=== PATIENT | male | born 1945 | race Caucasian/White ===

== ENCOUNTER 2016-07-15 09:57 | Emergency (ER) | payer BC, MEDICARE, OTHER ==
[~2016-07-15 09:57] MED LIST: AMLO5TAB2 PO; ASPI1TAB PO; ATEN100T PO; CRES20TA PO; FURO40TA2 PO; GLYB5TA PO; HYDR-4266 PO; LEXA1TAB2 PO; MIRT15TA3 PO; NOVO70IN SC; PLAV75TA38 PO; TENO1TAB4 PO; TRIC1TAB PO; ZETI10TA2 PO
--- NOTE | 2016-07-15 10:39 | REP ---
Clinical: Abdominal pain and constipation. Technique: Single supine view of the abdomen and pelvis. Findings: Bowel gas pattern is nonspecific. No abnormal calcifications. Skeletal structures demonstrate age-related degenerative changes to the lumbosacral spine and bilateral hips/pelvis. Impression: Nonspecific bowel gas pattern. Signed by Donald Randhawa MD 07/15/2016 10:31 A
--- NOTE | 2016-07-15 10:50 | EDDOCDS ---
Nurse's Notes [facility] Name: Tello Harry Age: 70 yrs Sex: Male : 1945 Arrival Date: 07/15/2016 Time: 09:57 Bed PR Private MD: Nicholas Garay P. Diagnosis: Anxiety disorder, unspecified Presentation: 07/15 10:01 Presenting complaint: Patient states: chronic constipation -- was seen at PCP office ttb yesterday and instructed to use Miralax -- no relief after 2 doses. States last BM was last night (diarrhea).... Adult Sepsis Screening: The patient does not have new or worsening altered mentation. Patient's respiratory rate is less than 22. Systolic blood pressure is greater than 100. Patient has a qSOFA score of 0- Negative Sepsis Screen. Suicide/Homicide risk assessment- the patient denies having any suicidal and/or homicidal ideations and does not present with any other emotional, behavioral or mental health complaints. Status: Patient is not a room service associate or dependent. Transition of care: patient was not received from another setting of care. 10:01 Acuity: DIEGO Level 4 ttb 10:01 Method Of Arrival: Walkin/Carried/Asstd ttb Triage Assessment: 10:06 General: Appears in no apparent distress, well nourished, well groomed, Behavior is ttb appropriate for age, cooperative, pleasant. Pain: Denies pain. Neurological: Level of Consciousness is awake, alert. Cardiovascular: Chest pain is denied. Respiratory: No deficits noted. GI: Abdomen is obese, Reports constipation. Derm: Skin is normal. Injury Description: No known injury. Historical: - Allergies: no known allergies; - Home Meds: 1. magnesium citrate oral soln as needed (Last dose: 07/13/2016) 2. Novolog Mix 70-30 100 unit/mL (70-30) subcutaneous soln 25 unit twice a day (Last dose: 07/15/2016 07:30) 3. omeprazole 40 mg Oral cpDR 1 cap once daily (Last dose: 07/15/2016 07:30) 4. atorvastatin 40 mg oral tab (Last dose: 07/14/2016) 5. alprazolam 0.5 mg Oral tab 3 times per day as needed (Last dose: 07/15/2016 08:00) 6. amlodipine 5 mg Oral tab 1 tab once daily (Last dose: 07/15/2016 07:30) 7. aspirin 81 mg Oral TbEC 1 tab once daily (Last dose: 07/15/2016 07:30) 8. carvedilol 12.5 mg oral tab 1 tab 2 times per day (Last dose: 07/15/2016 07:30) 9. clopidogrel 75 mg oral tab 1 tab once daily (Last dose: 07/15/2016 07:30) 10. folic acid 400 mcg Oral tab 1 tab once daily 11. Lexapro 10 mg Oral tab 0.5 tab once daily (Last dose: 07/15/2016 07:30) 12. fenofibrate 48 mg oral once daily (Last dose: 07/15/2016 07:30) 13. furosemide 40 mg Oral tab 1 tab once daily (Last dose: 07/15/2016 07:30) 14. hydralazine 25 mg Oral tab 1 tab 2 times per day (Last dose: 07/15/2016 07:30) 15. Iron CR 55mg Oral Unknown daily 16. mirtazapine 15 mg Oral TbDL 1 tab as needed (Last dose: Unknown) 17. polyethylene glycol 3350 oral once daily (Last dose: 07/15/2016 07:30) - PMHx: Anxiety; Constipation, Chronic; Diabetes - IDDM: controlled; High Cholesterol; Myocardial infarction; - PSHx: CABG; - Social history: Smoking status: Patient states was never smoker of tobacco. No barriers to communication noted, The patient speaks fluent Cymro, Speaks appropriately for age. - Family history: Not pertinent. - : The pt / caregiver states he / she is not on anticoagulants. Home medication list is obtained from the patient, a discharge med list. - Exposure Risk Screening:: None identified. Screenin:48 Screening information is obtained from the patient. Fall risk: No risks identified. mlb1 Assistance ADL's: requires no assistance with activities of daily living. Abuse/DV Screen: The patient / caregiver reports he/she is: not in a situation that causes fear, pain or injury. Nutritional screening: No deficits noted. Advance Directives: Currently, there is no health care proxy. home support is adequate. Assessment: 10:47 General: Appears in no apparent distress, Behavior is appropriate for age, cooperative. mlb1 Pain: Denies pain. GI: Abdomen is non- distended Bowel sounds present X 4 quads. Abd is soft and non tender X 4 quads. Vital Signs: 09:59 BP 155 / 88 RA Sitting (auto/lg); Pulse 59; Resp 18; Temp 96.5(O); Pulse Ox 99% on R/A; jrd Weight 83.91 kg (R); Height 5 ft. 5 in. (165.10 cm) (R); Pain 0/10; 09:59 Body Mass Index 30.79 (83.91 kg, 165.10 cm) [facility] Vitals: 09:59 Log In Time: July 15, 2016 at 09:55. d ED Course: 09:58 Patient visited by Apollo Jung PCA. jrd 09:58 Patient moved to Waiting jrd 09:59 Nicholas Garay is Private Physician. jrd 10:00 Patient visited by Apollo Jung PCA. jrd 10:00 Patient moved to Pre RCE jrd 10:02 Triage Initiated ttb 10:03 Rohith Pabon PA-C is PHCP. cc10 10:03 Ranjith Reynoso MD is Attending Physician. cc10 10:08 Patient moved to Triage 3 ttb 10:09 Patient visited by Rohith Pabon PA-C. cc10 10:09 Patient visited by Rohith Pabon PA-C. cc10 10:15 Patient moved to TR1 mlb1 10:33 Nicholas Garay is Referral Physician. cc10 10:37 Patient moved to PR2 / 26 mlb1 10:40 [facility] Payment Agreement was scanned into [employer] and attached to record. lg 10:48 No IV's were initiated during this patient's visit. No procedures done that require mlb1 assistance. 10:49 Patient visited by Sigifredo Mendez RN. mlb1 10:49 The patient / caregiver is instructed regarding the plan of care and ED course. mlb1 Order Results: There are currently no results for this order. Outcome: 10:33 Discharge ordered by Provider. cc10 10:48 Discharge Assessment: Patient awake, alert and oriented x 3. No cognitive and/or mlb1 functional deficits noted. Patient verbalized understanding of disposition instructions. patient administered narcotics - no. The following High Risk Discharge criteria are identified: None. Discharged to home ambulatory. Condition: good. Discharge instructions given to patient, Instructed on discharge instructions, follow up and referral plans. Demonstrated understanding of instructions, Pt was receptive of discharge instructions/ teaching. No special radiology studies were completed. Property removed. 10:49 Patient left the ED. mlb1 Signatures: Herman Schrader, Jason Reg lg Sigifredo Mendez RN RN mlb1 Carly Morales RN RN ttb Rohith Pabon, PAMarsC PA-C cc10 Apollo Jung PCA WATER SYSTEMS DESIGNER jrd Corrections: (The following items were deleted from the chart) 10:08 10:01 Presenting complaint: Patient states: chronic constipation -- was seen at PCP ttb office yesterday and instructed to use Miralax -- no relief after 2 doses. ttb MTDD
--- NOTE | 2016-07-15 10:50 | EDDOCDS ---
Physician Documentation [facility] Name: Tello Harry Age: 70 yrs Sex: Male : 1945 Arrival Date: 07/15/2016 Time: 09:57 Bed PR Private MD: Nicholas Garay P. Disposition: 07/15/16 10:33 Discharged to Home/Self Care. Impression: Anxiety disorder, unspecified. - Condition is Stable. - Discharge Instructions: Constipation, Adult. - Medication Reconciliation form. - Follow up: Nicholas Garay; When: Call to arrange an appointment; Reason: Wound/Symptom Recheck, Recheck today's complaints, Continuance of care. - Problem is chronic. - Symptoms are unchanged. Historical: - Allergies: no known allergies; - Home Meds: 1. magnesium citrate oral soln as needed (Last dose: 07/13/2016) 2. Novolog Mix 70-30 100 unit/mL (70-30) subcutaneous soln 25 unit twice a day (Last dose: 07/15/2016 07:30) 3. omeprazole 40 mg Oral cpDR 1 cap once daily (Last dose: 07/15/2016 07:30) 4. atorvastatin 40 mg oral tab (Last dose: 07/14/2016) 5. alprazolam 0.5 mg Oral tab 3 times per day as needed (Last dose: 07/15/2016 08:00) 6. amlodipine 5 mg Oral tab 1 tab once daily (Last dose: 07/15/2016 07:30) 7. aspirin 81 mg Oral TbEC 1 tab once daily (Last dose: 07/15/2016 07:30) 8. carvedilol 12.5 mg oral tab 1 tab 2 times per day (Last dose: 07/15/2016 07:30) 9. clopidogrel 75 mg oral tab 1 tab once daily (Last dose: 07/15/2016 07:30) 10. folic acid 400 mcg Oral tab 1 tab once daily 11. Lexapro 10 mg Oral tab 0.5 tab once daily (Last dose: 07/15/2016 07:30) 12. fenofibrate 48 mg oral once daily (Last dose: 07/15/2016 07:30) 13. furosemide 40 mg Oral tab 1 tab once daily (Last dose: 07/15/2016 07:30) 14. hydralazine 25 mg Oral tab 1 tab 2 times per day (Last dose: 07/15/2016 07:30) 15. Iron CR 55mg Oral Unknown daily 16. mirtazapine 15 mg Oral TbDL 1 tab as needed (Last dose: Unknown) 17. polyethylene glycol 3350 oral once daily (Last dose: 07/15/2016 07:30) - PMHx: Anxiety; Constipation, Chronic; Diabetes - IDDM: controlled; High Cholesterol; Myocardial infarction; - PSHx: CABG; - Social history: Smoking status: Patient states was never smoker of tobacco. No barriers to communication noted, The patient speaks fluent Lao, Speaks appropriately for age. - Family history: Not pertinent. - : The pt / caregiver states he / she is not on anticoagulants. Home medication list is obtained from the patient, a discharge med list. - Exposure Risk Screening:: None identified. Vital Signs: 07/15 09:59 BP 155 / 88 RA Sitting (auto/lg); Pulse 59; Resp 18; Temp 96.5(O); Pulse Ox 99% on R/A; jrd Weight 83.91 kg / 184.99 lbs (R); Height 5 ft. 5 in. (165.10 cm) (R); Pain 0/10; 09:59 Body Mass Index 30.79 (83.91 kg, 165.10 cm) jrd MDM: 10:14 KUB Ordered. EDMS 10:21 Financial registration complete. lg 10:40 [facility] Payment Agreement was scanned into [employer] and attached to record. lg Signatures: Dispatcher [employer] EDFL Herman Schrader, Jason Reg lg Sigifredo Mendez RN RN mlb1 Carly Morales RN RN ttb Rohith Pabon, TANNAC PA-C cc10 The chart was reviewed and I authenticate all verbal orders and agree with the evaluation and treatment provided.Attachments: 10:40 [facility] Payment Agreement lg MTDD
--- NOTE | 2016-07-17 11:50 | EDDOCDS ---
Physician Documentation [facility] Name: Tello Harry Age: 70 yrs Sex: Male : 1945 Arrival Date: 07/15/2016 Time: 09:57 Bed PR Private MD: Nicholas Garay P. Disposition: 07/15/16 10:33 Discharged to Home/Self Care. Impression: Anxiety disorder, unspecified. - Condition is Stable. - Discharge Instructions: Constipation, Adult. - Medication Reconciliation form. - Follow up: Nicholas Garay; When: Call to arrange an appointment; Reason: Wound/Symptom Recheck, Recheck today's complaints, Continuance of care. - Problem is chronic. - Symptoms are unchanged. Historical: - Allergies: no known allergies; - Home Meds: 1. magnesium citrate oral soln as needed (Last dose: 07/13/2016) 2. Novolog Mix 70-30 100 unit/mL (70-30) subcutaneous soln 25 unit twice a day (Last dose: 07/15/2016 07:30) 3. omeprazole 40 mg Oral cpDR 1 cap once daily (Last dose: 07/15/2016 07:30) 4. atorvastatin 40 mg oral tab (Last dose: 07/14/2016) 5. alprazolam 0.5 mg Oral tab 3 times per day as needed (Last dose: 07/15/2016 08:00) 6. amlodipine 5 mg Oral tab 1 tab once daily (Last dose: 07/15/2016 07:30) 7. aspirin 81 mg Oral TbEC 1 tab once daily (Last dose: 07/15/2016 07:30) 8. carvedilol 12.5 mg oral tab 1 tab 2 times per day (Last dose: 07/15/2016 07:30) 9. clopidogrel 75 mg oral tab 1 tab once daily (Last dose: 07/15/2016 07:30) 10. folic acid 400 mcg Oral tab 1 tab once daily 11. Lexapro 10 mg Oral tab 0.5 tab once daily (Last dose: 07/15/2016 07:30) 12. fenofibrate 48 mg oral once daily (Last dose: 07/15/2016 07:30) 13. furosemide 40 mg Oral tab 1 tab once daily (Last dose: 07/15/2016 07:30) 14. hydralazine 25 mg Oral tab 1 tab 2 times per day (Last dose: 07/15/2016 07:30) 15. Iron CR 55mg Oral Unknown daily 16. mirtazapine 15 mg Oral TbDL 1 tab as needed (Last dose: Unknown) 17. polyethylene glycol 3350 oral once daily (Last dose: 07/15/2016 07:30) - PMHx: Anxiety; Constipation, Chronic; Diabetes - IDDM: controlled; High Cholesterol; Myocardial infarction; - PSHx: CABG; - Social history: Smoking status: Patient states was never smoker of tobacco. No barriers to communication noted, The patient speaks fluent Upper Sorbian, Speaks appropriately for age. - Family history: Not pertinent. - : The pt / caregiver states he / she is not on anticoagulants. Home medication list is obtained from the patient, a discharge med list. - Exposure Risk Screening:: None identified. Vital Signs: 07/15 09:59 BP 155 / 88 RA Sitting (auto/lg); Pulse 59; Resp 18; Temp 96.5(O); Pulse Ox 99% on R/A; jrd Weight 83.91 kg / 184.99 lbs (R); Height 5 ft. 5 in. (165.10 cm) (R); Pain 0/10; 09:59 Body Mass Index 30.79 (83.91 kg, 165.10 cm) jrd MDM: 10:14 KUB Ordered. EDMS 10:21 Financial registration complete. lg 10:40 [facility] Payment Agreement was scanned into [employer] and attached to record. lg 12:54 T-Sheet-- Draft Copy was scanned into [employer] and attached to record. klr Signatures: Dispatcher [employer] EDMO Herman Schrader, Reg Reg lg Sigifredo Mendez RN RN mlb1 Carly Morales RN RN ttb Rohith Pabon PA-C PAOliverio cc10 Ada Cassidy The chart was reviewed and I authenticate all verbal orders and agree with the evaluation and treatment provided.Attachments: 10:40 [facility] Payment Agreement lg 12:54 T-Sheet-- Draft Copy klr Chart Complete MTDD
--- NOTE | 2016-07-17 11:50 | EDDOCDS ---
Nurse's Notes [facility] Name: Tello Harry Age: 70 yrs Sex: Male : 1945 Arrival Date: 07/15/2016 Time: 09:57 Bed PR Private MD: Nicholas Garay P. Diagnosis: Anxiety disorder, unspecified Presentation: 07/15 10:01 Presenting complaint: Patient states: chronic constipation -- was seen at PCP office ttb yesterday and instructed to use Miralax -- no relief after 2 doses. States last BM was last night (diarrhea).... Adult Sepsis Screening: The patient does not have new or worsening altered mentation. Patient's respiratory rate is less than 22. Systolic blood pressure is greater than 100. Patient has a qSOFA score of 0- Negative Sepsis Screen. Suicide/Homicide risk assessment- the patient denies having any suicidal and/or homicidal ideations and does not present with any other emotional, behavioral or mental health complaints. Status: Patient is not a it service continuity supervisor or dependent. Transition of care: patient was not received from another setting of care. 10:01 Acuity: DIEGO Level 4 ttb 10:01 Method Of Arrival: Walkin/Carried/Asstd ttb Triage Assessment: 10:06 General: Appears in no apparent distress, well nourished, well groomed, Behavior is ttb appropriate for age, cooperative, pleasant. Pain: Denies pain. Neurological: Level of Consciousness is awake, alert. Cardiovascular: Chest pain is denied. Respiratory: No deficits noted. GI: Abdomen is obese, Reports constipation. Derm: Skin is normal. Injury Description: No known injury. Historical: - Allergies: no known allergies; - Home Meds: 1. magnesium citrate oral soln as needed (Last dose: 07/13/2016) 2. Novolog Mix 70-30 100 unit/mL (70-30) subcutaneous soln 25 unit twice a day (Last dose: 07/15/2016 07:30) 3. omeprazole 40 mg Oral cpDR 1 cap once daily (Last dose: 07/15/2016 07:30) 4. atorvastatin 40 mg oral tab (Last dose: 07/14/2016) 5. alprazolam 0.5 mg Oral tab 3 times per day as needed (Last dose: 07/15/2016 08:00) 6. amlodipine 5 mg Oral tab 1 tab once daily (Last dose: 07/15/2016 07:30) 7. aspirin 81 mg Oral TbEC 1 tab once daily (Last dose: 07/15/2016 07:30) 8. carvedilol 12.5 mg oral tab 1 tab 2 times per day (Last dose: 07/15/2016 07:30) 9. clopidogrel 75 mg oral tab 1 tab once daily (Last dose: 07/15/2016 07:30) 10. folic acid 400 mcg Oral tab 1 tab once daily 11. Lexapro 10 mg Oral tab 0.5 tab once daily (Last dose: 07/15/2016 07:30) 12. fenofibrate 48 mg oral once daily (Last dose: 07/15/2016 07:30) 13. furosemide 40 mg Oral tab 1 tab once daily (Last dose: 07/15/2016 07:30) 14. hydralazine 25 mg Oral tab 1 tab 2 times per day (Last dose: 07/15/2016 07:30) 15. Iron CR 55mg Oral Unknown daily 16. mirtazapine 15 mg Oral TbDL 1 tab as needed (Last dose: Unknown) 17. polyethylene glycol 3350 oral once daily (Last dose: 07/15/2016 07:30) - PMHx: Anxiety; Constipation, Chronic; Diabetes - IDDM: controlled; High Cholesterol; Myocardial infarction; - PSHx: CABG; - Social history: Smoking status: Patient states was never smoker of tobacco. No barriers to communication noted, The patient speaks fluent Mosotho, Speaks appropriately for age. - Family history: Not pertinent. - : The pt / caregiver states he / she is not on anticoagulants. Home medication list is obtained from the patient, a discharge med list. - Exposure Risk Screening:: None identified. Screenin:48 Screening information is obtained from the patient. Fall risk: No risks identified. mlb1 Assistance ADL's: requires no assistance with activities of daily living. Abuse/DV Screen: The patient / caregiver reports he/she is: not in a situation that causes fear, pain or injury. Nutritional screening: No deficits noted. Advance Directives: Currently, there is no health care proxy. home support is adequate. Assessment: 10:47 General: Appears in no apparent distress, Behavior is appropriate for age, cooperative. mlb1 Pain: Denies pain. GI: Abdomen is non- distended Bowel sounds present X 4 quads. Abd is soft and non tender X 4 quads. Vital Signs: 09:59 BP 155 / 88 RA Sitting (auto/lg); Pulse 59; Resp 18; Temp 96.5(O); Pulse Ox 99% on R/A; jrd Weight 83.91 kg (R); Height 5 ft. 5 in. (165.10 cm) (R); Pain 0/10; 09:59 Body Mass Index 30.79 (83.91 kg, 165.10 cm) [facility] Vitals: 09:59 Log In Time: July 15, 2016 at 09:55. d ED Course: 09:58 Patient visited by Apollo Jung PCA. jrd 09:58 Patient moved to Waiting jrd 09:59 Nicholas Garay is Private Physician. jrd 10:00 Patient visited by Apollo Jung PCA. jrd 10:00 Patient moved to Pre RCE jrd 10:02 Triage Initiated ttb 10:03 Rohith Pabon PA-C is PHCP. cc10 10:03 Ranjith Reynoso MD is Attending Physician. cc10 10:08 Patient moved to Triage 3 ttb 10:09 Patient visited by Rohith Pabon PA-C. cc10 10:09 Patient visited by Rohith Pabon PA-C. cc10 10:15 Patient moved to TR1 mlb1 10:33 Nicholas Garay is Referral Physician. cc10 10:37 Patient moved to PR2 / 26 mlb1 10:40 [facility] Payment Agreement was scanned into [employer] and attached to record. lg 10:48 No IV's were initiated during this patient's visit. No procedures done that require mlb1 assistance. 10:49 Patient visited by Sigifredo Mendez RN. mlb1 10:49 The patient / caregiver is instructed regarding the plan of care and ED course. mlb1 10:50 KUB Returned. EDMS 12:54 T-Sheet-- Draft Copy was scanned into [employer] and attached to record. klr Order Results: Radiology Order: KUB Test: KUB REASON FOR EXAMINATION: constipation; Clinical: Abdominal pain and constipation.; ; Technique: Single supine view of the abdomen and pelvis.; ; Findings:; Bowel gas pattern is nonspecific. No abnormal calcifications. Skeletal; structures demonstrate age-related degenerative changes to the lumbosacral spine; and bilateral hips/pelvis.; ; Impression:; Nonspecific bowel gas pattern.; ; ; Signed by; Donald Randhawa MD 07/15/2016 10:31 A; Outcome: 10:33 Discharge ordered by Provider. cc10 10:48 Discharge Assessment: Patient awake, alert and oriented x 3. No cognitive and/or mlb1 functional deficits noted. Patient verbalized understanding of disposition instructions. patient administered narcotics - no. The following High Risk Discharge criteria are identified: None. Discharged to home ambulatory. Condition: good. Discharge instructions given to patient, Instructed on discharge instructions, follow up and referral plans. Demonstrated understanding of instructions, Pt was receptive of discharge instructions/ teaching. No special radiology studies were completed. Property removed. 10:49 Patient left the ED. mlb1 Signatures: Dispatcher [employer] EDMS Herman Schrader, Jason Reg Sigifredo Mendez RN RN mlb1 Carly Morales RN RN ttb Rohith Pabon, PA-C PA-C cc10 Apollo Jung, VJ CORE LOADER Ada Meyer Corrections: (The following items were deleted from the chart) 10:08 10:01 Presenting complaint: Patient states: chronic constipation -- was seen at PCP ttb office yesterday and instructed to use Miralax -- no relief after 2 doses. ttb Chart Complete MTDD
--- NOTE | 2016-07-17 11:50 | EDDOCDS ---
Physician Documentation [facility] Name: Tello Harry Age: 70 yrs Sex: Male : 1945 Arrival Date: 07/15/2016 Time: 09:57 Bed PR Private MD: Nicholas Garay P. Disposition: 07/15/16 10:33 Discharged to Home/Self Care. Impression: Anxiety disorder, unspecified. - Condition is Stable. - Discharge Instructions: Constipation, Adult. - Medication Reconciliation form. - Follow up: Nicholas Garay; When: Call to arrange an appointment; Reason: Wound/Symptom Recheck, Recheck today's complaints, Continuance of care. - Problem is chronic. - Symptoms are unchanged. Historical: - Allergies: no known allergies; - Home Meds: 1. magnesium citrate oral soln as needed (Last dose: 07/13/2016) 2. Novolog Mix 70-30 100 unit/mL (70-30) subcutaneous soln 25 unit twice a day (Last dose: 07/15/2016 07:30) 3. omeprazole 40 mg Oral cpDR 1 cap once daily (Last dose: 07/15/2016 07:30) 4. atorvastatin 40 mg oral tab (Last dose: 07/14/2016) 5. alprazolam 0.5 mg Oral tab 3 times per day as needed (Last dose: 07/15/2016 08:00) 6. amlodipine 5 mg Oral tab 1 tab once daily (Last dose: 07/15/2016 07:30) 7. aspirin 81 mg Oral TbEC 1 tab once daily (Last dose: 07/15/2016 07:30) 8. carvedilol 12.5 mg oral tab 1 tab 2 times per day (Last dose: 07/15/2016 07:30) 9. clopidogrel 75 mg oral tab 1 tab once daily (Last dose: 07/15/2016 07:30) 10. folic acid 400 mcg Oral tab 1 tab once daily 11. Lexapro 10 mg Oral tab 0.5 tab once daily (Last dose: 07/15/2016 07:30) 12. fenofibrate 48 mg oral once daily (Last dose: 07/15/2016 07:30) 13. furosemide 40 mg Oral tab 1 tab once daily (Last dose: 07/15/2016 07:30) 14. hydralazine 25 mg Oral tab 1 tab 2 times per day (Last dose: 07/15/2016 07:30) 15. Iron CR 55mg Oral Unknown daily 16. mirtazapine 15 mg Oral TbDL 1 tab as needed (Last dose: Unknown) 17. polyethylene glycol 3350 oral once daily (Last dose: 07/15/2016 07:30) - PMHx: Anxiety; Constipation, Chronic; Diabetes - IDDM: controlled; High Cholesterol; Myocardial infarction; - PSHx: CABG; - Social history: Smoking status: Patient states was never smoker of tobacco. No barriers to communication noted, The patient speaks fluent Spanish, Speaks appropriately for age. - Family history: Not pertinent. - : The pt / caregiver states he / she is not on anticoagulants. Home medication list is obtained from the patient, a discharge med list. - Exposure Risk Screening:: None identified. Vital Signs: 07/15 09:59 BP 155 / 88 RA Sitting (auto/lg); Pulse 59; Resp 18; Temp 96.5(O); Pulse Ox 99% on R/A; jrd Weight 83.91 kg / 184.99 lbs (R); Height 5 ft. 5 in. (165.10 cm) (R); Pain 0/10; 09:59 Body Mass Index 30.79 (83.91 kg, 165.10 cm) jrd MDM: 10:14 KUB Ordered. EDMS 10:21 Financial registration complete. lg 10:40 [facility] Payment Agreement was scanned into [employer] and attached to record. lg 12:54 T-Sheet-- Draft Copy was scanned into [employer] and attached to record. klr Signatures: Dispatcher [employer] EDKY Herman Schrader, Reg Reg lg Sigifredo Mendez RN RN mlb1 Carly Morales RN RN ttb Rohith Pabon PA-C PAOliverio cc10 Ada Cassidy The chart was reviewed and I authenticate all verbal orders and agree with the evaluation and treatment provided.Attachments: 10:40 [facility] Payment Agreement lg 12:54 T-Sheet-- Draft Copy klr Chart Complete MTDD
== END 2016-07-15 10:49 | disposition home or self-care (01) ==
LOC: M ED 09:57
DX: F41.9 Anxiety disorder, unspecified (principal); K59.09 Other constipation; E11.9 Type 2 diabetes mellitus without complications; E78.00 Pure hypercholesterolemia, unspecified; I25.2 Old myocardial infarction; Z95.1 Presence of aortocoronary bypass graft; Z79.4 Long term (current) use of insulin; Z79.82 Long term (current) use of aspirin; Z79.899 Other long term (current) drug therapy; Z79.02 Long term (current) use of antithrombotics/antiplatelets

== ENCOUNTER 2016-07-18 11:23 | Emergency (ER) | payer OTHER ==
[2016-07-18 14:37] LABS: CALCIUM LEVEL 8.6 MG/DL (8.8-10.2); CREATININE FOR GFR 2.55 MG/DL (0.70-1.30); GLOMERULAR FILTRATION RATE 26.5 (>42); POTASSIUM SERUM 3.5 MEQ/L (3.5-5.1)
--- NOTE | 2016-07-18 16:05 | EDDOCDS ---
Nurse's Notes [facility] Name: Tello Harry Age: 70 yrs Sex: Male : 1945 Arrival Date: 07/18/2016 Time: 11:[address] MD: Nicholas Garay P. Diagnosis: Major depressive disorder, recurrent, mild;Chronic kidney disease (CKD) Presentation: 07/18 11:30 Red Flag criteria, patient assessed and taken directly to a bed. [facility] 11:49 Presenting complaint: Patient states: Sister in September of last year and best jo3 friend of 30 years committed suicide 05/30/16. 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 Also reports experiencing fear that he will when he goes to sleep at night. KSY Gillespie states that this is an ongoing complaint for pt. Mental Health Triage Level: Level 1- Pt displays no suicidal or homicidal ideations and does not appear to be a danger to self or others. Adult Sepsis Screening: The patient does not have new or worsening altered mentation. Patient's respiratory rate is less than 22. Systolic blood pressure is greater than 100. Patient has a qSOFA score of 0- Negative Sepsis Screen. Suicide/Homicide risk assessment- the patient denies having any suicidal and/or homicidal ideations and does not present with any other emotional, behavioral or mental health complaints. Status: Patient is not a financial services counselor or dependent. Transition of care: patient was not received from another setting of care. 11:49 Acuity: DIEGO Level 4 jo3 11:49 Method Of Arrival: Walkin/Carried/Asstd jo3 Triage Assessment: 11:54 General: Appears in no apparent distress, comfortable, Behavior is appropriate for age, jo3 cooperative, pleasant. Pain: Denies pain. Neurological: No deficits noted. Level of Consciousness is awake, alert, Oriented to person, place, time. Respiratory: No deficits noted. Airway is patent Respiratory effort is even, unlabored. Derm: Skin is pink, warm & dry. normal. Historical: - Allergies: No known drug Allergies; - Home Meds: 1. alprazolam 0.5 mg Oral tab 3 times per day as needed 2. amlodipine 5 mg Oral tab 1 tab once daily 3. aspirin 81 mg Oral TbEC 1 tab once daily 4. atorvastatin 40 mg oral tab 5. carvedilol 12.5 mg oral tab 1 tab 2 times per day 6. clopidogrel 75 mg oral tab 1 tab once daily 7. furosemide 40 mg Oral tab 1 tab once daily 8. Lexapro 10 mg Oral tab 0.5 tab once daily 9. magnesium citrate oral soln as needed 10. hydralazine 25 mg Oral tab 1 tab 2 times per day 11. Novolog Mix 70-30 100 unit/mL (70-30) subcutaneous soln 25 unit twice a day 12. fenofibrate 48 mg oral once daily 13. folic acid 400 mcg Oral tab 1 tab once daily 14. Iron CR 55mg Oral Unknown daily 15. mirtazapine 15 mg Oral TbDL 1 tab as needed 16. polyethylene glycol 3350 oral once daily 17. omeprazole 40 mg Oral cpDR 1 cap once daily - PMHx: Anxiety; Constipation, Chronic; Diabetes - IDDM: controlled; High Cholesterol; Myocardial infarction; - PSHx: CABG; - Social history: No barriers to communication noted, The patient speaks fluent Guyanese, Speaks appropriately for age. - Family history: Not pertinent. - : The pt / caregiver states he / she is not on anticoagulants. Home medication list is obtained from the patient. - Exposure Risk Screening:: None identified. Screenin:35 Screening information is obtained from the patient. Fall risk: No risks identified. jo3 Assistance ADL's: requires no assistance with activities of daily living. Abuse/DV Screen: The patient / caregiver reports he/she is: not in a situation that causes fear, pain or injury. Nutritional screening: No deficits noted. Advance Directives: There is no active DNR order. home support is adequate. Assessment: 12:34 General: Appears in no apparent distress, comfortable, Behavior is anxious, jo3 cooperative, pleasant. General: Appears Behavior is appropriate for age. General: Resting in room following conversation with Dr Walton. Awaiting disposition at this time. Aware of plan of care . Pain: Denies pain. Neurological: No deficits noted. Level of Consciousness is awake, alert, Oriented to person, place, time. EENT: No deficits noted. Cardiovascular: No deficits noted. Respiratory: No deficits noted. Airway is patent Respiratory effort is even, unlabored. Derm: Skin is pink, warm & dry. 13:30 Reassessment: Patient appears in no apparent distress at this time. Patient denies pain jo3 at this time. Family at bedside. Awaiting disposition at this time. Aware of plan of care . 14:31 Reassessment: Patient appears in no apparent distress at this time. Patient denies pain jo3 at this time. Respirations unlabored, deep and regular. Family remains at bedside. Awaiting lab results. Aware of plan of care. Security observing . 16:01 General: Appears in no apparent distress, comfortable, Behavior is appropriate for age, jo3 cooperative, pleasant. Neurological: No deficits noted. Level of Consciousness is awake, alert, Oriented to person, place, time. Cardiovascular: No deficits noted. Respiratory: Airway is patent Respiratory effort is even, unlabored. Derm: Skin is pink, warm & dry. Social Work Consult: 14:27 Social Work Note: Pt is 70 yowm who presented with reporting he is very anxious, ac sleeping in the daytime and staying up at night because he is afraid he will . Pt also has other somatic complaints mainly focusing on his kidneys and poor renal function. Pt denies SI/HI, no AH/VH. Pt is able to CFS at this time. Pt has appointment with Kianna Cohen at [facility] on [id number]. No further intervention required at this time. Vital Signs: 11:25 BP 159 / 74; Pulse 57; Resp 18; Temp 97.3(O); Pulse Ox 97% on R/A; Weight 83.01 kg (R); ct3 Height 5 ft. 5 in. (165.10 cm) (R); Pain 0/10; 16:01 BP 144 / 70; Pulse 58; Resp 18; Temp 97.8(O); Pulse Ox 96% on R/A; Pain 0/10; jo3 11:25 Body Mass Index 30.45 (83.01 kg, 165.10 cm) ct3 Vitals: 11:25 Log In Time: July 18, 2016 at 11:23. RN notified that patient meets Red Flag ct3 criteria. ED Course: 11:24 Patient visited by Leda Castillo PCA. ct3 11:24 Patient moved to [facility] ct3 11:25 Nicholas Garay is Private Physician. ct3 11:27 Patient moved to [facility] ct3 11:31 Patient visited by Mau Carter. dpm 11:35 Apple Walton MD is Attending Physician. fg 11:40 Patient visited by Apple Walton MD. fg 11:51 Triage Initiated jo3 11:52 Patient visited by Mau Carter. dpm 11:54 Patient visited by Mary Koenig,JOSEE. jo3 12:03 [facility] Payment Agreement was scanned into [employer] and attached to record. [email or web address] 12:10 Patient visited by Mau Carter. dpm 12:25 Patient visited by Mau Carter. dpm 12:35 The patient / caregiver is instructed regarding the plan of care and ED course. jo3 12:35 No IV's were initiated during this patient's visit. No procedures done that require jo3 assistance. 12:36 Patient visited by Mary Koenig RN. jo3 12:41 Patient visited by Mau Carter. dpm 13:01 Patient visited by Mau Carter. dpm 13:16 Patient visited by Mau Carter. dpm 13:34 Patient visited by Mau Carter. dpm 13:51 Patient visited by Mau Carter. dpm 14:08 Patient visited by Mau Carter. dpm 14:12 Basic Metabolic Profile Sent. dpm 14:23 Patient visited by Mau Carter. dpm 14:32 Patient visited by Mray Koenig,JOSEE. jo3 14:38 Patient visited by Mau Carter. dpm 14:57 Patient visited by Mau Carter. dpm 15:13 Patient visited by Mau Carter. dpm 15:30 Nicholas Garay is Referral Physician. fg Order Results: Lab Order: Basic Metabolic Profile; SPEC'M 07/18/16 14:11 Test: GLUCOSE, FASTING; Value: 327; Range: 83-110; Abnormal: Above high normal; Units: MG/DL; Status: F Test: BLOOD UREA NITROGEN; Value: 30; Range: 7-18; Abnormal: Above high normal; Units: MG/DL; Status: F Test: CREATININE FOR GFR; Value: 2.55; Range: 0.70-1.30; Abnormal: Above high normal; Units: MG/DL; Status: F Test: GLOMERULAR FILTRATION RATE; Value: 26.5; Range: >42; Abnormal: Below low normal; Status: F Test: SODIUM LEVEL; Value: 141; Range: 136-145; Units: MEQ/L; Status: F Test: POTASSIUM SERUM; Value: 3.5; Range: 3.5-5.1; Units: MEQ/L; Status: F Test: CHLORIDE LEVEL; Value: 100; Range: 98-107; Units: MEQ/L; Status: F Test: CARBON DIOXIDE LEVEL; Value: 30; Range: 21-32; Units: MEQ/L; Status: F Test: ANION GAP; Value: 11; Range: 8-16; Units: MEQ/L; Status: F Test: CALCIUM LEVEL; Value: 8.6; Range: 8.8-10.2; Abnormal: Below low normal; Units: MG/DL; Status: F Test Note: ; Units are mL/min/1.73 m2 Chronic Kidney Disease Staging per NKF: Stage I & II GFR >=60 Normal to Mildly Decreased Stage III GFR 30-59 Moderately Decreased Stage IV GFR 15-29 Severely Decreased Stage V GFR <15 Very Little GFR Left ESRD GFR <15 on AUTO COLLISION REPAIR INSTRUCTOR Outcome: 15:30 Discharge ordered by Provider. fg 16:03 Discharge Assessment: Patient awake, alert and oriented x 3. No cognitive and/or jo3 functional deficits noted. Patient verbalized understanding of disposition instructions. patient administered narcotics - no. The following High Risk Discharge criteria are identified: None. Discharged to home ambulatory, with family. Condition: stable Condition: improved. Discharge instructions given to patient, Instructed on discharge instructions, follow up and referral plans. No special radiology studies were completed. Property sent home with patient. 16:04 Patient left the ED. jo3 Signatures: Heather Schneider, RN RN srm Garry, Braden, PSA PSA ac Mary Koenig RN RN jo3 Leda Castillo, VJ CABIN CLEANING SUPERVISOR ct3 Mau Carter dpApple Savage MD MD fg Sorenson, Kimberly, Reg Reg [email or web address] Corrections: (The following items were deleted from the chart) 12:36 12:33 THYROID STIMULATING HORMONE+LAB sent. EDMS MTDD
--- NOTE | 2016-07-18 16:05 | EDDOCDS ---
Physician Documentation [facility] Name: Tello Harry Age: 70 yrs Sex: Male : 1945 Arrival Date: 07/18/2016 Time: 11:[address] MD: Nicholas Garay P. Disposition: 07/18/16 15:30 Discharged to Home/Self Care. Impression: Major depressive disorder, recurrent, mild, Chronic kidney disease (CKD). - Condition is Stable. - Discharge Instructions: Depression, Adult, [id number], Chronic Kidney Disease. - Medication Reconciliation, Local Pharmacy Hours form. - Follow up: Nicholas Garay; When: Call to arrange an appointment; Reason: Continuance of care. - Problem is chronic. - Symptoms are unchanged. - Notes: You have been evaluated for your depression and your chronic kidney disease. Your blood work showed no change in your kidney lab work. Please follow up with your rn case manager and your primary care provider. Please call the outpatient services that the social sciences instructor provided you. Historical: - Allergies: No known drug Allergies; - Home Meds: 1. alprazolam 0.5 mg Oral tab 3 times per day as needed 2. amlodipine 5 mg Oral tab 1 tab once daily 3. aspirin 81 mg Oral TbEC 1 tab once daily 4. atorvastatin 40 mg oral tab 5. carvedilol 12.5 mg oral tab 1 tab 2 times per day 6. clopidogrel 75 mg oral tab 1 tab once daily 7. furosemide 40 mg Oral tab 1 tab once daily 8. Lexapro 10 mg Oral tab 0.5 tab once daily 9. magnesium citrate oral soln as needed 10. hydralazine 25 mg Oral tab 1 tab 2 times per day 11. Novolog Mix 70-30 100 unit/mL (70-30) subcutaneous soln 25 unit twice a day 12. fenofibrate 48 mg oral once daily 13. folic acid 400 mcg Oral tab 1 tab once daily 14. Iron CR 55mg Oral Unknown daily 15. mirtazapine 15 mg Oral TbDL 1 tab as needed 16. polyethylene glycol 3350 oral once daily 17. omeprazole 40 mg Oral cpDR 1 cap once daily - PMHx: Anxiety; Constipation, Chronic; Diabetes - IDDM: controlled; High Cholesterol; Myocardial infarction; - PSHx: CABG; - Social history: No barriers to communication noted, The patient speaks fluent Ghanaian, Speaks appropriately for age. - Family history: Not pertinent. - : The pt / caregiver states he / she is not on anticoagulants. Home medication list is obtained from the patient. - Exposure Risk Screening:: None identified. Vital Signs: 07/18 11:25 BP 159 / 74; Pulse 57; Resp 18; Temp 97.3(O); Pulse Ox 97% on R/A; Weight 83.01 kg / ct3 183.01 lbs (R); Height 5 ft. 5 in. (165.10 cm) (R); Pain 0/10; 16:01 BP 144 / 70; Pulse 58; Resp 18; Temp 97.8(O); Pulse Ox 96% on R/A; Pain 0/10; jo3 11:25 Body Mass Index 30.45 (83.01 kg, 165.10 cm) ct3 MDM: 11:36 Consult PFS/PSA/Yarn Twister ordered. fg 11:36 Consult PFS/PSA/Yarn Twister: Patient's case requires discussion with on-call Psychiatrist ordered. 12:03 Financial registration complete. [email or web address] 12:03 [facility] Payment Agreement was scanned into [employer] and attached to record. [email or web address] 12:32 REGULAR DIET PLASTIC ANTOINE+DIET ordered. EDMS 13:56 Basic Metabolic Profile Ordered. EDMS Signatures: Dispatcher [employer] Mary Boyce,RN RN jo3 Apple Walton MD MD Aminata Underwood, Reg Reg [email or web address] The chart was reviewed and I authenticate all verbal orders and agree with the evaluation and treatment provided.Corrections: (The following items were deleted from the chart) 12:33 11:36 PSA/PFS to call Nursing Five Roll Refiner Batch Mixer, to enter patient data on [place] Safe [place] if fg patient involuntarily admitted or transferred for SI or HI ordered. fg 12:33 11:36 Confirm accurate psychiatric medication list and times of last dosage ordered. fg fg 12:33 11:36 Detain Pt Until Medically/PFS Cleared ordered. fg fg 12:35 11:36 ACETAMINOPHEN LEVEL+LAB ordered. EDMS EDMS 12:35 11:36 BASIC METABOLIC PROFILE+LAB ordered. EDMS EDMS 12:35 11:36 COMPLETE BLOOD COUNT+LAB ordered. EDMS EDMS 12:35 11:37 URINALYSIS+LAB ordered. EDMS EDMS 12:35 11:37 URINE CULTURE+YVROSE ordered. EDMS EDMS 12:36 11:36 DRUG EVAL TOXICOLOGY ED ONLY+LAB ordered. EDMS EDMS 12:36 11:36 ETHYL ALCOHOL (ETHANOL)+LAB ordered. EDMS EDMS 12:36 11:36 LIVER PROFILE+LAB ordered. EDMS EDMS 12:36 11:36 SALICYLATE LEVEL+LAB ordered. EDMS EDMS 12:36 11:37 THYROID STIMULATING HORMONE+LAB ordered. EDMS EDMS Attachments: 12:03 [facility] Payment Agreement [email or web address] MTDD
--- NOTE | 2016-07-20 17:05 | EDDOCDS ---
Physician Documentation [facility] Name: Tello Harry Age: 70 yrs Sex: Male : 1945 Arrival Date: 07/18/2016 Time: 11:[address] MD: Nicholas Garay P. Disposition: 07/18/16 15:30 Discharged to Home/Self Care. Impression: Major depressive disorder, recurrent, mild, Chronic kidney disease (CKD). - Condition is Stable. - Discharge Instructions: Depression, Adult, [id number], Chronic Kidney Disease. - Medication Reconciliation, Local Pharmacy Hours form. - Follow up: Nicholas Garay; When: Call to arrange an appointment; Reason: Continuance of care. - Problem is chronic. - Symptoms are unchanged. - Notes: You have been evaluated for your depression and your chronic kidney disease. Your blood work showed no change in your kidney lab work. Please follow up with your life sciences instructor and your primary care provider. Please call the outpatient services that the director of social work provided you. Historical: - Allergies: No known drug Allergies; - Home Meds: 1. alprazolam 0.5 mg Oral tab 3 times per day as needed 2. amlodipine 5 mg Oral tab 1 tab once daily 3. aspirin 81 mg Oral TbEC 1 tab once daily 4. atorvastatin 40 mg oral tab 5. carvedilol 12.5 mg oral tab 1 tab 2 times per day 6. clopidogrel 75 mg oral tab 1 tab once daily 7. furosemide 40 mg Oral tab 1 tab once daily 8. Lexapro 10 mg Oral tab 0.5 tab once daily 9. magnesium citrate oral soln as needed 10. hydralazine 25 mg Oral tab 1 tab 2 times per day 11. Novolog Mix 70-30 100 unit/mL (70-30) subcutaneous soln 25 unit twice a day 12. fenofibrate 48 mg oral once daily 13. folic acid 400 mcg Oral tab 1 tab once daily 14. Iron CR 55mg Oral Unknown daily 15. mirtazapine 15 mg Oral TbDL 1 tab as needed 16. polyethylene glycol 3350 oral once daily 17. omeprazole 40 mg Oral cpDR 1 cap once daily - PMHx: Anxiety; Constipation, Chronic; Diabetes - IDDM: controlled; High Cholesterol; Myocardial infarction; - PSHx: CABG; - Social history: No barriers to communication noted, The patient speaks fluent [place] Citizen, Speaks appropriately for age. - Family history: Not pertinent. - : The pt / caregiver states he / she is not on anticoagulants. Home medication list is obtained from the patient. - Exposure Risk Screening:: None identified. Vital Signs: 07/18 11:25 BP 159 / 74; Pulse 57; Resp 18; Temp 97.3(O); Pulse Ox 97% on R/A; Weight 83.01 kg / ct3 183.01 lbs (R); Height 5 ft. 5 in. (165.10 cm) (R); Pain 0/10; 16:01 BP 144 / 70; Pulse 58; Resp 18; Temp 97.8(O); Pulse Ox 96% on R/A; Pain 0/10; jo3 11:25 Body Mass Index 30.45 (83.01 kg, 165.10 cm) ct3 MDM: 11:36 Consult PFS/PSA/Packaging Sales Representative ordered. fg 11:36 Consult PFS/PSA/Packaging Sales Representative: Patient's case requires discussion with on-call Psychiatrist ordered. 12:03 Financial registration complete. [email or web address] 12:03 [facility] Payment Agreement was scanned into [employer] and attached to record. [email or web address] 12:32 REGULAR DIET PLASTIC ANTOINE+DIET ordered. EDMS 13:56 Basic Metabolic Profile Ordered. EDMS 18:05 T-Sheet-- Draft Copy was scanned into [employer] and attached to record. klr Signatures: Dispatcher [employer] EDIN Mary Koenig RN RN jo3 Apple Walton MD MD fg Sorenson, Kimberly, Reg Reg [email or web address] Ada Cassidy klkathryn The chart was reviewed and I authenticate all verbal orders and agree with the evaluation and treatment provided.Corrections: (The following items were deleted from the chart) 12:33 11:36 PSA/PFS to call Nursing Table Assembler Metal, to enter [place] data [place] Safe [place] if fg patient involuntarily admitted or transferred for SI or HI ordered. fg 12:33 11:36 Confirm accurate psychiatric medication list and times of last dosage ordered. fg fg 12:33 11:36 Detain Pt Until Medically/PFS Cleared ordered. fg fg 12:35 11:36 ACETAMINOPHEN LEVEL+LAB ordered. EDMS EDMS 12:35 11:36 BASIC METABOLIC PROFILE+LAB ordered. EDMS EDMS 12:35 11:36 COMPLETE BLOOD COUNT+LAB ordered. EDMS EDMS 12:35 11:37 URINALYSIS+LAB ordered. EDMS EDMS 12:35 11:37 URINE CULTURE+YVROSE ordered. EDMS EDMS 12:36 11:36 DRUG EVAL TOXICOLOGY ED ONLY+LAB ordered. EDMS EDMS 12:36 11:36 ETHYL ALCOHOL (ETHANOL)+LAB ordered. EDMS EDMS 12:36 11:36 LIVER PROFILE+LAB ordered. EDMS EDMS 12:36 11:36 SALICYLATE LEVEL+LAB ordered. EDMS EDMS 12:36 11:37 THYROID STIMULATING HORMONE+LAB ordered. EDMS EDMS Attachments: 12:03 [facility] Payment Agreement [email or web address] 18:05 T-Sheet-- Draft Copy klr Chart Complete MTDD
--- NOTE | 2016-07-20 17:05 | EDDOCDS ---
Physician Documentation [facility] Name: Tello Harry Age: 70 yrs Sex: Male : 1945 Arrival Date: 07/18/2016 Time: 11:[address] MD: Nicholas Garay P. Disposition: 07/18/16 15:30 Discharged to Home/Self Care. Impression: Major depressive disorder, recurrent, mild, Chronic kidney disease (CKD). - Condition is Stable. - Discharge Instructions: Depression, Adult, [id number], Chronic Kidney Disease. - Medication Reconciliation, Local Pharmacy Hours form. - Follow up: Nicholas Garay; When: Call to arrange an appointment; Reason: Continuance of care. - Problem is chronic. - Symptoms are unchanged. - Notes: You have been evaluated for your depression and your chronic kidney disease. Your blood work showed no change in your kidney lab work. Please follow up with your supervisor line department and your primary care provider. Please call the outpatient services that the social services analyst provided you. Historical: - Allergies: No known drug Allergies; - Home Meds: 1. alprazolam 0.5 mg Oral tab 3 times per day as needed 2. amlodipine 5 mg Oral tab 1 tab once daily 3. aspirin 81 mg Oral TbEC 1 tab once daily 4. atorvastatin 40 mg oral tab 5. carvedilol 12.5 mg oral tab 1 tab 2 times per day 6. clopidogrel 75 mg oral tab 1 tab once daily 7. furosemide 40 mg Oral tab 1 tab once daily 8. Lexapro 10 mg Oral tab 0.5 tab once daily 9. magnesium citrate oral soln as needed 10. hydralazine 25 mg Oral tab 1 tab 2 times per day 11. Novolog Mix 70-30 100 unit/mL (70-30) subcutaneous soln 25 unit twice a day 12. fenofibrate 48 mg oral once daily 13. folic acid 400 mcg Oral tab 1 tab once daily 14. Iron CR 55mg Oral Unknown daily 15. mirtazapine 15 mg Oral TbDL 1 tab as needed 16. polyethylene glycol 3350 oral once daily 17. omeprazole 40 mg Oral cpDR 1 cap once daily - PMHx: Anxiety; Constipation, Chronic; Diabetes - IDDM: controlled; High Cholesterol; Myocardial infarction; - PSHx: CABG; - Social history: No barriers to communication noted, The patient speaks fluent Argentine, Speaks appropriately for age. - Family history: Not pertinent. - : The pt / caregiver states he / she is not on anticoagulants. Home medication list is obtained from the patient. - Exposure Risk Screening:: None identified. Vital Signs: 07/18 11:25 BP 159 / 74; Pulse 57; Resp 18; Temp 97.3(O); Pulse Ox 97% on R/A; Weight 83.01 kg / ct3 183.01 lbs (R); Height 5 ft. 5 in. (165.10 cm) (R); Pain 0/10; 16:01 BP 144 / 70; Pulse 58; Resp 18; Temp 97.8(O); Pulse Ox 96% on R/A; Pain 0/10; jo3 11:25 Body Mass Index 30.45 (83.01 kg, 165.10 cm) ct3 MDM: 11:36 Consult PFS/PSA/Manager Behavioral ordered. fg 11:36 Consult PFS/PSA/Manager Behavioral: Patient's case requires discussion with on-call Psychiatrist ordered. 12:03 Financial registration complete. [email or web address] 12:03 [facility] Payment Agreement was scanned into [employer] and attached to record. [email or web address] 12:32 REGULAR DIET PLASTIC ANTOINE+DIET ordered. EDMS 13:56 Basic Metabolic Profile Ordered. EDMS 18:05 T-Sheet-- Draft Copy was scanned into [employer] and attached to record. klr Signatures: Dispatcher [employer] EDWY Mary Koenig RN RN jo3 Apple Walton MD MD fg Sorenson, Kimberly, Reg Reg [email or web address] Ada Cassidy klkathryn The chart was reviewed and I authenticate all verbal orders and agree with the evaluation and treatment provided.Corrections: (The following items were deleted from the chart) 12:33 11:36 PSA/PFS to call Nursing Rubber Printing Machine Operator, to enter [place] data [place] if fg patient involuntarily admitted or transferred for SI or HI ordered. fg 12:33 11:36 Confirm accurate psychiatric medication list and times of last dosage ordered. fg fg 12:33 11:36 Detain Pt Until Medically/PFS Cleared ordered. fg fg 12:35 11:36 ACETAMINOPHEN LEVEL+LAB ordered. EDMS EDMS 12:35 11:36 BASIC METABOLIC PROFILE+LAB ordered. EDMS EDMS 12:35 11:36 COMPLETE BLOOD COUNT+LAB ordered. EDMS EDMS 12:35 11:37 URINALYSIS+LAB ordered. EDMS EDMS 12:35 11:37 URINE CULTURE+YVROSE ordered. EDMS EDMS 12:36 11:36 DRUG EVAL TOXICOLOGY ED ONLY+LAB ordered. EDMS EDMS 12:36 11:36 ETHYL ALCOHOL (ETHANOL)+LAB ordered. EDMS EDMS 12:36 11:36 LIVER PROFILE+LAB ordered. EDMS EDMS 12:36 11:36 SALICYLATE LEVEL+LAB ordered. EDMS EDMS 12:36 11:37 THYROID STIMULATING HORMONE+LAB ordered. EDMS EDMS Attachments: 12:03 [facility] Payment Agreement [email or web address] 18:05 T-Sheet-- Draft Copy klr Chart Complete MTDD
--- NOTE | 2016-07-20 17:05 | EDDOCDS ---
Nurse's Notes [facility] Name: Tello Harry Age: 70 yrs Sex: Male : 1945 Arrival Date: 07/18/2016 Time: 11:[address] MD: Nicholas Garay P. Diagnosis: Major depressive disorder, recurrent, mild;Chronic kidney disease (CKD) Presentation: 07/18 11:30 Red Flag criteria, patient assessed and taken directly to a bed. [facility] 11:49 Presenting complaint: Patient states: Sister in September of last year and best jo3 friend of 30 years committed suicide 05/30/16. 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 Also reports experiencing fear that he will when he goes to sleep at night. SKY Gillespie states that this is an ongoing complaint for pt. Mental Health Triage Level: Level 1- Pt displays no suicidal or homicidal ideations and does not appear to be a danger to self or others. Adult Sepsis Screening: The patient does not have new or worsening altered mentation. Patient's respiratory rate is less than 22. Systolic blood pressure is greater than 100. Patient has a qSOFA score of 0- Negative Sepsis Screen. Suicide/Homicide risk assessment- the patient denies having any suicidal and/or homicidal ideations and does not present with any other emotional, behavioral or mental health complaints. Status: Patient is not a health equipment servicer or dependent. Transition of care: patient was not received from another setting of care. 11:49 Acuity: DIEGO Level 4 jo3 11:49 Method Of Arrival: Walkin/Carried/Asstd jo3 Triage Assessment: 11:54 General: Appears in no apparent distress, comfortable, Behavior is appropriate for age, jo3 cooperative, pleasant. Pain: Denies pain. Neurological: No deficits noted. Level of Consciousness is awake, alert, Oriented to person, place, time. Respiratory: No deficits noted. Airway is patent Respiratory effort is even, unlabored. Derm: Skin is pink, warm & dry. normal. Historical: - Allergies: No known drug Allergies; - Home Meds: 1. alprazolam 0.5 mg Oral tab 3 times per day as needed 2. amlodipine 5 mg Oral tab 1 tab once daily 3. aspirin 81 mg Oral TbEC 1 tab once daily 4. atorvastatin 40 mg oral tab 5. carvedilol 12.5 mg oral tab 1 tab 2 times per day 6. clopidogrel 75 mg oral tab 1 tab once daily 7. furosemide 40 mg Oral tab 1 tab once daily 8. Lexapro 10 mg Oral tab 0.5 tab once daily 9. magnesium citrate oral soln as needed 10. hydralazine 25 mg Oral tab 1 tab 2 times per day 11. Novolog Mix 70-30 100 unit/mL (70-30) subcutaneous soln 25 unit twice a day 12. fenofibrate 48 mg oral once daily 13. folic acid 400 mcg Oral tab 1 tab once daily 14. Iron CR 55mg Oral Unknown daily 15. mirtazapine 15 mg Oral TbDL 1 tab as needed 16. polyethylene glycol 3350 oral once daily 17. omeprazole 40 mg Oral cpDR 1 cap once daily - PMHx: Anxiety; Constipation, Chronic; Diabetes - IDDM: controlled; High Cholesterol; Myocardial infarction; - PSHx: CABG; - Social history: No barriers to communication noted, The patient speaks fluent Spanish, Speaks appropriately for age. - Family history: Not pertinent. - : The pt / caregiver states he / she is not on anticoagulants. Home medication list is obtained from the patient. - Exposure Risk Screening:: None identified. Screenin:35 Screening information is obtained from the patient. Fall risk: No risks identified. jo3 Assistance ADL's: requires no assistance with activities of daily living. Abuse/DV Screen: The patient / caregiver reports he/she is: not in a situation that causes fear, pain or injury. Nutritional screening: No deficits noted. Advance Directives: There is no active DNR order. home support is adequate. Assessment: 12:34 General: Appears in no apparent distress, comfortable, Behavior is anxious, jo3 cooperative, pleasant. General: Appears Behavior is appropriate for age. General: Resting in room following conversation with Dr Walton. Awaiting disposition at this time. Aware of plan of care . Pain: Denies pain. Neurological: No deficits noted. Level of Consciousness is awake, alert, Oriented to person, place, time. EENT: No deficits noted. Cardiovascular: No deficits noted. Respiratory: No deficits noted. Airway is patent Respiratory effort is even, unlabored. Derm: Skin is pink, warm & dry. 13:30 Reassessment: Patient appears in no apparent distress at this time. Patient denies pain jo3 at this time. Family at bedside. Awaiting disposition at this time. Aware of plan of care . 14:31 Reassessment: Patient appears in no apparent distress at this time. Patient denies pain jo3 at this time. Respirations unlabored, deep and regular. Family remains at bedside. Awaiting lab results. Aware of plan of care. Security observing . 16:01 General: Appears in no apparent distress, comfortable, Behavior is appropriate for age, jo3 cooperative, pleasant. Neurological: No deficits noted. Level of Consciousness is awake, alert, Oriented to person, place, time. Cardiovascular: No deficits noted. Respiratory: Airway is patent Respiratory effort is even, unlabored. Derm: Skin is pink, warm & dry. Social Work Consult: 14:27 Social Work Note: Pt is 70 yowm who presented with reporting he is very anxious, ac sleeping in the daytime and staying up at night because he is afraid he will . Pt also has other somatic complaints mainly focusing on his kidneys and poor renal function. Pt denies SI/HI, no AH/VH. Pt is able to CFS at this time. Pt has appointment with Kianna Cohen at [facility] on [id number]. No further intervention required at this time. Vital Signs: 11:25 BP 159 / 74; Pulse 57; Resp 18; Temp 97.3(O); Pulse Ox 97% on R/A; Weight 83.01 kg (R); ct3 Height 5 ft. 5 in. (165.10 cm) (R); Pain 0/10; 16:01 BP 144 / 70; Pulse 58; Resp 18; Temp 97.8(O); Pulse Ox 96% on R/A; Pain 0/10; jo3 11:25 Body Mass Index 30.45 (83.01 kg, 165.10 cm) ct3 Vitals: 11:25 Log In Time: July 18, 2016 at 11:23. RN notified that patient meets Red Flag ct3 criteria. ED Course: 11:24 Patient visited by Leda Castillo PCA. ct3 11:24 Patient moved to [facility] ct3 11:25 Nicholas Garay is Private Physician. ct3 11:27 Patient moved to [facility] ct3 11:31 Patient visited by Mau Carter. dpm 11:35 Apple Walton MD is Attending Physician. fg 11:40 Patient visited by Apple Walton MD. fg 11:51 Triage Initiated jo3 11:52 Patient visited by Mau Carter. dpm 11:54 Patient visited by Mary Koenig,JOSEE. jo3 12:03 [facility] Payment Agreement was scanned into [employer] and attached to record. [email or web address] 12:10 Patient visited by Mau Carter. dpm 12:25 Patient visited by Mau Carter. dpm 12:35 The patient / caregiver is instructed regarding the plan of care and ED course. jo3 12:35 No IV's were initiated during this patient's visit. No procedures done that require jo3 assistance. 12:36 Patient visited by Mary Koenig RN. jo3 12:41 Patient visited by Mau Carter. dpm 13:01 Patient visited by Mau Carter. dpm 13:16 Patient visited by Mau Carter. dpm 13:34 Patient visited by Mau Crater. dpm 13:51 Patient visited by Mau Carter. dpm 14:08 Patient visited by Mau Carter. dpm 14:12 Basic Metabolic Profile Sent. dpm 14:23 Patient visited by Mau Carter. dpm 14:32 Patient visited by Mary Koenig,JOSEE. jo3 14:38 Patient visited by Mau Carter. dpm 14:57 Patient visited by Mau Carter. dpm 15:13 Patient visited by Mau Carter. dpm 15:30 Nicholas Garay is Referral Physician. fg 18:05 T-Sheet-- Draft Copy was scanned into [employer] and attached to record. klr Order Results: Lab Order: Basic Metabolic Profile; SPEC'M 07/18/16 14:11 Test: GLUCOSE, FASTING; Value: 327; Range: 83-110; Abnormal: Above high normal; Units: MG/DL; Status: F Test: BLOOD UREA NITROGEN; Value: 30; Range: 7-18; Abnormal: Above high normal; Units: MG/DL; Status: F Test: CREATININE FOR GFR; Value: 2.55; Range: 0.70-1.30; Abnormal: Above high normal; Units: MG/DL; Status: F Test: GLOMERULAR FILTRATION RATE; Value: 26.5; Range: >42; Abnormal: Below low normal; Status: F Test: SODIUM LEVEL; Value: 141; Range: 136-145; Units: MEQ/L; Status: F Test: POTASSIUM SERUM; Value: 3.5; Range: 3.5-5.1; Units: MEQ/L; Status: F Test: CHLORIDE LEVEL; Value: 100; Range: 98-107; Units: MEQ/L; Status: F Test: CARBON DIOXIDE LEVEL; Value: 30; Range: 21-32; Units: MEQ/L; Status: F Test: ANION GAP; Value: 11; Range: 8-16; Units: MEQ/L; Status: F Test: CALCIUM LEVEL; Value: 8.6; Range: 8.8-10.2; Abnormal: Below low normal; Units: MG/DL; Status: F Test Note: ; Units are mL/min/1.73 m2 Chronic Kidney Disease Staging per NKF: Stage I & II GFR >=60 Normal to Mildly Decreased Stage III GFR 30-59 Moderately Decreased Stage IV GFR 15-29 Severely Decreased Stage V GFR <15 Very Little GFR Left ESRD GFR <15 on [employer]ORTH[employer] Outcome: 15:30 Discharge ordered by Provider. fg 16:03 Discharge Assessment: Patient awake, alert and oriented x 3. No cognitive and/or jo3 functional deficits noted. Patient verbalized understanding of disposition instructions. patient administered narcotics - no. The following High Risk Discharge criteria are identified: None. Discharged to home ambulatory, with family. Condition: stable Condition: improved. Discharge instructions given to patient, Instructed on discharge instructions, follow up and referral plans. No special radiology studies were completed. Property sent home with patient. 16:04 Patient left the ED. jo3 Signatures: Heather Schneider, RN RN srm Garry, Braden, PSA PSA ac Mary Koenig RN RN jo3 Leda Castillo, LEASE ATTENDANT LEASE ATTENDANT ct3 Mau Carter dpm, Frances, MD MD Aminata Underwood, Reg Reg [email or web address] Ada Cassidy Corrections: (The following items were deleted from the chart) 12:36 12:33 THYROID STIMULATING HORMONE+LAB sent. fg EDMS Chart Complete MTDD
== END 2016-07-18 16:04 | disposition home or self-care (01) ==
LOC: M ED 11:23
DX: F32.9 Major depressive disorder, single episode, unspecified (principal); N18.9 Chronic kidney disease, unspecified; E11.22 Type 2 diabetes mellitus with diabetic chronic kidney disease; F41.9 Anxiety disorder, unspecified; K59.09 Other constipation; E78.00 Pure hypercholesterolemia, unspecified; I25.2 Old myocardial infarction; Z95.1 Presence of aortocoronary bypass graft; Z79.899 Other long term (current) drug therapy; Z79.82 Long term (current) use of aspirin; Z79.4 Long term (current) use of insulin

== ENCOUNTER 2016-07-20 17:21 | Emergency (ER) | payer OTHER ==
[~2016-07-20] VITALS: Ht 165.1 cm; Wt 83.0 kg
[2016-07-20 19:57] LABS: BASO % 0.3 % (0.0-1.0); EOS # 0.1 K/mm3 (0.0-0.50); EOS % 0.9 % (0.0-3.0); LARGE UNSTAINED CELL # 0.1 K/mm3 (0.0-0.4); LARGE UNSTAINED CELL % 0.6 % (0.0-4.0); LYMPH # 0.6 K/mm3 (1.5-4.5); MEAN CORPUSCULAR HEMOGLOBIN 31.2 pg (27.0-33.0); MEAN CORPUSCULAR VOLUME 89.2 fl (80.0-96.0); NEUTROPHILS # 11.9 K/mm3 (1.8-7.7); NEUTROPHILS % 87.3 % (36.0-66.0); PLATELET COUNT, AUTOMATED 236 k/mm3 (150-450); RED CELL DISTRIBUTION WIDTH 13.5 % (11.5-14.5); WHITE BLOOD COUNT 13.6 K/mm3 (4.0-10.0)
--- NOTE | 2016-07-20 20:05 | REP ---
Clinical: Acute abdominal pain. Comparison: 03/19/2015. Findings: Lung bases demonstrate calcified granuloma in the left lower lobe. Liver and spleen demonstrate small parenchymal calcifications consistent with prior granulomas disease. Pancreas, gallbladder, bilateral adrenal glands are normal. The kidneys demonstrate chronic symmetric perinephric stranding without hydroureteronephrosis or nephrolithiasis. The enteric system is without obstruction or acute inflammatory process and a normal terminal ileum and appendix are identified in the right lower quadrant. Pelvis demonstrates normal bladder and mildly prominent prostate gland measuring 4.5 cm transverse diameter. Small fat containing left inguinal hernia noted. No ascites. No adenopathy. No free air. Atherosclerotic changes of the aorta and branch vessels noted without aneurysm. Surrounding musculoskeletal structures demonstrate degenerative changes Impression: No acute intra-abdominal or pelvic pathology appreciated. Evidence of prior granulomas disease. Chronic symmetric perinephric stranding. Atherosclerotic changes of the aorta and vasculature. Degenerative changes of the musculoskeletal structures. Signed by Donald Randhawa MD 07/20/2016 07:56 P
[2016-07-20 20:14] LABS: ALBUMIN/GLOBULIN RATIO 1.43 (1.00-1.93); BILIRUBIN,DIRECT 0.2 MG/DL (0.0-0.2); BILIRUBIN,TOTAL 0.5 MG/DL (0.2-1.0); CALCIUM LEVEL 9.1 MG/DL (8.8-10.2); CREATININE FOR GFR 2.37 MG/DL (0.70-1.30); GLOMERULAR FILTRATION RATE 28.9 (>42); POTASSIUM SERUM 3.8 MEQ/L (3.5-5.1); TOTAL PROTEIN 6.8 GM/DL (6.4-8.2)
[2016-07-20] MEDS ORDERED: SIMETHICONE 80 MG CHEW TAB PO ONE (21:45)
--- NOTE | 2016-07-20 22:01 | EDDOCDS ---
Nurse's Notes [facility] Name: Tello Harry Age: 70 yrs Sex: Male : 1945 Arrival Date: 07/20/2016 Time: 17:21 Bed I4 / M4 Private MD: Nicholas Garay P. Diagnosis: Anxiety disorder, unspecified;Hemorrhoids and perianal venous thrombosis;Generalized abdominal pain Presentation: 07/20 17:28 Presenting complaint: Patient states: Patient reports being constipated. Patient gives jmb self suppository but feels like it is hanging there with inability to go to bathroom. Patient reports went all night and this morning but now having difficulty, feels like he has to go "badly but can't". Patient reports taking laxative and stool softener earlier today. Adult Sepsis Screening: The patient does not have new or worsening altered mentation. Patient's respiratory rate is less than 22. Systolic blood pressure is greater than 100. Patient has a qSOFA score of 0- Negative Sepsis Screen. Suicide/Homicide risk assessment- the patient denies having any suicidal and/or homicidal ideations and does not present with any other emotional, behavioral or mental health complaints. Status: Patient is not a customer service associate or dependent. Transition of care: patient was not received from another setting of care. 17:28 Acuity: DIEGO Level 4 [facility] 17:28 Method Of Arrival: Walkin/Carried/Asstd [facility] Triage Assessment: 17:31 General: Appears in no apparent distress, Behavior is appropriate for age. Pain: Denies [facility] pain. Neurological: Level of Consciousness is awake, alert, obeys commands, Oriented to person, place, time, Speech is normal, Facial symmetry appears normal, Facial symmetry: tongue is midline. Respiratory: Airway is patent Respiratory effort is even, unlabored, Respiratory pattern is regular, symmetrical. GI: Abdomen is obese. Derm: Skin is pink, warm & dry. Musculoskeletal: Range of motion intact in all extremities. Historical: - Allergies: No known drug Allergies; - Home Meds: 1. alprazolam 0.5 mg Oral tab 3 times per day as needed 2. amlodipine 5 mg Oral tab 1 tab once daily 3. aspirin 81 mg Oral TbEC 1 tab once daily 4. atorvastatin 40 mg oral tab 5. carvedilol 12.5 mg oral tab 1 tab 2 times per day 6. clopidogrel 75 mg oral tab 1 tab once daily 7. fenofibrate 48 mg oral once daily 8. folic acid 400 mcg Oral tab 1 tab once daily 9. furosemide 40 mg Oral tab 1 tab once daily 10. hydralazine 25 mg Oral tab 1 tab 2 times per day 11. Iron CR 55mg Oral Unknown daily 12. Lexapro 10 mg Oral tab 0.5 tab once daily 13. magnesium citrate oral soln as needed 14. mirtazapine 15 mg Oral TbDL 1 tab as needed 15. Novolog Mix 70-30 100 unit/mL (70-30) subcutaneous soln 25 unit twice a day 16. omeprazole 40 mg Oral cpDR 1 cap once daily 17. polyethylene glycol 3350 oral once daily - PMHx: Anxiety; Constipation, Chronic; Diabetes - IDDM: controlled; High Cholesterol; Myocardial infarction; - PSHx: CABG; - Social history: Smoking status: Patient states was never smoker of tobacco. No barriers to communication noted, The patient speaks fluent Montenegrin, Speaks appropriately for age. - Family history: Not pertinent. - : The pt / caregiver states he / she is not on anticoagulants. Home medication list is obtained from the patient. - Exposure Risk Screening:: None identified. Screenin:46 Screening information is obtained from the patient. Fall risk: No risks identified. lf1 Assistance ADL's: requires no assistance with activities of daily living. Abuse/DV Screen: The patient / caregiver reports he/she is: not in a situation that causes fear, pain or injury. Nutritional screening: No deficits noted. Advance Directives: Currently, there is no health care proxy. home support is adequate. Assessment: 19:46 Adult Sepsis Screening: The patient does not have new or worsening altered mentation. lf1 Patient's respiratory rate is less than 22. Systolic blood pressure is greater than 100. Patient has a qSOFA score of 0- Negative Sepsis Screen. General: Appears in no apparent distress, obese, Behavior is anxious, restless. General: Pt reports that he has been increasingly anxious lately and fearful that he is "going to " states he has been seen multiple times because he felt there was something wrong with his kidneys and now he thinks something is wrong with his bowels because he has diarrhea and is constipated.. Pain: Denies pain. Neurological: Level of Consciousness is awake, alert, obeys commands, Oriented to person, place, time. EENT: No deficits noted. Cardiovascular: Chest pain is denied. Respiratory: Respiratory effort is even, unlabored. GI: Abdomen is non- distended obese, Bowel sounds present X 4 quads. Abd is soft and non tender X 4 quads. Reports constipation, diarrhea. Derm: Skin is normal. Injury Description: No known injury. 20:12 General: Appears Pt first reported to this nurse that he felt like his blood sugar was lf1 high and he needed insulin, when I asked when he last ate he told me early this morning. I told pt. the labs we had drawn would give us his blood glucose and would be back any moment. Pt. then reported that he felt his blood sugar was too low and he needed to eat. I checked his blood sugar and he was 249. Provider was notified. No new orders given. Pain: Denies pain. Respiratory: Respiratory effort is even, unlabored. GI: Denies nausea, vomiting. Social Work Consult: 21:18 Social Work Note: Met pt at bedside regarding numerous ED visits, last being 2 days ml4 ago, along with symptoms of depression. Pt reports presenting to ED due to feeling constipated and feels so anxious he is going to "because maybe I have a bowel obstruction." He feels his anxiety stems from numerous family/friends that have recently, including his best friend who committed suicide Apr, 2016. He admits caring for his friend who suffered from COPD. Pt states, "he took of his oxygen mask and turned of his concentrator and ." Admits struggling with best friend's which exacerbates his anxiety level. PA requested social work to speak to pt and GF separately due to both crying when PA walked into pt's room, along with just being seen 2 days ago with similar complaints. Girlfriend reports both crying due pt thinking he was going to tonight. She states pt's anxiety has been overwhelming after his friend killed himself, but feels he would never kill himself. Pt is currently in tx with Kianna Cohen \\Justo\\ SHAINA and Psychiatrist is scheduled with Dr. Morrison 09/12/16. Pt adamantly denies SI and HI, able to CFS. GF does not have any safety concerns. Referrals for outpt services was given at bedside if pt feels he needs a new therapist. No concerns noted, however PSA will remain available if needed. Vital Signs: 17:23 BP 194 / 97 RA Sitting (auto/reg); Pulse 88; Resp 18; Temp 96.7(T); Pulse Ox 100% on jrd R/A; Weight 83.01 kg; Height 5 ft. 5 in. (165.10 cm) (R); Pain 0/10; 17:23 BP 167 / 89 RA Sitting (man/reg); jrd 21:58 BP 147 / 71; Pulse 70; Resp 16; Pain 0/10; mf4 17:23 Body Mass Index 30.45 (83.01 kg, 165.10 cm) [facility] Vitals: 17:23 Log In Time: July 20, 2016 at 17:21. [facility] ED Course: 17:22 Patient visited by Apollo Jung PCA. jrd 17:22 Patient moved to Waiting jrd 17:23 Nicholas Garay is Private Physician. jrd 17:27 Patient visited by Apollo Jung PCA. jrd 17:27 Patient moved to Pre RCE jrd 17:30 Triage Initiated jmb 18:29 Patient moved to Triage 3 ml6 18:31 Patient visited by Jorje Light RN. ml6 18:56 Rohith Pabon PA-C is PHCP. cc10 18:56 Kavita Guerrero MD is Attending Physician. cc10 18:56 Patient visited by Rohith Pabon PA-C. cc10 18:56 Patient visited by Rohith Pabon PA-C. cc10 19:01 Patient moved to I4 / js13 19:46 Inserted saline lock: 20 gauge in left forearm and blood collected. Labs drawn. (by ED lf1 staff). Sent per order to lab. 19:50 Urinalysis Sent. lf1 19:51 Patient visited by Alivia Simon RN. lf1 19:51 Urine Culture Sent. lf1 19:55 Patient visited by Suzette Harvey PCA. ar3 19:55 EKG done. (by ED staff). Reviewed by Rohith Pabon PA-C. ar3 20:15 Patient visited by Alivia Simon RN. lf1 20:18 CT ABD & PELVIS: No Contrast Returned. EDMS 21:08 Patient visited by [place] PSA. ml4 21:20 Nicholas Garay is Referral Physician. cc10 21:24 [facility] Payment Agreement was scanned into [employer] and attached to record. gjb 21:42 PSA Outpatient Referrals was scanned into [employer] and attached to record. ml4 21:58 The patient / caregiver is instructed regarding the plan of care and ED course. mf4 21:58 No procedures done that require assistance. mf4 21:58 Discontinued IV lock. mf4 Administered Medications: 20:00 Drug: NS 0.9% 1000 ml [sodium chloride 0.9 % intravenous solution] Route: IV; Rate: 250 lf1 mL/hr; Site: left forearm; 21:58 Drug: Simethicone 80 mg Route: PO; mf4 Point of Care Testing: Blood Glucose: 20:12 Blood Glucose: 249 mg/dL; lf1 Ranges: Order Results: Lab Order: Basic Metabolic Profile; [facility]' 07/20/16 19:39 Test: GLUCOSE, FASTING; Value: 271; Range: 83-110; Abnormal: Above high normal; Units: MG/DL; Status: F Test: BLOOD UREA NITROGEN; Value: 25; Range: 7-18; Abnormal: Above high normal; Units: MG/DL; Status: F Test: CREATININE FOR GFR; Value: 2.37; Range: 0.70-1.30; Abnormal: Above high normal; Units: MG/DL; Status: F Test: GLOMERULAR FILTRATION RATE; Value: 28.9; Range: >42; Abnormal: Below low normal; Status: F Test: SODIUM LEVEL; Value: 141; Range: 136-145; Units: MEQ/L; Status: F Test: POTASSIUM SERUM; Value: 3.8; Range: 3.5-5.1; Units: MEQ/L; Status: F Test: CHLORIDE LEVEL; Value: 103; Range: 98-107; Units: MEQ/L; Status: F Test: CARBON DIOXIDE LEVEL; Value: 29; Range: 21-32; Units: MEQ/L; Status: F Test: ANION GAP; Value: 9; Range: 8-16; Units: MEQ/L; Status: F Test: CALCIUM LEVEL; Value: 9.1; Range: 8.8-10.2; Units: MG/DL; Status: F Test Note: ; Units are mL/min/1.73 m2 Chronic Kidney Disease Staging per NKF: Stage I & II GFR >=60 Normal to Mildly Decreased Stage III GFR 30-59 Moderately Decreased Stage IV GFR 15-29 Severely Decreased Stage V GFR <15 Very Little GFR Left ESRD GFR <15 on STRING WINDING MACHINE OPERATOR Lab Order: CBC with Diff; SPEC'M 07/20/16 19:39 Test: WHITE BLOOD COUNT; Value: 13.6; Range: 4.0-10.0; Abnormal: Above high normal; Units: K/mm3; Status: F Test: RED BLOOD COUNT; Value: 4.73; Range: 4.30-6.10; Units: M/mm3; Status: F Test: HEMOGLOBIN; Value: 14.8; Range: 14.0-18.0; Units: g/dl; Status: F Test: HEMATOCRIT; Value: 42.2; Range: 42.0-52.0; Units: %; Status: F Test: MEAN CORPUSCULAR VOLUME; Value: 89.2; Range: 80.0-96.0; Units: fl; Status: F Test: MEAN CORPUSCULAR HEMOGLOBIN; Value: 31.2; Range: 27.0-33.0; Units: pg; Status: F Test: MEAN CORPUSCULAR HGB CONC; Value: 35.0; Range: 32.0-36.5; Units: g/dl; Status: F Test: RED CELL DISTRIBUTION WIDTH; Value: 13.5; Range: 11.5-14.5; Units: %; Status: F Test: PLATELET COUNT, AUTOMATED; Value: 236; Range: 150-450; Units: k/mm3; Status: F Test: NEUTROPHILS %; Value: 87.3; Range: 36.0-66.0; Abnormal: Above high normal; Units: %; Status: F Test: LYMPH %; Value: 4.0; Range: 24.0-44.0; Abnormal: Below low normal; Units: %; Status: F Test: MONO %; Value: 7.0; Range: 0.0-5.0; Abnormal: Above high normal; Units: %; Status: F Test: EOS %; Value: 0.9; Range: 0.0-3.0; Units: %; Status: F Test: BASO %; Value: 0.3; Range: 0.0-1.0; Units: %; Status: F Test: LARGE UNSTAINED CELL %; Value: 0.6; Range: 0.0-4.0; Units: %; Status: F Test: NEUTROPHILS #; Value: 11.9; Range: 1.8-7.7; Abnormal: Above high normal; Units: K/mm3; Status: F Test: LYMPH #; Value: 0.6; Range: 1.5-4.5; Abnormal: Below low normal; Units: K/mm3; Status: F Test: MONO #; Value: 1.0; Range: 0.0-0.8; Abnormal: Above high normal; Units: K/mm3; Status: F Test: EOS #; Value: 0.1; Range: 0.0-0.50; Units: K/mm3; Status: F Test: BASO #; Value: 0.0; Range: 0.0-0.2; Units: K/mm3; Status: F Test: LARGE UNSTAINED CELL #; Value: 0.1; Range: 0.0-0.4; Units: K/mm3; Status: F Lab Order: Lipase; SPEC' 07/20/16 19:39 Test: LIPASE; Value: 153; Range: 73-393; Units: U/L; Status: F Lab Order: Liver Profile; [facility]' 07/20/16 19:39 Test: AST/SGOT; Value: 22; Range: 15-37; Units: U/L; Status: F Test: ALT/SGPT; Value: 15; Range: 12-78; Units: U/L; Status: F Test: ALKALINE PHOSPHATASE; Value: 98; Range: 45-117; Units: U/L; Status: F Test: BILIRUBIN,TOTAL; Value: 0.5; Range: 0.2-1.0; Units: MG/DL; Status: F Test: BILIRUBIN,DIRECT; Value: 0.2; Range: 0.0-0.2; Units: MG/DL; Status: F Test: TOTAL PROTEIN; Value: 6.8; Range: 6.4-8.2; Units: GM/DL; Status: F Test: ALBUMIN; Value: 4.0; Range: 3.2-5.2; Units: GM/DL; Status: F Test: ALBUMIN/GLOBULIN RATIO; Value: 1.43; Range: 1.00-1.93; Status: F Lab Order: Urinalysis; SPEC'M 07/20/16 19:39 Test: APPEARANCE, URINE; Value: CLEAR; Range: CLEAR; Status: F Test: COLOR, URINE; Value: STRAW; Range: YELLOW; Status: F Test: PH,URINE; Value: 8.0; Range: 5.0-9.0; Units: UNITS; Status: F Test: SPECIFIC GRAVITY URINE AUTO; Value: 1.006; Range: 1.002-1.035; Status: F Test: PROTEIN, URINE AUTO; Value: NEGATIVE; Range: NEGATIVE; Units: mg/dL; Status: F Test: GLUCOSE, URINE (UA) AUTO; Value: 3+; Range: NEGATIVE; Abnormal: Above high normal; Units: mg/dL; Status: F Test: KETONE, URINE AUTO; Value: NEGATIVE; Range: NEGATIVE; Units: mg/dL; Status: F Test: UROBILINOGEN, URINE AUTO; Value: 0.2; Range: 0.0-2.0; Units: mg/dL; Status: F Test: BILIRUBIN, URINE AUTO; Value: NEGATIVE; Range: NEGATIVE; Status: F Test: NITRITE, URINE AUTO; Value: NEGATIVE; Range: NEGATIVE; Status: F Test: LEUKOCYTE ESTERASE, URINE AUTO; Value: NEGATIVE; Range: NEGATIVE; Status: F Test: BLOOD, URINE BLOOD; Value: NEGATIVE; Range: NEGATIVE; Status: F Test: WBC, URINE AUTO; Value: 0; Range: 0-3; Units: /HPF; Status: F Test: RBC, URINE AUTO; Value: 5; Range: 0-3; Abnormal: Above high normal; Units: /HPF; Status: F Test: BACTERIA, URINE AUTO; Value: NEGATIVE; Range: NEGATIVE; Status: F Test: SQUAMOUS EPITHELIAL CELL UR AU; Value: 0; Range: 0-6; Units: /HPF; Status: F Test: HYALINE CAST, URINE AUTO; Value: 0; Range: 0-1; Units: /LPF; Status: F Lab Order: BNP; SPEC'M 07/20/16 19:39 Test: BRAIN NATRIURETIC PEPTIDE; Value: 201; Range: <100; Abnormal: Above high normal; Units: PG/ML; Status: F Lab Order: Fingerstick Blood Sugar; VIKY 07/20/16 20:10 Test: BEDSIDE GLUCOSE; Value: 249; Range: 83-110; Abnormal: Above high normal; Units: MG/DL; Status: F Radiology Order: CT ABD & PELVIS: No Contrast Test: CT ABD & PELVIS: No Contrast REASON FOR EXAMINATION: Abdomen Pain; Clinical: Acute abdominal pain.; ; Comparison: 03/19/2015.; ; Findings:; Lung bases demonstrate calcified granuloma in the left lower lobe.; ; Liver and spleen demonstrate small parenchymal calcifications consistent with; prior granulomas disease. Pancreas, gallbladder, bilateral adrenal glands are; normal. The kidneys demonstrate chronic symmetric perinephric stranding without; hydroureteronephrosis or nephrolithiasis. The enteric system is without; obstruction or acute inflammatory process and a normal terminal ileum and; appendix are identified in the right lower quadrant. Pelvis demonstrates normal; bladder and mildly prominent prostate gland measuring 4.5 cm transverse diameter.; Small fat containing left inguinal hernia noted. No ascites. No adenopathy. No; free air. Atherosclerotic changes of the aorta and branch vessels noted without; aneurysm. Surrounding musculoskeletal structures demonstrate degenerative; changes; ; Impression:; No acute intra-abdominal or pelvic pathology appreciated.; Evidence of prior granulomas disease.; Chronic symmetric perinephric stranding.; Atherosclerotic changes of the aorta and vasculature.; Degenerative changes of the musculoskeletal structures.; ; ; Signed by; Donald Randhawa MD 07/20/2016 07:56 P; Outcome: 21:21 Discharge ordered by Provider. [facility] 21:58 Discharge Assessment: Patient awake, alert and oriented x 3. No cognitive and/or mf4 functional deficits noted. Patient verbalized understanding of disposition instructions. patient administered narcotics - no. The following High Risk Discharge criteria are identified: None. Discharged to home ambulatory, with significant other. Condition: good Condition: stable Condition: improved. Discharge instructions given to patient, significant other, Instructed on discharge instructions, follow up and referral plans. medication usage, Demonstrated understanding of instructions, medications, Prescriptions given X escript sent. No special radiology studies were completed CT Study completed. Property sent home with patient. 22:00 Patient left the ED. mf4 Signatures: Dispatcher [facility] [place], PSA PSA ml4 Simon,Alivia,RN RN lf1 Nadege, Jorje, RN RN ml6 Candice, Suzette, NURSING ATTENDANT NURSING ATTENDANT ar3 Cam Hinds,BIOFUELS PRODUCTION ASSOCIATE BIOFUELS PRODUCTION ASSOCIATE mf4 Mary Dueñas,RN RN js13 Jacquelin,Asif,RN RN jmb Cm, Rohith, PA-C PA-C cc10 Apollo Jung, NURSING ATTENDANT NURSING ATTENDANT jrd Fina Aleman MTDD
--- NOTE | 2016-07-20 22:01 | EDDOCDS ---
Physician Documentation [facility] Name: Tello Harry Age: 70 yrs Sex: Male : 1945 Arrival Date: 07/20/2016 Time: 17:21 Bed I4 / M4 Private MD: Nicholas Garay P. Disposition: 07/20/16 21:21 Discharged to Home/Self Care. Impression: Anxiety disorder, unspecified, Hemorrhoids and perianal venous thrombosis, Generalized abdominal pain. - Condition is Stable. - Discharge Instructions: Abdominal Pain, Adult, Hemorrhoids. - Prescriptions for Simethicone 80 mg - chew 1 tablet by ORAL route after meals and before bedtime chewable tablet; 30 tablet. Hydrocortisone 2.5 % Rectal Cream - apply 1 application by TOPICAL route 4 times per day; 30 gram. - Medication Reconciliation form. - Follow up: Nicholas Garay; When: Tomorrow; Reason: Wound/Symptom Recheck, Recheck today's complaints, Worsening of conditions, Continuance of care. - Problem is chronic. - Symptoms have improved. Historical: - Allergies: No known drug Allergies; - Home Meds: 1. alprazolam 0.5 mg Oral tab 3 times per day as needed 2. amlodipine 5 mg Oral tab 1 tab once daily 3. aspirin 81 mg Oral TbEC 1 tab once daily 4. atorvastatin 40 mg oral tab 5. carvedilol 12.5 mg oral tab 1 tab 2 times per day 6. clopidogrel 75 mg oral tab 1 tab once daily 7. fenofibrate 48 mg oral once daily 8. folic acid 400 mcg Oral tab 1 tab once daily 9. furosemide 40 mg Oral tab 1 tab once daily 10. hydralazine 25 mg Oral tab 1 tab 2 times per day 11. Iron CR 55mg Oral Unknown daily 12. Lexapro 10 mg Oral tab 0.5 tab once daily 13. magnesium citrate oral soln as needed 14. mirtazapine 15 mg Oral TbDL 1 tab as needed 15. Novolog Mix 70-30 100 unit/mL (70-30) subcutaneous soln 25 unit twice a day 16. omeprazole 40 mg Oral cpDR 1 cap once daily 17. polyethylene glycol 3350 oral once daily - PMHx: Anxiety; Constipation, Chronic; Diabetes - IDDM: controlled; High Cholesterol; Myocardial infarction; - PSHx: CABG; - Social history: Smoking status: Patient states was never smoker of tobacco. No barriers to communication noted, The patient speaks fluent Amharic, Speaks appropriately for age. - Family history: Not pertinent. - : The pt / caregiver states he / she is not on anticoagulants. Home medication list is obtained from the patient. - Exposure Risk Screening:: None identified. Vital Signs: 07/20 17:23 BP 194 / 97 RA Sitting (auto/reg); Pulse 88; Resp 18; Temp 96.7(T); Pulse Ox 100% on jrd R/A; Weight 83.01 kg / 183.01 lbs; Height 5 ft. 5 in. (165.10 cm) (R); Pain 0/10; 17:23 BP 167 / 89 RA Sitting (man/reg); jrd 21:58 BP 147 / 71; Pulse 70; Resp 16; Pain 0/10; mf4 17:23 Body Mass Index 30.45 (83.01 kg, 165.10 cm) jrd MDM: 19:02 NS 0.9% 1000 ml IV at 250 mL/hr continuous ordered. cc10 19:02 IV Saline Lock ordered. cc10 19:02 Undress patient appropriately for examination ordered. cc10 19:03 Basic Metabolic Profile Ordered. EDMS 19:03 CBC with Diff Ordered. EDMS 19:03 Lipase Ordered. EDMS 19:03 Liver Profile Ordered. EDMS 19:03 Urinalysis Ordered. EDMS 19:03 Urine Culture Ordered. EDMS 19:03 CT ABD & PELVIS: No Contrast Ordered. EDMS 19:03 NOTHING BY MOUTH+DIET ordered. EDMS 19:03 ECG WITH READING ER PHYS+CARDIAG ordered. EDMS 19:04 BNP Ordered. EDMS 20:12 CBC with Diff Reviewed. cc10 20:43 Basic Metabolic Profile Reviewed. cc10 20:43 Urinalysis Reviewed. cc10 20:43 BNP Reviewed. cc10 20:43 Fingerstick Blood Sugar Reviewed. cc10 20:43 Lipase Reviewed. cc10 20:43 Liver Profile Reviewed. cc10 20:43 CT ABD & PELVIS: No Contrast Reviewed. cc10 20:44 Consult: Child Psychologist ordered. cc10 20:58 Consult: Child Psychologist complete. cl 21:09 Financial registration complete. gjb 21:22 Simethicone 80 mg PO once ordered. cc10 21:24 [facility] Payment Agreement was scanned into [employer] and attached to record. yaquelin 21:42 PSA Outpatient Referrals was scanned into [employer] and attached to record. ml4 Point of Care Testing: Blood Glucose: 20:12 Blood Glucose: 249 mg/dL; lf1 Ranges: Administered Medications: 20:00 Drug: NS 0.9% 1000 ml [sodium chloride 0.9 % intravenous solution] Route: IV; Rate: 250 lf1 mL/hr; Site: left forearm; 21:58 Drug: Simethicone 80 mg Route: PO; mf4 Signatures: Dispatcher [employer] EDMS Ralph, Haile, PSA PSA cl [place], PSA PSA ml4 Cam Hinds,INVESTMENT PROFESSIONAL INVESTMENT PROFESSIONAL mf4 Asif Roper,RN RN Rohith Kessler, MEHRDAD PAOliverio cc10 Fina Alemanb Alivia Simon RN lf1 The chart was reviewed and I authenticate all verbal orders and agree with the evaluation and treatment provided.Attachments: 21:24 [facility] Payment Agreement yaquelin GLORIA
--- NOTE | 2016-07-22 08:18 | ECGEPIP ---
Stationary ECG Study [facility] - ED Test Date: 2016-07-20 Pat Name: CHELSY MYERS Department: Room: - Gender: M Underwriter Solicitation Director: tab : 1945 Requested By: Rohith Pabon PA-C Order Number: [id number] Reading MD: Kavita Guerrero Measurements Intervals [place] Rate: 72 P: 50 RI: 191 QRS: -37 QRSD: 108 T: 65 QT: 429 QTc: 471 Interpretive Statements SINUS RHYTHM MARKED LEFT AXIS DEVIATION MINIMAL ST DEPRESSION LAE ?PRIOR INFERIOR INFARCT INCREASED RATE 03/29/16 Electronically Signed On 07-22-2016 8:18:45 EST by Kavita Guerrero
--- NOTE | 2016-07-22 23:01 | EDDOCDS ---
Physician Documentation [facility] Name: Tello Harry Age: 70 yrs Sex: Male : 1945 Arrival Date: 07/20/2016 Time: 17:21 Bed I4 / M4 Private MD: Nicholas Garay P. Disposition: 07/20/16 21:21 Discharged to Home/Self Care. Impression: Anxiety disorder, unspecified, Hemorrhoids and perianal venous thrombosis, Generalized abdominal pain. - Condition is Stable. - Discharge Instructions: Abdominal Pain, Adult, Hemorrhoids. - Prescriptions for Simethicone 80 mg - chew 1 tablet by ORAL route after meals and before bedtime chewable tablet; 30 tablet. Hydrocortisone 2.5 % Rectal Cream - apply 1 application by TOPICAL route 4 times per day; 30 gram. - Medication Reconciliation form. - Follow up: Nicholas Garay; When: Tomorrow; Reason: Wound/Symptom Recheck, Recheck today's complaints, Worsening of conditions, Continuance of care. - Problem is chronic. - Symptoms have improved. Historical: - Allergies: No known drug Allergies; - Home Meds: 1. alprazolam 0.5 mg Oral tab 3 times per day as needed 2. amlodipine 5 mg Oral tab 1 tab once daily 3. aspirin 81 mg Oral TbEC 1 tab once daily 4. atorvastatin 40 mg oral tab 5. carvedilol 12.5 mg oral tab 1 tab 2 times per day 6. clopidogrel 75 mg oral tab 1 tab once daily 7. fenofibrate 48 mg oral once daily 8. folic acid 400 mcg Oral tab 1 tab once daily 9. furosemide 40 mg Oral tab 1 tab once daily 10. hydralazine 25 mg Oral tab 1 tab 2 times per day 11. Iron CR 55mg Oral Unknown daily 12. Lexapro 10 mg Oral tab 0.5 tab once daily 13. magnesium citrate oral soln as needed 14. mirtazapine 15 mg Oral TbDL 1 tab as needed 15. Novolog Mix 70-30 100 unit/mL (70-30) subcutaneous soln 25 unit twice a day 16. omeprazole 40 mg Oral cpDR 1 cap once daily 17. polyethylene glycol 3350 oral once daily - PMHx: Anxiety; Constipation, Chronic; Diabetes - IDDM: controlled; High Cholesterol; Myocardial infarction; - PSHx: CABG; - Social history: Smoking status: Patient states was never smoker of tobacco. No barriers to communication noted, The patient speaks fluent Uzbek, Speaks appropriately for age. - Family history: Not pertinent. - : The pt / caregiver states he / she is not on anticoagulants. Home medication list is obtained from the patient. - Exposure Risk Screening:: None identified. Vital Signs: 07/20 17:23 BP 194 / 97 RA Sitting (auto/reg); Pulse 88; Resp 18; Temp 96.7(T); Pulse Ox 100% on jrd R/A; Weight 83.01 kg / 183.01 lbs; Height 5 ft. 5 in. (165.10 cm) (R); Pain 0/10; 17:23 BP 167 / 89 RA Sitting (man/reg); jrd 21:58 BP 147 / 71; Pulse 70; Resp 16; Pain 0/10; mf4 17:23 Body Mass Index 30.45 (83.01 kg, 165.10 cm) jrd MDM: 19:02 NS 0.9% 1000 ml IV at 250 mL/hr continuous ordered. cc10 19:02 IV Saline Lock ordered. cc10 19:02 Undress patient appropriately for examination ordered. cc10 19:03 Basic Metabolic Profile Ordered. EDMS 19:03 CBC with Diff Ordered. EDMS 19:03 Lipase Ordered. EDMS 19:03 Liver Profile Ordered. EDMS 19:03 Urinalysis Ordered. EDMS 19:03 Urine Culture Ordered. EDMS 19:03 CT ABD & PELVIS: No Contrast Ordered. EDMS 19:03 NOTHING BY MOUTH+DIET ordered. EDMS 19:03 ECG WITH READING ER PHYS+CARDIAG ordered. EDMS 19:04 BNP Ordered. EDMS 20:12 CBC with Diff Reviewed. cc10 20:43 Basic Metabolic Profile Reviewed. cc10 20:43 Urinalysis Reviewed. cc10 20:43 BNP Reviewed. cc10 20:43 Fingerstick Blood Sugar Reviewed. cc10 20:43 Lipase Reviewed. cc10 20:43 Liver Profile Reviewed. cc10 20:43 CT ABD & PELVIS: No Contrast Reviewed. cc10 20:44 Consult: Community Services Coordinator ordered. cc10 20:58 Consult: Community Services Coordinator complete. cl 21:09 Financial registration complete. gjb 21:22 Simethicone 80 mg PO once ordered. cc10 21:24 [facility] [place] Payment Agreement was scanned into [employer] and attached to record. gjb 21:42 PSA Outpatient Referrals was scanned into [employer] and attached to record. ml4 07/21 10:43 T-Sheet-- Draft Copy was scanned into [employer] and attached to record. gb 10:43 ECG/EKG was scanned into [employer] and attached to record. gb Point of Care Testing: Blood Glucose: 07/20 20:12 Blood Glucose: 249 mg/dL; lf1 Ranges: Administered Medications: 20:00 Drug: NS 0.9% 1000 ml [sodium chloride 0.9 % intravenous solution] Route: IV; Rate: 250 lf1 mL/hr; Site: left forearm; 21:58 Drug: Simethicone 80 mg Route: PO; mf4 Signatures: Dispatcher [employer] EDMS Haile Rosas, PSA PSA cl Shirley, Victorina, Reg Reg gb [place], PSA PSA ml4 Cam Hinds,ICE CREAM TRUCK DRIVER ICE CREAM TRUCK DRIVER mf4 Asif Roper, RN RN Rohith Kessler, PA-C PA-C cc10 Fina Aleman gjAlivia Narvaez RN lf1 The chart was reviewed and I authenticate all verbal orders and agree with the evaluation and treatment provided.Attachments: 21:24 [facility] [place] Payment Agreement b 07/21 10:43 T-Sheet-- Draft Copy gb 10:43 ECG/EKG gb Chart Complete MTDD
--- NOTE | 2016-07-22 23:01 | EDDOCDS ---
Physician Documentation [facility] Name: Tello Harry Age: 70 yrs Sex: Male : 1945 Arrival Date: 07/20/2016 Time: 17:21 Bed I4 / M4 Private MD: Nicholas Garay P. Disposition: 07/20/16 21:21 Discharged to Home/Self Care. Impression: Anxiety disorder, unspecified, Hemorrhoids and perianal venous thrombosis, Generalized abdominal pain. - Condition is Stable. - Discharge Instructions: Abdominal Pain, Adult, Hemorrhoids. - Prescriptions for Simethicone 80 mg - chew 1 tablet by ORAL route after meals and before bedtime chewable tablet; 30 tablet. Hydrocortisone 2.5 % Rectal Cream - apply 1 application by TOPICAL route 4 times per day; 30 gram. - Medication Reconciliation form. - Follow up: Nicholas Garay; When: Tomorrow; Reason: Wound/Symptom Recheck, Recheck today's complaints, Worsening of conditions, Continuance of care. - Problem is chronic. - Symptoms have improved. Historical: - Allergies: No known drug Allergies; - Home Meds: 1. alprazolam 0.5 mg Oral tab 3 times per day as needed 2. amlodipine 5 mg Oral tab 1 tab once daily 3. aspirin 81 mg Oral TbEC 1 tab once daily 4. atorvastatin 40 mg oral tab 5. carvedilol 12.5 mg oral tab 1 tab 2 times per day 6. clopidogrel 75 mg oral tab 1 tab once daily 7. fenofibrate 48 mg oral once daily 8. folic acid 400 mcg Oral tab 1 tab once daily 9. furosemide 40 mg Oral tab 1 tab once daily 10. hydralazine 25 mg Oral tab 1 tab 2 times per day 11. Iron CR 55mg Oral Unknown daily 12. Lexapro 10 mg Oral tab 0.5 tab once daily 13. magnesium citrate oral soln as needed 14. mirtazapine 15 mg Oral TbDL 1 tab as needed 15. Novolog Mix 70-30 100 unit/mL (70-30) subcutaneous soln 25 unit twice a day 16. omeprazole 40 mg Oral cpDR 1 cap once daily 17. polyethylene glycol 3350 oral once daily - PMHx: Anxiety; Constipation, Chronic; Diabetes - IDDM: controlled; High Cholesterol; Myocardial infarction; - PSHx: CABG; - Social history: Smoking status: Patient states was never smoker of tobacco. No barriers to communication noted, The patient speaks fluent Arabic, Speaks appropriately for age. - Family history: Not pertinent. - : The pt / caregiver states he / she is not on anticoagulants. Home medication list is obtained from the patient. - Exposure Risk Screening:: None identified. Vital Signs: 07/20 17:23 BP 194 / 97 RA Sitting (auto/reg); Pulse 88; Resp 18; Temp 96.7(T); Pulse Ox 100% on jrd R/A; Weight 83.01 kg / 183.01 lbs; Height 5 ft. 5 in. (165.10 cm) (R); Pain 0/10; 17:23 BP 167 / 89 RA Sitting (man/reg); jrd 21:58 BP 147 / 71; Pulse 70; Resp 16; Pain 0/10; mf4 17:23 Body Mass Index 30.45 (83.01 kg, 165.10 cm) jrd MDM: 19:02 NS 0.9% 1000 ml IV at 250 mL/hr continuous ordered. cc10 19:02 IV Saline Lock ordered. cc10 19:02 Undress patient appropriately for examination ordered. cc10 19:03 Basic Metabolic Profile Ordered. EDMS 19:03 CBC with Diff Ordered. EDMS 19:03 Lipase Ordered. EDMS 19:03 Liver Profile Ordered. EDMS 19:03 Urinalysis Ordered. EDMS 19:03 Urine Culture Ordered. EDMS 19:03 CT ABD & PELVIS: No Contrast Ordered. EDMS 19:03 NOTHING BY MOUTH+DIET ordered. EDMS 19:03 ECG WITH READING ER PHYS+CARDIAG ordered. EDMS 19:04 BNP Ordered. EDMS 20:12 CBC with Diff Reviewed. cc10 20:43 Basic Metabolic Profile Reviewed. cc10 20:43 Urinalysis Reviewed. cc10 20:43 BNP Reviewed. cc10 20:43 Fingerstick Blood Sugar Reviewed. cc10 20:43 Lipase Reviewed. cc10 20:43 Liver Profile Reviewed. cc10 20:43 CT ABD & PELVIS: No Contrast Reviewed. cc10 20:44 Consult: Profiler ordered. cc10 20:58 Consult: Profiler complete. cl 21:09 Financial registration complete. gjb 21:22 Simethicone 80 mg PO once ordered. cc10 21:24 [place] [place] was scanned into [employer] and attached to record. gjb 21:42 PSA Outpatient Referrals was scanned into [employer] and attached to record. ml4 07/21 10:43 T-Sheet-- Draft Copy was scanned into [employer] and attached to record. gb 10:43 ECG/EKG was scanned into [employer] and attached to record. gb Point of Care Testing: Blood Glucose: 07/20 20:12 Blood Glucose: 249 mg/dL; lf1 Ranges: Administered Medications: 20:00 Drug: NS 0.9% 1000 ml [sodium chloride 0.9 % intravenous solution] Route: IV; Rate: 250 lf1 mL/hr; Site: left forearm; 21:58 Drug: Simethicone 80 mg Route: PO; mf4 Signatures: Dispatcher [employer] EDMS Haile Rosas, PSA PSA cl Shirley, Victorina, Reg Reg gb [place], PSA PSA ml4 Cam Hinds,SODA COLUMN OPERATOR SODA COLUMN OPERATOR mf4 Asif Roper, RN RN Rohith Kessler, PA-C PA-C cc10 Fina Aleman gjAlivia Narvaez RN lf1 The chart was reviewed and I authenticate all verbal orders and agree with the evaluation and treatment provided.Attachments: 21:24 [facility] [facility] [place] Agreement b 07/21 10:43 T-Sheet-- Draft Copy gb 10:43 ECG/EKG gb Chart Complete MTDD
--- NOTE | 2016-07-22 23:01 | EDDOCDS ---
Nurse's Notes [facility] Name: Chelsy Harry Age: 70 yrs Sex: Male : 1945 Arrival Date: 07/20/2016 Time: 17:21 Bed I4 / M4 Private MD: Nicholas Garay P. Diagnosis: Anxiety disorder, unspecified;Hemorrhoids and perianal venous thrombosis;Generalized abdominal pain Presentation: 07/20 17:28 Presenting complaint: Patient states: Patient reports being constipated. Patient gives jmb self suppository but feels like it is hanging there with inability to go to bathroom. Patient reports went all night and this morning but now having difficulty, feels like he has to go "badly but can't". Patient reports taking laxative and stool softener earlier today. Adult Sepsis Screening: The patient does not have new or worsening altered mentation. Patient's respiratory rate is less than 22. Systolic blood pressure is greater than 100. Patient has a qSOFA score of 0- Negative Sepsis Screen. Suicide/Homicide risk assessment- the patient denies having any suicidal and/or homicidal ideations and does not present with any other emotional, behavioral or mental health complaints. Status: Patient is not a service car driver or dependent. Transition of care: patient was not received from another setting of care. 17:28 Acuity: DIEGO Level 4 [facility] 17:28 Method Of Arrival: Walkin/Carried/Asstd [facility] Triage Assessment: 17:31 General: Appears in no apparent distress, Behavior is appropriate for age. Pain: Denies [facility] pain. Neurological: Level of Consciousness is awake, alert, obeys commands, Oriented to person, place, time, Speech is normal, Facial symmetry appears normal, Facial symmetry: tongue is midline. Respiratory: Airway is patent Respiratory effort is even, unlabored, Respiratory pattern is regular, symmetrical. GI: Abdomen is obese. Derm: Skin is pink, warm & dry. Musculoskeletal: Range of motion intact in all extremities. Historical: - Allergies: No known drug Allergies; - Home Meds: 1. alprazolam 0.5 mg Oral tab 3 times per day as needed 2. amlodipine 5 mg Oral tab 1 tab once daily 3. aspirin 81 mg Oral TbEC 1 tab once daily 4. atorvastatin 40 mg oral tab 5. carvedilol 12.5 mg oral tab 1 tab 2 times per day 6. clopidogrel 75 mg oral tab 1 tab once daily 7. fenofibrate 48 mg oral once daily 8. folic acid 400 mcg Oral tab 1 tab once daily 9. furosemide 40 mg Oral tab 1 tab once daily 10. hydralazine 25 mg Oral tab 1 tab 2 times per day 11. Iron CR 55mg Oral Unknown daily 12. Lexapro 10 mg Oral tab 0.5 tab once daily 13. magnesium citrate oral soln as needed 14. mirtazapine 15 mg Oral TbDL 1 tab as needed 15. Novolog Mix 70-30 100 unit/mL (70-30) subcutaneous soln 25 unit twice a day 16. omeprazole 40 mg Oral cpDR 1 cap once daily 17. polyethylene glycol 3350 oral once daily - PMHx: Anxiety; Constipation, Chronic; Diabetes - IDDM: controlled; High Cholesterol; Myocardial infarction; - PSHx: CABG; - Social history: Smoking status: Patient states was never smoker of tobacco. No barriers to communication noted, The patient speaks fluent [place]agu[place], Speaks appropriately for age. - Family history: Not pertinent. - : The pt / caregiver states he / she is not on anticoagulants. Home medication list is obtained from the patient. - Exposure Risk Screening:: None identified. Screenin:46 Screening information is obtained from the patient. Fall risk: No risks identified. lf1 Assistance ADL's: requires no assistance with activities of daily living. Abuse/DV Screen: The patient / caregiver reports he/she is: not in a situation that causes fear, pain or injury. Nutritional screening: No deficits noted. Advance Directives: Currently, there is no health care proxy. home support is adequate. Assessment: 19:46 Adult Sepsis Screening: The patient does not have new or worsening altered mentation. lf1 Patient's respiratory rate is less than 22. Systolic blood pressure is greater than 100. Patient has a qSOFA score of 0- Negative Sepsis Screen. General: Appears in no apparent distress, obese, Behavior is anxious, restless. General: Pt reports that he has been increasingly anxious lately and fearful that he is "going to " states he has been seen multiple times because he felt there was something wrong with his kidneys and now he thinks something is wrong with his bowels because he has diarrhea and is constipated.. Pain: Denies pain. Neurological: Level of Consciousness is awake, alert, obeys commands, Oriented to person, place, time. EENT: No deficits noted. Cardiovascular: Chest pain is denied. Respiratory: Respiratory effort is even, unlabored. GI: Abdomen is non- distended obese, Bowel sounds present X 4 quads. Abd is soft and non tender X 4 quads. Reports constipation, diarrhea. Derm: Skin is normal. Injury Description: No known injury. 20:12 General: Appears Pt first reported to this nurse that he felt like his blood sugar was lf1 high and he needed insulin, when I asked when he last ate he told me early this morning. I told pt. the labs we had drawn would give us his blood glucose and would be back any moment. Pt. then reported that he felt his blood sugar was too low and he needed to eat. I checked his blood sugar and he was 249. Provider was notified. No new orders given. Pain: Denies pain. Respiratory: Respiratory effort is even, unlabored. GI: Denies nausea, vomiting. Social Work Consult: 21:18 Social Work Note: Met pt at bedside regarding numerous ED visits, last being 2 days ml4 ago, along with symptoms of depression. Pt reports presenting to ED due to feeling constipated and feels so anxious he is going to "because maybe I have a bowel obstruction." He feels his anxiety stems from numerous family/friends that have recently, including his best friend who committed suicide Apr, 2016. He admits caring for his friend who suffered from COPD. Pt states, "he took of his oxygen mask and turned of his concentrator and ." Admits struggling with best friend's which exacerbates his anxiety level. PA requested social work to speak to pt and GF separately due to both crying when PA walked into pt's room, along with just being seen 2 days ago with similar complaints. Girlfriend reports both crying due pt thinking he was going to tonight. She states pt's anxiety has been overwhelming after his friend killed himself, but feels he would never kill himself. Pt is currently in tx with Kianna Cohen \\Justo\\ SHAINA and Psychiatrist is scheduled with Dr. Morrison 09/12/16. Pt adamantly denies SI and HI, able to CFS. GF does not have any safety concerns. Referrals for outpt services was given at bedside if pt feels he needs a new therapist. No concerns noted, however PSA will remain available if needed. Vital Signs: 17:23 BP 194 / 97 RA Sitting (auto/reg); Pulse 88; Resp 18; Temp 96.7(T); Pulse Ox 100% on jrd R/A; Weight 83.01 kg; Height 5 ft. 5 in. (165.10 cm) (R); Pain 0/10; 17:23 BP 167 / 89 RA Sitting (man/reg); jrd 21:58 BP 147 / 71; Pulse 70; Resp 16; Pain 0/10; mf4 17:23 Body Mass Index 30.45 (83.01 kg, 165.10 cm) [facility] Vitals: 17:23 Log In Time: July 20, 2016 at 17:21. [facility] ED Course: 17:22 Patient visited by Apollo Jung PCA. jrd 17:22 Patient moved to Waiting jrd 17:23 Nicholas Garay is Private Physician. jrd 17:27 Patient visited by Apollo Jung PCA. jrd 17:27 Patient moved to Pre RCE jrd 17:30 Triage Initiated jmb 18:29 Patient moved to Triage 3 ml6 18:31 Patient visited by Jorje Light RN. ml6 18:56 Rohith Pabon PA-C is PHCP. cc10 18:56 Kavita Guerrero MD is Attending Physician. cc10 18:56 Patient visited by Rohith Pabon PA-C. cc10 18:56 Patient visited by Rohith Pabon PA-C. cc10 19:01 Patient moved to I4 / js13 19:46 Inserted saline lock: 20 gauge in left forearm and blood collected. Labs drawn. (by ED lf1 staff). Sent per order to lab. 19:50 Urinalysis Sent. lf1 19:51 Patient visited by Alivia Simon RN. lf1 19:51 Urine Culture Sent. lf1 19:55 Patient visited by Suzette Harvey PCA. ar3 19:55 EKG done. (by ED staff). Reviewed by Rohith Pabon PA-C. ar3 20:15 Patient visited by Simon,Alivia,RN. lf1 20:18 CT ABD & PELVIS: No Contrast Returned. EDMS 21:08 Patient visited by [place] PSA. ml4 21:20 Nicholas Garay is Referral Physician. cc10 21:24 [facility] Payment Agreement was scanned into [employer] and attached to record. gjb 21:42 PSA Outpatient Referrals was scanned into [employer] and attached to record. ml4 21:58 The patient / caregiver is instructed regarding the plan of care and ED course. mf4 21:58 No procedures done that require assistance. mf4 21:58 Discontinued IV lock. mf4 07/21 10:43 T-Sheet-- Draft Copy was scanned into [employer] and attached to record. gb 10:43 ECG/EKG was scanned into [employer] and attached to record. gb 07/22 08:41 EKG-ADULT Returned. EDMS Administered Medications: 07/20 20:00 Drug: NS 0.9% 1000 ml [sodium chloride 0.9 % intravenous solution] Route: IV; Rate: 250 lf1 mL/hr; Site: left forearm; 21:58 Drug: Simethicone 80 mg Route: PO; mf4 Point of Care Testing: Blood Glucose: 20:12 Blood Glucose: 249 mg/dL; lf1 Ranges: Order Results: Lab Order: Basic Metabolic Profile; [facility]' 07/20/16 19:39 Test: GLUCOSE, FASTING; Value: 271; Range: 83-110; Abnormal: Above high normal; Units: MG/DL; Status: F Test: BLOOD UREA NITROGEN; Value: 25; Range: 7-18; Abnormal: Above high normal; Units: MG/DL; Status: F Test: CREATININE FOR GFR; Value: 2.37; Range: 0.70-1.30; Abnormal: Above high normal; Units: MG/DL; Status: F Test: GLOMERULAR FILTRATION RATE; Value: 28.9; Range: >42; Abnormal: Below low normal; Status: F Test: SODIUM LEVEL; Value: 141; Range: 136-145; Units: MEQ/L; Status: F Test: POTASSIUM SERUM; Value: 3.8; Range: 3.5-5.1; Units: MEQ/L; Status: F Test: CHLORIDE LEVEL; Value: 103; Range: 98-107; Units: MEQ/L; Status: F Test: CARBON DIOXIDE LEVEL; Value: 29; Range: 21-32; Units: MEQ/L; Status: F Test: ANION GAP; Value: 9; Range: 8-16; Units: MEQ/L; Status: F Test: CALCIUM LEVEL; Value: 9.1; Range: 8.8-10.2; Units: MG/DL; Status: F Test Note: ; Units are mL/min/1.73 m2 Chronic Kidney Disease Staging per NKF: Stage I & II GFR >=60 Normal to Mildly Decreased Stage III GFR 30-59 Moderately Decreased Stage IV GFR 15-29 Severely Decreased Stage V GFR <15 Very Little GFR Left ESRD GFR <15 on [facility] Lab Order: CBC with Diff; SPEC'M 07/20/16 19:39 Test: WHITE BLOOD COUNT; Value: 13.6; Range: 4.0-10.0; Abnormal: Above high normal; Units: K/mm3; Status: F Test: RED BLOOD COUNT; Value: 4.73; Range: 4.30-6.10; Units: M/mm3; Status: F Test: HEMOGLOBIN; Value: 14.8; Range: 14.0-18.0; Units: g/dl; Status: F Test: HEMATOCRIT; Value: 42.2; Range: 42.0-52.0; Units: %; Status: F Test: MEAN CORPUSCULAR VOLUME; Value: 89.2; Range: 80.0-96.0; Units: fl; Status: F Test: MEAN CORPUSCULAR HEMOGLOBIN; Value: 31.2; Range: 27.0-33.0; Units: pg; Status: F Test: MEAN CORPUSCULAR HGB CONC; Value: 35.0; Range: 32.0-36.5; Units: g/dl; Status: F Test: RED CELL DISTRIBUTION WIDTH; Value: 13.5; Range: 11.5-14.5; Units: %; Status: F Test: PLATELET COUNT, AUTOMATED; Value: 236; Range: 150-450; Units: k/mm3; Status: F Test: NEUTROPHILS %; Value: 87.3; Range: 36.0-66.0; Abnormal: Above high normal; Units: %; Status: F Test: LYMPH %; Value: 4.0; Range: 24.0-44.0; Abnormal: Below low normal; Units: %; Status: F Test: MONO %; Value: 7.0; Range: 0.0-5.0; Abnormal: Above high normal; Units: %; Status: F Test: EOS %; Value: 0.9; Range: 0.0-3.0; Units: %; Status: F Test: BASO %; Value: 0.3; Range: 0.0-1.0; Units: %; Status: F Test: LARGE UNSTAINED CELL %; Value: 0.6; Range: 0.0-4.0; Units: %; Status: F Test: NEUTROPHILS #; Value: 11.9; Range: 1.8-7.7; Abnormal: Above high normal; Units: K/mm3; Status: F Test: LYMPH #; Value: 0.6; Range: 1.5-4.5; Abnormal: Below low normal; Units: K/mm3; Status: F Test: MONO #; Value: 1.0; Range: 0.0-0.8; Abnormal: Above high normal; Units: K/mm3; Status: F Test: EOS #; Value: 0.1; Range: 0.0-0.50; Units: K/mm3; Status: F Test: BASO #; Value: 0.0; Range: 0.0-0.2; Units: K/mm3; Status: F Test: LARGE UNSTAINED CELL #; Value: 0.1; Range: 0.0-0.4; Units: K/mm3; Status: F Lab Order: Lipase; SPEC' 07/20/16 19:39 Test: LIPASE; Value: 153; Range: 73-393; Units: U/L; Status: F Lab Order: Liver Profile; SPEC'M 07/20/16 19:39 Test: AST/SGOT; Value: 22; Range: 15-37; Units: U/L; Status: F Test: ALT/SGPT; Value: 15; Range: 12-78; Units: U/L; Status: F Test: ALKALINE PHOSPHATASE; Value: 98; Range: 45-117; Units: U/L; Status: F Test: BILIRUBIN,TOTAL; Value: 0.5; Range: 0.2-1.0; Units: MG/DL; Status: F Test: BILIRUBIN,DIRECT; Value: 0.2; Range: 0.0-0.2; Units: MG/DL; Status: F Test: TOTAL PROTEIN; Value: 6.8; Range: 6.4-8.2; Units: GM/DL; Status: F Test: ALBUMIN; Value: 4.0; Range: 3.2-5.2; Units: GM/DL; Status: F Test: ALBUMIN/GLOBULIN RATIO; Value: 1.43; Range: 1.00-1.93; Status: F Lab Order: Urinalysis; SPEC'M 07/20/16 19:39 Test: APPEARANCE, URINE; Value: CLEAR; Range: CLEAR; Status: F Test: COLOR, URINE; Value: STRAW; Range: YELLOW; Status: F Test: PH,URINE; Value: 8.0; Range: 5.0-9.0; Units: UNITS; Status: F Test: SPECIFIC GRAVITY URINE AUTO; Value: 1.006; Range: 1.002-1.035; Status: F Test: PROTEIN, URINE AUTO; Value: NEGATIVE; Range: NEGATIVE; Units: mg/dL; Status: F Test: GLUCOSE, URINE (UA) AUTO; Value: 3+; Range: NEGATIVE; Abnormal: Above high normal; Units: mg/dL; Status: F Test: KETONE, URINE AUTO; Value: NEGATIVE; Range: NEGATIVE; Units: mg/dL; Status: F Test: UROBILINOGEN, URINE AUTO; Value: 0.2; Range: 0.0-2.0; Units: mg/dL; Status: F Test: BILIRUBIN, URINE AUTO; Value: NEGATIVE; Range: NEGATIVE; Status: F Test: NITRITE, URINE AUTO; Value: NEGATIVE; Range: NEGATIVE; Status: F Test: LEUKOCYTE ESTERASE, URINE AUTO; Value: NEGATIVE; Range: NEGATIVE; Status: F Test: BLOOD, URINE BLOOD; Value: NEGATIVE; Range: NEGATIVE; Status: F Test: WBC, URINE AUTO; Value: 0; Range: 0-3; Units: /HPF; Status: F Test: RBC, URINE AUTO; Value: 5; Range: 0-3; Abnormal: Above high normal; Units: /HPF; Status: F Test: BACTERIA, URINE AUTO; Value: NEGATIVE; Range: NEGATIVE; Status: F Test: SQUAMOUS EPITHELIAL CELL UR AU; Value: 0; Range: 0-6; Units: /HPF; Status: F Test: HYALINE CAST, URINE AUTO; Value: 0; Range: 0-1; Units: /LPF; Status: F Lab Order: Urine Culture; SPEC'M 07/20/16 19:39 Test: URINE CULTURE; Value: <EXTERNAL COMMENT eCWMed> FULL REPORT IN LAB NOTES (eCW and Medent).; Status: F Test: URINE CULTURE; Value: URINE CULTURE RESULT NO GROWTH; Status: F Lab Order: BNP; SPEC'M 07/20/16 19:39 Test: BRAIN NATRIURETIC PEPTIDE; Value: 201; Range: <100; Abnormal: Above high normal; Units: PG/ML; Status: F Lab Order: Fingerstick Blood Sugar; SPEC'M 07/20/16 20:10 Test: BEDSIDE GLUCOSE; Value: 249; Range: 83-110; Abnormal: Above high normal; Units: MG/DL; Status: F Radiology Order: CT ABD & PELVIS: No Contrast Test: CT ABD & PELVIS: No Contrast REASON FOR EXAMINATION: Abdomen Pain; Clinical: Acute abdominal pain.; ; Comparison: 03/19/2015.; ; Findings:; Lung bases demonstrate calcified granuloma in the left lower lobe.; ; Liver and spleen demonstrate small parenchymal calcifications consistent with; prior granulomas disease. Pancreas, gallbladder, bilateral adrenal glands are; normal. The kidneys demonstrate chronic symmetric perinephric stranding without; hydroureteronephrosis or nephrolithiasis. The enteric system is without; obstruction or acute inflammatory process and a normal terminal ileum and; appendix are identified in the right lower quadrant. Pelvis demonstrates normal; bladder and mildly prominent prostate gland measuring 4.5 cm transverse diameter.; Small fat containing left inguinal hernia noted. No ascites. No adenopathy. No; free air. Atherosclerotic changes of the aorta and branch vessels noted without; aneurysm. Surrounding musculoskeletal structures demonstrate degenerative; changes; ; Impression:; No acute intra-abdominal or pelvic pathology appreciated.; Evidence of prior granulomas disease.; Chronic symmetric perinephric stranding.; Atherosclerotic changes of the aorta and vasculature.; Degenerative changes of the musculoskeletal structures.; ; ; Signed by; Donald Randhawa MD 07/20/2016 07:56 P; Radiology Order: EKG-ADULT Test: EKG-ADULT REASON FOR EXAMINATION: Abdomen Pain; Stationary ECG Study; [facility] - ED; ; Test Date: 2016-07-20; Pat Name: CHELSY HARRY Department:; Room: -; 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 cc10 21:58 Discharge Assessment: Patient awake, alert and oriented x 3. No cognitive and/or mf4 functional deficits noted. Patient verbalized understanding of disposition instructions. patient administered narcotics - no. The following High Risk Discharge criteria are identified: None. Discharged to home ambulatory, with significant other. Condition: good Condition: stable Condition: improved. Discharge instructions given to patient, significant other, Instructed on discharge instructions, follow up and referral plans. medication usage, Demonstrated understanding of instructions, medications, Prescriptions given X escript sent. No special radiology studies were completed CT Study completed. Property sent home with patient. 22:00 Patient left the ED. mf4 Signatures: Dispatcher [employer] EDMS Victorina Watson, Reg Reg gb [place], PSA PSA ml4 Alivia Simon,RN RN lf1 Jorje Light, RN RN ml6 Suzette Harvey, HEALTH INFORMATION MANAGER HEALTH INFORMATION MANAGER ar3 Cam Hinds,FLORIST SUPPLIES SALESPERSON FLORIST SUPPLIES SALESPERSON mf4 Mary Dueñas,RN Asif Lanier, RN Rohith Irvin PA-C PA-C cc10 Apollo Jung, HEALTH INFORMATION MANAGER HEALTH INFORMATION MANAGER d Fina Aleman Chart Complete MTDD
== END 2016-07-20 22:00 | disposition home or self-care (01) ==
LOC: M ED 17:21
DX: K64.9 Unspecified hemorrhoids (principal); F41.9 Anxiety disorder, unspecified; K59.00 Constipation, unspecified; E11.9 Type 2 diabetes mellitus without complications; E78.00 Pure hypercholesterolemia, unspecified; I25.2 Old myocardial infarction; Z95.1 Presence of aortocoronary bypass graft; Z79.82 Long term (current) use of aspirin; Z79.4 Long term (current) use of insulin; Z79.899 Other long term (current) drug therapy

== ENCOUNTER 2016-09-11 00:24 | Emergency (ER) | payer BC, MEDICARE, OTHER ==
[~2016-09-11] VITALS: Ht 152.4 cm; Wt 74.8 kg
[2016-09-11] MEDS ORDERED: OMEP40CA2 PO (00:40)
[2016-09-11] MEDS ORDERED: PROM50TA2 PO (00:40)
[2016-09-11] MEDS ORDERED: FLUO10CA8 PO (00:40)
[2016-09-11] MEDS ORDERED: CARV12.5 PO (00:40)
[2016-09-11] MEDS ORDERED: ALPR2TAB3 PO (00:40)
[2016-09-11] MEDS ORDERED: LEXA1TAB2 PO (00:40)
[2016-09-11] MEDS ORDERED: ATOR40TA PO (00:40)
[2016-09-11] MEDS ORDERED: PROZ10CA7 PO (00:40)
[2016-09-11] MEDS ORDERED: NOVO70VL SC (00:41)
[2016-09-11] MEDS ORDERED: SUDA1TAB3 PO ×2 (04:20→04:21)
[2016-09-11 04:43] VITALS: BP 143/79
== END 2016-09-11 04:44 | disposition home or self-care (01) ==
LOC: M ED 01:36
DX: H69.92 Unspecified Eustachian tube disorder, left ear (principal); I10 Essential (primary) hypertension; E11.9 Type 2 diabetes mellitus without complications; I25.10 Atherosclerotic heart disease of native coronary artery without angina pectoris; Z79.899 Other long term (current) drug therapy; Z79.4 Long term (current) use of insulin; Z79.82 Long term (current) use of aspirin

== ENCOUNTER → 2016-10-09 | Outpatient (REF) | payer OTHER ==
[~2016-10-09] MED LIST changes: +ALPR2TAB3 PO; +ATOR40TA PO; +CARV12.5 PO; +FLUO10CA8 PO; +NOVO70VL SC; +OMEP40CA2 PO; +PROM50TA2 PO; +PROZ10CA7 PO; +SUDA1TAB3 PO
[2016-10-09 13:17] LABS: ALBUMIN 3.4 GM/DL (3.2-5.2); ALBUMIN/GLOBULIN RATIO 1.36 (1.00-1.93); BILIRUBIN,TOTAL 0.3 MG/DL (0.2-1.0); CALCIUM LEVEL 8.3 MG/DL (8.8-10.2); CREATININE FOR GFR 2.18 MG/DL (0.70-1.30); GLOMERULAR FILTRATION RATE 31.7 (>42); POTASSIUM SERUM 4.2 MEQ/L (3.5-5.1); TOTAL PROTEIN 5.9 GM/DL (6.4-8.2)
== END ==
LOC: M LABDRAW1 12:33
PROVIDERS: ATTEND Emergency Medicine
DX: E11.40 Type 2 diabetes mellitus with diabetic neuropathy, unspecified (principal); E78.2 Mixed hyperlipidemia; I10 Essential (primary) hypertension

== ENCOUNTER 2016-11-10 16:55 | Emergency (ER) | payer OTHER ==
[~2016-11-10] VITALS: Ht 165.1 cm; Wt 88.2 kg
[2016-11-10] MEDS ORDERED: FENO48TA2 PO (17:24)
[2016-11-10 17:37] VITALS: BP 180/70
[2016-11-26] MEDS ORDERED: HYDR-4267 (18:33)
== END 2016-11-10 18:02 | disposition home or self-care (01) ==
LOC: M ED 17:55
DX: E11.649 Type 2 diabetes mellitus with hypoglycemia without coma (principal); F41.9 Anxiety disorder, unspecified; I10 Essential (primary) hypertension; Z79.02 Long term (current) use of antithrombotics/antiplatelets; Z79.82 Long term (current) use of aspirin; Z79.899 Other long term (current) drug therapy

== ENCOUNTER 2016-11-19 11:10 | Emergency (ER) | payer OTHER ==
[~2016-11-19] VITALS: Ht 165.1 cm; Wt 84.1 kg
[~2016-11-19 11:10] MED LIST changes: -ATOR40TA PO; +ATOR40TA75 PO; +FENO48TA2 PO; +HYDR-3910 PO; -HYDR-4266 PO; +NOVO1INJ4 SC; -NOVO70IN SC; +PLAV1TAB2 PO; -PLAV75TA38 PO; -PROM50TA2 PO; +PROM50TA4 PO; -ZETI10TA2 PO; +ZETI10TA30 PO
[2016-11-19 11:11] VITALS: BP 155/75
== END 2016-11-19 12:11 | disposition home or self-care (01) ==
LOC: M ED 12:04
DX: F41.9 Anxiety disorder, unspecified (principal); F32.9 Major depressive disorder, single episode, unspecified; I10 Essential (primary) hypertension; E78.00 Pure hypercholesterolemia, unspecified; E10.9 Type 1 diabetes mellitus without complications; Z79.82 Long term (current) use of aspirin; Z79.4 Long term (current) use of insulin; Z79.899 Other long term (current) drug therapy; Z95.1 Presence of aortocoronary bypass graft

== ENCOUNTER 2016-11-25 20:39 | Emergency (ER) | payer OTHER ==
[~2016-11-25] VITALS: Ht 165.1 cm; Wt 84.4 kg
[2016-11-25 20:39] VITALS: BP 162/83
[2016-11-26] MEDS ORDERED: PROM25TA (18:33)
[2016-11-26] MEDS ORDERED: HYDR-3911 (18:33)
== END 2016-11-25 21:40 | disposition home or self-care (01) ==
LOC: M ED 20:39
DX: F41.9 Anxiety disorder, unspecified (principal); E11.9 Type 2 diabetes mellitus without complications; I10 Essential (primary) hypertension; I25.9 Chronic ischemic heart disease, unspecified; K21.9 Gastro-esophageal reflux disease without esophagitis; F33.9 Major depressive disorder, recurrent, unspecified; Z95.1 Presence of aortocoronary bypass graft; Z79.899 Other long term (current) drug therapy; Z79.82 Long term (current) use of aspirin; Z79.02 Long term (current) use of antithrombotics/antiplatelets

== ENCOUNTER 2016-11-26 18:20 | Emergency (ER) | payer OTHER ==
[~2016-11-26] VITALS: Ht 165.1 cm; Wt 84.3 kg
[2016-11-26] MEDS ORDERED: HYDR-3911 (18:33)
[2016-11-26] MEDS ORDERED: PROM25TA (18:33)
[2016-11-26 20:08] VITALS: BP 167/80
[2016-11-27] MEDS ORDERED: INSUH10VL SC (13:33)
[2016-11-27] MEDS ORDERED: BENT20TA PO (16:02)
== END 2016-11-26 20:18 | disposition home or self-care (01) ==
LOC: M ED 18:20
DX: F41.9 Anxiety disorder, unspecified (principal); E10.9 Type 1 diabetes mellitus without complications; I25.10 Atherosclerotic heart disease of native coronary artery without angina pectoris; I10 Essential (primary) hypertension

== ENCOUNTER 2016-11-27 12:50 | Emergency (ER) | payer OTHER ==
[~2016-11-27] VITALS: Ht 165.1 cm; Wt 85.4 kg
[~2016-11-27 12:50] MED LIST changes: +HYDR-3911; +PROM25TA
[2016-11-27] MEDS ORDERED: INSUH10VL SC (13:33)
[2016-11-27] MEDS ORDERED: ONDANSETRON 4MG/2ML VIAL (J2405) IV ONE (14:30)
[2016-11-27] MEDS: ALPRAZolam 0.25 MG TAB PO ONE (14:30)
--- NOTE | 2016-11-27 15:00 | REP ---
Acute abdominal series three views including PA chest and supine upright abdomen: Comparison is 03/18/2015. PA chest: There are sternotomy wires and cardiomegaly, unchanged. There are no infiltrates or effusions. No free subdiaphragmatic air. The haydee, mediastinum, and bony thorax are unremarkable. Impression: Chronic cardiomegaly, otherwise negative PA chest. Abdomen, supine and upright views: The bowel gas pattern is normal. There are two ovoid densities in the abdomen on the right two ovoid densities in the abdomen on the left, likely ingested a small capsules. There are degenerative changes in the lumbar spine. The skeletal soft tissue structures otherwise are unremarkable. Impression: Normal bowel gas pattern. Signed by Antelmo Watkins MD 11/27/2016 02:51 P
[2016-11-27 15:16] LABS: BASO % 0.5 % (0.0-1.0); EOS # 0.1 K/mm3 (0.0-0.50); EOS % 1.7 % (0.0-3.0); LARGE UNSTAINED CELL # 0.1 K/mm3 (0.0-0.4); LYMPH # 0.8 K/mm3 (1.5-4.5); LYMPH % 10.5 % (24.0-44.0); MEAN CORPUSCULAR HEMOGLOBIN 30.3 pg (27.0-33.0); MEAN CORPUSCULAR HGB CONC 33.8 g/dl (32.0-36.5); MEAN CORPUSCULAR VOLUME 89.6 fl (80.0-96.0); MONO # 0.4 K/mm3 (0.0-0.8); MONO % 5.4 % (0.0-5.0); NEUTROPHILS # 5.4 K/mm3 (1.8-7.7); NEUTROPHILS % 80.9 % (36.0-66.0); PLATELET COUNT, AUTOMATED 221 k/mm3 (150-450); RED CELL DISTRIBUTION WIDTH 13.7 % (11.5-14.5); WHITE BLOOD COUNT 6.7 K/mm3 (4.0-10.0)
[2016-11-27 15:31] LABS: INR 0.98
[2016-11-27 15:46] LABS: ALBUMIN 3.6 GM/DL (3.2-5.2); ALBUMIN/GLOBULIN RATIO 1.24 (1.00-1.93); ALKALINE PHOSPHATASE 72 U/L (45-117); ALT/SGPT 17 U/L (12-78); AMYLASE 31 U/L (25-115); ANION GAP 6 MEQ/L (8-16); AST/SGOT 11 U/L (15-37); BILIRUBIN,DIRECT 0.2 MG/DL (0.0-0.2); BILIRUBIN,TOTAL 0.6 MG/DL (0.2-1.0); BLOOD UREA NITROGEN 32 MG/DL (7-18); CALCIUM LEVEL 8.6 MG/DL (8.8-10.2); CARBON DIOXIDE LEVEL 27 MEQ/L (21-32); CHLORIDE LEVEL 105 MEQ/L (98-107); GLOMERULAR FILTRATION RATE 29.8 (>42); GLUCOSE, FASTING 251 MG/DL (83-110); POTASSIUM SERUM 4.4 MEQ/L (3.5-5.1); SODIUM LEVEL 138 MEQ/L (136-145); TOTAL PROTEIN 6.5 GM/DL (6.4-8.2)
[2016-11-27] MEDS ORDERED: BENT20TA PO (16:02)
[2016-11-27 16:39] VITALS: BP 134/74
--- NOTE | 2016-11-28 07:22 | ECGEPIP ---
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
== END 2016-11-27 17:34 | disposition home or self-care (01) ==
LOC: M ED 12:50
DX: F43.9 Reaction to severe stress, unspecified (principal)
CPT/HCPCS: 74022; 80048; 80076; 81001; 82150; 82550; 82553; 83690; 84484; 85025; 85610; 85730; 93005; 96374; 99283; J2405

== ENCOUNTER 2016-12-04 13:54 | Emergency (ER) | payer OTHER ==
[~2016-12-04] VITALS: Ht 165.1 cm; Wt 83.9 kg
[~2016-12-04 13:54] MED LIST changes: +BENT20TA PO; +INSUH10VL SC
[2016-12-04 15:46] LABS: BASO % 0.6 % (0.0-1.0); EOS # 0.1 K/mm3 (0.0-0.50); EOS % 2.4 % (0.0-3.0); LARGE UNSTAINED CELL # 0.1 K/mm3 (0.0-0.4); LARGE UNSTAINED CELL % 1.1 % (0.0-4.0); LYMPH # 0.7 K/mm3 (1.5-4.5); LYMPH % 11.1 % (24.0-44.0); MEAN CORPUSCULAR HEMOGLOBIN 30.2 pg (27.0-33.0); MEAN CORPUSCULAR HGB CONC 34.2 g/dl (32.0-36.5); MEAN CORPUSCULAR VOLUME 88.3 fl (80.0-96.0); MONO # 0.3 K/mm3 (0.0-0.8); MONO % 5.3 % (0.0-5.0); NEUTROPHILS # 4.3 K/mm3 (1.8-7.7); NEUTROPHILS % 79.4 % (36.0-66.0); PLATELET COUNT, AUTOMATED 234 k/mm3 (150-450); RED CELL DISTRIBUTION WIDTH 13.5 % (11.5-14.5); WHITE BLOOD COUNT 5.5 K/mm3 (4.0-10.0)
[2016-12-04 15:53] LABS: ALBUMIN 3.3 GM/DL (3.2-5.2); ALBUMIN/GLOBULIN RATIO 1.22 (1.00-1.93); BILIRUBIN,DIRECT 0.1 MG/DL (0.0-0.2); BILIRUBIN,TOTAL 0.4 MG/DL (0.2-1.0); CALCIUM LEVEL 8.9 MG/DL (8.8-10.2); CREATININE FOR GFR 2.06 MG/DL (0.70-1.30); GLOMERULAR FILTRATION RATE 33.9 (>42); POTASSIUM SERUM 4.7 MEQ/L (3.5-5.1)
[2016-12-04 16:10] VITALS: BP 138/92
[2016-12-04] MEDS ORDERED: CARA1TAB6 PO (16:35)
== END 2016-12-04 16:42 | disposition home or self-care (01) ==
LOC: M ED 13:54
DX: K43.9 Ventral hernia without obstruction or gangrene (principal); E10.9 Type 1 diabetes mellitus without complications; N18.9 Chronic kidney disease, unspecified; I25.10 Atherosclerotic heart disease of native coronary artery without angina pectoris

== ENCOUNTER 2016-12-04 20:23 | Emergency (ER) | payer OTHER ==
[~2016-12-04] VITALS: Ht 165.1 cm; Wt 84.0 kg
[~2016-12-04 20:23] MED LIST changes: +CARA1TAB6 PO
[2016-12-04] MEDS ORDERED: GASTROGRAFIN SOLUTION 30ML PO ONE (21:30)
[2016-12-04] MEDS ORDERED: MORPHINE 2 MG/ML 1ML SYRINGE IV ONE (21:45)
[2016-12-04] MEDS ORDERED: GASTROGRAFIN SOLUTION 30ML (Q9963) PO ONE (22:00)
[2016-12-04 22:03] LABS: BASO % 0.5 % (0.0-1.0); EOS # 0.1 K/mm3 (0.0-0.50); EOS % 1.7 % (0.0-3.0); LARGE UNSTAINED CELL # 0.1 K/mm3 (0.0-0.4); LARGE UNSTAINED CELL % 2.1 % (0.0-4.0); LYMPH # 0.8 K/mm3 (1.5-4.5); LYMPH % 13.2 % (24.0-44.0); MEAN CORPUSCULAR HEMOGLOBIN 30.8 pg (27.0-33.0); MONO # 0.4 K/mm3 (0.0-0.8); MONO % 6.8 % (0.0-5.0); NEUTROPHILS % 75.8 % (36.0-66.0); PLATELET COUNT, AUTOMATED 241 k/mm3 (150-450); RED CELL DISTRIBUTION WIDTH 13.4 % (11.5-14.5); WHITE BLOOD COUNT 5.3 K/mm3 (4.0-10.0)
[2016-12-04 22:12] LABS: INR 0.89
[2016-12-04 22:32] LABS: ALBUMIN 3.5 GM/DL (3.2-5.2); ALBUMIN/GLOBULIN RATIO 1.06 (1.00-1.93); BILIRUBIN,DIRECT 0.2 MG/DL (0.0-0.2); BILIRUBIN,TOTAL 0.5 MG/DL (0.2-1.0); CALCIUM LEVEL 9.3 MG/DL (8.8-10.2); CREATININE FOR GFR 2.23 MG/DL (0.70-1.30); GLOMERULAR FILTRATION RATE 30.9 (>42); POTASSIUM SERUM 4.4 MEQ/L (3.5-5.1); TOTAL PROTEIN 6.8 GM/DL (6.4-8.2)
--- NOTE | 2016-12-04 23:50 | REPUSA ---
CT of the abdomen and pelvis without contrast Clinical statement: Pain. Technique: Multiple axial CT images were obtained from the base of the lungs to the floor of the pelv is utilizing 5 mm axial slices after administration of oral contrast. Coronal and sagittal reconstruc tions were also obtained. Comparison: None. Findings: Chest: The visualized lung bases are clear. Abdomen: The kidneys are normal in size bilaterally. There is no evidence of hydronephrosis or nephro lithiasis. The liver, spleen, pancreas, gallbladder and adrenal glands are unremarkable. The aorta de monstrates normal caliber and contour, with mild atherosclerotic changes. There is no abdominal lymph adenopathy or ascites. Pelvis: The bowel is unremarkable, with no obstructive or inflammatory changes. The appendix is tina l. The urinary bladder is within normal limits. There is no pelvic lymphadenopathy or ascites. The ot her pelvic structures appear unremarkable. Bones: There are no suspicious osseous abnormalities seen. There is moderate degenerative disc diseas e at L2/L3. Impression: 1. No obstructive or inflammatory bowel changes. 2. No evidence of hydronephrosis or nephrolithiasis. 3. Mild atherosclerosis of the abdominal aorta without evidence of aneurysm. 4. Moderate degenerative disc disease at L2/L3.
[2016-12-05] MEDS ORDERED: **hydrALAZINE** 50 MG TAB PO ONE (00:15)
[2016-12-05 00:33] VITALS: BP 161/82
[2016-12-05 01:06] VITALS: BP 174/89
== END 2016-12-05 01:20 | disposition home or self-care (01) ==
LOC: M ED 20:23
DX: N28.9 Disorder of kidney and ureter, unspecified (principal); I25.10 Atherosclerotic heart disease of native coronary artery without angina pectoris; E10.9 Type 1 diabetes mellitus without complications; I10 Essential (primary) hypertension; E78.4 Other hyperlipidemia; Z95.1 Presence of aortocoronary bypass graft
CPT/HCPCS: 36415; 74176; 80048; 80076; 82150; 83605; 83690; 85025; 85610; 85730; 96374; 99282; 99285; Q9963

== ENCOUNTER 2016-12-07 10:57 | Emergency (ER) | payer OTHER ==
[~2016-12-07] VITALS: Ht 165.1 cm; Wt 84.0 kg
[2016-12-07] MEDS ORDERED: FLEEENE4 PR (12:30)
--- NOTE | 2016-12-07 12:36 | REP ---
KUB ABDOMEN AND PELVIS: KUB film of the abdomen and pelvis is performed. The bowel gas pattern is normal with no evidence of obstruction. No abnormal calcifications are seen. There are degenerative changes of the spine, sacroiliac joints and hips. IMPRESSION: Normal bowel gas pattern. Signed by Antelmo Burns MD 12/07/2016 05:08 P
[2016-12-07 12:37] VITALS: BP 157/73
[2016-12-07] MEDS ORDERED: MAGNESIUM CITRATE 300 ML BTL PO ONE (13:00)
== END 2016-12-07 12:40 | disposition home or self-care (01) ==
LOC: M ED 10:57
DX: K59.00 Constipation, unspecified (principal); E11.9 Type 2 diabetes mellitus without complications; I10 Essential (primary) hypertension; E78.4 Other hyperlipidemia; K21.9 Gastro-esophageal reflux disease without esophagitis; Z95.1 Presence of aortocoronary bypass graft

== ENCOUNTER 2016-12-15 14:58 | Emergency (ER) | payer OTHER ==
[~2016-12-15] VITALS: Ht 165.1 cm; Wt 81.8 kg
[~2016-12-15 14:58] MED LIST changes: +FLEEENE4 PR
[2016-12-15 18:19] VITALS: BP 142/78
== END 2016-12-15 18:20 | disposition home or self-care (01) ==
LOC: M ED 14:58
DX: F41.9 Anxiety disorder, unspecified (principal); E11.9 Type 2 diabetes mellitus without complications; I10 Essential (primary) hypertension; E78.00 Pure hypercholesterolemia, unspecified; I25.2 Old myocardial infarction; F33.8 Other recurrent depressive disorders; Z95.1 Presence of aortocoronary bypass graft; Z79.82 Long term (current) use of aspirin; Z79.4 Long term (current) use of insulin; Z79.899 Other long term (current) drug therapy

== ENCOUNTER 2016-12-17 14:51 | Emergency (ER) | payer OTHER ==
[~2016-12-17] VITALS: Ht 165.1 cm; Wt 81.8 kg
[2016-12-17 14:52] VITALS: BP 122/66
[2016-12-17] MEDS ORDERED: SUCR1TA PO (15:13)
== END 2016-12-17 15:51 | disposition home or self-care (01) ==
LOC: M ED 14:51
DX: E11.9 Type 2 diabetes mellitus without complications (principal); F41.1 Generalized anxiety disorder; I25.10 Atherosclerotic heart disease of native coronary artery without angina pectoris; I10 Essential (primary) hypertension; K21.9 Gastro-esophageal reflux disease without esophagitis; F32.9 Major depressive disorder, single episode, unspecified; Z95.1 Presence of aortocoronary bypass graft; Z79.82 Long term (current) use of aspirin; Z79.4 Long term (current) use of insulin; Z79.899 Other long term (current) drug therapy

== ENCOUNTER 2016-12-19 20:44 | Emergency (ER) | payer OTHER ==
[~2016-12-19] VITALS: Ht 165.1 cm; Wt 81.8 kg
[~2016-12-19 20:44] MED LIST changes: +SUCR1TA PO
[2016-12-19] MEDS ORDERED: CLON0.25 PO (21:00)
[2016-12-19] MEDS ORDERED: FURO40TA2 PO (21:00)
[2016-12-19 22:29] VITALS: BP 133/67
== END 2016-12-19 22:32 | disposition home or self-care (01) ==
LOC: M ED 20:44
DX: F41.1 Generalized anxiety disorder (principal); E11.22 Type 2 diabetes mellitus with diabetic chronic kidney disease; I12.9 Hypertensive chronic kidney disease with stage 1 through stage 4 chronic kidney disease, or unspecified chronic kidney disease; N18.4 Chronic kidney disease, stage 4 (severe); E78.5 Hyperlipidemia, unspecified; F33.8 Other recurrent depressive disorders; Z79.82 Long term (current) use of aspirin; Z79.4 Long term (current) use of insulin; Z79.899 Other long term (current) drug therapy

== ENCOUNTER 2016-12-22 20:17 | Emergency (ER) | payer OTHER ==
[~2016-12-22] VITALS: Ht 165.1 cm; Wt 79.8 kg
[~2016-12-22 20:17] MED LIST changes: +CLON0.25 PO
[2016-12-22] MEDS ORDERED: NORCO, ANEXSIA 5/325MG TABLET (HYDROcodone/ACETAMINOPHEN) PO ONE (21:30)
[2016-12-22 21:50] LABS: BASO % 0.5 % (0.0-1.0); EOS # 0.1 K/mm3 (0.0-0.50); EOS % 1.1 % (0.0-3.0); LARGE UNSTAINED CELL # 0.1 K/mm3 (0.0-0.4); LYMPH % 13.6 % (24.0-44.0); MEAN CORPUSCULAR HEMOGLOBIN 30.7 pg (27.0-33.0); MEAN CORPUSCULAR HGB CONC 34.8 g/dl (32.0-36.5); MEAN CORPUSCULAR VOLUME 88.1 fl (80.0-96.0); MONO # 0.5 K/mm3 (0.0-0.8); MONO % 7.9 % (0.0-5.0); NEUTROPHILS # 4.9 K/mm3 (1.8-7.7); NEUTROPHILS % 74.9 % (36.0-66.0); PLATELET COUNT, AUTOMATED 197 k/mm3 (150-450); RED CELL DISTRIBUTION WIDTH 13.8 % (11.5-14.5); WHITE BLOOD COUNT 6.5 K/mm3 (4.0-10.0)
[2016-12-22 22:09] LABS: ALBUMIN 3.8 GM/DL (3.2-5.2); ALBUMIN/GLOBULIN RATIO 1.65 (1.00-1.93); BILIRUBIN,DIRECT 0.3 MG/DL (0.0-0.2); BILIRUBIN,TOTAL 0.9 MG/DL (0.2-1.0); CALCIUM LEVEL 9.3 MG/DL (8.8-10.2); CREATININE FOR GFR 2.39 MG/DL (0.70-1.30); GLOMERULAR FILTRATION RATE 28.5 (>42); POTASSIUM SERUM 3.7 MEQ/L (3.5-5.1); TOTAL PROTEIN 6.1 GM/DL (6.4-8.2)
--- NOTE | 2016-12-22 22:20 | REPUSA ---
Clinical history: Right upper quadrant pain. Findings: The pancreas is limited in visualization secondary to overlying bowel gas, but appears rebecca sly unremarkable. The liver demonstrates increased echotexture and echogenicity, with no mass lesions . There is a focal calcification measuring 4 mm in the right lobe however. The gallbladder is unremar kable. The common bile duct measures 4 mm and is within normal limits. The right kidney measures 13.1 cm in length and is unremarkable. There is no ascites. Impression: 1. No acute findings explain the patient's pain. 2. Fatty infiltration of the liver.
[2016-12-22 22:49] VITALS: BP 141/77
== END 2016-12-22 22:50 | disposition home or self-care (01) ==
LOC: M ED 20:17
DX: R10.11 Right upper quadrant pain (principal); I25.10 Atherosclerotic heart disease of native coronary artery without angina pectoris; I10 Essential (primary) hypertension; E11.9 Type 2 diabetes mellitus without complications; E78.9 Disorder of lipoprotein metabolism, unspecified; F41.9 Anxiety disorder, unspecified; I25.2 Old myocardial infarction; Z95.5 Presence of coronary angioplasty implant and graft; Z79.899 Other long term (current) drug therapy; Z79.82 Long term (current) use of aspirin; Z79.4 Long term (current) use of insulin; Z87.19 Personal history of other diseases of the digestive system; Z79.02 Long term (current) use of antithrombotics/antiplatelets

== ENCOUNTER 2016-12-24 16:21 | Emergency (ER) | payer OTHER ==
[~2016-12-24] VITALS: Ht 165.1 cm; Wt 77.3 kg
[2016-12-24] MEDS ORDERED: NS 1,000 ML IV ONE (17:00)
[2016-12-24] MEDS ORDERED: GASTROGRAFIN SOLUTION 30ML (Q9963) PO ONE ×2 (17:15)
[2016-12-24 17:40] LABS: BASO % 0.5 % (0.0-1.0); EOS # 0.1 K/mm3 (0.0-0.50); EOS % 1.2 % (0.0-3.0); LARGE UNSTAINED CELL # 0.1 K/mm3 (0.0-0.4); LARGE UNSTAINED CELL % 2.8 % (0.0-4.0); LYMPH # 0.8 K/mm3 (1.5-4.5); LYMPH % 16.7 % (24.0-44.0); MEAN CORPUSCULAR HEMOGLOBIN 30.9 pg (27.0-33.0); MEAN CORPUSCULAR VOLUME 88.2 fl (80.0-96.0); MONO # 0.3 K/mm3 (0.0-0.8); MONO % 6.7 % (0.0-5.0); NEUTROPHILS # 3.4 K/mm3 (1.8-7.7); NEUTROPHILS % 72.1 % (36.0-66.0); PLATELET COUNT, AUTOMATED 195 k/mm3 (150-450); RED CELL DISTRIBUTION WIDTH 13.6 % (11.5-14.5); WHITE BLOOD COUNT 4.7 K/mm3 (4.0-10.0)
[2016-12-24] MEDS ORDERED: LORazepam 2 MG/ML VIAL (J2060) IV STA (18:13)
[2016-12-24 18:16] LABS: ALBUMIN 3.8 GM/DL (3.2-5.2); ALBUMIN/GLOBULIN RATIO 1.27 (1.00-1.93); ALKALINE PHOSPHATASE 71 U/L (45-117); ALT/SGPT 17 U/L (12-78); AMYLASE 33 U/L (25-115); ANION GAP 11 MEQ/L (8-16); AST/SGOT 12 U/L (15-37); BILIRUBIN,DIRECT 0.2 MG/DL (0.0-0.2); BILIRUBIN,TOTAL 0.8 MG/DL (0.2-1.0); BLOOD UREA NITROGEN 23 MG/DL (7-18); CALCIUM LEVEL 9.3 MG/DL (8.8-10.2); CARBON DIOXIDE LEVEL 22 MEQ/L (21-32); CHLORIDE LEVEL 100 MEQ/L (98-107); CREATININE FOR GFR 2.19 MG/DL (0.70-1.30); GLOMERULAR FILTRATION RATE 31.6 (>42); GLUCOSE, FASTING 262 MG/DL (83-110); SODIUM LEVEL 133 MEQ/L (136-145); TOTAL PROTEIN 6.8 GM/DL (6.4-8.2)
--- NOTE | 2016-12-24 19:15 | ECGEPIP ---
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
--- NOTE | 2016-12-24 19:20 | REPUSA ---
CLINICAL HISTORY: Upper abdominal pain. TECHNIQUE: Multiple axial, coronal, sagittal CT images were obtained through the abdomen and pelvis after administration of oral contrast material. COMMENTS: Correlation is made with the prior study dated 12/04/2016. There are multiple calcified hepatic granulomas present. Small hiatal hernia is present. Status post median sternotomy and CABG. There is no intra or extrahepatic biliary ductal dilatation. Multiple c alcified splenic granulomas are present. The gallbladder is within normal limits. The pancreas is of normal contour and attenuation characteristics. There is no evidence of adrenal mass. Both kidneys demonstrate prompt and equal nephrograms. The kidneys are normal in size, shape and con figuration. There is no evidence of renal or ureteral mass. No renal or ureteral calculi are identi fied. There is no hydroureter or hydronephrosis. There is no evidence for appendicitis. Diffuse sigmoid diverticulosis is present. There is no bowel wall thickening. No evidence for small or large bowel obstruction. There is no evidence of abdomina l ascites or lymphadenopathy. There is no evidence of intrinsic or extrinsic bladder mass. There is no pelvic ascites or lymphaden opathy. Images of the lung bases show no evidence of pleural or parenchymal mass. There are no pleural effus ions. Prostate gland contains small calcification with mildly enlarged fat containing left inguinal hernias present. The bony structures are free of lytic or blastic lesions. Multilevel degenerative changes are seen i nvolving the thoracolumbar spine. Scattered calcifications are seen involving the aorta and major branches compatible with atherosclero sis. IMPRESSION: 1. No evidence of abdominal or pelvic pathology. 2. Sequelae of prior granulomatous disease. 3. Additional findings as above. Thank you for your kind referral of this patient. We appreciate the opportunity to participate in thi s patient's care.
[2016-12-24 20:03] VITALS: BP 153/72
== END 2016-12-24 20:05 | disposition home or self-care (01) ==
LOC: M ED 16:21
DX: K75.3 Granulomatous hepatitis, not elsewhere classified (principal); D73.89 Other diseases of spleen; E10.9 Type 1 diabetes mellitus without complications; I10 Essential (primary) hypertension; I25.10 Atherosclerotic heart disease of native coronary artery without angina pectoris; I25.2 Old myocardial infarction; Z95.1 Presence of aortocoronary bypass graft; Z79.02 Long term (current) use of antithrombotics/antiplatelets
CPT/HCPCS: 74176; 80048; 80076; 81001; 82150; 82550; 82553; 83690; 84484; 85025; 93005; 96374; 99283; J2060; Q9963

== ENCOUNTER 2016-12-28 05:19 | Emergency (ER) | payer OTHER ==
[~2016-12-28] VITALS: Ht 162.6 cm; Wt 80.0 kg
[2016-12-28] MEDS ORDERED: OXYC1TAB23 PO (05:31)
[2016-12-28] MEDS ORDERED: NORCO 5/325MG TABLET (BULK FOR ED) PO ONE (10:15)
[2016-12-28 10:24] VITALS: BP 123/62
== END 2016-12-28 10:36 | disposition home or self-care (01) ==
LOC: M ED 05:19
DX: F41.9 Anxiety disorder, unspecified (principal); R10.84 Generalized abdominal pain; E10.9 Type 1 diabetes mellitus without complications; I12.9 Hypertensive chronic kidney disease with stage 1 through stage 4 chronic kidney disease, or unspecified chronic kidney disease; N18.9 Chronic kidney disease, unspecified; E78.4 Other hyperlipidemia; Z79.02 Long term (current) use of antithrombotics/antiplatelets

== ENCOUNTER → 2017-01-21 | Outpatient (CLI) | payer OTHER ==
[~2017-01-21] MED LIST changes: +EQUALIQ7 PO; +META48.54 PO; +OXYC1TAB23 PO; +VITA100072 PO
--- NOTE | 2017-01-21 12:43 | REP ---
NUCLEAR GALLBLADDER HIDA SCAN WITH GALLBLADDER EJECTION FRACTION: Following the intravenous administration of 6.6 mCi of technetium-99m mebrofenin, imaging was performed anteriorly of the abdominal region. However, the patient became claustrophobic and would not be imaged for greater than 5 minutes. We then arranged and altered limited protocol. Static images were acquired at the 60 minute lissa showing gallbladder activity and biliary to bowel transit with no scintigraphic evidence of cholecystitis. 8 ounces of Ensure Enlive were ingested. Imaging was then performed 1 hour later. Region of interest was interrogated over the gallbladder region on both sets of images and there is essentially no emptying of the gallbladder with an estimated gallbladder ejection fraction of 0%. Signed by Antelmo Burns MD 01/21/2017 03:16 P
== END ==
LOC: M RAD 08:28
PROVIDERS: ATTEND Emergency Medicine
DX: R10.13 Epigastric pain (principal)
CPT/HCPCS: 78227; A9537; J2805

== ENCOUNTER 2017-02-17 06:20 | Emergency (ER) | payer OTHER ==
[~2017-02-17] VITALS: Ht 165.1 cm; Wt 77.3 kg
[~2017-02-17 06:20] MED LIST changes: -EQUALIQ7 PO; -META48.54 PO; -VITA100072 PO
[2017-02-17] MEDS ORDERED: EQUALIQ7 PO (06:40)
[2017-02-17] MEDS ORDERED: LEXA1TAB2 PO (06:40)
[2017-02-17] MEDS ORDERED: VITA100072 PO (06:40)
[2017-02-17] MEDS ORDERED: PROM50TA4 PO (06:40)
[2017-02-17] MEDS ORDERED: META48.54 PO (06:40)
[2017-02-17] MEDS ORDERED: ALPR2TAB3 PO (06:40)
[2017-02-17] MEDS ORDERED: FURO40TA2 PO (06:40)
[2017-02-17 07:41] LABS: BASO % 0.6 % (0.0-1.0); EOS # 0.1 K/mm3 (0.0-0.50); EOS % 2.4 % (0.0-3.0); LARGE UNSTAINED CELL # 0.2 K/mm3 (0.0-0.4); LARGE UNSTAINED CELL % 3.6 % (0.0-4.0); LYMPH # 0.6 K/mm3 (1.5-4.5); LYMPH % 12.3 % (24.0-44.0); MEAN CORPUSCULAR HEMOGLOBIN 31.6 pg (27.0-33.0); MEAN CORPUSCULAR HGB CONC 35.4 g/dl (32.0-36.5); MEAN CORPUSCULAR VOLUME 89.3 fl (80.0-96.0); MONO # 0.3 K/mm3 (0.0-0.8); MONO % 6.2 % (0.0-5.0); NEUTROPHILS # 3.9 K/mm3 (1.8-7.7); NEUTROPHILS % 74.9 % (36.0-66.0); PLATELET COUNT, AUTOMATED 194 k/mm3 (150-450); RED CELL DISTRIBUTION WIDTH 13.6 % (11.5-14.5); WHITE BLOOD COUNT 5.2 K/mm3 (4.0-10.0)
[2017-02-17 08:03] LABS: ALBUMIN 3.4 GM/DL (3.2-5.2); ALBUMIN/GLOBULIN RATIO 1.36 (1.00-1.93); BILIRUBIN,DIRECT 0.2 MG/DL (0.0-0.2); BILIRUBIN,TOTAL 0.5 MG/DL (0.2-1.0); CALCIUM LEVEL 9.1 MG/DL (8.8-10.2); CREATININE FOR GFR 1.89 MG/DL (0.70-1.30); GLOMERULAR FILTRATION RATE 37.4 (>42); TOTAL PROTEIN 5.9 GM/DL (6.4-8.2)
[2017-02-17 08:58] VITALS: BP 180/82
== END 2017-02-17 09:03 | disposition home or self-care (01) ==
LOC: M ED 06:20
DX: R19.7 Diarrhea, unspecified (principal); I25.2 Old myocardial infarction; I10 Essential (primary) hypertension

== ENCOUNTER 2017-02-23 06:27 | Emergency (ER) | payer OTHER ==
[~2017-02-23] VITALS: Ht 165.1 cm; Wt 77.3 kg
[~2017-02-23 06:27] MED LIST changes: +EQUALIQ7 PO; +META48.54 PO; +VITA100072 PO
[2017-02-23 06:34] VITALS: BP 155/71
== END 2017-02-23 08:12 | disposition home or self-care (01) ==
LOC: M ED 06:27
DX: F41.9 Anxiety disorder, unspecified (principal); E11.9 Type 2 diabetes mellitus without complications; I12.9 Hypertensive chronic kidney disease with stage 1 through stage 4 chronic kidney disease, or unspecified chronic kidney disease; N18.9 Chronic kidney disease, unspecified; Z79.02 Long term (current) use of antithrombotics/antiplatelets

== ENCOUNTER 2017-04-17 08:44 | Inpatient (IN) | payer OTHER ==
[~2017-04-17] VITALS: Ht 165.1 cm; Wt 76.7 kg
[~2017-04-17 08:44] MED LIST changes: -PROM25TA; +PROM25TA PO
[2017-04-17] MEDS ORDERED: MIRT1TAB (09:13)
[2017-04-17] MEDS ORDERED: CARV6.25 PO (09:13)
[2017-04-17] MEDS ORDERED: NOVOINJ2 SC (09:18)
[2017-04-17] MEDS ORDERED: SMZ/TMP (09:18)
[2017-04-17 09:30] LABS: BASO % 0.3 % (0.0-1.0); EOS % 0.2 % (0.0-3.0); IMMATURE GRANULOCYTE % 0.5 % (0-0); LYMPH # 0.4 10^3/uL (1.5-4.5); LYMPH % 3.4 % (24.0-44.0); MEAN CORPUSCULAR HEMOGLOBIN 30.8 pg (27.0-33.0); MEAN CORPUSCULAR HGB CONC 33.1 g/dl (32.0-36.5); MEAN CORPUSCULAR VOLUME 93.1 fl (80.0-96.0); MONO # 0.6 10^3/uL (0.0-0.8); MONO % 4.3 % (0.0-5.0); NEUTROPHILS # 11.8 10^3/uL (1.8-7.7); NEUTROPHILS % 91.3 % (36.0-66.0); PLATELET COUNT, AUTOMATED 219 10^3/uL (150-450); RED CELL DISTRIBUTION WIDTH 13.2 % (11.5-14.5); WHITE BLOOD COUNT 12.9 10^3/uL (4.0-10.0)
[2017-04-17 10:00] LABS: ANION GAP 8 MEQ/L (8-16); BLOOD UREA NITROGEN 36 MG/DL (7-18); CALCIUM LEVEL 8.1 MG/DL (8.8-10.2); CARBON DIOXIDE LEVEL 22 MEQ/L (21-32); CHLORIDE LEVEL 111 MEQ/L (98-107); CREATININE FOR GFR 2.71 MG/DL (0.70-1.30); GLOMERULAR FILTRATION RATE 24.7 (>42); GLUCOSE, FASTING 211 MG/DL (83-110); SODIUM LEVEL 141 MEQ/L (136-145)
[2017-04-17 10:01] LABS: ALBUMIN 3.1 GM/DL (3.2-5.2); ALBUMIN/GLOBULIN RATIO 1.03 (1.00-1.93); BILIRUBIN,DIRECT 0.2 MG/DL (0.0-0.2); BILIRUBIN,TOTAL 0.4 MG/DL (0.2-1.0); TOTAL PROTEIN 6.1 GM/DL (6.4-8.2)
[2017-04-17] MEDS ORDERED: FUROSEMIDE 40 MG/4 ML VIAL (J1940) IV ONE (10:15)
[2017-04-17] MEDS ORDERED: ONDANSETRON 4MG/2ML VIAL (J2405) IV ONE ×2 (10:30→11:45)
[2017-04-17] MEDS ORDERED: hydrALAZINE INJ 20 MG/ML VIAL IV STA (10:31)
[2017-04-17 10:44] LABS: ABG BASE EXCESS -2.6 (-2.0-2.0); ABG HCO3 21.7 MEQ/L (22.0-26.0); ABG PARTIAL PRESSURE CO2 36.2 mmHg (35.0-45.0); ABG PARTIAL PRESSURE O2 66.5 mmHg (75.0-100.0); ABG STANDARD HCO3 22.2 MEQ/L (22.0-26.0); ABG TOTAL CO2 22.8 MEQ/L (23.0-31.0); ABG pH (ARTERIAL) 7.396 UNITS (7.350-7.450)
[2017-04-17] MEDS ORDERED: VITA100066 PO (11:12)
[2017-04-17] MEDS ORDERED: MIRA33504 PO (11:12)
[2017-04-17] MEDS ORDERED: ALPR0.5T3 PO (11:12)
[2017-04-17] MEDS ORDERED: AMLO10TA2 PO (11:12)
[2017-04-17] MEDS ORDERED: TYLE325T5 PO (11:12)
[2017-04-17] MEDS ORDERED: BACT800T5 PO (11:12)
[2017-04-17] MEDS ORDERED: OMEPRAZOLE 20 MG CAP PO PRN (11:15)
[2017-04-17] MEDS ORDERED: **hydrALAZINE HCL** 25 MG TAB PO ONE (11:30)
--- NOTE | 2017-04-17 11:33 | HPEPDOC ---
[facility] Medical History & Physical Date of Admission Apr 17, 2017 History and Physical PRIMARY CARE PROVIDER: Dr. Garay ATTENDING: Abdiel Ramsey MD CHIEF COMPLAINT: SOB HISTORY OF PRESENT ILLNESS: This is a 71-year-old male past history of CAD status post CABG 4 in 2014, history of ischemic systolic heart failure EF of 35-40%, hypertension, diabetes mellitus, CKD stage III baseline creatinine 2.0-2.5, hypertension, GERD, anxiety who presents complaining of shortness of breath, nausea, vomiting. Patient states she's been having chronic nausea and nonbilious nonbloody vomiting which also occurred last night at 8 PM. He has been seeing Dr. Preston with the plan for endoscopy/colonoscopy on June 01. Patient also notes that he's been following up with Dr. Garay's primary care physician, and 1 month ago his blood pressure was on the lower side for which his Lasix was discontinued. He has also seen Dr. Garay yesterday and this systolic blood pressures in the 130s. The patient states that last night he became increasingly dyspneic however no chest pain/palpitations. Patient was given nebs with no significant improvement. He has been given Lasix in the ED was some improvement as his SOB. PAST MEDICAL HISTORY: As per HPI PAST SURGICAL HISTORY: CABG x4 SOCIAL HISTORY: Denies tobacco, alcohol, illicit drug use. FAMILY HISTORY: M - ?enlarged heart. Daughter of DM/WA age 40s. ALLERGIES: Please see below. REVIEW OF SYSTEMS: HEENT: Denies sore throat/headache CARDIOVASCULAR: Denies chest pain/palpitations RESPIRATORY: + shortness of breath/cough GASTROINTESTINAL: + nausea/vomiting GENITOURINARY: Denies dysuria/urinary urgency. MUSCULOSKELETAL: Denies myalgias/arthralgias NEUROLOGICAL: Denies any focal weakness HOME MEDICATIONS: Please see below. PHYSICAL EXAMINATION: Vitals: (see below) General: No acute distress, laying comfortably in bed. HEENT: Moist mucous membranes. Neck: No JVD or lymphadenopathy Cardiac: RRR, No murmurs Pulm: Coarse crackles b/l bases. No wheezing, rhonchi Abd: NT/ND + BS. Obese Ext: No edema or cyanosis. Right thumb with wound - on Abx. Healing. No induration. Distal pulses intact. LABORATORY DATA: See below. IMAGING: CXR 04/17/17 with pulmonary congestion. MICROBIOLOGY: Please see below. ASSESSMENT/PLAN: 1. Acute decompensated systolic heart failure- the patient had his Lasix at the month ago given his low blood pressure. He presents today with pulmonary congestion and hypertensive urgency. Patient will be diuresed with IV Lasix. Strict I/O. Fluid resection. Low-sodium diet. We'll repeat echocardiogram. Patient's prior EF was 35-40% to thousand 15. This was prior to his CABG. 2. CAD status post CABG- continue home meds 3. Hypertension- will restart patient's home meds and patient will be on IV Lasix as well. 4. Right thumb wound- wound culture from earlier this month reviewed. The patient is on doxycycline. 5. Diabetes mellitus- continue patient's home insulin. 6. Anxiety- continue alprazolam as needed 7. GERD- on PPI; patient has an appointment for EGD/colonoscopy on June 01 with 8. Chronic kidney disease stage 4 baseline creatinine 2.0-2.5. DVT prophylaxis heparin subcutaneous We'll monitor on PCU. Vital Signs Vital Signs Date Time Temp Pulse Resp B/P (MAP) Pulse Ox O2 Delivery O2 Flow Rate FiO2 04/17/17 09:13 99.1 76 22 211/88 (129) 89 Room Air Laboratory Data Labs 24H Laboratory Tests 2 04/17/17 09:23: Immature Granulocyte % (Auto) 0.5H, White Blood Count 12.9H, Red Blood Count 4.03L, Hemoglobin 12.4L, Hematocrit 37.5L, Mean Corpuscular Volume 93.1, Mean Corpuscular Hemoglobin 30.8, Mean Corpuscular Hemoglobin Concent 33.1, Red Cell Distribution Width 13.2, Platelet Count 219, Neutrophils (%) (Auto) 91.3H, Lymphocytes (%) (Auto) 3.4L, Monocytes (%) (Auto) 4.3, Eosinophils (%) (Auto) 0.2, Basophils (%) (Auto) 0.3, Neutrophils # (Auto) 11.8H, Lymphocytes # (Auto) 0.4L, Monocytes # (Auto) 0.6, Eosinophils # (Auto) 0.0, Basophils # (Auto) 0.0, Immature Granulocyte # (Auto) 0.1H, Nucleated Red Blood Cells % (auto) 0.0, Anion Gap 8, Glomerular Filtration Rate 24.7L, Lactic Acid Level 1.4, Blood Urea Nitrogen 36H, Creatinine 2.71H, Sodium Level 141, Potassium Level 5.0, Chloride Level 111H, Carbon Dioxide Level 22, Calcium Level 8.1L, Total Creatine Kinase 82, Aspartate Amino Transf (AST/SGOT) 19, Alanine Aminotransferase (ALT/SGPT) 22, Alkaline Phosphatase 72, Total Bilirubin 0.4, Direct Bilirubin 0.2, Creatine Kinase MB 2.3, Creatine Kinase MB Relative Index 2.80, Troponin I < 0.02, [id number]-Vgh-[id number]-Type Natriuretic Peptide 8739H, Total Protein 6.1L, Albumin 3.1L, Albumin/Globulin Ratio 1.03 04/17/17 10:21: Blood Gas Bicarbonate Standard 22.2, Arterial Blood pH 7.396, Arterial Blood Partial Pressure CO2 36.2, Arterial Blood Partial Pressure O2 66.5L, Arterial Blood Total CO2 22.8L, Arterial Blood HCO3 21.7L, Arterial Blood Base Excess - 2.6L, Arterial Blood Oxygen Saturation 93.3L CBC/BMP Laboratory Tests 04/17/17 09:23 Red Blood Count 4.03 L, Mean Corpuscular Volume 93.1, Mean Corpuscular Hemoglobin 30.8, Mean Corpuscular Hemoglobin Concent 33.1, Red Cell Distribution Width 13.2, Neutrophils (%) (Auto) 91.3 H, Lymphocytes (%) (Auto) 3.4 L, Monocytes (%) (Auto) 4.3, Eosinophils (%) (Auto) 0.2, Basophils (%) (Auto ) 0.3, Neutrophils # (Auto) 11.8 H, Lymphocytes # (Auto) 0.4 L, Monocytes # ( Auto) 0.6, Eosinophils # (Auto) 0.0, Basophils # (Auto) 0.0, Calcium Level 8.1 L , Total Creatine Kinase 82 Home Medications Scheduled Amlodipine Besylate (Amlodipine Besylate) 10 Mg Tab, 10 MG PO DAILY Atorvastatin Calcium (Atorvastatin Calcium) 40 Mg Tab, 40 MG PO QHS Carvedilol (Carvedilol) 6.25 Mg Tab, 6.25 MG PO BID Cholecalciferol (Vitamin D) 1,000 Unit Tab, 1,000 UNIT PO DAILY Clopidogrel Bisulfate (Plavix) 75 Mg Tab, 75 MG PO DAILY Cyanocobalamin (Vitamin B12) 1,000 Mcg Tab, 1,000 MCG PO DAILY Escitalopram Oxalate (Lexapro) 20 Mg Tab, 20 MG PO DAILY Fenofibrate (Tricor) 48 Mg Tab, 48 MG PO QHS Insulin Aspart Protamine/Aspar (Novolog Mix 70/30 Prefill (70-30) 100 Unit/ml) 1 Inj Inj, 20 UNITS SC BID Polyethylene Glycol (Miralax) 1 Pow Pow, 17 GM PO DAILY Trimethoprim/Sulfamethoxazole (Bactrim Ds 800-160 mg) 1 Tab Tab, 1 TAB PO BID FILLED 04/12/17 FOR 10 DAYS Scheduled PRN Acetaminophen (Tylenol) 325 Mg Tab, 650 MG PO Q4H PRN for PAIN Alprazolam (Alprazolam) 0.5 Mg Tab, 0.5 MG PO TID PRN for ANXIETY Furosemide (Furosemide) 40 Mg Tab, 40 MG PO DAILY PRN for SWELLING Omeprazole (Omeprazole) 40 Mg Cap, 40 MG PO DAILY PRN for HEARTBURN Promethazine HCl (Promethazine HCl) 25 Mg Tab, 25 MG PO Q6H PRN for NAUSEA OR VOMITING Allergies Coded Allergies: No Known Allergies (Unverified , 12/17/16) ABDIEL RAMSEY MD Apr 17, 2017 11:33
[2017-04-17 13:17] VITALS: BP 160/74
[2017-04-17] MEDS: HEPARIN SOD (PORCINE) 5000 UNITS/ML VIAL SC SCH ×2 (14:12→21:43)
[2017-04-17] MEDS: DOXYCYCLINE HYCLATE 100 MG TAB PO SCH ×2 (14:12→20:25)
[2017-04-17 15:00] VITALS: BP 197/81
[2017-04-17 15:03] VITALS: BP 160/60
[2017-04-17] MEDS: ALPRAZolam 0.5 MG TAB PO PRN (15:31)
[2017-04-17] MEDS: **hydrALAZINE** 50 MG TAB PO SCH ×2 (16:11→20:27)
[2017-04-17] MEDS: PROMETHAZINE 25 MG TAB PO PRN (16:38)
[2017-04-17 17:00] VITALS: BP 150/65
[2017-04-17] MEDS: FUROSEMIDE 40 MG/4 ML VIAL (J1940) IV SCH ×2 (18:15→23:48)
[2017-04-17] MEDS: NovoLOG MIX 70/30 PER UNIT SC SCH (18:16)
[2017-04-17 20:00] VITALS: BP 181/75
[2017-04-17] MEDS: DOCUSATE SODIUM 100 MG CAP PO SCH (20:25)
[2017-04-17] MEDS: ATORVASTATIN 20 MG TAB PO SCH (20:26)
[2017-04-17] MEDS: CARVedilol 6.25 MG TAB PO SCH (20:27)
[2017-04-17] MEDS: ACETAMINOPHEN TAB 650MG DOSE (2X325MG) PO PRN (20:28)
[2017-04-17] MEDS: MIRTAZAPINE 7.5MG PER 1/2 TABLET PO PRN (20:28)
[2017-04-17] MEDS ORDERED: FENOFIBRATE 48 MG TAB (TRICOR) PO SCH (21:00)
[2017-04-17 23:59] VITALS: BP 130/63
[2017-04-18] VITALS (7 sets, daily range): BP systolic 127–183; BP diastolic 59–77
[2017-04-18] MEDS: HEPARIN SOD (PORCINE) 5000 UNITS/ML VIAL SC SCH ×3 (05:56→21:56)
[2017-04-18] MEDS: FUROSEMIDE 40 MG/4 ML VIAL (J1940) IV SCH (05:56)
[2017-04-18 06:07] LABS: MEAN CORPUSCULAR HEMOGLOBIN 30.4 pg (27.0-33.0); MEAN CORPUSCULAR HGB CONC 32.4 g/dl (32.0-36.5); MEAN CORPUSCULAR VOLUME 93.9 fl (80.0-96.0); PLATELET COUNT, AUTOMATED 176 10^3/uL (150-450); RED CELL DISTRIBUTION WIDTH 13.8 % (11.5-14.5); WHITE BLOOD COUNT 9.9 10^3/uL (4.0-10.0)
[2017-04-18 06:30] LABS: CALCIUM LEVEL 8.4 MG/DL (8.8-10.2); CREATININE FOR GFR 3.19 MG/DL (0.70-1.30); GLOMERULAR FILTRATION RATE 20.4 (>42); POTASSIUM SERUM 4.5 MEQ/L (3.5-5.1)
[2017-04-18] MEDS: NovoLOG MIX 70/30 PER UNIT SC SCH ×3 (07:30→18:09)
[2017-04-18] MEDS: DOXYCYCLINE HYCLATE 100 MG TAB PO SCH ×2 (07:59→21:55)
[2017-04-18] MEDS: DOCUSATE SODIUM 100 MG CAP PO SCH ×2 (07:59→21:55)
[2017-04-18] MEDS: MIRALAX *UNIT DOSE* 17GM PACKET PO SCH (07:59)
[2017-04-18] MEDS: ESCITALOPRAM OXALATE 10 MG TAB (LEXAPRO) PO SCH (08:00)
[2017-04-18] MEDS: CARVedilol 6.25 MG TAB PO SCH ×2 (08:00→21:56)
[2017-04-18] MEDS: CYANOCOBALAMIN 500 MCG TAB PO SCH (08:00)
[2017-04-18] MEDS: **hydrALAZINE** 50 MG TAB PO SCH ×4 (08:00→21:55)
[2017-04-18] MEDS: VITAMIN D 1,000 INTERNATIONAL UNITS TABLET PO SCH (08:00)
[2017-04-18] MEDS: amLODIPine 10 MG TAB PO SCH (08:00)
[2017-04-18] MEDS ORDERED: **hydrALAZINE HCL** 25 MG TAB PO ONE (10:30)
[2017-04-18] MEDS: CLOPIDOGREL 75 MG TAB PO SCH (10:42)
[2017-04-18] MEDS ORDERED: TAMSULOSIN 0.4 MG CAP PO ONE (11:45)
--- NOTE | 2017-04-18 12:13 | REP ---
CT CHEST WITHOUT IV CONTRAST: CT chest is performed without IV contrast. Sagittal and coronal reconstruction images are performed. There are no prior studies for comparison. Both lungs demonstrate diffuse ill-defined nodular opacities centrally surrounding the bronchioles having the appearance of diffuse nodular infiltrates. Scattered hazy alveolar opacities are seen diffusely more peripherally. There are small bilateral pleural effusions. There is a calcified granuloma in the left lower lobe. A few small calcified lymph nodes are seen in the subcarinal region and left hilum. Heart is upper limits of normal in size. No pericardial effusion is seen. In the visualized portions of the upper abdomen a couple of tiny calcified granulomas are seen in the spleen and liver. No other significant abnormality is seen in the upper abdomen. IMPRESSION: Diffuse bilateral infiltrates appear somewhat nodular and are primarily located somewhat centrally around the bronchioles, with adjacent more peripheral hazy alveolar infiltrates diffusely bilaterally. There are small bilateral pleural effusions. Recommend followup to resolution to rule out a true underlying parenchymal nodule. There is evidence of prior granulomatous disease. Signed by Antelmo Burns MD 04/18/2017 05:35 P
--- NOTE | 2017-04-18 12:19 | REP ---
RENAL AND BLADDER ULTRASOUND: Real-time sonographic of the kidneys and bladder performed. Kidneys are normal in size and echotexture, right kidney measuring 11.5 x 4.9 x 5.7 cm and left kidney 12.2 x 4.6 x 6.0 cm. There is no hydronephrosis or renal mass bilaterally. Vascular calcifications are seen in both kidneys. Urinary bladder is mildly distended with no definite mass or calculus. IMPRESSION: Essentially negative renal ultrasound with no hydronephrosis. Signed by Antelmo Burns MD 04/18/2017 05:35 P
[2017-04-18] MEDS ORDERED: AZITHROMYCIN INJ 500 MG, VIAL MATE ADAPTER 1 EACH in D5W 250 ML IV SCH (14:00)
[2017-04-18] MEDS ORDERED: CEFTRIAXONE SOD 1 GM in APPROPRIATE DILUENT 1 EA IV SCH (14:00)
--- NOTE | 2017-04-18 14:01 | IPNPDOC ---
Text Note Date of Service The patient was seen on 04/18/17. NOTE Subjective: Pt feels well. Denies CP/palpitations. States he voided yesterday in the toilet and a part of his urine outpt is inaccurate. PHYSICAL EXAMINATION: Vitals: (see below) General: No acute distress, laying comfortably in bed. HEENT: Moist mucous membranes. Neck: No JVD or lymphadenopathy Cardiac: RRR, No murmurs Pulm: Coarse crackles b/l bases. No wheezing, rhonchi Abd: NT/ND + BS. Obese Ext: No edema or cyanosis. Right thumb with wound - on Abx. Healing. No induration. Distal pulses intact. LABORATORY DATA: See below. IMAGING: CT Chest 04/18/17 IMPRESSION: Diffuse bilateral infiltrates appear somewhat nodular and are primarily located somewhat centrally around the bronchioles, with adjacent more peripheral hazy alveolar infiltrates diffusely bilaterally. There are small bilateral pleural effusions. Recommend followup to resolution to rule out a true underlying parenchymal nodule. There is evidence of prior granulomatous disease. Renal U/s 04/18/17 IMPRESSION: Essentially negative renal ultrasound with no hydronephrosis. MICROBIOLOGY: Please see below. ASSESSMENT/PLAN: 1. Acute decompensated systolic heart failure- the patient had his Lasix at the month ago given his low blood pressure. Presented with pulmonary congestion and hypertensive urgency. Patient will be diuresed with IV Lasix. Strict I/O. Fluid resection. Low-sodium diet. Echocardiogram. Patient's prior EF was 35-40% 2014. Ho CAD s/p CABG. Hydralazine dose increased. 2. B/l Infiltrates - ? Atypical PNA. Started on Azithromycin. 3. Hypertension- will restart patient's home meds and patient will be on IV Lasix as well. started on Amlodipine/Hydralazine. 4. Right thumb wound- wound culture from earlier this month reviewed. The patient is on doxycycline. 5. Diabetes mellitus- continue patient's home insulin. 6. Anxiety- continue alprazolam as needed 7. GERD- on PPI; patient has an appointment for EGD/colonoscopy on June 01 with 8. HOLLIE on Chronic kidney disease stage 4 baseline creatinine 2.0-2.5. Urinary retention - james placed. Flomax/Proscar started. 9. CAD status post CABG- continue home meds DVT prophylaxis heparin subcutaneous We'll monitor in PCU. VS,Fishbone, I+O VS, Fishbone, I+O Laboratory Tests 04/18/17 05:48 Red Blood Count 3.45 L, Mean Corpuscular Volume 93.9, Mean Corpuscular Hemoglobin 30.4, Mean Corpuscular Hemoglobin Concent 32.4, Red Cell Distribution Width 13.8, Calcium Level 8.4 L Vital Signs Date Time Temp Pulse Resp B/P (MAP) Pulse Ox O2 Delivery O2 Flow Rate FiO2 04/18/17 12:00 97.8 70 16 172/74 (106) 96 High Flow Cannula 6.0 I&O- Last 24 Hours up to 6 AM 04/19/17 06:00 Intake Total 460 ml Output Total 600 ml Balance -140 ml ABDIEL BLOUNT MD Apr 18, 2017 14:01
[2017-04-18] MEDS: ALPRAZolam 0.5 MG TAB PO PRN (14:41)
[2017-04-18] MEDS ORDERED: MAGNESIUM CITRATE 300 ML BTL PO ONE (18:00)
[2017-04-18 18:45] LABS: ALBUMIN 2.9 GM/DL (3.2-5.2); CALCIUM LEVEL 8.9 MG/DL (8.8-10.2); CREATININE FOR GFR 3.12 MG/DL (0.70-1.30); POTASSIUM SERUM 3.9 MEQ/L (3.5-5.1)
[2017-04-18 19:00] LABS: PHOSPHORUS LEVEL 2.5 MG/DL (2.5-4.9)
--- NOTE | 2017-04-18 21:15 | ECGEPIP ---
Stationary ECG Study [facility] - ED Test Date: 2017-04-17 Pat Name: CHELSY MYERS Department: Room: - Gender: M [employer] Actuary: ESTRELLA : 1945 Requested By: LETICIA Cruz Order Number: [id number] Reading MD: Kavita Guerrero Measurements Intervals [place] Rate: 77 P: 52 RI: 184 QRS: 0 QRSD: 110 T: 35 QT: 410 QTc: 465 Interpretive Statements SINUS RHYTHM POSSIBLE LEFT ATRIAL ENLARGEMENT LOW VOLTAGE LIMB INCREASED RATE 12/24/16 Electronically Signed On 04-18-2017 21:15:41 EST by Kavita Guerrero
[2017-04-18] MEDS: FINASTERIDE 5 MG TAB PO SCH (21:55)
[2017-04-18] MEDS: ATORVASTATIN 20 MG TAB PO SCH (21:56)
[2017-04-18] MEDS: MIRTAZAPINE 7.5MG PER 1/2 TABLET PO PRN (22:29)
[2017-04-19 04:00] VITALS: BP 137/93
[2017-04-19 05:42] LABS: MEAN CORPUSCULAR HEMOGLOBIN 30.8 pg (27.0-33.0); MEAN CORPUSCULAR HGB CONC 33.1 g/dl (32.0-36.5); MEAN CORPUSCULAR VOLUME 92.9 fl (80.0-96.0); PLATELET COUNT, AUTOMATED 191 10^3/uL (150-450); RED CELL DISTRIBUTION WIDTH 13.2 % (11.5-14.5)
[2017-04-19 06:07] LABS: ALBUMIN 2.5 GM/DL (3.2-5.2); CALCIUM LEVEL 8.8 MG/DL (8.8-10.2); CREATININE FOR GFR 2.86 MG/DL (0.70-1.30); GLOMERULAR FILTRATION RATE 23.2 (>42); PHOSPHORUS LEVEL 2.9 MG/DL (2.5-4.9); POTASSIUM SERUM 4.2 MEQ/L (3.5-5.1)
[2017-04-19] MEDS: HEPARIN SOD (PORCINE) 5000 UNITS/ML VIAL SC SCH ×3 (07:05→22:02)
[2017-04-19 08:00] VITALS: BP 148/71
[2017-04-19] MEDS ORDERED: LevoFLOXacin 500 MG TABLET PO ONE (08:00)
--- NOTE | 2017-04-19 08:19 | ECHO ---
DATE OF PROCEDURE: 04/18/2017 REFERRING PHYSICIAN: Dr. Wade INDICATION: CHF, CAD - h/o CABG. The patient measures 65 inches and weighs 81 kg. DIMENSIONS: IVS: 1.3 LV: 4.6 LVPW: 1.3 LA: 4.9 Aorta: 3.2 RV: 3.1 FINDINGS: The study is of acceptable technical quality. Left ventricle is of normal size and grossly preserved contractility. There is a subtle septal wall motion abnormality, but I do not appreciate any additional wall motion abnormalities. Overall estimated ejection fraction (EF) approximately 60%. The right ventricle appears grossly normal size and contractility. The left atrium is moderately enlarged, the right atrium is normal size. Aortic valve is sclerotic, but it has three cusps and preserved mobility. Mitral, tricuspid and pulmonic valves appear normal. No pericardial effusion is noted. Inferior vena cava is normal size. Aortic root, aortic arch and visualized segment of abdominal aorta all appear normal. Doppler interrogation reveals no aortic stenosis or insufficiency. There is trace mitral insufficiency and no significant tricuspid insufficiency. Pulmonic valve is also functionally competent. Mitral inflow pattern and tissue Doppler imaging of mitral annulus revealed grade 1 diastolic dysfunction (mitral E flow velocity 85 cm/sec, A velocity 130, E prime septal 3.8, and E prime lateral is 4.9). CONCLUSIONS: 1. The study is of good technical quality. 2. Normal left ventricle (LV) size with preserved LV systolic function and grade 1 diastolic dysfunction. Mild left ventricular hypertrophy (LVH). 3. No significant valvular disease. 4. Normal central venous pressure. 5. Unable to estimate pulmonary artery pressure, but no signs to suggest pulmonary hypertension. COMMENTS: Subacute bacterial endocarditis (SBE) prophylaxis is not recommended. MTDD
[2017-04-19] MEDS: NovoLOG MIX 70/30 PER UNIT SC SCH ×2 (08:30→17:39)
[2017-04-19] MEDS: ESCITALOPRAM OXALATE 10 MG TAB (LEXAPRO) PO SCH (08:31)
[2017-04-19] MEDS: LACTOBACILLUS ACIDOPHILUS CAP (BACID) PO SCH ×3 (08:31→22:00)
[2017-04-19] MEDS: CYANOCOBALAMIN 500 MCG TAB PO SCH (08:32)
[2017-04-19] MEDS: DOCUSATE SODIUM 100 MG CAP PO SCH ×2 (08:32→22:02)
[2017-04-19] MEDS: DOXYCYCLINE HYCLATE 100 MG TAB PO SCH ×2 (08:32→22:00)
[2017-04-19] MEDS: ACETAMINOPHEN TAB 650MG DOSE (2X325MG) PO PRN ×2 (08:32→23:42)
[2017-04-19] MEDS: **hydrALAZINE** 50 MG TAB PO SCH ×3 (08:32→22:00)
[2017-04-19] MEDS: CLOPIDOGREL 75 MG TAB PO SCH (08:32)
[2017-04-19] MEDS: VITAMIN D 1,000 INTERNATIONAL UNITS TABLET PO SCH (08:33)
[2017-04-19] MEDS: TAMSULOSIN 0.4 MG CAP PO SCH (08:33)
[2017-04-19] MEDS: CARVedilol 6.25 MG TAB PO SCH ×2 (08:33→22:02)
[2017-04-19] MEDS: amLODIPine 10 MG TAB PO SCH (08:33)
[2017-04-19] MEDS: MIRALAX *UNIT DOSE* 17GM PACKET PO SCH (08:36)
[2017-04-19 12:00] VITALS: BP 145/66
--- NOTE | 2017-04-19 13:57 | IPNPDOC ---
Text Note Date of Service The patient was seen on 04/19/17. NOTE Subjective: Pt feels well. Denies CP/palpitations. States he voided yesterday in the toilet and a part of his urine outpt is inaccurate. PHYSICAL EXAMINATION: Vitals: (see below) General: No acute distress, laying comfortably in bed. HEENT: Moist mucous membranes. Neck: No JVD or lymphadenopathy Cardiac: RRR, No murmurs Pulm: Coarse crackles b/l bases. No wheezing, rhonchi Abd: NT/ND + BS. Obese Ext: No edema or cyanosis. Right thumb with wound - on Abx. Healing. No induration. Distal pulses intact. LABORATORY DATA: See below. IMAGING: CTA Chest 04/18/17 IMPRESSION: Diffuse bilateral infiltrates appear somewhat nodular and are primarily located somewhat centrally around the bronchioles, with adjacent more peripheral hazy alveolar infiltrates diffusely bilaterally. There are small bilateral pleural effusions. Recommend followup to resolution to rule out a true underlying parenchymal nodule. There is evidence of prior granulomatous disease. Renal U/s 04/18/17 IMPRESSION: Essentially negative renal ultrasound with no hydronephrosis. Echo 04/18/17 CONCLUSIONS: 1. The study is of good technical quality. 2. Normal left ventricle (LV) size with preserved LV systolic function and grade 1 diastolic dysfunction. Mild left ventricular hypertrophy (LVH). 3. No significant valvular disease. 4. Normal central venous pressure. 5. Unable to estimate pulmonary artery pressure, but no signs to suggest pulmonary hypertension. MICROBIOLOGY: Please see below. ASSESSMENT/PLAN: 1. Acute decompensated systolic heart failure- the patient had his Lasix at the month ago given his low blood pressure. Presented with pulmonary congestion and hypertensive urgency. Patient will be diuresed with IV Lasix. Strict I/O. Fluid resection. Low-sodium diet. Echocardiogram (see above). Patient's prior EF was 35-40% 2014. Ho CAD s/p CABG. 2. B/l Infiltrates - ? Atypical PNA. On levaquin. Legionella/chlamydia/ mycoplasma levels sent. 3. Hypertension- will restart patient's home meds and patient will be on IV Lasix as well. Started on Amlodipine/Hydralazine. 4. Right thumb wound- wound culture from earlier this month reviewed. The patient is on doxycycline. 5. Diabetes mellitus- continue patient's home insulin. 6. Anxiety- continue alprazolam as needed 7. GERD- on PPI; patient has an appointment for EGD/colonoscopy on June 01 with 8. HOLLIE on Chronic kidney disease stage 4 baseline creatinine 2.0-2.5. Improving. Urinary retention - james placed. Flomax/Proscar started. 9. CAD status post CABG- continue home meds DVT prophylaxis heparin subcutaneous We'll monitor in PCU. VS,Fishbone, I+O VS, Fishbone, I+O Laboratory Tests 04/18/17 18:01 Anion Gap 6 L 04/19/17 05:18 Anion Gap 6 L, Red Blood Count 3.54 L, Mean Corpuscular Volume 92.9, Mean Corpuscular Hemoglobin 30.8, Mean Corpuscular Hemoglobin Concent 33.1, Red Cell Distribution Width 13.2 Vital Signs Date Time Temp Pulse Resp B/P (MAP) Pulse Ox O2 Delivery O2 Flow Rate FiO2 04/19/17 12:00 97.2 55 18 145/66 (92) 92 High Flow Cannula 6.0 I&O- Last 24 Hours up to 6 AM 04/20/17 06:00 Intake Total 960 ml Output Total 150 ml Balance 810 ml ABDIEL BLOUNT MD Apr 19, 2017 13:57
[2017-04-19 15:49] VITALS: BP 145/67
[2017-04-19] MEDS: PROMETHAZINE 25 MG TAB PO PRN (18:44)
--- NOTE | 2017-04-19 19:47 | IPN ---
DATE: 04/19/2017 SUBJECTIVE: The patient was seen and examined at the bedside today, morning. The patient reports that his shortness of breath is significantly better. The patient got Kaba catheter placement yesterday because of a large postvoid residual. His renal function is also significantly improving. The patient had a good urine output. He is getting treatment for atypical pneumonia. REVIEW OF SYSTEMS: The patient denies any fever, chills, rigors. He denies any chest pain. He reports his shortness of breath is better. He denies any pain in the abdomen, constipation. The patient had urinary retention. He has an indwelling Kaba at this time. The rest of the review of systems is negative. OBJECTIVE: VITAL SIGNS: Temperature is 97.2 degrees Fahrenheit, blood pressure is 145/66, pulse is 55, respiratory rate of 18, saturating 92% on nasal cannula. INTAKE/OUTPUT: Urine output recorded as 2.5 liters yesterday, 850 mL so far today since overnight. Weight on the bed scale is 78 kg. PHYSICAL EXAMINATION: GENERAL: The patient is awake, alert, oriented times three, sitting in the bed in no apparent distress. HEAD AND NECK EXAM: Extraocular muscles intact. Pupils equally round and reactive to light. Mucous membranes are moist. Neck is supple. There is no jugular venous distention (JVD). CARDIOVASCULAR: S1, S2, regular rate. No murmur, rub or gallop. RESPIRATORY: The patient has mild crackles at the bases; otherwise no rales or rhonchi. ABDOMEN: Abdomen is soft, nontender, positive bowel sounds. GENITOURINARY: The patient has an indwelling Kaba catheter. Urine in the bag is clear. MUSCULOSKELETAL: No clubbing or cyanosis. Pulses are 2+. CENTRAL NERVOUS SYSTEM: No focal neurological deficit. Power is 5/5 in all extremities. PSYCHIATRIC: Normal mood and affect. LAB REVIEW: CBC showed a WBC of 6, hemoglobin 10.9, platelets of 191. BMP today morning showed sodium 139, potassium 4.2, chloride 104, bicarbonate 29, BUN 39, creatinine is 2.8, it was 3.1 yesterday, calcium 8.8, phosphorus 2.9, albumin 2.5. Pneumonia antigens are pending. Microbiology: Blood cultures are pending. CURRENT INPATIENT MEDICATIONS: The patient's medications were all reviewed by me. The patient's IV azithromycin has been stopped. He is currently on oral Levaquin. Diuretics are on hold at this time. The patient is also on doxycycline. ASSESSMENT: A 71-year-old man with shortness of breath along with bilateral infiltrates on the imaging, decompensated systolic congestive heart failure and acute kidney injury superimposed on chronic kidney disease. PLAN: 1. Acute kidney injury. It was secondary to a combination of high dose diuretics and urinary obstruction. The patient got a Kaba catheter placement yesterday. Creatinine is nicely trending down to 2.8 now. Continue to monitor for now. 2. Urinary obstruction. Patient got the Kaba yesterday. He has been started on Flomax and finasteride. Kaba catheter will be removed tomorrow to do the voiding trial. 3. Decompensated systolic congestive heart failure. Patient got high dose Lasix on admission. However, today the Lasix dose is on hold because of acute kidney injury. Latest echocardiogram showed preserved LV systolic function with grade 1 diastolic dysfunction. 4. Bilateral infiltrates, possibly atypical pneumonia. Pneumonia antigens are all pending. The patient is currently on doxycycline and Levaquin. The patient's symptoms are improving. 5. Hypertension. Continue current dose of amlodipine 10 mg daily, Coreg 6.25 mg by mouth twice a day, hydralazine 75 mg by mouth three times a day. Avoid angiotensin-converting enzyme (MANDI) inhibitors or angiotensin receptor blockers at this time.
[2017-04-19 20:00] VITALS: BP 149/72
[2017-04-19] MEDS: ATORVASTATIN 20 MG TAB PO SCH (21:59)
[2017-04-19] MEDS: FINASTERIDE 5 MG TAB PO SCH (22:00)
[2017-04-19] MEDS: MIRTAZAPINE 7.5MG PER 1/2 TABLET PO PRN (22:43)
[2017-04-19 23:59] VITALS: BP 142/75
[2017-04-20] MEDS: PROMETHAZINE 25 MG TAB PO PRN ×3 (01:37→14:36)
[2017-04-20 04:00] VITALS: BP 142/64
[2017-04-20] MEDS: HEPARIN SOD (PORCINE) 5000 UNITS/ML VIAL SC SCH ×3 (05:36→20:54)
[2017-04-20] MEDS: LevoFLOXacin 250 MG TABLET PO SCH (05:36)
[2017-04-20 07:53] VITALS: BP 158/71
--- NOTE | 2017-04-20 09:04 | IPN ---
DATE: 04/20/2017 Mr. Harry has no complaints of pain, chest pain, shortness of breath. He is tolerating a diet. He is worried about his health and thinks that he may be dying. Temperature is 97, pulse 62, respiratory rate 18, blood pressure 158/71, 95% on 4 liters high flow nasal cannula. Fluid balance of 270, Body Mass Index (BMI) of 28.5. He is awake, appropriately interactive, pleasantly conversant. Breathing is symmetrical and rested. I:E ratio is 1:3. No wheezes, rales or rhonchi. Neck is thick. Heart is distant sounding. Normal S1, S2. There are premature ventricular contractions (PVCs) noted occasionally on the monitor. Abdomen is soft, doughy, nontender. There is no significant lower extremity edema. White cell count is 6.0, hemoglobin 10.9, platelets of 191. BUN 39, creatinine 2.86, those are laboratories as of yesterday, today's laboratories are pending. He has a Kaba catheter in place, which is draining yellow urine. Renal ultrasound had previously showed no evidence of hydronephrosis. ASSESSMENT: This is a 71-year-old who was treated for acutely decompensated heart failure. He has atypical pneumonia and acute kidney injury in the setting of urinary retention and medication side effect. PLAN: 1. The patient has an echocardiogram showing retained systolic function and grade 1 diastolic dysfunction. The patient would appear to be compensated at this point. 2. The patient is being treated for atypical pneumonia. Antibiotic continued. 3. The patient has acute renal failure in the setting of chronic kidney disease with baseline creatinine from 2 to 5. Has had a Kaba catheter placed and is being followed by nephrology. Greatly appreciate Dr. Jiang's input. 4. The patient has hypertension, which is reasonably well controlled for the current setting. 5. The patient has anxiety about his current health status. I attempted to reassure him that he appears to be improving. 6. The patient has right thumb wound and is on doxycycline. 7. The patient has diabetes, on insulin. 8. The patient has appropriate deep vein thrombosis (DVT) prophylaxis and is on heparin.
[2017-04-20] MEDS: NovoLOG MIX 70/30 PER UNIT SC SCH ×2 (09:09→16:54)
[2017-04-20] MEDS: **hydrALAZINE** 50 MG TAB PO SCH ×3 (09:09→20:54)
[2017-04-20] MEDS: amLODIPine 10 MG TAB PO SCH (09:10)
[2017-04-20] MEDS: LACTOBACILLUS ACIDOPHILUS CAP (BACID) PO SCH ×3 (09:10→20:54)
[2017-04-20] MEDS: DOCUSATE SODIUM 100 MG CAP PO SCH ×2 (09:10→20:56)
[2017-04-20] MEDS: MIRALAX *UNIT DOSE* 17GM PACKET PO SCH (09:10)
[2017-04-20] MEDS: CLOPIDOGREL 75 MG TAB PO SCH (09:10)
[2017-04-20] MEDS: ESCITALOPRAM OXALATE 10 MG TAB (LEXAPRO) PO SCH (09:10)
[2017-04-20] MEDS: CARVedilol 6.25 MG TAB PO SCH ×2 (09:10→20:55)
[2017-04-20] MEDS: TAMSULOSIN 0.4 MG CAP PO SCH (09:10)
[2017-04-20 09:11] LABS: MEAN CORPUSCULAR HEMOGLOBIN 30.5 pg (27.0-33.0); MEAN CORPUSCULAR HGB CONC 33.1 g/dl (32.0-36.5); MEAN CORPUSCULAR VOLUME 92.2 fl (80.0-96.0); PLATELET COUNT, AUTOMATED 233 10^3/uL (150-450); RED CELL DISTRIBUTION WIDTH 13.1 % (11.5-14.5); WHITE BLOOD COUNT 4.7 10^3/uL (4.0-10.0)
[2017-04-20] MEDS: CYANOCOBALAMIN 500 MCG TAB PO SCH (09:11)
[2017-04-20] MEDS: VITAMIN D 1,000 INTERNATIONAL UNITS TABLET PO SCH (09:11)
[2017-04-20] MEDS: DOXYCYCLINE HYCLATE 100 MG TAB PO SCH ×2 (09:11→20:54)
[2017-04-20 09:29] LABS: CALCIUM LEVEL 9.2 MG/DL (8.8-10.2); CREATININE FOR GFR 2.57 MG/DL (0.70-1.30); GLOMERULAR FILTRATION RATE 26.2 (>42)
[2017-04-20] MEDS: ACETAMINOPHEN TAB 650MG DOSE (2X325MG) PO PRN ×2 (11:26→22:41)
[2017-04-20 12:00] VITALS: BP 127/71
--- NOTE | 2017-04-20 13:56 | REP ---
CHEST, TWO VIEWS: Two views of the chest are performed and compared to a prior study of 11/23/2014. There is cardiomegaly. Diffuse bilateral infiltrates are noted. There is mild calcification of the thoracic aorta. Multiple sternal wires are present. There are mild degenerative changes of the spine. IMPRESSION: Cardiomegaly and diffuse bilateral infiltrates, likely on the basis of congestive heart failure and pulmonary edema. Signed by Antelmo Burns MD 04/20/2017 05:00 P
[2017-04-20 15:58] VITALS: BP 131/74
[2017-04-20 20:00] VITALS: BP 136/76
[2017-04-20] MEDS ORDERED: SIMETHICONE 80 MG CHEW TAB PO PRN (20:30)
[2017-04-20] MEDS: ATORVASTATIN 20 MG TAB PO SCH (20:54)
[2017-04-20] MEDS: FINASTERIDE 5 MG TAB PO SCH (20:55)
[2017-04-20 23:59] VITALS: BP 128/72
[2017-04-21] MEDS: ALPRAZolam 0.5 MG TAB PO PRN ×2 (03:10→17:48)
[2017-04-21 04:00] VITALS: BP 178/84
[2017-04-21 05:43] LABS: MEAN CORPUSCULAR HEMOGLOBIN 29.7 pg (27.0-33.0); MEAN CORPUSCULAR HGB CONC 32.6 g/dl (32.0-36.5); MEAN CORPUSCULAR VOLUME 91.3 fl (80.0-96.0); PLATELET COUNT, AUTOMATED 235 10^3/uL (150-450); RED CELL DISTRIBUTION WIDTH 12.8 % (11.5-14.5); WHITE BLOOD COUNT 4.9 10^3/uL (4.0-10.0)
[2017-04-21] MEDS: LevoFLOXacin 250 MG TABLET PO SCH (05:52)
[2017-04-21] MEDS: HEPARIN SOD (PORCINE) 5000 UNITS/ML VIAL SC SCH ×3 (05:52→21:01)
[2017-04-21 06:01] LABS: CREATININE FOR GFR 2.56 MG/DL (0.70-1.30); GLOMERULAR FILTRATION RATE 26.4 (>42); POTASSIUM SERUM 4.5 MEQ/L (3.5-5.1)
--- NOTE | 2017-04-21 07:06 | IPN ---
DATE OF SERVICE: 04/20/2017 SUBJECTIVE: Patient was seen and examined at the bedside today morning. Patient is hemodynamically stable. He denies any shortness of breath. Renal function continues to improve. Creatinine is down to 2.5. Patient continues to have Kaba catheter at this time. REVIEW OF SYSTEMS: The patient denies any fever, chills, rigors, headache, chest pain, shortness of breath, pain in the abdomen, constipation or diarrhea. The rest of the review of systems is negative. OBJECTIVE: VITAL SIGNS: Temperature is 97 degrees Fahrenheit, blood pressure is 131/74, pulse is 60, respiratory rate of 18, saturating 98% on high flow nasal cannula at 5 liters. INTAKE/OUTPUT: Urine output recorded as 1 liter yesterday, and 1.2 liters so far today since overnight. Weight on the bed scale is 77.8 kg. PHYSICAL EXAMINATION: GENERAL: Patient is awake, alert, oriented times three, laying in bed in no apparent distress. HEAD AND NECK EXAM: Extraocular muscles intact. Pupils equally round and reactive to light. Mucous membranes are moist. Neck is supple. There is no jugular venous distention (JVD). CARDIOVASCULAR: S1, S2, regular rate. No murmur, rub or gallop. RESPIRATORY: Chest is clear to auscultation bilaterally. Bilateral equal air entry. No rales or rhonchi. ABDOMEN: Abdomen is soft, nontender, positive bowel sounds. GENITOURINARY: The patient has an indwelling Kaba catheter. Urine in the bag is clear. MUSCULOSKELETAL: No clubbing or cyanosis. Pulses are 2+. CENTRAL NERVOUS SYSTEM: No focal neurological deficit. Power is 5/5 in all extremities. PSYCHIATRIC: Normal mood and affect. LAB REVIEW: CBC showed a WBC of 4.7, hemoglobin 11.7, platelets of 233. BMP showed sodium 140, potassium 4, chloride 105, bicarbonate 29, BUN 36, creatinine is 2.5, it was 2.8 yesterday. CURRENT INPATIENT MEDICATIONS: The patient's medications were all reviewed by me. Patient has been started on Levaquin 250 mg by mouth daily. There is no other changes in the medications today as compared with yesterday. ASSESSMENT: 71-year-old man with shortness of breath along with bilateral infiltrates on the imaging, acute kidney injury superimposed on chronic kidney disease. PLAN: 1. Acute kidney injury. It was secondary to a combination of high dose diuretics and urinary obstruction. The patient got a Kaba catheter placed. Creatinine is trending down and is down to 2.5 now. Hold the diuretics at this time. 2. Urinary obstruction. Patient got a Kaba catheter and he is having a good urine output. Kaba catheter will be removed today. Continue the Flomax and Proscar. Patient will get a bladder scan every 8 hours with straight catheterization as needed. 3. Diastolic congestive heart failure. The patient's volume status is optimized. No need of diuretics at this time. 4. Bilateral interstitial infiltrates. Patient is being treated for atypical pneumonia. Serology is pending. Continue current dose of Levaquin. 5. Hypertension. Blood pressure is acceptable at this time. Continue current dose of amlodipine 10 mg daily, Coreg 6.25 mg by mouth twice a day, hydralazine 75 mg by mouth three times a day.
[2017-04-21] MEDS: NovoLOG MIX 70/30 PER UNIT SC SCH ×2 (07:30→17:48)
[2017-04-21 08:03] VITALS: BP 152/64
[2017-04-21] MEDS: MIRALAX *UNIT DOSE* 17GM PACKET PO SCH (09:00)
[2017-04-21 09:18] VITALS: BP 152/64
[2017-04-21] MEDS: DOXYCYCLINE HYCLATE 100 MG TAB PO SCH ×2 (09:19→20:50)
[2017-04-21] MEDS: DOCUSATE SODIUM 100 MG CAP PO SCH ×2 (09:19→20:50)
[2017-04-21] MEDS: CLOPIDOGREL 75 MG TAB PO SCH (09:20)
[2017-04-21] MEDS: **hydrALAZINE** 50 MG TAB PO SCH ×3 (09:20→20:49)
[2017-04-21] MEDS: CARVedilol 6.25 MG TAB PO SCH ×2 (09:20→20:50)
[2017-04-21] MEDS: CYANOCOBALAMIN 500 MCG TAB PO SCH (09:20)
[2017-04-21] MEDS: amLODIPine 10 MG TAB PO SCH (09:20)
[2017-04-21] MEDS: ESCITALOPRAM OXALATE 10 MG TAB (LEXAPRO) PO SCH (09:20)
[2017-04-21] MEDS: TAMSULOSIN 0.4 MG CAP PO SCH (09:25)
[2017-04-21] MEDS: VITAMIN D 1,000 INTERNATIONAL UNITS TABLET PO SCH (09:25)
[2017-04-21] MEDS: LACTOBACILLUS ACIDOPHILUS CAP (BACID) PO SCH ×3 (09:25→20:49)
[2017-04-21] MEDS: BISACODYL 5 MG TAB PO PRN (09:25)
[2017-04-21] MEDS: PROMETHAZINE 25 MG TAB PO PRN (09:25)
[2017-04-21 14:40] VITALS: BP 168/72
--- NOTE | 2017-04-21 15:02 | IPN ---
DATE: 04/21/2017 Mr. Harry has no complaints of pain. No chest pain. No shortness of breath. He actually slept last night for the first time in several nights. is at bedside. Temperature is 99.2, pulse 58, respiratory rate 19, blood pressure 152/64, 99% on 5 liters. He is not on oxygen at home. Positive fluid balance of 460. One bowel movement yesterday. Body Mass Index (BMI) of 28.4. He is awake, appropriately interactive, pleasantly conversant. Breathing is symmetrical diminished. I:E ratio is 1:4. No wheezes. Some upper airway sounds are noted. Mucous membranes are moist. Neck is supple. Breathing is symmetrical. Speaking in full sentences. Heart is distant sounding. Normal S1, S2. Abdomen is soft, doughy, nontender. There is no significant lower extremity edema. White count 4.9, hemoglobin 11.6, platelets 235. BUN 36, creatinine 2.56, which is baseline. Blood cultures are negative after 24 hours. ASSESSMENT: This is a 71-year-old who has been treated for acutely decompensated heart failure. He has atypical pneumonia and resolved acute kidney injury in the setting of urinary retention and medication side effect. PLAN: 1. The patient has an echocardiogram showing normal systolic function and grade 1 diastolic dysfunction. He would appear to be compensated at this point. 2. The patient is being treated for atypical pneumonia. On renally dosed antibiotic. 3. The patient may have an underlying lung nodule, which will need appropriate outpatient followup. 4. The patient has acute renal failure in the setting of chronic kidney disease and has been followed by Dr. Jiang. Kaba catheter is removed. He is having good urinary output. Bladder scan has been ordered. Renal function is maintained. 5. The patient has hypertension, which is reasonably well controlled for the current setting. 6. The patient has right thumb wound and has been treated with doxycycline. He is currently on Levaquin as well. 7. The patient is being transferred to medical/surgical floor. I did discuss this case in person with the patient's at bedside. GLORIA
[2017-04-21] MEDS: FINASTERIDE 5 MG TAB PO SCH (20:46)
[2017-04-21] MEDS: ACETAMINOPHEN TAB 650MG DOSE (2X325MG) PO PRN (20:49)
[2017-04-21] MEDS: ATORVASTATIN 20 MG TAB PO SCH (20:50)
[2017-04-21 22:00] VITALS: BP 146/65
[2017-04-22 00:06] LABS: ORGANISM ID Not indicated. (.); SPECIMEN SOURCE Urine (.)
[2017-04-22] MEDS: LevoFLOXacin 250 MG TABLET PO SCH (05:10)
[2017-04-22] MEDS: HEPARIN SOD (PORCINE) 5000 UNITS/ML VIAL SC SCH ×3 (05:10→21:38)
--- NOTE | 2017-04-22 05:43 | CR ---
DATE OF CONSULTATION: 04/18/2017 REQUESTING PHYSICIAN: Dr. Víctor Ramsey. CONSULTING PHYSICIAN: Dr. Jiang. REASON FOR CONSULTATION: Management of acute kidney injury and possible fluid overload in this patient. CHIEF COMPLAINT: The patient presented to the hospital with progressive shortness of breath. HISTORY OF PRESENT ILLNESS: Mr. Tello Harry is a 71-year-old male with a past medical history of chronic kidney disease stage III, baseline creatinine of around 1.8 to 2.0, history of coronary artery disease status post coronary artery bypass graft (CABG), diastolic heart failure, hypertension, multiple other comorbidities as mentioned below. The patient presented to the hospital because of progressive shortness of breath. In the emergency room, the patient was given nebulization. He was found to have infiltrates on the x-ray. He was started on intravenous (IV) Lasix injection; however, after diuresis his renal function started getting worse. He presented to the hospital with a creatinine of 2.7 which has bumped up to 3.19 today. Nephrology service was called to further help in the management of this patient with acute kidney injury superimposed on chronic kidney disease stage III, and possible fluid overload. PAST MEDICAL HISTORY: The patient has a past medical history of: 1. Chronic kidney disease stage III, baseline creatinine between 1.8 to 2.0. 2. Coronary artery disease. 3. Ischemic heart disease. 4. Congestive heart failure (CHF) with systolic dysfunction in the past. 5. Hypertension. 6. Diabetes mellitus type 2. 7. Gastroesophageal reflux disease. 8. Anxiety disorder. PAST SURGICAL HISTORY: Status post coronary artery bypass grafting in 2016. ALLERGIES: The patient does not have any known drug allergies. FAMILY HISTORY: No significant family history of end-stage renal disease requiring hemodialysis. There is positive history of CHF in mother. His daughter of diabetes and heart attack. SOCIAL HISTORY: The patient denies any illicit drug abuse, alcohol abuse or smoking. REVIEW OF SYSTEMS: CONSTITUTIONAL: He denies any fever, chills or rigors. EYES: He denies any double vision or blurry vision. ENT: He denies any dysphagia or odynophagia, ear discharge. CARDIOVASCULAR: He denies any chest pain or palpitations. RESPIRATORY: He does report progressive shortness of breath. GASTROINTESTINAL (GI): The patient does report nausea and vomiting. GENITOURINARY: He denies any dysuria or hematuria. MUSCULOSKELETAL: He denies any muscle aches and pains. CENTRAL NERVOUS SYSTEM (DELIVERY MAN): He denies any weakness, strokes or seizures. PSYCHIATRIC: He denies any depression or anxiety at this time. SKIN: He denies any rashes or ulcers. HEMATOLOGIC/ONCOLOGIC: He denies any easy bleeding or bruising tendency. ENDOCRINE: The patient is a known diabetic. All other review of systems is negative. PHYSICAL EXAMINATION: VITAL SIGNS: Temperature is 97.8 degrees Fahrenheit, blood pressure is 172/74, pulse is 70, respiratory rate of 16, saturating 96% on high-flow nasal cannula at six liters. INTAKE AND OUTPUT: Urine output recorded yesterday at 300 mL. Urine output recorded so far today is 400 mL. Weight in the bed scale is 81.1 kg. HEAD/NECK: Extraocular muscles intact. Pupils equal, round, and reactive to light. Mucous membranes are moist. Neck is supple. There is no jugular venous distention (JVD). CARDIOVASCULAR: S1, S2. Regular rate. No murmur, rub, or gallop. RESPIRATORY: Slightly decreased breath sounds at the bases; otherwise, no rales or rhonchi. ABDOMEN: Soft. Positive bowel sounds. The patient's bladder is palpable in the suprapubic region. EXTREMITIES: No clubbing or cyanosis. Pulses are 2+. The right thumb has a wound. CENTRAL NERVOUS SYSTEM (DELIVERY MAN): No focal neurological deficit. Power is 5/5 in all extremities. PSYCHIATRIC: Normal mood and affect. SKIN: No rashes or ulcers. LYMPHATIC: There is no significant cervical, axillary or inguinal adenopathy. LABORATORY DATA: CBC showed a WBC of 9.9, hemoglobin 10.5, platelets of 176. Urinalysis showed 1+ glucose. Negative nitrites. Negative leukocyte esterase. Negative protein. BMP showed sodium 138, potassium 3.9, chloride 102, bicarbonate 30, BUN 36, creatinine 3.1. GFR is 21. Calcium 8.9. Phosphorus is 2.5. Albumin 2.9. IMAGING: A CT scan of the chest was done today morning. It showed diffuse bilateral infiltrates which appear somewhat nodular, with small bilateral pleural effusions, and there is evidence of prior granulomatous disease. CURRENT INPATIENT MEDICATIONS: The patient's medications were all reviewed by me, and the patient is on: - Levaquin - IV azithromycin - IV Rocephin - Tylenol as needed - Xanax 0.5 mg by mouth three times a day as needed for anxiety - amlodipine 10 mg daily - Lipitor 40 mg at bedtime - Coreg 6.25 mg by mouth twice a day - Plavix 75 mg daily - B12 - Colace - Lexapro 20 mg daily - heparin subcutaneous - hydralazine 75 mg by mouth twice a day - mirtazapine, omeprazole, Flomax and vitamin D ASSESSMENT: A 71-year-old male with past medical history of chronic kidney disease stage III, history of systolic heart failure, hypertension, diabetes mellitus type 2, admitted this time because of progressive shortness of breath, and now patient has developed acute kidney injury as well. PLAN: 1. Acute kidney injury superimposed on chronic kidney disease stage III: The patient got STAT bedside bladder scan done in my presence. There were more than 500 mL of post-void residue. The patient was initially refusing Kaba catheterization. Later on, Kaba catheter was placed. More than 400 mL of urine came out. The patient does not seem to be in fluid overload at this time. I have stopped the diuretics at this time. His volume status is optimized. I think because of his renal failure at this time, his obstruction and use of diuretics, continue the Kaba at this time. I have also started the patient on Flomax and finasteride. 2. History of congestive heart failure: The patient is not in any fluid overload at this time. His volume status is optimized. I have stopped the diuretics. Pending echocardiogram report at this time. 3. Possible atypical pneumonia: The patient's serology is pending. He has bilateral interstitial infiltrates. He is currently on IV azithromycin. Rest of the management is as per primary team. 4. Hypertension: Blood pressure is acceptable at this time. Continue current dose of amlodipine, Coreg, and hydralazine. Avoid angiotension-converting enzyme (MANDI) inhibitors at this time. 5. Urinary obstruction: The patient has been started in finasteride and Flomax. Continue the Kaba catheter for the next 48 hours. I shall remove the catheter once the renal function starts improving and we shall do the voiding trials with bladder scans every eight hours as needed. Thank you for involving us in the care of this patient. We shall be happy to follow the patient along with you tomorrow morning. Plan of care was discussed with the hospitalist, Dr. Víctor Ramsey.
[2017-04-22 06:00] VITALS: BP 144/67
[2017-04-22 06:28] LABS: MEAN CORPUSCULAR HEMOGLOBIN 30.7 pg (27.0-33.0); MEAN CORPUSCULAR HGB CONC 33.7 g/dl (32.0-36.5); MEAN CORPUSCULAR VOLUME 91.1 fl (80.0-96.0); PLATELET COUNT, AUTOMATED 230 10^3/uL (150-450); RED CELL DISTRIBUTION WIDTH 12.7 % (11.5-14.5); WHITE BLOOD COUNT 3.6 10^3/uL (4.0-10.0)
[2017-04-22 06:40] LABS: CALCIUM LEVEL 9.2 MG/DL (8.8-10.2); CREATININE FOR GFR 2.54 MG/DL (0.70-1.30); GLOMERULAR FILTRATION RATE 26.6 (>42); MAGNESIUM LEVEL 1.8 MG/DL (1.8-2.4); POTASSIUM SERUM 3.9 MEQ/L (3.5-5.1)
[2017-04-22] MEDS: NovoLOG MIX 70/30 PER UNIT SC SCH ×2 (07:30→17:35)
[2017-04-22] MEDS: LACTOBACILLUS ACIDOPHILUS CAP (BACID) PO SCH ×3 (08:18→21:40)
[2017-04-22] MEDS: PROMETHAZINE 25 MG TAB PO PRN (08:18)
[2017-04-22] MEDS: CLOPIDOGREL 75 MG TAB PO SCH (08:18)
[2017-04-22] MEDS: TAMSULOSIN 0.4 MG CAP PO SCH ×2 (08:18→21:38)
[2017-04-22] MEDS: **hydrALAZINE** 50 MG TAB PO SCH ×3 (08:18→21:40)
[2017-04-22] MEDS: CYANOCOBALAMIN 500 MCG TAB PO SCH (08:18)
[2017-04-22] MEDS: MIRALAX *UNIT DOSE* 17GM PACKET PO SCH (08:18)
[2017-04-22] MEDS: ESCITALOPRAM OXALATE 10 MG TAB (LEXAPRO) PO SCH (08:19)
[2017-04-22] MEDS: DOCUSATE SODIUM 100 MG CAP PO SCH ×2 (08:19→21:38)
[2017-04-22] MEDS: VITAMIN D 1,000 INTERNATIONAL UNITS TABLET PO SCH (08:19)
[2017-04-22] MEDS: CARVedilol 6.25 MG TAB PO SCH ×2 (08:19→21:40)
[2017-04-22] MEDS: amLODIPine 10 MG TAB PO SCH (08:20)
[2017-04-22] MEDS: ALPRAZolam 0.5 MG TAB PO PRN (09:31)
--- NOTE | 2017-04-22 13:43 | IPN ---
DATE: 04/21/2017 SUBJECTIVE: Patient was seen and examined at the bedside today morning. Patient is hemodynamically stable. His shortness of breath is improving. His Kaba catheter was removed yesterday. Patient is voiding well. He required one straight catheterization last night because of postvoid residual more than 250 mL. His rental function continues to improve. Creatinine is down to 2.56 today. REVIEW OF SYSTEMS: Patient denies any fever, chills, rigor, headache, chest pain. He denies any shortness of breath. Patient denies any constipation or diarrhea, and he reports that he is trying to empty his bladder every 2-3 hours. The rest of review of system is negative. OBJECTIVE: VITAL SIGNS: Temperature is 97.9 degrees Fahrenheit. Blood pressure 168/72. Pulse is 64. Respiratory rate of 18. Saturating 96% on nasal cannula at 2 liters. INTAKE AND OUTPUT: Urine output recorded as 1.5 liters yesterday, 925 mL so far today since overnight. Weight on the bed scale is 76.5 kg yesterday. PHYSICAL EXAMINATION: GENERAL: Patient is awake, alert, oriented times three, no apparent distress. HEAD/NECK EXAM: Extraocular muscles intact. Pupils equally round and reactive to light. Mucous membranes are moist. Neck is supple. There is no jugular venous distention (JVD). CARDIOVASCULAR: S1, S2 , regular rate. No murmur, rub or gallop. RESPIRATORY: Chest is clear to auscultation bilaterally. Bilateral equal air entry. No rales or rhonchi. ABDOMEN: Is soft, nontender. Positive bowel sounds. GENITOURINARY: Kaba catheter is out now. Bladder is nonpalpable. MUSCULOSKELETAL: No clubbing or cyanosis. Pulses are 2+. CENTRAL NERVOUS SYSTEM (SADDLE CUTTER): No focal neurological deficit. Power is 5/5 in all extremities. PSYCHIATRIC: Normal mood and affect. LABORATORY REVIEW: CBC showed WBC 4.9, hemoglobin 11.6, platelets are 235. BMP showed sodium 138, potassium 4.5, chloride 105, bicarbonate 28, BUN 36, creatinine is 2.56. Calcium is 9. Magnesium is 2. Microbiology: Blood cultures are negative so far. Mycoplasma pneumonia culture is pending. Rest of the pneumonia antigens are still pending. CURRENT INPATIENT MEDICATIONS: Patient's medications were all reviewed by me. Patient continues to be on Levaquin 250 mg by mouth daily. Doxycycline has been stopped. There is no other change in the medications today as compared with yesterday. ASSESSMENT: 71-year-old male admitted at this time because of shortness of breath along with bilateral pulmonary infiltrates on the imaging currently being treated for atypical pneumonia. Nephrology service following patient for management of acute kidney injury superimposed on chronic kidney disease. PLAN: 1. Acute kidney injury. It was secondary to combination of high dose diuretic and urinary obstruction. Patient got Kaba catheter for 2 days. Kaba has been removed. Creatinine is down to 2.5. Continue to hold diuretics at this time. 2. Urinary obstruction. Patient got Kaba catheter. He has been started on Flomax and finasteride. Continue Flomax and finasteride on discharge as well. 3. Bilateral interstitial infiltrates, atypical pneumonia. Serology is pending. Patient is being treated as atypical pneumonia. He is currently on oral Levaquin. 4. Hypotension. Blood pressure is acceptable at this time. Continue current dose of amlodipine 10 mg, Coreg 6.25 mg twice a day, hydralazine 75 mg three times a day. DISPOSITION: Patient's baseline creatinine is 1.8 to 2. His creatinine is down 2.5, which is coming close to his baseline. At 4, the patient should be able to be discharged within the next 24-48 hours. Edited: 04/22/[address] [facility]
[2017-04-22 14:00] VITALS: BP 152/70
[2017-04-22 20:00] VITALS: BP 180/81
[2017-04-22] MEDS: ATORVASTATIN 20 MG TAB PO SCH (21:38)
[2017-04-22] MEDS: FINASTERIDE 5 MG TAB PO SCH (21:41)
[2017-04-22 21:55] VITALS: BP 142/60
[2017-04-23] MEDS: ACETAMINOPHEN TAB 650MG DOSE (2X325MG) PO PRN ×2 (00:22→20:09)
[2017-04-23] MEDS: ALPRAZolam 0.5 MG TAB PO PRN ×2 (03:41→12:19)
[2017-04-23 05:07] VITALS: BP 171/79
[2017-04-23] MEDS: LevoFLOXacin 250 MG TABLET PO SCH (05:34)
[2017-04-23] MEDS: HEPARIN SOD (PORCINE) 5000 UNITS/ML VIAL SC SCH ×3 (05:34→22:16)
[2017-04-23 05:55] LABS: MEAN CORPUSCULAR HEMOGLOBIN 30.2 pg (27.0-33.0); MEAN CORPUSCULAR HGB CONC 33.6 g/dl (32.0-36.5); MEAN CORPUSCULAR VOLUME 89.9 fl (80.0-96.0); PLATELET COUNT, AUTOMATED 232 10^3/uL (150-450); RED CELL DISTRIBUTION WIDTH 12.8 % (11.5-14.5); WHITE BLOOD COUNT 4.5 10^3/uL (4.0-10.0)
[2017-04-23 06:19] LABS: CALCIUM LEVEL 8.8 MG/DL (8.8-10.2); CREATININE FOR GFR 2.46 MG/DL (0.70-1.30); GLOMERULAR FILTRATION RATE 27.6 (>42); MAGNESIUM LEVEL 1.8 MG/DL (1.8-2.4); POTASSIUM SERUM 3.9 MEQ/L (3.5-5.1)
--- NOTE | 2017-04-23 08:33 | IPN ---
DATE: 04/22/2017 Mr. Harry is quite anxious about being in the hospital. He is worried as he might not get better. He does assure me though that he is breathing more easily than he was at the time of presentation. He is worried about being straight catheterized as well. Temperature is 98.5, pulse 60, respiratory rate 18, blood pressure 144/67, 94% on room air. Intake and output notable for a negative fluid balance of -635. No bowel movements yesterday. He is awake, appropriately interactive, pleasantly conversant. Breathing is symmetrical. I-to-E ratio is 1:4, diminished. Heart is distant sounding. Normal S1 and S2. Abdomen is soft, doughy, nontender. There is no suprapubic tenderness or fullness. There is lower extremity edema noted. White cell count 3.6, hemoglobin 11.7, platelets 230, BUN 40, creatinine 2.5. My assessment is as follows: This is a 71-year-old who has been treated for acutely decompensated heart failure. He has atypical pneumonia and resolved acute kidney injury in the setting of urinary retention and medication side effects. My plan is as follows: 1. Patient has compensated diastolic heart failure at this point and was previously decompensated during his stay. 2. Patient has been treated with a course of antibiotics. As he has received five days of appropriate antibiotics in the form of doxycycline, is on Levaquin which we will continue for two more days, which is being renally dosed. 3. Patient may have an underlying lung nodule and will need appropriate outpatient followup in the form of a repeat CT scan of his chest. 4. Patient has acute renal failure in the setting of ferny kidney disease. He appears to be at his baseline. Kaba catheter has been removed. He is not retaining fluid. He has not needed straight catheterization. 5. Patient has hypertension, which is reasonably well controlled. 6. Patient has right thumb wound and has been treated with a course of doxycycline. He has received his last dose of doxycycline. 7. The case was discussed with the patient and his at the bedside. The patient is describing some anxiety. He does have Xanax available as needed which he takes at home. He has not been taking it here and I have encouraged him to use that.
[2017-04-23] MEDS: CARVedilol 6.25 MG TAB PO SCH ×2 (09:20→20:08)
[2017-04-23] MEDS: amLODIPine 10 MG TAB PO SCH (09:20)
[2017-04-23] MEDS: DOCUSATE SODIUM 100 MG CAP PO SCH ×2 (09:21→20:07)
[2017-04-23] MEDS: CYANOCOBALAMIN 500 MCG TAB PO SCH (09:21)
[2017-04-23] MEDS: VITAMIN D 1,000 INTERNATIONAL UNITS TABLET PO SCH (09:21)
[2017-04-23] MEDS: TAMSULOSIN 0.4 MG CAP PO SCH ×2 (09:21→20:09)
[2017-04-23] MEDS: LACTOBACILLUS ACIDOPHILUS CAP (BACID) PO SCH ×3 (09:21→20:07)
[2017-04-23] MEDS: CLOPIDOGREL 75 MG TAB PO SCH (09:21)
[2017-04-23] MEDS: MIRALAX *UNIT DOSE* 17GM PACKET PO SCH (09:22)
[2017-04-23] MEDS: NovoLOG MIX 70/30 PER UNIT SC SCH ×2 (09:22→17:05)
[2017-04-23] MEDS: ESCITALOPRAM OXALATE 10 MG TAB (LEXAPRO) PO SCH (09:22)
[2017-04-23] MEDS: **hydrALAZINE** 50 MG TAB PO SCH ×3 (09:22→20:08)
[2017-04-23] MEDS: BISACODYL 5 MG TAB PO PRN (09:29)
--- NOTE | 2017-04-23 10:26 | IPN ---
DATE OF SERVICE: 04/22/2017 Mr. Harry is seen this morning on his bedside. He is quite anxious and concerned about his urinary issue. The patient feels that he has some difficulty voiding. However, anxiety makes it worse. He is very scared of Kaba catheter placement. He denies any nausea, vomiting, dyspnea, chest pain, fever or chills. REVIEW OF SYSTEMS: Otherwise unremarkable. The patient reports that he is tolerating diet very well. He slept well and denies any problems through the night other than urinary symptoms. PHYSICAL EXAMINATION: Temperature 98.5 degrees Fahrenheit, heart rate 60 per minute and respiratory rate 18 per minute. Blood pressure 144/67 mmHg and oxygen saturation 94% on room air. Head is atraumatic. Pupils are equal and reactive to light and sclera is anicteric. Ears, nose and throat are unremarkable. Neck is supple and without JVD or thyroid enlargement. Heart: Sounds are regular and lungs clear to auscultation bilaterally. Abdomen: Soft and nontender. Bowel sounds are normal. Extremities have no cyanosis or clubbing. Skin has no rash or ulcers. Neurologically he is awake, alert and oriented times three. Today's labs show WBC count 3.6, hemoglobin 11.7 and hematocrit 34.7. Sodium 141 and potassium 3.9. BUN 40 and creatinine 2.54. Glucose 177 and calcium 9.2. MEDICATIONS: His inpatient medications are reviewed and it is noted that he has been on Flomax 0.4 mg daily along with Proscar 5 mg daily. Other medications are reviewed and no changes are noted over last 24 hours. His doxycycline was stopped yesterday and he is now on Levaquin 250 mg daily. PROBLEMS: 1. Acute kidney injury superimposed on chronic kidney disease. The patient had congestive heart failure and urinary retention. At present, his volume status seems to be reasonably well corrected and he does not have any significant urinary retention, though he still has some hesitancy and decreased stream of urine. I have reassured him and will continue with Proscar and Flomax. The symptoms are likely to improve over next several days. 2. Shortness of breath. Volume status has corrected and no aggressive diuresis is indicated at this point. 3. Hypertension. Blood pressure is reasonably well-controlled. I feel that he gets quite anxious and that might be contributing to his hypertension. However, I have reassured him that his symptoms are likely to improve. 4. Anemia. His anemia is very mild and does not need any intervention. DISPOSITION: I have encouraged the patient to get out of bed and ambulate in the hallway as that is likely to improve his symptoms and he will be ready for discharge in next 24 hours.
[2017-04-23] MEDS ORDERED: FLOM5CAP PO (11:16)
[2017-04-23] MEDS ORDERED: HYDR50TA PO (11:16)
[2017-04-23] MEDS ORDERED: RISATAB3 PO (11:16)
[2017-04-23] MEDS ORDERED: FINA5TAB2 PO (11:16)
[2017-04-23] MEDS: PROMETHAZINE 25 MG TAB PO PRN ×2 (12:19→23:28)
--- NOTE | 2017-04-23 13:16 | DSES ---
DATE OF ADMISSION: 04/17/2017 DATE OF DISCHARGE: Mr. Harry was admitted to [facility] on 04/17/2017 and discharged on 04/23/2017. SPECIALISTS INVOLVED IN CARE: Dr. Jiang, Dr. Shankar. COMPLICATIONS DURING STAY: None. PROCEDURES PERFORMED DURING STAY: None. DISCHARGE DIAGNOSES: 1. Acute decompensated diastolic heart failure, preserved left ventricular ejection fraction. 2. Hypertensive urgency. 3. Possible atypical pneumonia. 4. Hypertension. 5. Right thumb wound. 6. Diabetes mellitus. 7. Anxiety, severe. 8. Gastroesophageal reflux disease (GERD). 9. Chronic kidney disease stage IV. 10. Coronary artery disease, status post coronary artery bypass graft (CABG). 11. Acute urinary retention. SUMMARY OF HIS HOSPITALIZATION: This is a 71-year-old patient of Dr. Garay who presented with shortness of breath. Lasix had been discontinued as an outpatient. He was admitted to the hospitalist service and was found to have acutely decompensated heart failure and suspected to have atypical pneumonia. Was treated for atypical pneumonia and heart failure and developed some acute renal failure. Nephrology was consulted. Blood pressure was managed. He improved slowly. Completed a course of antibiotics for atypical pneumonia. Renal function had returned to baseline. Breathing had improved. 2-D echocardiogram showed diastolic dysfunction and preserved left ventricular ejection fraction, mild left ventricular hypertrophy. Today he is feeling well. He has no complaints of pain, chest pain, shortness of breath. He is tolerating a diet. He is quite anxious. He has not been taking Xanax at the same frequency as he has been taking it at home. Temperature 97.5, pulse 63, respiratory rate 18, blood pressure 121/79, 96% on room air. This was before his medications. He is awake, pleasantly interactive, somewhat anxious. NECK: Supple. LUNGS: Breathing is symmetrical and rested. HEART: Regular rate and rhythm. ABDOMEN: Soft, doughy, nontender. BUN 43, creatinine 2.46, magnesium 1.8, hemoglobin 11.7. Fingersticks have been reasonably well controlled for the current setting. DISCHARGE INSTRUCTIONS: Include the following: Followup with Dr. Garay within 1 week, Dr. Shankar for his orders. Diet and activity as tolerated. He is now placed on a fluid restriction. Continue: - finasteride 5 mg by mouth daily at bedtime - hydralazine 75 mg by mouth three times a day - Probiotic tablet one tablet by mouth three times a day - Flomax 0.4 mg by mouth twice daily - Tylenol as needed for pain - Xanax 0.5 mg two times a day as needed for anxiety - amlodipine 10 mg by mouth daily - atorvastatin 40 mg by mouth daily at bedtime - Coreg 6.25 mg by mouth twice a day - vitamin D supplement - Plavix 75 mg by mouth daily - vitamin B12 supplement - Lexapro 20 mg by mouth daily - Tricor - insulin NovoLog 70/30 at 20 units subcutaneously twice a day - omeprazole 40 mg by mouth daily as needed for heartburn - MiraLAX 17 grams by mouth daily - promethazine 25 mg by mouth every 6 hours as needed for nausea and vomiting Discontinue previously ordered Bactrim.
[2017-04-23 14:00] VITALS: BP 136/58
[2017-04-23] MEDS: FUROSEMIDE 40 MG TAB PO SCH (14:19)
[2017-04-23 19:50] VITALS: BP 158/70
[2017-04-23] MEDS: ATORVASTATIN 20 MG TAB PO SCH (20:07)
[2017-04-23] MEDS: FINASTERIDE 5 MG TAB PO SCH (20:08)
--- NOTE | 2017-04-23 21:05 | IPN ---
DATE: 04/23/2017 SUBJECTIVE: Mr. Harry is seen this morning on his bedside. He is feeling better today and reports some difficulty in voiding. However, he is able to empty his bladder. He has just delayed start of stream, but has been emptying his bladder reasonably well. He denies any headache, nausea, vomiting, dyspnea, chest pain or leg edema. He has no fever or chills. Review of systems is otherwise unremarkable. PHYSICAL EXAMINATION: Temperature 97.5 degrees Fahrenheit, heart rate 63 per minute and respiratory rate 18 per minute. Blood pressure 171/79 mmHg and oxygen saturation 96% on room air. His head is atraumatic. Neck is supple and without jugular venous distention (JVD) or thyroid enlargement. Pupils are equal and reactive to light and sclerae are anicteric. Ears, nose and throat are unremarkable. Heart exam reveals regular S1, S2. There is no gallop or murmur. Lungs sound clear to auscultation bilaterally. Abdomen is soft and nontender and without a palpable organomegaly. Bowel sounds are normal. Extremities have no cyanosis or clubbing. Skin has no rash or ulcers. Neurologically he is awake, alert and oriented times three. LABORATORY DATA: Today's labs show a WBC count 4.5, hemoglobin 11.7 and hematocrit 34.8. Sodium 139 and potassium 3.9. BUN 43 and creatinine 2.46. Glucose 209 and calcium 8.8. PROBLEM S: 1. Acute kidney injury superimposed on chronic kidney disease. Slight improvement in kidney function is noted over last 24 hours. Overall he has been stable with kidney function and normal electrolytes. 2. Enlarged prostate with lower urinary tract symptoms. The patient remains on Flomax and Proscar and his symptoms are gradually improving. We will continue with the same dose and followup as an outpatient. 3. Hypertension. Blood pressure control is suboptimal once again. He has been off his diuretic. I am going to resume Lasix 40 mg daily from tomorrow and he will go home with the same. His hydralazine dose is being increased to 100 mg three times a day. He will continue with amlodipine and Coreg as previously. At this point, we are not going to try angiotension-converting enzyme (MANDI) inhibitor or angiotensin receptor blockers (ARB) due to risk of worsening kidney function. 4. Anemia. His anemia is mild and stable. No intervention is indicated at this point. DISPOSITION From renal standpoint, the patient seems to be doing well and he is ready for discharge tomorrow. He will be followed up as an outpatient in our office in couple of weeks.
[2017-04-24 04:30] VITALS: BP 124/61
[2017-04-24] MEDS: LevoFLOXacin 250 MG TABLET PO SCH (05:49)
[2017-04-24] MEDS: HEPARIN SOD (PORCINE) 5000 UNITS/ML VIAL SC SCH (05:49)
[2017-04-24 06:19] LABS: MEAN CORPUSCULAR HEMOGLOBIN 30.4 pg (27.0-33.0); MEAN CORPUSCULAR HGB CONC 33.5 g/dl (32.0-36.5); MEAN CORPUSCULAR VOLUME 90.7 fl (80.0-96.0); PLATELET COUNT, AUTOMATED 237 10^3/uL (150-450); RED CELL DISTRIBUTION WIDTH 12.9 % (11.5-14.5); WHITE BLOOD COUNT 5.7 10^3/uL (4.0-10.0)
[2017-04-24 06:35] LABS: CALCIUM LEVEL 9.3 MG/DL (8.8-10.2); CREATININE FOR GFR 2.56 MG/DL (0.70-1.30); GLOMERULAR FILTRATION RATE 26.4 (>42); MAGNESIUM LEVEL 1.9 MG/DL (1.8-2.4); POTASSIUM SERUM 4.4 MEQ/L (3.5-5.1)
[2017-04-24 08:33] VITALS: BP 139/73
--- NOTE | 2017-04-24 08:33 | IPNPDOC ---
Text Note Date of Service The patient was seen on 04/24/17. NOTE Discharge Addendum: Patient discharged home today. No changes to discharge instructions. Please refer to previous discharge summary for full details. VS,Gauravbone, I+O VS, Gauravbone, I+O Laboratory Tests 04/24/17 05:26 Red Blood Count 3.98 L, Mean Corpuscular Volume 90.7, Mean Corpuscular Hemoglobin 30.4, Mean Corpuscular Hemoglobin Concent 33.5, Red Cell Distribution Width 12.9, Calcium Level 9.3 Vital Signs Date Time Temp Pulse Resp B/P (MAP) Pulse Ox O2 Delivery O2 Flow Rate FiO2 04/24/17 04:30 97.3 69 16 124/61 (82) 94 Room Air 04/23/17 21:00 0.0 ANDREW KIRAN MD Apr 24, 2017 08:33
[2017-04-24] MEDS: PROMETHAZINE 25 MG TAB PO PRN (08:34)
[2017-04-24] MEDS: LACTOBACILLUS ACIDOPHILUS CAP (BACID) PO SCH (08:35)
[2017-04-24] MEDS: DOCUSATE SODIUM 100 MG CAP PO SCH (08:35)
[2017-04-24] MEDS: VITAMIN D 1,000 INTERNATIONAL UNITS TABLET PO SCH (08:35)
[2017-04-24] MEDS: CLOPIDOGREL 75 MG TAB PO SCH (08:35)
[2017-04-24] MEDS: TAMSULOSIN 0.4 MG CAP PO SCH (08:36)
[2017-04-24] MEDS: amLODIPine 10 MG TAB PO SCH (08:36)
[2017-04-24] MEDS: **hydrALAZINE** 50 MG TAB PO SCH (08:36)
[2017-04-24] MEDS: FUROSEMIDE 40 MG TAB PO SCH (08:36)
[2017-04-24] MEDS: CYANOCOBALAMIN 500 MCG TAB PO SCH (08:36)
[2017-04-24 08:37] VITALS: BP 139/73
[2017-04-24] MEDS: MIRALAX *UNIT DOSE* 17GM PACKET PO SCH (08:37)
[2017-04-24] MEDS: ESCITALOPRAM OXALATE 10 MG TAB (LEXAPRO) PO SCH (08:37)
[2017-04-24] MEDS: NovoLOG MIX 70/30 PER UNIT SC SCH (08:37)
[2017-04-24] MEDS: CARVedilol 6.25 MG TAB PO SCH (08:37)
[2017-04-24] MEDS: ALPRAZolam 0.5 MG TAB PO PRN (09:56)
== END 2017-04-24 12:24 | disposition home or self-care (01) | DRG 291 ==
LOC: EDBD 08:44 → M ED 08:44 → M ED INP 11:09 → M PCU 13:00 → M MSPAV 04-21 14:30
PROVIDERS: ADMIT Internal Medicine; ATTEND Internal Medicine
DX: I13.0 Hypertensive heart and chronic kidney disease with heart failure and stage 1 through stage 4 chronic kidney disease, or unspecified chronic kidney disease (principal); I50.23 Acute on chronic systolic (congestive) heart failure; J18.9 Pneumonia, unspecified organism; N18.4 Chronic kidney disease, stage 4 (severe); N17.9 Acute kidney failure, unspecified; I25.10 Atherosclerotic heart disease of native coronary artery without angina pectoris; E11.9 Type 2 diabetes mellitus without complications; K21.9 Gastro-esophageal reflux disease without esophagitis; F41.9 Anxiety disorder, unspecified; Z79.02 Long term (current) use of antithrombotics/antiplatelets; Z79.4 Long term (current) use of insulin; Z95.5 Presence of coronary angioplasty implant and graft; N13.9 Obstructive and reflux uropathy, unspecified; L08.9 Local infection of the skin and subcutaneous tissue, unspecified

== ENCOUNTER 2017-06-19 04:12 | Emergency (ER) | payer OTHER ==
[2017-06-19 05:11] LABS: BEDSIDE GLUCOSE 139 MG/DL (83-110)
== END 2017-06-19 06:02 | disposition home or self-care (01) ==
LOC: M ED 04:12
DX: Z71.89 Other specified counseling (principal); E11.9 Type 2 diabetes mellitus without complications; I10 Essential (primary) hypertension; K21.9 Gastro-esophageal reflux disease without esophagitis; I25.10 Atherosclerotic heart disease of native coronary artery without angina pectoris; Z79.899 Other long term (current) drug therapy; Z79.82 Long term (current) use of aspirin; Z79.4 Long term (current) use of insulin; Z79.02 Long term (current) use of antithrombotics/antiplatelets
CPT/HCPCS: 99283

== ENCOUNTER 2017-07-16 09:43 | Emergency (ER) | payer OTHER | END 2017-07-16 12:40 | disposition home or self-care (01) | LOC: M ED 09:43 | DX: K58.9 Irritable bowel syndrome, unspecified (principal); G89.29 Other chronic pain; I25.10 Atherosclerotic heart disease of native coronary artery without angina pectoris; I13.0 Hypertensive heart and chronic kidney disease with heart failure and stage 1 through stage 4 chronic kidney disease, or unspecified chronic kidney disease; I50.9 Heart failure, unspecified; E11.22 Type 2 diabetes mellitus with diabetic chronic kidney disease; N18.3 Chronic kidney disease, stage 3 (moderate); F41.9 Anxiety disorder, unspecified; F32.9 Major depressive disorder, single episode, unspecified; Z95.1 Presence of aortocoronary bypass graft; Z79.899 Other long term (current) drug therapy; Z79.02 Long term (current) use of antithrombotics/antiplatelets; Z79.4 Long term (current) use of insulin; Z79.82 Long term (current) use of aspirin | CPT/HCPCS: 74021 ==

== ENCOUNTER 2017-07-27 08:09 | Emergency (ER) | payer OTHER ==
[2017-07-27 09:24] LABS: BASO % 0.6 % (0.0-1.0); EOS # 0.1 10^3/uL (0.0-0.50); EOS % 1.7 % (0.0-3.0); HEMATOCRIT 37.8 % (42.0-52.0); HEMOGLOBIN 13.1 g/dl (14.0-18.0); IMMATURE GRANULOCYTE % 0.4 % (0-3.0); LYMPH # 0.9 10^3/uL (1.5-4.5); LYMPH % 16.4 % (24.0-44.0); MEAN CORPUSCULAR HEMOGLOBIN 30.7 pg (27.0-33.0); MEAN CORPUSCULAR HGB CONC 34.7 g/dl (32.0-36.5); MEAN CORPUSCULAR VOLUME 88.5 fl (80.0-96.0); MONO # 0.4 10^3/uL (0.0-0.8); MONO % 7.4 % (0.0-5.0); NEUTROPHILS % 73.5 % (36.0-66.0); PLATELET COUNT, AUTOMATED 222 10^3/uL (150-450); RED BLOOD COUNT 4.27 10^6/uL (4.30-6.10); WHITE BLOOD COUNT 5.4 10^3/uL (4.0-10.0)
[2017-07-27] MEDS: ACETAMINOPHEN 325 MG TAB PO (09:38)
[2017-07-27 09:49] LABS: ALBUMIN 3.5 GM/DL (3.2-5.2); ALBUMIN/GLOBULIN RATIO 1.21 (1.00-1.93); ALKALINE PHOSPHATASE 71 U/L (45-117); ALT/SGPT 15 U/L (12-78); ANION GAP 9 MEQ/L (8-16); AST/SGOT 10 U/L (7-37); BILIRUBIN,DIRECT 0.1 MG/DL (0.0-0.2); BILIRUBIN,TOTAL 0.4 MG/DL (0.2-1.0); BLOOD UREA NITROGEN 22 MG/DL (7-18); CALCIUM LEVEL 8.9 MG/DL (8.8-10.2); CARBON DIOXIDE LEVEL 26 MEQ/L (21-32); CHLORIDE LEVEL 105 MEQ/L (98-107); CREATININE FOR GFR 2.22 MG/DL (0.70-1.30); GLOMERULAR FILTRATION RATE 31.1 (>42); GLUCOSE, FASTING 340 MG/DL (70-100); LIPASE 116 U/L (73-393); POTASSIUM SERUM 4.4 MEQ/L (3.5-5.1); SODIUM LEVEL 140 MEQ/L (136-145); TOTAL PROTEIN 6.4 GM/DL (6.4-8.2)
== END 2017-07-27 10:12 | disposition home or self-care (01) ==
LOC: M ED 08:09
DX: K59.00 Constipation, unspecified (principal); I50.9 Heart failure, unspecified; I11.0 Hypertensive heart disease with heart failure; E10.9 Type 1 diabetes mellitus without complications; E78.70 Disorder of bile acid and cholesterol metabolism, unspecified; K21.9 Gastro-esophageal reflux disease without esophagitis; Z79.01 Long term (current) use of anticoagulants; Z79.4 Long term (current) use of insulin; Z79.899 Other long term (current) drug therapy; Z95.5 Presence of coronary angioplasty implant and graft; Z98.890 Other specified postprocedural states
CPT/HCPCS: 74019

== ENCOUNTER 2017-07-29 20:52 | Emergency (ER) | payer OTHER ==
[2017-07-29] MEDS: MORPHINE 4 MG/ML 1ML VIAL (J2270) IV (22:34)
[2017-07-29] MEDS: ONDANSETRON 4MG/2ML VIAL (J2405) IV (22:34)
[2017-07-29] MEDS: NS 1,000 ML IV (22:35)
[2017-07-29 22:39] LABS: BASO % 0.3 % (0.0-1.0); EOS # 0.1 10^3/uL (0.0-0.50); EOS % 1.5 % (0.0-3.0); HEMATOCRIT 37.3 % (42.0-52.0); IMMATURE GRANULOCYTE % 0.2 % (0-3.0); LYMPH # 0.9 10^3/uL (1.5-4.5); LYMPH % 14.4 % (24.0-44.0); MEAN CORPUSCULAR HEMOGLOBIN 30.4 pg (27.0-33.0); MEAN CORPUSCULAR HGB CONC 34.9 g/dl (32.0-36.5); MEAN CORPUSCULAR VOLUME 87.1 fl (80.0-96.0); MONO # 0.6 10^3/uL (0.0-0.8); NEUTROPHILS # 4.8 10^3/uL (1.8-7.7); NEUTROPHILS % 74.6 % (36.0-66.0); PLATELET COUNT, AUTOMATED 219 10^3/uL (150-450); RED BLOOD COUNT 4.28 10^6/uL (4.30-6.10); RED CELL DISTRIBUTION WIDTH 13.7 % (11.5-14.5); WHITE BLOOD COUNT 6.5 10^3/uL (4.0-10.0)
[2017-07-29 23:03] LABS: LACTIC ACID SEPSIS PROTOCOL 1.1 MMOL/L (0.4-2.0)
[2017-07-29 23:05] LABS: ALBUMIN 3.5 GM/DL (3.2-5.2); ALKALINE PHOSPHATASE 70 U/L (45-117); ALT/SGPT 19 U/L (12-78); ANION GAP 10 MEQ/L (8-16); AST/SGOT 10 U/L (7-37); BILIRUBIN,DIRECT 0.1 MG/DL (0.0-0.2); BILIRUBIN,TOTAL 0.4 MG/DL (0.2-1.0); BLOOD UREA NITROGEN 24 MG/DL (7-18); CALCIUM LEVEL 8.8 MG/DL (8.8-10.2); CARBON DIOXIDE LEVEL 24 MEQ/L (21-32); CHLORIDE LEVEL 107 MEQ/L (98-107); CPK CREATINE PHOSPHOKINASE 52 U/L (39-308); CREATININE FOR GFR 2.22 MG/DL (0.70-1.30); GLOMERULAR FILTRATION RATE 31.1 (>42); GLUCOSE, FASTING 232 MG/DL (70-100); LIPASE 95 U/L (73-393); POTASSIUM SERUM 4.2 MEQ/L (3.5-5.1); SODIUM LEVEL 141 MEQ/L (136-145); TROPONIN I < 0.02 NG/ML (< 0.10)
[2017-07-29 23:06] LABS: CK-MB VALUE MASS 1.3 NG/ML (0.0-3.6)
[2017-07-30] MEDS: METOCLOPRAMIDE 5 MG TAB PO (00:57)
== END 2017-07-30 00:59 | disposition home or self-care (01) ==
LOC: M ED 07-30 00:59
DX: K31.84 Gastroparesis (principal); E11.9 Type 2 diabetes mellitus without complications; K58.9 Irritable bowel syndrome, unspecified; Z79.899 Other long term (current) drug therapy; Z79.4 Long term (current) use of insulin; Z79.82 Long term (current) use of aspirin; Z79.02 Long term (current) use of antithrombotics/antiplatelets
CPT/HCPCS: J2270

== ENCOUNTER 2017-07-31 16:33 | Emergency (ER) | payer OTHER ==
[2017-07-31] MEDS: ONDANSETRON 4MG/2ML VIAL (J2405) IV (18:09)
[2017-07-31 18:13] LABS: KETONE, URINE AUTO RFX NEGATIVE (NEGATIVE); LEUKOCYTE ESTERASE UR AUTO RFX NEGATIVE (NEGATIVE); NITRITE, URINE AUTO RFX NEGATIVE (NEGATIVE); RBC, URINE AUTO RFX 1 /HPF (0-3); SPECIFIC GRAVITY UR AUTO RFX 1.004 (1.002-1.035); SQUAM EPITHELIAL CELL UR AURFX 0 /HPF (0-6); WBC, URINE AUTO RFX 0 /HPF (0-3)
[2017-07-31] MEDS: LORazepam 2 MG/ML VIAL (J2060) IV (18:20)
[2017-07-31 18:21] LABS: BASO % 0.3 % (0.0-1.0); EOS # 0.1 10^3/uL (0.0-0.50); EOS % 1.1 % (0.0-3.0); HEMATOCRIT 37.6 % (42.0-52.0); HEMOGLOBIN 13.2 g/dl (14.0-18.0); IMMATURE GRANULOCYTE % 0.5 % (0-3.0); LYMPH # 1.8 10^3/uL (1.5-4.5); LYMPH % 19.9 % (24.0-44.0); MEAN CORPUSCULAR HEMOGLOBIN 30.2 pg (27.0-33.0); MEAN CORPUSCULAR HGB CONC 35.1 g/dl (32.0-36.5); MONO # 0.7 10^3/uL (0.0-0.8); MONO % 7.9 % (0.0-5.0); NEUTROPHILS # 6.2 10^3/uL (1.8-7.7); NEUTROPHILS % 70.3 % (36.0-66.0); PLATELET COUNT, AUTOMATED 239 10^3/uL (150-450); RED BLOOD COUNT 4.37 10^6/uL (4.30-6.10); RED CELL DISTRIBUTION WIDTH 13.8 % (11.5-14.5); WHITE BLOOD COUNT 8.8 10^3/uL (4.0-10.0)
[2017-07-31 18:35] LABS: INR 0.93; PROTHROMBIN TIME 12.5 SECONDS (12.4-14.5)
[2017-07-31 18:44] LABS: LACTIC ACID SEPSIS PROTOCOL 1.3 MMOL/L (0.4-2.0)
[2017-07-31 18:45] LABS: ALBUMIN 3.8 GM/DL (3.2-5.2); ALBUMIN/GLOBULIN RATIO 1.27 (1.00-1.93); ALKALINE PHOSPHATASE 74 U/L (45-117); ALT/SGPT 14 U/L (12-78); ANION GAP 10 MEQ/L (8-16); AST/SGOT 14 U/L (7-37); BILIRUBIN,DIRECT < 0.1 MG/DL (0.0-0.2); BILIRUBIN,TOTAL 0.5 MG/DL (0.2-1.0); BLOOD UREA NITROGEN 24 MG/DL (7-18); CALCIUM LEVEL 9.3 MG/DL (8.8-10.2); CARBON DIOXIDE LEVEL 23 MEQ/L (21-32); CHLORIDE LEVEL 106 MEQ/L (98-107); CREATININE FOR GFR 2.37 MG/DL (0.70-1.30); GLOMERULAR FILTRATION RATE 28.8 (>42); GLUCOSE, FASTING 91 MG/DL (70-100); LIPASE 166 U/L (73-393); POTASSIUM SERUM 3.7 MEQ/L (3.5-5.1); SODIUM LEVEL 139 MEQ/L (136-145); TOTAL PROTEIN 6.8 GM/DL (6.4-8.2)
[2017-07-31 20:28] LABS: BEDSIDE GLUCOSE 118 MG/DL (83-110)
[2017-07-31] MEDS: clonazePAM 0.5 MG TAB PO (21:18)
== END 2017-07-31 21:23 | disposition home or self-care (01) ==
LOC: M ED 16:33
DX: R10.9 Unspecified abdominal pain (principal); G89.29 Other chronic pain; I11.0 Hypertensive heart disease with heart failure; I50.9 Heart failure, unspecified; I25.2 Old myocardial infarction; E78.00 Pure hypercholesterolemia, unspecified; K58.9 Irritable bowel syndrome, unspecified; K21.9 Gastro-esophageal reflux disease without esophagitis; N28.9 Disorder of kidney and ureter, unspecified; M54.9 Dorsalgia, unspecified; E10.9 Type 1 diabetes mellitus without complications; F41.9 Anxiety disorder, unspecified; F32.9 Major depressive disorder, single episode, unspecified; Z79.899 Other long term (current) drug therapy; Z79.02 Long term (current) use of antithrombotics/antiplatelets; Z79.82 Long term (current) use of aspirin; Z79.891 Long term (current) use of opiate analgesic
CPT/HCPCS: J2405

== ENCOUNTER 2017-08-01 09:42 | Emergency (ER) | payer OTHER | END 2017-08-01 13:31 | disposition home or self-care (01) | LOC: M ED 09:42 | DX: F41.9 Anxiety disorder, unspecified (principal); R10.9 Unspecified abdominal pain; G89.29 Other chronic pain; I12.9 Hypertensive chronic kidney disease with stage 1 through stage 4 chronic kidney disease, or unspecified chronic kidney disease; E78.5 Hyperlipidemia, unspecified; N18.9 Chronic kidney disease, unspecified; Z79.01 Long term (current) use of anticoagulants; Z79.899 Other long term (current) drug therapy; Z79.4 Long term (current) use of insulin | CPT/HCPCS: 99284 ==

== ENCOUNTER 2017-08-10 06:30 | Day surgery (SDC) | payer OTHER ==
[2017-08-10] MEDS: LR 500 ML IV (06:58)
[2017-08-10] MEDS ORDERED: LIDOCAINE 2% INJ 100 MG/5 ML SDV (FOR ANES.) As Ordered (07:03)
[2017-08-10] MEDS ORDERED: PROPOFOL 200 MG/20 ML VIAL As Ordered (07:03)
[2017-08-10] MEDS ORDERED: SIMETHICONE 40MG/0.6ML DROPS 30ML As Ordered (07:14)
[2017-08-10] MEDS ORDERED: fentaNYL 100 MCG/2 ML INJECTION (J3010) As Ordered (07:18)
== END 2017-08-10 09:48 | disposition home or self-care (01) ==
LOC: M OPP 06:30
DX: Z12.11 Encounter for screening for malignant neoplasm of colon (principal); D12.2 Benign neoplasm of ascending colon; D12.5 Benign neoplasm of sigmoid colon; R10.13 Epigastric pain; K31.89 Other diseases of stomach and duodenum; K31.7 Polyp of stomach and duodenum; R00.8 Other abnormalities of heart beat; R07.89 Other chest pain; I25.10 Atherosclerotic heart disease of native coronary artery without angina pectoris; I50.9 Heart failure, unspecified; I11.0 Hypertensive heart disease with heart failure; E78.5 Hyperlipidemia, unspecified; E11.9 Type 2 diabetes mellitus without complications; K52.9 Noninfective gastroenteritis and colitis, unspecified; K59.00 Constipation, unspecified; K21.9 Gastro-esophageal reflux disease without esophagitis; R12 Heartburn; F41.9 Anxiety disorder, unspecified; F32.9 Major depressive disorder, single episode, unspecified; N18.9 Chronic kidney disease, unspecified; Z95.1 Presence of aortocoronary bypass graft; Z79.82 Long term (current) use of aspirin; Z79.899 Other long term (current) drug therapy; Z79.02 Long term (current) use of antithrombotics/antiplatelets
CPT/HCPCS: 45388

== ENCOUNTER → 2017-09-20 | Outpatient (REF) | payer OTHER ==
[2017-09-20 17:16] LABS: AMORPHOUS SEDIMENT MODERATE (NEGATIVE); APPEARANCE, URINE CLOUDY (CLEAR); BACTERIA, URINE AUTO NEGATIVE (NEGATIVE); BILIRUBIN, URINE AUTO NEGATIVE (NEGATIVE); BLOOD, URINE BLOOD 3+ (NEGATIVE); COLOR, URINE AMBER (YELLOW); GLUCOSE, URINE (UA) AUTO 3+ mg/dL (NEGATIVE); KETONE, URINE AUTO NEGATIVE (NEGATIVE); LEUKOCYTE ESTERASE, URINE AUTO 1+ (NEGATIVE); NITRITE, URINE AUTO NEGATIVE (NEGATIVE); PROTEIN, URINE AUTO 3+ mg/dL (NEGATIVE); RBC, URINE AUTO TNTC /HPF (0-3); SQUAMOUS EPITHELIAL CELL UR AU 0 /HPF (0-6); UROBILINOGEN, URINE AUTO 0.2 mg/dL (0.0-2.0); WBC, URINE AUTO 35 /HPF (0-3)
== END ==
LOC: M SMT 16:46
DX: R33.9 Retention of urine, unspecified (principal)
CPT/HCPCS: 81001

== ENCOUNTER 2017-09-21 21:40 | Emergency (ER) | payer OTHER | END 2017-09-21 23:30 | disposition home or self-care (01) | LOC: M ED 21:40 | DX: Z71.1 Person with feared health complaint in whom no diagnosis is made (principal); R33.9 Retention of urine, unspecified; E11.9 Type 2 diabetes mellitus without complications; I12.9 Hypertensive chronic kidney disease with stage 1 through stage 4 chronic kidney disease, or unspecified chronic kidney disease; N18.9 Chronic kidney disease, unspecified; N40.0 Benign prostatic hyperplasia without lower urinary tract symptoms; K21.9 Gastro-esophageal reflux disease without esophagitis; E78.5 Hyperlipidemia, unspecified; Z79.01 Long term (current) use of anticoagulants; Z79.899 Other long term (current) drug therapy; Z79.4 Long term (current) use of insulin; Z79.82 Long term (current) use of aspirin | CPT/HCPCS: 99283 ==

== ENCOUNTER → 2017-09-29 | Outpatient (REF) | payer OTHER ==
[2017-09-29 16:54] LABS: BASO # 0.1 10^3/uL (0.0-0.2); BASO % 0.6 % (0.0-1.0); EOS # 0.2 10^3/uL (0.0-0.50); HEMATOCRIT 37.6 % (42.0-52.0); HEMOGLOBIN 12.1 g/dl (13.5-17.5); IMMATURE GRANULOCYTE % 0.4 % (0-3.0); LYMPH # 0.8 10^3/uL (1.5-4.5); LYMPH % 9.9 % (24.0-44.0); MEAN CORPUSCULAR HEMOGLOBIN 29.6 pg (27.0-33.0); MEAN CORPUSCULAR HGB CONC 32.2 g/dl (32.0-36.5); MEAN CORPUSCULAR VOLUME 91.9 fl (80.0-96.0); MONO # 0.6 10^3/uL (0.0-0.8); NEUTROPHILS # 6.4 10^3/uL (1.8-7.7); NEUTROPHILS % 79.1 % (36.0-66.0); PLATELET COUNT, AUTOMATED 265 10^3/uL (150-450); RED BLOOD COUNT 4.09 10^6/uL (4.30-6.10); RED CELL DISTRIBUTION WIDTH 13.5 % (11.5-14.5); WHITE BLOOD COUNT 8.1 10^3/uL (4.0-10.0)
[2017-09-29 17:12] LABS: ALBUMIN 3.2 GM/DL (3.2-5.2); ALBUMIN/GLOBULIN RATIO 1.19 (1.00-1.93); ALKALINE PHOSPHATASE 78 U/L (45-117); ALT/SGPT 14 U/L (12-78); ANION GAP 6 MEQ/L (8-16); AST/SGOT 14 U/L (7-37); BILIRUBIN,TOTAL 0.4 MG/DL (0.2-1.0); BLOOD UREA NITROGEN 24 MG/DL (7-18); CALCIUM LEVEL 8.5 MG/DL (8.8-10.2); CARBON DIOXIDE LEVEL 28 MEQ/L (21-32); CHLORIDE LEVEL 108 MEQ/L (98-107); CHOLESTEROL LEVEL 200 MG/DL (<200); CHOLESTEROL RISK RATIO 5.263 (<5); CREATININE FOR GFR 2.17 MG/DL (0.70-1.30); GLOMERULAR FILTRATION RATE 31.9 (>42); GLUCOSE, FASTING 210 MG/DL (70-100); HDL CHOLESTEROL 38 MG/DL (>40); NON-HDL-C 162 MG/DL; POTASSIUM SERUM 4.4 MEQ/L (3.5-5.1); SODIUM LEVEL 142 MEQ/L (136-145); TOTAL PROTEIN 5.9 GM/DL (6.4-8.2); TRIGLYCERIDES LEVEL 270 MG/DL (<150)
[2017-09-29 17:41] LABS: ESTIMATED AVERAGE GLUCOSE 203 MG/DL (60-110); HEMOGLOBIN A1c 8.7 %
[2017-09-29 18:27] LABS: CREATININE, URINE 74.1 MG/DL; MAU/CREAT RATIO 738.1 MCG/MG (0.0-30.0)
== END ==
LOC: M LABDRAW1 11:21
DX: E11.22 Type 2 diabetes mellitus with diabetic chronic kidney disease (principal)
CPT/HCPCS: 80053

== ENCOUNTER → 2017-10-18 | Outpatient (CLI) | payer OTHER ==
[2017-10-18 14:08] LABS: HEMATOCRIT 39.6 % (42.0-52.0); HEMOGLOBIN 12.9 g/dl (13.5-17.5); MEAN CORPUSCULAR HEMOGLOBIN 29.6 pg (27.0-33.0); MEAN CORPUSCULAR HGB CONC 32.6 g/dl (32.0-36.5); MEAN CORPUSCULAR VOLUME 90.8 fl (80.0-96.0); PLATELET COUNT, AUTOMATED 243 10^3/uL (150-450); RED BLOOD COUNT 4.36 10^6/uL (4.30-6.10); RED CELL DISTRIBUTION WIDTH 13.6 % (11.5-14.5); WHITE BLOOD COUNT 6.8 10^3/uL (4.0-10.0)
[2017-10-18 14:19] LABS: INR 0.93; PROTHROMBIN TIME 12.5 SECONDS (12.4-14.5)
[2017-10-18 14:20] LABS: PARTIAL THROMBOPLASTIN TIME 30.5 SECONDS (26.8-37.9)
[2017-10-18 14:46] LABS: ANION GAP 10 MEQ/L (8-16); BLOOD UREA NITROGEN 31 MG/DL (7-18); CALCIUM LEVEL 9.1 MG/DL (8.8-10.2); CARBON DIOXIDE LEVEL 25 MEQ/L (21-32); CHLORIDE LEVEL 107 MEQ/L (98-107); CREATININE FOR GFR 2.31 MG/DL (0.70-1.30); GLOMERULAR FILTRATION RATE 29.6 (>42); GLUCOSE, FASTING 207 MG/DL (70-100); SODIUM LEVEL 142 MEQ/L (136-145)
== END ==
LOC: M SMT 09:54
DX: Z01.818 Encounter for other preprocedural examination (principal); N40.1 Benign prostatic hyperplasia with lower urinary tract symptoms; N39.0 Urinary tract infection, site not specified; Z95.1 Presence of aortocoronary bypass graft
CPT/HCPCS: 80048

== ENCOUNTER → 2017-10-28 | Outpatient (REF) | payer OTHER | LOC: M SMT 18:20 | DX: N40.1 Benign prostatic hyperplasia with lower urinary tract symptoms (principal) | CPT/HCPCS: 87186 ==

== ENCOUNTER 2017-11-01 05:50 | Day surgery (SDC) | payer OTHER ==
[2017-11-01 06:52] LABS: BEDSIDE GLUCOSE 256 MG/DL (83-110)
[2017-11-01] MEDS: LR 1,000 ML IV (07:00)
[2017-11-01] MEDS ORDERED: HumaLOG INSULIN (NovoLOG) PER UNIT As Ordered (07:15)
[2017-11-01] MEDS: HumaLOG INSULIN (NovoLOG) PER UNIT SC (07:20)
[2017-11-01] MEDS ORDERED: LIDOCAINE 2% INJ 100 MG/5 ML SDV (FOR ANES.) As Ordered (07:55)
[2017-11-01] MEDS ORDERED: MIDAZOLAM INJ 2 MG/2 ML VIAL (J2250) As Ordered (07:55)
[2017-11-01] MEDS ORDERED: ONDANSETRON 4MG/2ML VIAL (J2405) As Ordered (07:55)
[2017-11-01] MEDS ORDERED: PROPOFOL 200 MG/20 ML VIAL As Ordered (07:55)
[2017-11-01] MEDS ORDERED: fentaNYL 250 MCG/5 ML INJECTION (J3010) As Ordered (07:55)
[2017-11-01] MEDS ORDERED: ePHEDrine SULFATE 25 MG/5 ML(5MG/ML) SYRINGE As Ordered ×2 (08:02)
[2017-11-01] MEDS ORDERED: FUROSEMIDE 100 MG/10 ML VIAL (J1940) As Ordered (08:11)
[2017-11-01] MEDS ORDERED: METOCLOPRAMIDE INJ 10MG/2ML VIAL (J2765) As Ordered (08:14)
[2017-11-01 09:11] LABS: BEDSIDE GLUCOSE 194 MG/DL (83-110)
[2017-11-01] MEDS ORDERED: ACETAMINOPHEN TAB 650MG DOSE (2X325MG) PO (09:15)
[2017-11-01] MEDS ORDERED: LR 1,000 ML IV (09:15)
[2017-11-01] MEDS ORDERED: METOCLOPRAMIDE INJ 10MG/2ML VIAL (J2765) IV (09:15)
[2017-11-01] MEDS ORDERED: fentaNYL 100 MCG/2 ML INJECTION (J3010) IV (09:15)
[2017-11-01] MEDS ORDERED: PERCOCET 5MG/325MG TAB PO (09:15)
[2017-11-01] MEDS ORDERED: ONDANSETRON 4MG/2ML VIAL (J2405) IV (09:15)
[2017-11-01] MEDS ORDERED: MEPERIDINE INJ 25 MG/ML VIAL (J2175) IV (09:15)
== END 2017-11-01 10:40 | disposition home or self-care (01) ==
LOC: M SDC 05:50
DX: N40.1 Benign prostatic hyperplasia with lower urinary tract symptoms (principal); I10 Essential (primary) hypertension; E78.5 Hyperlipidemia, unspecified; K21.9 Gastro-esophageal reflux disease without esophagitis; F41.9 Anxiety disorder, unspecified; I25.10 Atherosclerotic heart disease of native coronary artery without angina pectoris; I25.2 Old myocardial infarction; E11.9 Type 2 diabetes mellitus without complications; Z79.899 Other long term (current) drug therapy; F32.9 Major depressive disorder, single episode, unspecified; Z79.82 Long term (current) use of aspirin; Z79.02 Long term (current) use of antithrombotics/antiplatelets; Z79.4 Long term (current) use of insulin
CPT/HCPCS: 52601

== ENCOUNTER 2017-12-15 10:02 | Emergency (ER) | payer OTHER | END 2017-12-15 13:38 | disposition home or self-care (01) | LOC: M ED 10:02 | DX: F41.9 Anxiety disorder, unspecified (principal); I10 Essential (primary) hypertension; I51.9 Heart disease, unspecified; R51 Headache; Z95.5 Presence of coronary angioplasty implant and graft | CPT/HCPCS: 74018 ==

== ENCOUNTER 2017-12-19 17:24 | Emergency (ER) | payer OTHER | END 2017-12-19 19:30 | disposition home or self-care (01) | LOC: M ED 17:24 | DX: S33.8XXA Sprain of other parts of lumbar spine and pelvis, initial encounter (principal); W06.XXXA Fall from bed, initial encounter; Y92.092 Bedroom in other non-institutional residence as the place of occurrence of the external cause; I11.0 Hypertensive heart disease with heart failure; I25.2 Old myocardial infarction; E78.00 Pure hypercholesterolemia, unspecified; K21.9 Gastro-esophageal reflux disease without esophagitis; N28.9 Disorder of kidney and ureter, unspecified; N42.9 Disorder of prostate, unspecified; M54.9 Dorsalgia, unspecified; E10.9 Type 1 diabetes mellitus without complications; F41.9 Anxiety disorder, unspecified; F32.9 Major depressive disorder, single episode, unspecified; Z79.899 Other long term (current) drug therapy; Z79.02 Long term (current) use of antithrombotics/antiplatelets; Z79.82 Long term (current) use of aspirin | CPT/HCPCS: 72110 ==

== ENCOUNTER 2017-12-22 20:17 | Emergency (ER) | payer OTHER ==
[2017-12-22 21:01] LABS: BEDSIDE GLUCOSE 278 MG/DL (83-110)
[2017-12-26 10:49] LABS: BEDSIDE GLUCOSE 306 MG/DL (83-110)
== END 2017-12-22 21:34 | disposition home or self-care (01) ==
LOC: M ED 20:17
DX: E10.65 Type 1 diabetes mellitus with hyperglycemia (principal); I13.0 Hypertensive heart and chronic kidney disease with heart failure and stage 1 through stage 4 chronic kidney disease, or unspecified chronic kidney disease; I50.9 Heart failure, unspecified; I25.2 Old myocardial infarction; E78.5 Hyperlipidemia, unspecified; K21.9 Gastro-esophageal reflux disease without esophagitis; M54.9 Dorsalgia, unspecified; F41.9 Anxiety disorder, unspecified; F32.9 Major depressive disorder, single episode, unspecified; Z95.1 Presence of aortocoronary bypass graft; Z79.899 Other long term (current) drug therapy; Z79.82 Long term (current) use of aspirin; Z79.02 Long term (current) use of antithrombotics/antiplatelets
CPT/HCPCS: 99283

== ENCOUNTER 2017-12-26 13:46 | Emergency (ER) | payer OTHER | END 2017-12-26 15:15 | disposition home or self-care (01) | LOC: M ED 13:46 | DX: F41.9 Anxiety disorder, unspecified (principal); E11.9 Type 2 diabetes mellitus without complications; I50.9 Heart failure, unspecified; I25.2 Old myocardial infarction; E78.5 Hyperlipidemia, unspecified; N18.9 Chronic kidney disease, unspecified; Z95.5 Presence of coronary angioplasty implant and graft | CPT/HCPCS: 99284 ==

== ENCOUNTER 2018-01-01 14:04 | Inpatient (IN) | payer OTHER ==
[2018-01-01] MEDS: NS 1,000 ML IV (14:58)
[2018-01-01] MEDS: ACETAMINOPHEN 325 MG TAB PO (14:58)
[2018-01-01 15:26] LABS: BASO % 0.2 % (0.0-1.0); EOS # 0.1 10^3/uL (0.0-0.50); EOS % 0.6 % (0.0-3.0); HEMATOCRIT 30.6 % (42.0-52.0); HEMOGLOBIN 10.1 g/dl (13.5-17.5); IMMATURE GRANULOCYTE % 0.5 % (0-3.0); LYMPH # 0.7 10^3/uL (1.5-4.5); LYMPH % 5.7 % (24.0-44.0); MEAN CORPUSCULAR HEMOGLOBIN 30.3 pg (27.0-33.0); MEAN CORPUSCULAR VOLUME 91.9 fl (80.0-96.0); MONO # 0.8 10^3/uL (0.0-0.8); MONO % 6.8 % (0.0-5.0); NEUTROPHILS # 10.7 10^3/uL (1.8-7.7); NEUTROPHILS % 86.2 % (36.0-66.0); PLATELET COUNT, AUTOMATED 193 10^3/uL (150-450); RED BLOOD COUNT 3.33 10^6/uL (4.30-6.10); RED CELL DISTRIBUTION WIDTH 14.6 % (11.5-14.5); WHITE BLOOD COUNT 12.4 10^3/uL (4.0-10.0)
[2018-01-01 15:43] LABS: ALBUMIN 3.1 GM/DL (3.2-5.2); ALBUMIN/GLOBULIN RATIO 1.03 (1.00-1.93); ALKALINE PHOSPHATASE 73 U/L (45-117); ALT/SGPT 15 U/L (12-78); ANION GAP 7 MEQ/L (8-16); AST/SGOT 9 U/L (7-37); BILIRUBIN,DIRECT 0.2 MG/DL (0.0-0.2); BILIRUBIN,TOTAL 0.6 MG/DL (0.2-1.0); BLOOD UREA NITROGEN 31 MG/DL (7-18); CALCIUM LEVEL 8.4 MG/DL (8.8-10.2); CARBON DIOXIDE LEVEL 26 MEQ/L (21-32); CHLORIDE LEVEL 107 MEQ/L (98-107); CPK CREATINE PHOSPHOKINASE 58 U/L (39-308); CREATININE FOR GFR 2.55 MG/DL (0.70-1.30); GLOMERULAR FILTRATION RATE 26.4 (>42); GLUCOSE, FASTING 134 MG/DL (70-100); LIPASE 66 U/L (73-393); POTASSIUM SERUM 4.8 MEQ/L (3.5-5.1); SODIUM LEVEL 140 MEQ/L (136-145); TOTAL PROTEIN 6.1 GM/DL (6.4-8.2); TROPONIN I < 0.02 NG/ML (< 0.10)
[2018-01-01 15:44] LABS: CK-MB VALUE MASS < 1.0 NG/ML (<3.6); MB/CK RELATIVE INDEX 1.72 (< OR =4)
[2018-01-01 16:30] LABS: KETONE, URINE AUTO RFX NEGATIVE (NEGATIVE); LEUKOCYTE ESTERASE UR AUTO RFX 3+ (NEGATIVE); MUCUS, URINE RFX SMALL (NEGATIVE); NITRITE, URINE AUTO RFX NEGATIVE (NEGATIVE); RBC, URINE AUTO RFX 14 /HPF (0-3); SPECIFIC GRAVITY UR AUTO RFX 1.016 (1.002-1.035); SQUAM EPITHELIAL CELL UR AURFX 0 /HPF (0-6); WBC, URINE AUTO RFX 92 /HPF (0-3)
[2018-01-01] MEDS: cefTRIAXone SOD 2 GM in D5W MINI-BAG PLUS 50 ML IV (17:25)
[2018-01-01] MEDS: AZITHROMYCIN INJ 500 MG, VIAL MATE ADAPTER 1 EACH in D5W 250 ML IV (18:08)
[2018-01-01] MEDS ORDERED: PROMETHAZINE 25 MG TAB PO (18:45)
[2018-01-01] MEDS ORDERED: METOCLOPRAMIDE 5 MG TAB PO (18:45)
[2018-01-01] MEDS ORDERED: DEXTROSE 50% 50 ML SYRINGE IV (19:00)
[2018-01-01] MEDS ORDERED: GLUCAGON FOR INJ 1 MG VIAL (J1610) SC (19:00)
[2018-01-01] MEDS ORDERED: GLUCOSE 4 GM CHEW TABLET PO (19:00)
[2018-01-01 19:24] LABS: ABG HCO3 23.4 MEQ/L (22.0-26.0); ABG O2 SATURATION 87.2 % (95.0-99.0); ABG PARTIAL PRESSURE CO2 37.5 mmHg (35.0-45.0); ABG PARTIAL PRESSURE O2 52.1 mmHg (75.0-100.0); ABG STANDARD HCO3 23.5 MEQ/L (22.0-26.0); ABG TOTAL CO2 24.5 MEQ/L (23.0-31.0); ABG pH (ARTERIAL) 7.413 UNITS (7.350-7.450)
[2018-01-01 19:35] LABS: C REACTIVE PROTEIN QUANTITATIV 4.34 MG/DL (0.00-0.30)
[2018-01-01] MEDS: HumaLOG INSULIN (NovoLOG) PER UNIT SC (21:00)
[2018-01-01] MEDS: FUROSEMIDE 40 MG/4 ML VIAL (J1940) IV (21:13)
[2018-01-01 22:32] LABS: CK-MB VALUE MASS < 1.0 NG/ML (<3.6); CPK CREATINE PHOSPHOKINASE 49 U/L (39-308); MB/CK RELATIVE INDEX 2.04 (< OR =4); TROPONIN I < 0.02 NG/ML (< 0.10)
[2018-01-01 22:56] LABS: BEDSIDE GLUCOSE 170 MG/DL (83-110)
[2018-01-01] MEDS: **hydrALAZINE** 50 MG TAB PO (23:03)
[2018-01-01] MEDS: SENOKOT S TAB PO (23:04)
[2018-01-01] MEDS: zolPIDEM TARTRATE 10MG TAB PO (23:04)
[2018-01-01] MEDS: FINASTERIDE 5 MG TAB PO (23:04)
[2018-01-01] MEDS: guaiFENesin ER 600 MG TAB PO (23:04)
[2018-01-01] MEDS: CARVedilol 6.25 MG TAB PO (23:04)
[2018-01-01] MEDS: TAMSULOSIN 0.4 MG CAP PO (23:05)
[2018-01-01] MEDS: HEPARIN SOD (PORCINE) 5000 UNITS/ML VIAL SC (23:05)
[2018-01-01] MEDS: LEVEMIR (INSULIN DETEMIR) 1 UNITS/0.01ML SC (23:05)
[2018-01-01] MEDS: FENOFIBRATE 48 MG TAB (TRICOR) PO (23:19)
[2018-01-01] MEDS: buPROPion (WELLBUTRIN SR) 100 MG SR TAB PO (23:19)
[2018-01-02] MEDS: methylPREDNISolone INJ 40 MG/1 ML VIAL (J2920) IV ×3 (00:17→16:42)
[2018-01-02] MEDS: IPRATROPIUM 0.5MG/ALBUTEROL 2.5MG INH SOL UD 3ML (DUONEB)(J7620) NEB ×5 (00:24→19:46)
[2018-01-02] MEDS ORDERED: SLF 3 ML SYR IV (04:00)
[2018-01-02 05:24] LABS: HEMATOCRIT 30.9 % (42.0-52.0); HEMOGLOBIN 10.1 g/dl (13.5-17.5); MEAN CORPUSCULAR HEMOGLOBIN 29.7 pg (27.0-33.0); MEAN CORPUSCULAR HGB CONC 32.7 g/dl (32.0-36.5); MEAN CORPUSCULAR VOLUME 90.9 fl (80.0-96.0); PLATELET COUNT, AUTOMATED 180 10^3/uL (150-450); RED CELL DISTRIBUTION WIDTH 14.3 % (11.5-14.5); WHITE BLOOD COUNT 11.5 10^3/uL (4.0-10.0)
[2018-01-02 05:43] LABS: ANION GAP 9 MEQ/L (8-16); BLOOD UREA NITROGEN 32 MG/DL (7-18); CALCIUM LEVEL 8.1 MG/DL (8.8-10.2); CARBON DIOXIDE LEVEL 24 MEQ/L (21-32); CHLORIDE LEVEL 107 MEQ/L (98-107); CK-MB VALUE MASS < 1.0 NG/ML (<3.6); CPK CREATINE PHOSPHOKINASE 48 U/L (39-308); CREATININE FOR GFR 2.55 MG/DL (0.70-1.30); GLOMERULAR FILTRATION RATE 26.4 (>42); GLUCOSE, FASTING 207 MG/DL (70-100); MAGNESIUM LEVEL 2.5 MG/DL (1.8-2.4); MB/CK RELATIVE INDEX 2.08 (< OR =4); POTASSIUM SERUM 4.2 MEQ/L (3.5-5.1); SODIUM LEVEL 140 MEQ/L (136-145); TROPONIN I < 0.02 NG/ML (< 0.10)
[2018-01-02] MEDS: SLF 3 ML SYR IV ×3 (05:56→21:07)
[2018-01-02] MEDS: clonazePAM 1 MG TAB PO ×3 (08:03→21:49)
[2018-01-02] MEDS: ESCITALOPRAM OXALATE 10 MG TAB (LEXAPRO) PO (08:05)
[2018-01-02] MEDS: VITAMIN D 1,000 INTERNATIONAL UNITS TABLET PO (08:05)
[2018-01-02] MEDS: OMEPRAZOLE 20 MG CAP PO (08:06)
[2018-01-02] MEDS: ASPIRIN 81 MG ENTERIC TAB PO (08:07)
[2018-01-02] MEDS: CYANOCOBALAMIN 500 MCG TAB PO (08:07)
[2018-01-02] MEDS: SENOKOT S TAB PO ×2 (08:07→21:03)
[2018-01-02] MEDS: CLOPIDOGREL 75 MG TAB PO (08:07)
[2018-01-02] MEDS: MIRALAX *UNIT DOSE* 17GM PACKET PO (08:08)
[2018-01-02] MEDS: buPROPion (WELLBUTRIN SR) 100 MG SR TAB PO ×2 (08:08→21:03)
[2018-01-02] MEDS: guaiFENesin ER 600 MG TAB PO ×2 (08:08→21:04)
[2018-01-02] MEDS: HEPARIN SOD (PORCINE) 5000 UNITS/ML VIAL SC ×2 (08:10→21:03)
[2018-01-02] MEDS: LEVEMIR (INSULIN DETEMIR) 1 UNITS/0.01ML SC ×2 (08:10→21:04)
[2018-01-02] MEDS: HumaLOG INSULIN (NovoLOG) PER UNIT SC ×4 (08:11→21:05)
[2018-01-02] MEDS: amLODIPine 10 MG TAB PO (08:12)
[2018-01-02] MEDS: **hydrALAZINE** 50 MG TAB PO ×2 (08:12→21:04)
[2018-01-02] MEDS: ATORVASTATIN 20 MG TAB PO (08:13)
[2018-01-02] MEDS: CARVedilol 6.25 MG TAB PO ×2 (08:13→21:04)
[2018-01-02 09:55] LABS: ESTIMATED AVERAGE GLUCOSE 197 MG/DL (60-110); HEMOGLOBIN A1c 8.5 %
[2018-01-02 11:49] LABS: BEDSIDE GLUCOSE 308 MG/DL (83-110)
[2018-01-02] MEDS: VANCOMYCIN HCL 1,000 MG, VIAL MATE ADAPTER 1 EACH in D5W 250 ML IV (12:06)
[2018-01-02] MEDS: PIPERACILLIN/TAZOBACTAM SOD 2.25 GM in D5W MINI-BAG PLUS 50 ML IV ×2 (13:29→17:28)
[2018-01-02] MEDS: PREDNISOLONE 1% OS ×2 (13:30→21:06)
[2018-01-02] MEDS: BROMSITE 0.075% OS ×2 (13:30→21:07)
[2018-01-02] MEDS: PREDNISOLONE 1% OD ×2 (13:30→21:06)
[2018-01-02] MEDS: BROMSITE 0.075% OD ×2 (13:30→21:07)
[2018-01-02 16:31] LABS: BEDSIDE GLUCOSE 475 MG/DL (83-110)
[2018-01-02] MEDS ORDERED: cefTRIAXone SOD 1 GM in D5W MINI-BAG PLUS 50 ML IV (17:00)
[2018-01-02] MEDS ORDERED: AZITHROMYCIN INJ 500 MG, VIAL MATE ADAPTER 1 EACH in D5W 250 ML IV (18:00)
[2018-01-02 20:46] LABS: BEDSIDE GLUCOSE 525 MG/DL (83-110)
[2018-01-02] MEDS: zolPIDEM TARTRATE 10MG TAB PO (21:03)
[2018-01-02] MEDS: FENOFIBRATE 48 MG TAB (TRICOR) PO (21:03)
[2018-01-02] MEDS: TAMSULOSIN 0.4 MG CAP PO (21:03)
[2018-01-02] MEDS: FINASTERIDE 5 MG TAB PO (21:04)
[2018-01-03] MEDS: PIPERACILLIN/TAZOBACTAM SOD 2.25 GM in D5W MINI-BAG PLUS 50 ML IV ×4 (00:07→17:15)
[2018-01-03] MEDS: IPRATROPIUM 0.5MG/ALBUTEROL 2.5MG INH SOL UD 3ML (DUONEB)(J7620) NEB ×4 (01:27→20:00)
[2018-01-03] MEDS: clonazePAM 1 MG TAB PO ×2 (05:21→20:50)
[2018-01-03] MEDS: SLF 3 ML SYR IV ×3 (05:21→20:51)
[2018-01-03 06:41] LABS: BEDSIDE GLUCOSE 391 MG/DL (83-110)
[2018-01-03] MEDS: LORazepam 2 MG/ML VIAL (J2060) IV (08:14)
[2018-01-03] MEDS: VANCOMYCIN HCL 1,000 MG, VIAL MATE ADAPTER 1 EACH in D5W 250 ML IV (08:54)
[2018-01-03] MEDS: HumaLOG INSULIN (NovoLOG) PER UNIT SC ×4 (08:55→20:48)
[2018-01-03] MEDS: LEVEMIR (INSULIN DETEMIR) 1 UNITS/0.01ML SC ×2 (08:55→20:52)
[2018-01-03 09:08] LABS: HEMATOCRIT 27.9 % (42.0-52.0); HEMOGLOBIN 9.6 g/dl (13.5-17.5); MEAN CORPUSCULAR HEMOGLOBIN 30.4 pg (27.0-33.0); MEAN CORPUSCULAR HGB CONC 34.4 g/dl (32.0-36.5); MEAN CORPUSCULAR VOLUME 88.3 fl (80.0-96.0); PLATELET COUNT, AUTOMATED 181 10^3/uL (150-450); RED BLOOD COUNT 3.16 10^6/uL (4.30-6.10); WHITE BLOOD COUNT 13.7 10^3/uL (4.0-10.0)
[2018-01-03] MEDS: HEPARIN SOD (PORCINE) 5000 UNITS/ML VIAL SC ×2 (09:12→20:49)
[2018-01-03] MEDS: OMEPRAZOLE 20 MG CAP PO (09:12)
[2018-01-03] MEDS: **hydrALAZINE** 50 MG TAB PO ×2 (09:13→20:51)
[2018-01-03] MEDS: ATORVASTATIN 20 MG TAB PO (09:13)
[2018-01-03] MEDS: ESCITALOPRAM OXALATE 10 MG TAB (LEXAPRO) PO (09:13)
[2018-01-03] MEDS: CLOPIDOGREL 75 MG TAB PO (09:14)
[2018-01-03] MEDS: VITAMIN D 1,000 INTERNATIONAL UNITS TABLET PO (09:14)
[2018-01-03] MEDS: CYANOCOBALAMIN 500 MCG TAB PO (09:14)
[2018-01-03] MEDS: ASPIRIN 81 MG ENTERIC TAB PO (09:14)
[2018-01-03] MEDS: amLODIPine 10 MG TAB PO (09:14)
[2018-01-03] MEDS: SENOKOT S TAB PO ×2 (09:14→20:51)
[2018-01-03] MEDS: MIRALAX *UNIT DOSE* 17GM PACKET PO (09:15)
[2018-01-03] MEDS: CARVedilol 6.25 MG TAB PO ×2 (09:15→20:50)
[2018-01-03] MEDS: guaiFENesin ER 600 MG TAB PO ×2 (09:15→20:50)
[2018-01-03] MEDS: BROMSITE 0.075% OD ×2 (09:16→20:55)
[2018-01-03] MEDS: BROMSITE 0.075% OS ×2 (09:16→20:56)
[2018-01-03] MEDS: PREDNISOLONE 1% OD ×2 (09:17→20:55)
[2018-01-03] MEDS: PREDNISOLONE 1% OS (09:17)
[2018-01-03 09:26] LABS: ANION GAP 8 MEQ/L (8-16); BLOOD UREA NITROGEN 39 MG/DL (7-18); CALCIUM LEVEL 8.3 MG/DL (8.8-10.2); CARBON DIOXIDE LEVEL 24 MEQ/L (21-32); CHLORIDE LEVEL 107 MEQ/L (98-107); CREATININE FOR GFR 2.46 MG/DL (0.70-1.30); GLOMERULAR FILTRATION RATE 27.5 (>42); GLUCOSE, FASTING 383 MG/DL (70-100); MAGNESIUM LEVEL 2.4 MG/DL (1.8-2.4); POTASSIUM SERUM 4.2 MEQ/L (3.5-5.1); SODIUM LEVEL 139 MEQ/L (136-145)
[2018-01-03 10:32] LABS: ERYTHROCYTE SEDIMENTATION RATE 62 mm/hr (0-20)
[2018-01-03 11:45] LABS: BEDSIDE GLUCOSE 283 MG/DL (83-110)
[2018-01-03] MEDS: buPROPion (WELLBUTRIN SR) 100 MG SR TAB PO ×2 (12:16→20:50)
[2018-01-03 16:56] LABS: BEDSIDE GLUCOSE 156 MG/DL (83-110)
[2018-01-03] MEDS: zolPIDEM TARTRATE 10MG TAB PO (20:49)
[2018-01-03] MEDS: FENOFIBRATE 48 MG TAB (TRICOR) PO (20:50)
[2018-01-03] MEDS: FINASTERIDE 5 MG TAB PO (20:50)
[2018-01-03] MEDS: ACETAMINOPHEN TAB 650MG DOSE (2X325MG) PO (20:50)
[2018-01-03] MEDS: TAMSULOSIN 0.4 MG CAP PO (20:52)
[2018-01-03 21:13] LABS: BEDSIDE GLUCOSE 246 MG/DL (83-110)
[2018-01-04] MEDS: IPRATROPIUM 0.5MG/ALBUTEROL 2.5MG INH SOL UD 3ML (DUONEB)(J7620) NEB ×4 (02:00→20:00)
[2018-01-04] MEDS: ONDANSETRON 4MG/2ML VIAL (J2405) IV (02:01)
[2018-01-04] MEDS: SLF 3 ML SYR IV ×3 (02:01→21:11)
[2018-01-04] MEDS: PIPERACILLIN/TAZOBACTAM SOD 2.25 GM in D5W MINI-BAG PLUS 50 ML IV ×5 (02:02→23:11)
[2018-01-04] MEDS: clonazePAM 1 MG TAB PO ×2 (04:16→20:46)
[2018-01-04] MEDS: LORazepam 2 MG/ML VIAL (J2060) IV ×2 (04:32→04:59)
[2018-01-04] MEDS: HALOPERIDOL 5 MG/ML VIAL (J1630) IM ×3 (04:59→06:07)
[2018-01-04] MEDS: HumaLOG INSULIN (NovoLOG) PER UNIT SC ×4 (07:30→20:09)
[2018-01-04 07:41] LABS: BEDSIDE GLUCOSE 93 MG/DL (83-110)
[2018-01-04] MEDS ORDERED: QUEtiapine FUMARATE 12.5 MG HALF-TAB PO (09:00)
[2018-01-04] MEDS: LEVEMIR (INSULIN DETEMIR) 1 UNITS/0.01ML SC ×2 (09:00→20:47)
[2018-01-04] MEDS: VANCOMYCIN HCL 1,000 MG, VIAL MATE ADAPTER 1 EACH in D5W 250 ML IV (09:33)
[2018-01-04] MEDS: HALOPERIDOL 5 MG/ML VIAL (J1630) IV (10:06)
[2018-01-04] MEDS: HEPARIN SOD (PORCINE) 5000 UNITS/ML VIAL SC ×2 (10:06→20:49)
[2018-01-04] MEDS: PREDNISOLONE 1% OD ×2 (10:07→20:49)
[2018-01-04] MEDS: BROMSITE 0.075% OD ×2 (10:07→20:49)
[2018-01-04] MEDS: BROMSITE 0.075% OS ×2 (10:07→20:50)
[2018-01-04] MEDS: PREDNISOLONE 1% OS (10:07)
[2018-01-04] MEDS: MIRALAX *UNIT DOSE* 17GM PACKET PO (10:17)
[2018-01-04] MEDS: OMEPRAZOLE 20 MG CAP PO (10:17)
[2018-01-04] MEDS: CLOPIDOGREL 75 MG TAB PO (10:17)
[2018-01-04] MEDS: VITAMIN D 1,000 INTERNATIONAL UNITS TABLET PO (10:18)
[2018-01-04] MEDS: CYANOCOBALAMIN 500 MCG TAB PO (10:18)
[2018-01-04] MEDS: ASPIRIN 81 MG ENTERIC TAB PO (10:18)
[2018-01-04] MEDS: **hydrALAZINE** 50 MG TAB PO ×2 (10:18→20:45)
[2018-01-04] MEDS: SENOKOT S TAB PO ×2 (10:18→20:44)
[2018-01-04] MEDS: buPROPion (WELLBUTRIN SR) 100 MG SR TAB PO ×2 (10:19→20:45)
[2018-01-04] MEDS: ATORVASTATIN 20 MG TAB PO (10:19)
[2018-01-04] MEDS: CARVedilol 6.25 MG TAB PO ×2 (10:19→20:46)
[2018-01-04] MEDS: amLODIPine 10 MG TAB PO (10:19)
[2018-01-04] MEDS: guaiFENesin ER 600 MG TAB PO ×2 (10:20→20:45)
[2018-01-04] MEDS: ESCITALOPRAM OXALATE 10 MG TAB (LEXAPRO) PO (10:20)
[2018-01-04 11:38] LABS: BEDSIDE GLUCOSE 159 MG/DL (83-110)
[2018-01-04 17:03] LABS: BEDSIDE GLUCOSE 159 MG/DL (83-110)
[2018-01-04 20:10] LABS: BEDSIDE GLUCOSE 163 MG/DL (83-110)
[2018-01-04] MEDS: zolPIDEM TARTRATE 10MG TAB PO (20:44)
[2018-01-04] MEDS: FENOFIBRATE 48 MG TAB (TRICOR) PO (20:45)
[2018-01-04] MEDS: TAMSULOSIN 0.4 MG CAP PO (20:45)
[2018-01-04] MEDS: FINASTERIDE 5 MG TAB PO (21:11)
[2018-01-04] MEDS: **hydrALAZINE** 10 MG TAB PO (23:40)
[2018-01-05] MEDS: IPRATROPIUM 0.5MG/ALBUTEROL 2.5MG INH SOL UD 3ML (DUONEB)(J7620) NEB ×4 (02:00→20:00)
[2018-01-05] MEDS: PIPERACILLIN/TAZOBACTAM SOD 2.25 GM in D5W MINI-BAG PLUS 50 ML IV ×3 (05:39→18:25)
[2018-01-05] MEDS: SLF 3 ML SYR IV ×3 (05:39→21:20)
[2018-01-05 07:11] LABS: HEMATOCRIT 31.1 % (42.0-52.0); HEMOGLOBIN 10.3 g/dl (13.5-17.5); MEAN CORPUSCULAR HEMOGLOBIN 29.5 pg (27.0-33.0); MEAN CORPUSCULAR HGB CONC 33.1 g/dl (32.0-36.5); MEAN CORPUSCULAR VOLUME 89.1 fl (80.0-96.0); PLATELET COUNT, AUTOMATED 219 10^3/uL (150-450); RED BLOOD COUNT 3.49 10^6/uL (4.30-6.10); RED CELL DISTRIBUTION WIDTH 13.8 % (11.5-14.5); WHITE BLOOD COUNT 4.2 10^3/uL (4.0-10.0)
[2018-01-05 07:23] LABS: ANION GAP 6 MEQ/L (8-16); BLOOD UREA NITROGEN 23 MG/DL (7-18); C REACTIVE PROTEIN QUANTITATIV 4.32 MG/DL (0.00-0.30); CALCIUM LEVEL 8.6 MG/DL (8.8-10.2); CARBON DIOXIDE LEVEL 28 MEQ/L (21-32); CHLORIDE LEVEL 110 MEQ/L (98-107); CREATININE FOR GFR 1.89 MG/DL (0.70-1.30); GLOMERULAR FILTRATION RATE 37.3 (>42); GLUCOSE, FASTING 128 MG/DL (70-100); MAGNESIUM LEVEL 1.9 MG/DL (1.8-2.4); POTASSIUM SERUM 4.1 MEQ/L (3.5-5.1); SODIUM LEVEL 144 MEQ/L (136-145); VANCOMYCIN LEVEL TROUGH 13.4 UG/ML (10.0-20.0)
[2018-01-05] MEDS: MIRALAX *UNIT DOSE* 17GM PACKET PO (08:04)
[2018-01-05] MEDS: LEVEMIR (INSULIN DETEMIR) 1 UNITS/0.01ML SC ×2 (08:04→21:17)
[2018-01-05] MEDS: HumaLOG INSULIN (NovoLOG) PER UNIT SC ×4 (08:06→21:00)
[2018-01-05] MEDS: ESCITALOPRAM OXALATE 10 MG TAB (LEXAPRO) PO (08:07)
[2018-01-05] MEDS: ATORVASTATIN 20 MG TAB PO (08:07)
[2018-01-05] MEDS: HEPARIN SOD (PORCINE) 5000 UNITS/ML VIAL SC ×2 (08:07→21:18)
[2018-01-05] MEDS: **hydrALAZINE** 50 MG TAB PO ×2 (08:08→21:16)
[2018-01-05] MEDS: ASPIRIN 81 MG ENTERIC TAB PO (08:09)
[2018-01-05] MEDS: clonazePAM 1 MG TAB PO ×3 (08:09→21:15)
[2018-01-05] MEDS: SENOKOT S TAB PO ×2 (08:09→21:15)
[2018-01-05] MEDS: CYANOCOBALAMIN 500 MCG TAB PO (08:09)
[2018-01-05] MEDS: guaiFENesin ER 600 MG TAB PO ×2 (08:10→21:15)
[2018-01-05] MEDS: CARVedilol 6.25 MG TAB PO ×2 (08:10→21:15)
[2018-01-05] MEDS: CLOPIDOGREL 75 MG TAB PO (08:10)
[2018-01-05] MEDS: VITAMIN D 1,000 INTERNATIONAL UNITS TABLET PO (08:10)
[2018-01-05] MEDS: amLODIPine 10 MG TAB PO (08:10)
[2018-01-05] MEDS: BROMSITE 0.075% OS ×2 (09:00→21:00)
[2018-01-05] MEDS: PREDNISOLONE 1% OS (09:00)
[2018-01-05] MEDS: OMEPRAZOLE 20 MG CAP PO (09:43)
[2018-01-05] MEDS: VANCOMYCIN HCL 1,000 MG, VIAL MATE ADAPTER 1 EACH in D5W 250 ML IV (09:43)
[2018-01-05] MEDS: buPROPion (WELLBUTRIN SR) 100 MG SR TAB PO ×2 (09:43→21:15)
[2018-01-05] MEDS ORDERED: HALOPERIDOL 5 MG/ML VIAL (J1630) IM (09:45)
[2018-01-05 11:36] LABS: BEDSIDE GLUCOSE 122 MG/DL (83-110)
[2018-01-05] MEDS: HALOPERIDOL 0.5 MG TAB PO ×2 (13:41→18:56)
[2018-01-05] MEDS: PREDNISOLONE 1% OD ×2 (13:42→21:17)
[2018-01-05] MEDS: BROMSITE 0.075% OD ×2 (13:42→21:17)
[2018-01-05 16:37] LABS: BEDSIDE GLUCOSE 120 MG/DL (83-110)
[2018-01-05 20:06] LABS: BEDSIDE GLUCOSE 184 MG/DL (83-110)
[2018-01-05] MEDS: FENOFIBRATE 48 MG TAB (TRICOR) PO (21:15)
[2018-01-05] MEDS: FINASTERIDE 5 MG TAB PO (21:16)
[2018-01-05] MEDS: TAMSULOSIN 0.4 MG CAP PO (21:24)
[2018-01-05] MEDS: zolPIDEM TARTRATE 10MG TAB PO (21:24)
[2018-01-06] MEDS: PIPERACILLIN/TAZOBACTAM SOD 2.25 GM in D5W MINI-BAG PLUS 50 ML IV ×4 (01:12→18:12)
[2018-01-06] MEDS: HALOPERIDOL 0.5 MG TAB PO (01:24)
[2018-01-06] MEDS: IPRATROPIUM 0.5MG/ALBUTEROL 2.5MG INH SOL UD 3ML (DUONEB)(J7620) NEB ×4 (02:00→20:00)
[2018-01-06] MEDS: SLF 3 ML SYR IV ×2 (05:41→14:25)
[2018-01-06 06:44] LABS: HEMATOCRIT 32.6 % (42.0-52.0); HEMOGLOBIN 10.9 g/dl (13.5-17.5); MEAN CORPUSCULAR HEMOGLOBIN 30.1 pg (27.0-33.0); MEAN CORPUSCULAR HGB CONC 33.4 g/dl (32.0-36.5); MEAN CORPUSCULAR VOLUME 90.1 fl (80.0-96.0); PLATELET COUNT, AUTOMATED 224 10^3/uL (150-450); RED BLOOD COUNT 3.62 10^6/uL (4.30-6.10); RED CELL DISTRIBUTION WIDTH 13.4 % (11.5-14.5); WHITE BLOOD COUNT 4.1 10^3/uL (4.0-10.0)
[2018-01-06 07:02] LABS: ANION GAP 6 MEQ/L (8-16); BLOOD UREA NITROGEN 23 MG/DL (7-18); C REACTIVE PROTEIN QUANTITATIV 2.67 MG/DL (0.00-0.30); CALCIUM LEVEL 8.7 MG/DL (8.8-10.2); CARBON DIOXIDE LEVEL 29 MEQ/L (21-32); CHLORIDE LEVEL 108 MEQ/L (98-107); GLOMERULAR FILTRATION RATE 34.9 (>42); GLUCOSE, FASTING 153 MG/DL (70-100); MAGNESIUM LEVEL 1.8 MG/DL (1.8-2.4); POTASSIUM SERUM 3.8 MEQ/L (3.5-5.1); SODIUM LEVEL 143 MEQ/L (136-145)
[2018-01-06] MEDS: VANCOMYCIN HCL 1,000 MG, VIAL MATE ADAPTER 1 EACH in D5W 250 ML IV (08:16)
[2018-01-06] MEDS: HumaLOG INSULIN (NovoLOG) PER UNIT SC ×4 (08:16→21:00)
[2018-01-06] MEDS: VITAMIN D 1,000 INTERNATIONAL UNITS TABLET PO (08:17)
[2018-01-06] MEDS: LEVEMIR (INSULIN DETEMIR) 1 UNITS/0.01ML SC ×2 (08:17→21:03)
[2018-01-06] MEDS: SENOKOT S TAB PO ×2 (08:17→21:04)
[2018-01-06] MEDS: ASPIRIN 81 MG ENTERIC TAB PO (08:17)
[2018-01-06] MEDS: MIRALAX *UNIT DOSE* 17GM PACKET PO (08:17)
[2018-01-06] MEDS: HEPARIN SOD (PORCINE) 5000 UNITS/ML VIAL SC ×2 (08:17→21:03)
[2018-01-06] MEDS: OMEPRAZOLE 20 MG CAP PO (08:18)
[2018-01-06] MEDS: **hydrALAZINE** 50 MG TAB PO ×2 (08:19→21:05)
[2018-01-06] MEDS: CARVedilol 6.25 MG TAB PO ×2 (08:19→21:04)
[2018-01-06] MEDS: CLOPIDOGREL 75 MG TAB PO (08:19)
[2018-01-06] MEDS: CYANOCOBALAMIN 500 MCG TAB PO (08:19)
[2018-01-06] MEDS: ATORVASTATIN 20 MG TAB PO (08:19)
[2018-01-06] MEDS: buPROPion (WELLBUTRIN SR) 100 MG SR TAB PO ×2 (08:19→21:11)
[2018-01-06] MEDS: guaiFENesin ER 600 MG TAB PO ×2 (08:19→21:03)
[2018-01-06] MEDS: ESCITALOPRAM OXALATE 10 MG TAB (LEXAPRO) PO (08:19)
[2018-01-06] MEDS: amLODIPine 10 MG TAB PO (08:20)
[2018-01-06] MEDS: clonazePAM 1 MG TAB PO ×2 (08:20→21:04)
[2018-01-06] MEDS: PREDNISOLONE 1% OS (08:21)
[2018-01-06] MEDS: PREDNISOLONE 1% OD ×2 (08:21→21:05)
[2018-01-06] MEDS: BROMSITE 0.075% OS ×2 (08:21→21:08)
[2018-01-06] MEDS: BROMSITE 0.075% OD ×2 (08:21→21:08)
[2018-01-06 11:44] LABS: BEDSIDE GLUCOSE 254 MG/DL (83-110)
[2018-01-06 16:39] LABS: BEDSIDE GLUCOSE 184 MG/DL (83-110)
[2018-01-06 21:02] LABS: BEDSIDE GLUCOSE 202 MG/DL (83-110)
[2018-01-06] MEDS: FINASTERIDE 5 MG TAB PO (21:04)
[2018-01-06] MEDS: zolPIDEM TARTRATE 10MG TAB PO (21:04)
[2018-01-06] MEDS: TAMSULOSIN 0.4 MG CAP PO (21:04)
[2018-01-06] MEDS: ACETAMINOPHEN TAB 650MG DOSE (2X325MG) PO (21:05)
[2018-01-06] MEDS: FENOFIBRATE 48 MG TAB (TRICOR) PO (21:11)
[2018-01-07] MEDS: PIPERACILLIN/TAZOBACTAM SOD 2.25 GM in D5W MINI-BAG PLUS 50 ML IV ×4 (00:44→17:59)
[2018-01-07] MEDS: SLF 3 ML SYR IV ×3 (00:45→14:00)
[2018-01-07] MEDS: IPRATROPIUM 0.5MG/ALBUTEROL 2.5MG INH SOL UD 3ML (DUONEB)(J7620) NEB ×4 (01:20→20:00)
[2018-01-07] MEDS: ACETAMINOPHEN TAB 650MG DOSE (2X325MG) PO ×2 (03:46→20:13)
[2018-01-07 06:41] LABS: HEMOGLOBIN 11.2 g/dl (13.5-17.5); MEAN CORPUSCULAR HEMOGLOBIN 30.1 pg (27.0-33.0); MEAN CORPUSCULAR HGB CONC 33.9 g/dl (32.0-36.5); MEAN CORPUSCULAR VOLUME 88.7 fl (80.0-96.0); PLATELET COUNT, AUTOMATED 224 10^3/uL (150-450); RED BLOOD COUNT 3.72 10^6/uL (4.30-6.10); RED CELL DISTRIBUTION WIDTH 13.5 % (11.5-14.5); WHITE BLOOD COUNT 4.2 10^3/uL (4.0-10.0)
[2018-01-07 07:01] LABS: ANION GAP 5 MEQ/L (8-16); BLOOD UREA NITROGEN 24 MG/DL (7-18); C REACTIVE PROTEIN QUANTITATIV 1.53 MG/DL (0.00-0.30); CALCIUM LEVEL 8.4 MG/DL (8.8-10.2); CARBON DIOXIDE LEVEL 28 MEQ/L (21-32); CHLORIDE LEVEL 109 MEQ/L (98-107); CREATININE FOR GFR 2.23 MG/DL (0.70-1.30); GLOMERULAR FILTRATION RATE 30.8 (>42); GLUCOSE, FASTING 222 MG/DL (70-100); MAGNESIUM LEVEL 1.7 MG/DL (1.8-2.4); SODIUM LEVEL 142 MEQ/L (136-145)
[2018-01-07] MEDS: HumaLOG INSULIN (NovoLOG) PER UNIT SC ×4 (08:07→20:11)
[2018-01-07] MEDS: MIRALAX *UNIT DOSE* 17GM PACKET PO (08:08)
[2018-01-07] MEDS: LEVEMIR (INSULIN DETEMIR) 1 UNITS/0.01ML SC ×2 (08:08→20:16)
[2018-01-07] MEDS: OMEPRAZOLE 20 MG CAP PO (08:08)
[2018-01-07] MEDS: HEPARIN SOD (PORCINE) 5000 UNITS/ML VIAL SC ×2 (08:08→20:11)
[2018-01-07] MEDS: VANCOMYCIN HCL 1,000 MG, VIAL MATE ADAPTER 1 EACH in D5W 250 ML IV (08:08)
[2018-01-07] MEDS: VITAMIN D 1,000 INTERNATIONAL UNITS TABLET PO (08:09)
[2018-01-07] MEDS: guaiFENesin ER 600 MG TAB PO ×2 (08:09→20:12)
[2018-01-07] MEDS: SENOKOT S TAB PO ×2 (08:09→20:12)
[2018-01-07] MEDS: clonazePAM 1 MG TAB PO ×2 (08:09→20:12)
[2018-01-07] MEDS: ESCITALOPRAM OXALATE 10 MG TAB (LEXAPRO) PO (08:09)
[2018-01-07] MEDS: ATORVASTATIN 20 MG TAB PO (08:09)
[2018-01-07] MEDS: CYANOCOBALAMIN 500 MCG TAB PO (08:09)
[2018-01-07] MEDS: CLOPIDOGREL 75 MG TAB PO (08:09)
[2018-01-07] MEDS: buPROPion (WELLBUTRIN SR) 100 MG SR TAB PO ×2 (08:10→20:16)
[2018-01-07] MEDS: ASPIRIN 81 MG ENTERIC TAB PO (08:10)
[2018-01-07] MEDS: **hydrALAZINE** 50 MG TAB PO ×2 (08:12→20:12)
[2018-01-07] MEDS: CARVedilol 6.25 MG TAB PO ×2 (08:12→20:12)
[2018-01-07] MEDS: amLODIPine 10 MG TAB PO (08:13)
[2018-01-07] MEDS: PREDNISOLONE 1% OD ×2 (08:24→20:17)
[2018-01-07] MEDS: BROMSITE 0.075% OS ×2 (08:25→20:17)
[2018-01-07] MEDS: PREDNISOLONE 1% OS (08:26)
[2018-01-07] MEDS: BROMSITE 0.075% OD ×2 (08:26→20:17)
[2018-01-07] MEDS: FINASTERIDE 5 MG TAB PO (20:12)
[2018-01-07] MEDS: TAMSULOSIN 0.4 MG CAP PO (20:12)
[2018-01-07] MEDS: zolPIDEM TARTRATE 10MG TAB PO (20:12)
[2018-01-07] MEDS: FENOFIBRATE 48 MG TAB (TRICOR) PO (20:16)
[2018-01-07 20:47] LABS: BEDSIDE GLUCOSE 187 MG/DL (83-110)
[2018-01-07 20:47] LABS: BEDSIDE GLUCOSE 208 MG/DL (83-110)
[2018-01-07 20:47] LABS: BEDSIDE GLUCOSE 204 MG/DL (83-110)
[2018-01-08] MEDS: PIPERACILLIN/TAZOBACTAM SOD 2.25 GM in D5W MINI-BAG PLUS 50 ML IV ×2 (00:33→06:00)
[2018-01-08] MEDS: SLF 3 ML SYR IV ×4 (00:33→22:02)
[2018-01-08] MEDS: HALOPERIDOL 0.5 MG TAB PO (00:33)
[2018-01-08] MEDS: IPRATROPIUM 0.5MG/ALBUTEROL 2.5MG INH SOL UD 3ML (DUONEB)(J7620) NEB ×4 (02:00→20:00)
[2018-01-08] MEDS: ACETAMINOPHEN TAB 650MG DOSE (2X325MG) PO (06:01)
[2018-01-08 06:03] LABS: HEMATOCRIT 32.1 % (42.0-52.0); HEMOGLOBIN 10.7 g/dl (13.5-17.5); MEAN CORPUSCULAR HEMOGLOBIN 29.6 pg (27.0-33.0); MEAN CORPUSCULAR HGB CONC 33.3 g/dl (32.0-36.5); MEAN CORPUSCULAR VOLUME 88.7 fl (80.0-96.0); PLATELET COUNT, AUTOMATED 216 10^3/uL (150-450); RED BLOOD COUNT 3.62 10^6/uL (4.30-6.10); RED CELL DISTRIBUTION WIDTH 13.6 % (11.5-14.5)
[2018-01-08 06:17] LABS: BEDSIDE GLUCOSE 224 MG/DL (83-110)
[2018-01-08 06:19] LABS: ANION GAP 8 MEQ/L (8-16); BLOOD UREA NITROGEN 26 MG/DL (7-18); CALCIUM LEVEL 8.7 MG/DL (8.8-10.2); CARBON DIOXIDE LEVEL 27 MEQ/L (21-32); CHLORIDE LEVEL 110 MEQ/L (98-107); CREATININE FOR GFR 2.22 MG/DL (0.70-1.30); GLUCOSE, FASTING 227 MG/DL (70-100); MAGNESIUM LEVEL 1.8 MG/DL (1.8-2.4); POTASSIUM SERUM 4.1 MEQ/L (3.5-5.1); SODIUM LEVEL 145 MEQ/L (136-145)
[2018-01-08] MEDS: HumaLOG INSULIN (NovoLOG) PER UNIT SC ×4 (08:23→22:01)
[2018-01-08] MEDS: HEPARIN SOD (PORCINE) 5000 UNITS/ML VIAL SC ×2 (10:30→22:00)
[2018-01-08] MEDS: LEVEMIR (INSULIN DETEMIR) 1 UNITS/0.01ML SC ×2 (10:31→22:01)
[2018-01-08] MEDS: clonazePAM 1 MG TAB PO ×2 (10:33→20:37)
[2018-01-08] MEDS: OMEPRAZOLE 20 MG CAP PO (10:37)
[2018-01-08] MEDS: VITAMIN D 1,000 INTERNATIONAL UNITS TABLET PO (10:37)
[2018-01-08] MEDS: ASPIRIN 81 MG ENTERIC TAB PO (10:38)
[2018-01-08] MEDS: ATORVASTATIN 20 MG TAB PO (10:38)
[2018-01-08] MEDS: CYANOCOBALAMIN 500 MCG TAB PO (10:38)
[2018-01-08] MEDS: CLOPIDOGREL 75 MG TAB PO (10:39)
[2018-01-08] MEDS: ESCITALOPRAM OXALATE 10 MG TAB (LEXAPRO) PO (10:39)
[2018-01-08] MEDS: amLODIPine 10 MG TAB PO (10:40)
[2018-01-08] MEDS: SENOKOT S TAB PO ×2 (10:40→20:37)
[2018-01-08] MEDS: guaiFENesin ER 600 MG TAB PO ×2 (10:40→20:37)
[2018-01-08] MEDS: CARVedilol 6.25 MG TAB PO ×2 (10:41→20:38)
[2018-01-08] MEDS: MIRALAX *UNIT DOSE* 17GM PACKET PO (10:41)
[2018-01-08] MEDS: BROMSITE 0.075% OS ×2 (10:43→22:04)
[2018-01-08] MEDS: PREDNISOLONE 1% OS (10:44)
[2018-01-08] MEDS: BROMSITE 0.075% OD ×2 (10:45→22:03)
[2018-01-08] MEDS: PREDNISOLONE 1% OD ×2 (10:55→22:04)
[2018-01-08] MEDS: **hydrALAZINE** 50 MG TAB PO ×2 (10:57→20:38)
[2018-01-08] MEDS: buPROPion (WELLBUTRIN SR) 100 MG SR TAB PO ×2 (10:57→22:00)
[2018-01-08 12:00] LABS: BEDSIDE GLUCOSE 243 MG/DL (83-110)
[2018-01-08 16:45] LABS: BEDSIDE GLUCOSE 168 MG/DL (83-110)
[2018-01-08] MEDS: FINASTERIDE 5 MG TAB PO (20:37)
[2018-01-08] MEDS: TAMSULOSIN 0.4 MG CAP PO (20:37)
[2018-01-08] MEDS: zolPIDEM TARTRATE 10MG TAB PO (20:37)
[2018-01-08 20:52] LABS: BEDSIDE GLUCOSE 271 MG/DL (83-110)
[2018-01-08] MEDS: FENOFIBRATE 48 MG TAB (TRICOR) PO (22:00)
[2018-01-08] MEDS ORDERED: hydrALAZINE INJ 20 MG/ML VIAL IV (23:15)
[2018-01-08] MEDS: cloNIDine 0.1 MG TAB PO (23:25)
[2018-01-09] MEDS: SLF 3 ML SYR IV ×3 (06:00→20:58)
[2018-01-09] MEDS: CARVedilol 6.25 MG TAB PO ×2 (06:30→20:56)
[2018-01-09] MEDS: IPRATROPIUM 0.5MG/ALBUTEROL 2.5MG INH SOL UD 3ML (DUONEB)(J7620) NEB ×3 (07:10→19:37)
[2018-01-09] MEDS: HumaLOG INSULIN (NovoLOG) PER UNIT SC ×4 (08:44→20:57)
[2018-01-09] MEDS: MIRALAX *UNIT DOSE* 17GM PACKET PO (08:44)
[2018-01-09] MEDS: OMEPRAZOLE 20 MG CAP PO (08:44)
[2018-01-09] MEDS: HEPARIN SOD (PORCINE) 5000 UNITS/ML VIAL SC ×2 (08:44→20:57)
[2018-01-09] MEDS: LEVEMIR (INSULIN DETEMIR) 1 UNITS/0.01ML SC ×2 (08:44→20:57)
[2018-01-09] MEDS: SENOKOT S TAB PO ×2 (08:45→20:55)
[2018-01-09] MEDS: ATORVASTATIN 20 MG TAB PO (08:45)
[2018-01-09] MEDS: ESCITALOPRAM OXALATE 10 MG TAB (LEXAPRO) PO (08:45)
[2018-01-09] MEDS: VITAMIN D 1,000 INTERNATIONAL UNITS TABLET PO (08:45)
[2018-01-09] MEDS: guaiFENesin ER 600 MG TAB PO ×2 (08:45→20:55)
[2018-01-09] MEDS: CYANOCOBALAMIN 500 MCG TAB PO (08:45)
[2018-01-09] MEDS: CLOPIDOGREL 75 MG TAB PO (08:45)
[2018-01-09] MEDS: ASPIRIN 81 MG ENTERIC TAB PO (08:45)
[2018-01-09] MEDS: buPROPion (WELLBUTRIN SR) 100 MG SR TAB PO ×2 (08:46→20:55)
[2018-01-09] MEDS: **hydrALAZINE** 50 MG TAB PO ×2 (08:46→20:56)
[2018-01-09] MEDS: amLODIPine 10 MG TAB PO (08:46)
[2018-01-09] MEDS: BROMSITE 0.075% OS ×2 (08:47→20:59)
[2018-01-09] MEDS: BROMSITE 0.075% OD ×2 (08:47→20:58)
[2018-01-09] MEDS: clonazePAM 1 MG TAB PO ×2 (08:47→20:55)
[2018-01-09] MEDS: PREDNISOLONE 1% OS (08:48)
[2018-01-09] MEDS: PREDNISOLONE 1% OD ×2 (08:48→20:58)
[2018-01-09 11:51] LABS: BEDSIDE GLUCOSE 215 MG/DL (83-110)
[2018-01-09 11:51] LABS: BEDSIDE GLUCOSE 256 MG/DL (83-110)
[2018-01-09 20:46] LABS: BEDSIDE GLUCOSE 181 MG/DL (83-110)
[2018-01-09] MEDS: zolPIDEM TARTRATE 10MG TAB PO (20:54)
[2018-01-09] MEDS: FINASTERIDE 5 MG TAB PO (20:55)
[2018-01-09] MEDS: TAMSULOSIN 0.4 MG CAP PO (20:55)
[2018-01-09] MEDS: FENOFIBRATE 48 MG TAB (TRICOR) PO (20:55)
[2018-01-10] MEDS: IPRATROPIUM 0.5MG/ALBUTEROL 2.5MG INH SOL UD 3ML (DUONEB)(J7620) NEB ×4 (01:54→20:00)
[2018-01-10] MEDS: SLF 3 ML SYR IV (05:06)
[2018-01-10 06:30] LABS: BEDSIDE GLUCOSE 142 MG/DL (83-110)
[2018-01-10] MEDS: LEVEMIR (INSULIN DETEMIR) 1 UNITS/0.01ML SC ×2 (08:50→21:03)
[2018-01-10] MEDS: HEPARIN SOD (PORCINE) 5000 UNITS/ML VIAL SC ×2 (08:51→21:05)
[2018-01-10] MEDS: HumaLOG INSULIN (NovoLOG) PER UNIT SC ×4 (08:51→20:34)
[2018-01-10] MEDS: ASPIRIN 81 MG ENTERIC TAB PO (08:52)
[2018-01-10] MEDS: SENOKOT S TAB PO ×2 (08:52→21:04)
[2018-01-10] MEDS: **hydrALAZINE** 50 MG TAB PO ×2 (08:52→21:08)
[2018-01-10] MEDS: clonazePAM 1 MG TAB PO ×2 (08:52→21:04)
[2018-01-10] MEDS: CARVedilol 6.25 MG TAB PO ×2 (08:53→21:07)
[2018-01-10] MEDS: OMEPRAZOLE 20 MG CAP PO (08:53)
[2018-01-10] MEDS: CYANOCOBALAMIN 500 MCG TAB PO (08:53)
[2018-01-10] MEDS: buPROPion (WELLBUTRIN SR) 100 MG SR TAB PO ×2 (08:53→21:04)
[2018-01-10] MEDS: CLOPIDOGREL 75 MG TAB PO (08:53)
[2018-01-10] MEDS: ATORVASTATIN 20 MG TAB PO (08:53)
[2018-01-10] MEDS: MIRALAX *UNIT DOSE* 17GM PACKET PO (08:54)
[2018-01-10] MEDS: ESCITALOPRAM OXALATE 10 MG TAB (LEXAPRO) PO (08:54)
[2018-01-10] MEDS: VITAMIN D 1,000 INTERNATIONAL UNITS TABLET PO (08:54)
[2018-01-10] MEDS: guaiFENesin ER 600 MG TAB PO ×2 (08:54→21:04)
[2018-01-10] MEDS: amLODIPine 10 MG TAB PO (08:54)
[2018-01-10] MEDS: BROMSITE 0.075% OD ×2 (08:56→21:05)
[2018-01-10] MEDS: BROMSITE 0.075% OS ×2 (08:56→21:05)
[2018-01-10] MEDS: busPIRone 5 MG TAB PO (10:59)
[2018-01-10] MEDS: MOM 30ML SUSPENSION UDC PO (15:57)
[2018-01-10 16:24] LABS: BEDSIDE GLUCOSE 189 MG/DL (83-110)
[2018-01-10 20:20] LABS: BEDSIDE GLUCOSE 220 MG/DL (83-110)
[2018-01-10] MEDS: TAMSULOSIN 0.4 MG CAP PO (21:04)
[2018-01-10] MEDS: zolPIDEM TARTRATE 10MG TAB PO (21:04)
[2018-01-10] MEDS: FINASTERIDE 5 MG TAB PO (21:04)
[2018-01-10] MEDS: FENOFIBRATE 48 MG TAB (TRICOR) PO (21:04)
[2018-01-11] MEDS: HALOPERIDOL 0.5 MG TAB PO (01:38)
[2018-01-11] MEDS: IPRATROPIUM 0.5MG/ALBUTEROL 2.5MG INH SOL UD 3ML (DUONEB)(J7620) NEB ×4 (02:00→20:00)
[2018-01-11] MEDS: MOM 30ML SUSPENSION UDC PO (05:43)
[2018-01-11 06:33] LABS: BEDSIDE GLUCOSE 232 MG/DL (83-110)
[2018-01-11] MEDS: LEVEMIR (INSULIN DETEMIR) 1 UNITS/0.01ML SC ×2 (08:32→21:09)
[2018-01-11] MEDS: MIRALAX *UNIT DOSE* 17GM PACKET PO (08:32)
[2018-01-11] MEDS: HumaLOG INSULIN (NovoLOG) PER UNIT SC ×4 (08:33→21:00)
[2018-01-11] MEDS: HEPARIN SOD (PORCINE) 5000 UNITS/ML VIAL SC ×2 (08:34→21:09)
[2018-01-11] MEDS: OMEPRAZOLE 20 MG CAP PO (08:35)
[2018-01-11] MEDS: CYANOCOBALAMIN 500 MCG TAB PO (08:35)
[2018-01-11] MEDS: SENOKOT S TAB PO ×2 (08:35→21:08)
[2018-01-11] MEDS: VITAMIN D 1,000 INTERNATIONAL UNITS TABLET PO (08:35)
[2018-01-11] MEDS: ASPIRIN 81 MG ENTERIC TAB PO (08:35)
[2018-01-11] MEDS: **hydrALAZINE** 50 MG TAB PO ×2 (08:35→21:08)
[2018-01-11] MEDS: ESCITALOPRAM OXALATE 10 MG TAB (LEXAPRO) PO (08:36)
[2018-01-11] MEDS: busPIRone 5 MG TAB PO (08:36)
[2018-01-11] MEDS: amLODIPine 10 MG TAB PO (08:36)
[2018-01-11] MEDS: guaiFENesin ER 600 MG TAB PO ×2 (08:36→21:08)
[2018-01-11] MEDS: ATORVASTATIN 20 MG TAB PO (08:36)
[2018-01-11] MEDS: CLOPIDOGREL 75 MG TAB PO (08:36)
[2018-01-11] MEDS: buPROPion (WELLBUTRIN SR) 100 MG SR TAB PO ×2 (08:36→21:52)
[2018-01-11] MEDS: clonazePAM 1 MG TAB PO ×2 (08:36→21:08)
[2018-01-11] MEDS: BROMSITE 0.075% OD ×3 (08:37→21:00)
[2018-01-11] MEDS: CARVedilol 6.25 MG TAB PO ×2 (08:37→21:08)
[2018-01-11 12:30] LABS: BEDSIDE GLUCOSE 136 MG/DL (83-110)
[2018-01-11 20:16] LABS: BEDSIDE GLUCOSE 209 MG/DL (83-110)
[2018-01-11] MEDS: TAMSULOSIN 0.4 MG CAP PO (21:08)
[2018-01-11] MEDS: zolPIDEM TARTRATE 10MG TAB PO (21:08)
[2018-01-11] MEDS: FINASTERIDE 5 MG TAB PO (21:08)
[2018-01-11] MEDS: FENOFIBRATE 48 MG TAB (TRICOR) PO (21:52)
[2018-01-12] MEDS: IPRATROPIUM 0.5MG/ALBUTEROL 2.5MG INH SOL UD 3ML (DUONEB)(J7620) NEB ×4 (02:00→20:00)
[2018-01-12 05:55] LABS: BEDSIDE GLUCOSE 143 MG/DL (83-110)
[2018-01-12 05:55] LABS: BEDSIDE GLUCOSE 216 MG/DL (83-110)
[2018-01-12 05:55] LABS: BEDSIDE GLUCOSE 171 MG/DL (83-110)
[2018-01-12 07:06] LABS: BEDSIDE GLUCOSE 129 MG/DL (83-110)
[2018-01-12] MEDS: CYANOCOBALAMIN 500 MCG TAB PO (09:21)
[2018-01-12] MEDS: buPROPion (WELLBUTRIN SR) 100 MG SR TAB PO ×2 (09:21→21:44)
[2018-01-12] MEDS: busPIRone 5 MG TAB PO (09:21)
[2018-01-12] MEDS: **hydrALAZINE** 50 MG TAB PO ×2 (09:21→21:48)
[2018-01-12] MEDS: ESCITALOPRAM OXALATE 10 MG TAB (LEXAPRO) PO (09:21)
[2018-01-12] MEDS: guaiFENesin ER 600 MG TAB PO ×2 (09:22→21:43)
[2018-01-12] MEDS: ASPIRIN 81 MG ENTERIC TAB PO (09:22)
[2018-01-12] MEDS: amLODIPine 10 MG TAB PO (09:22)
[2018-01-12] MEDS: clonazePAM 1 MG TAB PO ×2 (09:22→21:44)
[2018-01-12] MEDS: VITAMIN D 1,000 INTERNATIONAL UNITS TABLET PO (09:22)
[2018-01-12] MEDS: CLOPIDOGREL 75 MG TAB PO (09:22)
[2018-01-12] MEDS: CARVedilol 6.25 MG TAB PO ×2 (09:22→21:48)
[2018-01-12] MEDS: ATORVASTATIN 20 MG TAB PO (09:23)
[2018-01-12] MEDS: OMEPRAZOLE 20 MG CAP PO (09:23)
[2018-01-12] MEDS: SENOKOT S TAB PO ×2 (09:23→21:43)
[2018-01-12] MEDS: HumaLOG INSULIN (NovoLOG) PER UNIT SC ×4 (09:24→21:35)
[2018-01-12] MEDS: MIRALAX *UNIT DOSE* 17GM PACKET PO (09:24)
[2018-01-12] MEDS: BROMSITE 0.075% OD ×2 (09:24→21:44)
[2018-01-12] MEDS: HEPARIN SOD (PORCINE) 5000 UNITS/ML VIAL SC ×2 (09:24→21:43)
[2018-01-12] MEDS: LEVEMIR (INSULIN DETEMIR) 1 UNITS/0.01ML SC ×2 (09:24→21:43)
[2018-01-12 11:49] LABS: BEDSIDE GLUCOSE 117 MG/DL (83-110)
[2018-01-12 17:30] LABS: BEDSIDE GLUCOSE 236 MG/DL (83-110)
[2018-01-12] MEDS: zolPIDEM TARTRATE 10MG TAB PO (21:43)
[2018-01-12] MEDS: FENOFIBRATE 48 MG TAB (TRICOR) PO (21:43)
[2018-01-12] MEDS: FINASTERIDE 5 MG TAB PO (21:43)
[2018-01-12] MEDS: TAMSULOSIN 0.4 MG CAP PO (21:44)
[2018-01-13] MEDS: HALOPERIDOL 0.5 MG TAB PO (00:37)
[2018-01-13] MEDS: IPRATROPIUM 0.5MG/ALBUTEROL 2.5MG INH SOL UD 3ML (DUONEB)(J7620) NEB ×2 (01:59→08:00)
[2018-01-13 06:32] LABS: BEDSIDE GLUCOSE 152 MG/DL (83-110)
[2018-01-13 07:52] LABS: BEDSIDE GLUCOSE 139 MG/DL (83-110)
[2018-01-13] MEDS: HumaLOG INSULIN (NovoLOG) PER UNIT SC ×2 (08:22→12:59)
[2018-01-13] MEDS: ESCITALOPRAM OXALATE 10 MG TAB (LEXAPRO) PO (08:23)
[2018-01-13] MEDS: guaiFENesin ER 600 MG TAB PO (08:23)
[2018-01-13] MEDS: MIRALAX *UNIT DOSE* 17GM PACKET PO (08:23)
[2018-01-13] MEDS: buPROPion (WELLBUTRIN SR) 100 MG SR TAB PO (08:23)
[2018-01-13] MEDS: amLODIPine 10 MG TAB PO (08:23)
[2018-01-13] MEDS: ATORVASTATIN 20 MG TAB PO (08:24)
[2018-01-13] MEDS: CYANOCOBALAMIN 500 MCG TAB PO (08:24)
[2018-01-13] MEDS: OMEPRAZOLE 20 MG CAP PO (08:24)
[2018-01-13] MEDS: CARVedilol 6.25 MG TAB PO (08:24)
[2018-01-13] MEDS: **hydrALAZINE** 50 MG TAB PO (08:24)
[2018-01-13] MEDS: busPIRone 5 MG TAB PO (08:24)
[2018-01-13] MEDS: ASPIRIN 81 MG ENTERIC TAB PO (08:24)
[2018-01-13] MEDS: VITAMIN D 1,000 INTERNATIONAL UNITS TABLET PO (08:25)
[2018-01-13] MEDS: HEPARIN SOD (PORCINE) 5000 UNITS/ML VIAL SC (08:25)
[2018-01-13] MEDS: clonazePAM 1 MG TAB PO (08:25)
[2018-01-13] MEDS: CLOPIDOGREL 75 MG TAB PO (08:25)
[2018-01-13] MEDS: BROMSITE 0.075% OD (08:25)
[2018-01-13] MEDS: SENOKOT S TAB PO (08:25)
[2018-01-13] MEDS: LEVEMIR (INSULIN DETEMIR) 1 UNITS/0.01ML SC (08:26)
[2018-01-13 12:06] LABS: BEDSIDE GLUCOSE 271 MG/DL (83-110)
[2018-01-13 12:46] LABS: BEDSIDE GLUCOSE 175 MG/DL (83-110)
== END 2018-01-13 13:46 | disposition home or self-care (01) | DRG 194 ==
LOC: M MSPAV 01-04 23:03 → M ED 14:04 → M ED INP 19:03 → M PCU 22:43
DX: J18.9 Pneumonia, unspecified organism (principal); I50.40 Unspecified combined systolic (congestive) and diastolic (congestive) heart failure; I13.0 Hypertensive heart and chronic kidney disease with heart failure and stage 1 through stage 4 chronic kidney disease, or unspecified chronic kidney disease; N18.3 Chronic kidney disease, stage 3 (moderate); I25.10 Atherosclerotic heart disease of native coronary artery without angina pectoris; E11.22 Type 2 diabetes mellitus with diabetic chronic kidney disease; K59.00 Constipation, unspecified; R41.82 Altered mental status, unspecified; N40.0 Benign prostatic hyperplasia without lower urinary tract symptoms; K21.9 Gastro-esophageal reflux disease without esophagitis; F41.1 Generalized anxiety disorder; I25.5 Ischemic cardiomyopathy; Z96.0 Presence of urogenital implants; Z95.1 Presence of aortocoronary bypass graft; Z79.82 Long term (current) use of aspirin; Z79.02 Long term (current) use of antithrombotics/antiplatelets; Z79.4 Long term (current) use of insulin; Z79.899 Other long term (current) drug therapy

== ENCOUNTER 2018-01-23 07:03 | Emergency (ER) | payer OTHER ==
[2018-01-23] MEDS: MAGNESIUM CITRATE 300 ML BTL PO (08:00)
== END 2018-01-23 08:18 | disposition home or self-care (01) ==
LOC: M ED 07:03
DX: K64.8 Other hemorrhoids (principal); K59.00 Constipation, unspecified; I50.9 Heart failure, unspecified; I25.2 Old myocardial infarction; I11.0 Hypertensive heart disease with heart failure; E11.9 Type 2 diabetes mellitus without complications; K21.9 Gastro-esophageal reflux disease without esophagitis; F41.9 Anxiety disorder, unspecified; F33.9 Major depressive disorder, recurrent, unspecified; Z95.1 Presence of aortocoronary bypass graft; Z79.01 Long term (current) use of anticoagulants; Z79.899 Other long term (current) drug therapy; Z79.4 Long term (current) use of insulin; Z79.82 Long term (current) use of aspirin

== ENCOUNTER 2018-01-23 16:45 | Inpatient (IN) | payer OTHER ==
[2018-01-23 18:24] LABS: BASO % 0.3 % (0.0-1.0); EOS # 0.1 10^3/uL (0.0-0.50); EOS % 1.2 % (0.0-3.0); HEMATOCRIT 34.5 % (42.0-52.0); HEMOGLOBIN 11.6 g/dl (13.5-17.5); IMMATURE GRANULOCYTE % 0.5 % (0-3.0); LYMPH # 1.1 10^3/uL (1.5-4.5); LYMPH % 17.2 % (24.0-44.0); MEAN CORPUSCULAR HEMOGLOBIN 30.4 pg (27.0-33.0); MEAN CORPUSCULAR HGB CONC 33.6 g/dl (32.0-36.5); MEAN CORPUSCULAR VOLUME 90.3 fl (80.0-96.0); MONO # 0.6 10^3/uL (0.0-0.8); MONO % 9.6 % (0.0-5.0); NEUTROPHILS # 4.7 10^3/uL (1.8-7.7); NEUTROPHILS % 71.2 % (36.0-66.0); PLATELET COUNT, AUTOMATED 235 10^3/uL (150-450); RED BLOOD COUNT 3.82 10^6/uL (4.30-6.10); RED CELL DISTRIBUTION WIDTH 14.5 % (11.5-14.5); WHITE BLOOD COUNT 6.6 10^3/uL (4.0-10.0)
[2018-01-23 18:53] LABS: AMORPHOUS SEDIMENT RFX SMALL (NEGATIVE); KETONE, URINE AUTO RFX NEGATIVE (NEGATIVE); MUCUS, URINE RFX SMALL (NEGATIVE); NITRITE, URINE AUTO RFX NEGATIVE (NEGATIVE); RBC, URINE AUTO RFX TNTC /HPF (0-3); SPECIFIC GRAVITY UR AUTO RFX 1.015 (1.002-1.035); SQUAM EPITHELIAL CELL UR AURFX 0 /HPF (0-6)
[2018-01-23 18:55] LABS: LEUKOCYTE ESTERASE UR AUTO RFX 2+ (NEGATIVE); WBC, URINE AUTO RFX 25 /HPF (0-3)
[2018-01-23 18:59] LABS: ALBUMIN 3.7 GM/DL (3.2-5.2); ALBUMIN/GLOBULIN RATIO 1.32 (1.00-1.93); ALKALINE PHOSPHATASE 69 U/L (45-117); ALT/SGPT 17 U/L (12-78); ANION GAP 9 MEQ/L (8-16); AST/SGOT 17 U/L (7-37); BILIRUBIN,DIRECT 0.2 MG/DL (0.0-0.2); BILIRUBIN,TOTAL 0.5 MG/DL (0.2-1.0); BLOOD UREA NITROGEN 29 MG/DL (7-18); CALCIUM LEVEL 9.1 MG/DL (8.8-10.2); CARBON DIOXIDE LEVEL 28 MEQ/L (21-32); CHLORIDE LEVEL 109 MEQ/L (98-107); CREATININE FOR GFR 2.68 MG/DL (0.70-1.30); GLOMERULAR FILTRATION RATE 24.9 (>42); GLUCOSE, FASTING 90 MG/DL (70-100); POTASSIUM SERUM 4.2 MEQ/L (3.5-5.1); SODIUM LEVEL 146 MEQ/L (136-145); TOTAL PROTEIN 6.5 GM/DL (6.4-8.2)
[2018-01-23 19:07] LABS: LACTIC ACID SEPSIS PROTOCOL 2.1 MMOL/L (0.4-2.0)
[2018-01-23] MEDS: clonazePAM 1 MG TAB PO (19:53)
[2018-01-23] MEDS: cefTRIAXone SOD 1 GM in D5W MINI-BAG PLUS 50 ML IV (19:53)
[2018-01-23] MEDS ORDERED: ONDANSETRON 4MG/2ML VIAL (J2405) IV (20:15)
[2018-01-23] MEDS ORDERED: METOCLOPRAMIDE INJ 10MG/2ML VIAL (J2765) IV (20:15)
[2018-01-23] MEDS ORDERED: BISACODYL 10 MG SUPP PR (20:15)
[2018-01-23] MEDS: HumaLOG INSULIN (NovoLOG) PER UNIT SC (21:00)
[2018-01-23] MEDS ORDERED: DEXTROSE 50% 50 ML SYRINGE IV (21:15)
[2018-01-23] MEDS ORDERED: GLUCAGON FOR INJ 1 MG VIAL (J1610) SC (21:15)
[2018-01-23 21:27] LABS: BEDSIDE GLUCOSE 109 MG/DL (83-110)
[2018-01-23] MEDS: NS 1,000 ML IV (22:39)
[2018-01-23] MEDS: HEPARIN SOD (PORCINE) 5000 UNITS/ML VIAL SC (22:39)
[2018-01-23] MEDS: CARVedilol 6.25 MG TAB PO (22:40)
[2018-01-23] MEDS: **hydrALAZINE** 50 MG TAB PO (22:40)
[2018-01-23] MEDS: TAMSULOSIN 0.4 MG CAP PO (22:41)
[2018-01-24] MEDS: HEPARIN SOD (PORCINE) 5000 UNITS/ML VIAL SC ×3 (05:26→21:08)
[2018-01-24 05:58] LABS: HEMATOCRIT 32.8 % (42.0-52.0); HEMOGLOBIN 10.8 g/dl (13.5-17.5); MEAN CORPUSCULAR HEMOGLOBIN 29.9 pg (27.0-33.0); MEAN CORPUSCULAR HGB CONC 32.9 g/dl (32.0-36.5); MEAN CORPUSCULAR VOLUME 90.9 fl (80.0-96.0); PLATELET COUNT, AUTOMATED 195 10^3/uL (150-450); RED BLOOD COUNT 3.61 10^6/uL (4.30-6.10); RED CELL DISTRIBUTION WIDTH 14.3 % (11.5-14.5); WHITE BLOOD COUNT 4.3 10^3/uL (4.0-10.0)
[2018-01-24 06:19] LABS: ANION GAP 8 MEQ/L (8-16); BLOOD UREA NITROGEN 23 MG/DL (7-18); CALCIUM LEVEL 8.2 MG/DL (8.8-10.2); CARBON DIOXIDE LEVEL 26 MEQ/L (21-32); CHLORIDE LEVEL 111 MEQ/L (98-107); GLOMERULAR FILTRATION RATE 29.7 (>42); GLUCOSE, FASTING 132 MG/DL (70-100); POTASSIUM SERUM 3.9 MEQ/L (3.5-5.1); SODIUM LEVEL 145 MEQ/L (136-145)
[2018-01-24] MEDS: HumuLIN (NovoLIN)70/30 INSULIN INJ PER UNIT SC ×3 (07:30→17:21)
[2018-01-24] MEDS: ASPIRIN 81 MG ENTERIC TAB PO (09:06)
[2018-01-24] MEDS: CLOPIDOGREL 75 MG TAB PO (09:06)
[2018-01-24] MEDS: HumaLOG INSULIN (NovoLOG) PER UNIT SC ×4 (09:06→20:39)
[2018-01-24] MEDS: ESCITALOPRAM OXALATE 10 MG TAB (LEXAPRO) PO (09:07)
[2018-01-24] MEDS: CYANOCOBALAMIN 500 MCG TAB PO (09:07)
[2018-01-24] MEDS: buPROPion (WELLBUTRIN SR) 100 MG SR TAB PO ×2 (09:07→21:09)
[2018-01-24] MEDS: CARVedilol 6.25 MG TAB PO ×2 (09:12→21:09)
[2018-01-24] MEDS: busPIRone 5 MG TAB PO (09:12)
[2018-01-24] MEDS: OMEPRAZOLE 20 MG CAP PO (09:12)
[2018-01-24] MEDS: amLODIPine 10 MG TAB PO (09:12)
[2018-01-24] MEDS: **hydrALAZINE** 50 MG TAB PO (09:12)
[2018-01-24] MEDS: ATORVASTATIN 20 MG TAB PO (09:12)
[2018-01-24] MEDS: VITAMIN D 1,000 INTERNATIONAL UNITS TABLET PO (09:13)
[2018-01-24 11:37] LABS: BEDSIDE GLUCOSE 129 MG/DL (83-110)
[2018-01-24] MEDS: **hydrALAZINE HCL** 25 MG TAB PO ×2 (12:31→17:44)
[2018-01-24 16:42] LABS: BEDSIDE GLUCOSE 74 MG/DL (83-110)
[2018-01-24] MEDS: NS 1,000 ML IV (17:44)
[2018-01-24 19:59] LABS: BEDSIDE GLUCOSE 147 MG/DL (83-110)
[2018-01-24] MEDS: cefTRIAXone SOD 1 GM in D5W MINI-BAG PLUS 50 ML IV (21:08)
[2018-01-24] MEDS: DOCUSATE SODIUM 100 MG CAP PO (21:08)
[2018-01-24] MEDS: TAMSULOSIN 0.4 MG CAP PO (21:08)
[2018-01-24] MEDS: FENOFIBRATE 48 MG TAB (TRICOR) PO (21:09)
[2018-01-24] MEDS: FINASTERIDE 5 MG TAB PO (21:09)
[2018-01-24] MEDS: zolPIDEM TARTRATE 10MG TAB PO (21:09)
[2018-01-25] MEDS: **hydrALAZINE HCL** 25 MG TAB PO ×4 (00:30→17:58)
[2018-01-25] MEDS: clonazePAM 1 MG TAB PO (04:46)
[2018-01-25] MEDS: HEPARIN SOD (PORCINE) 5000 UNITS/ML VIAL SC ×3 (05:33→21:19)
[2018-01-25 06:35] LABS: BEDSIDE GLUCOSE 161 MG/DL (83-110)
[2018-01-25 07:04] LABS: BEDSIDE GLUCOSE 195 MG/DL (83-110)
[2018-01-25 09:27] LABS: HEMATOCRIT 32.2 % (42.0-52.0); HEMOGLOBIN 10.7 g/dl (13.5-17.5); MEAN CORPUSCULAR HGB CONC 33.2 g/dl (32.0-36.5); MEAN CORPUSCULAR VOLUME 90.2 fl (80.0-96.0); PLATELET COUNT, AUTOMATED 205 10^3/uL (150-450); RED BLOOD COUNT 3.57 10^6/uL (4.30-6.10); WHITE BLOOD COUNT 4.4 10^3/uL (4.0-10.0)
[2018-01-25] MEDS: HumaLOG INSULIN (NovoLOG) PER UNIT SC ×5 (09:29→21:20)
[2018-01-25] MEDS: busPIRone 5 MG TAB PO (09:30)
[2018-01-25] MEDS: HumuLIN (NovoLIN)70/30 INSULIN INJ PER UNIT SC ×3 (09:30→18:56)
[2018-01-25] MEDS: VITAMIN D 1,000 INTERNATIONAL UNITS TABLET PO (09:30)
[2018-01-25] MEDS: OMEPRAZOLE 20 MG CAP PO (09:30)
[2018-01-25] MEDS: ASPIRIN 81 MG ENTERIC TAB PO (09:30)
[2018-01-25] MEDS: buPROPion (WELLBUTRIN SR) 100 MG SR TAB PO ×2 (09:30→21:19)
[2018-01-25] MEDS: CARVedilol 6.25 MG TAB PO ×2 (09:33→21:19)
[2018-01-25] MEDS: CYANOCOBALAMIN 500 MCG TAB PO (09:33)
[2018-01-25] MEDS: ESCITALOPRAM OXALATE 10 MG TAB (LEXAPRO) PO (09:33)
[2018-01-25] MEDS: ATORVASTATIN 20 MG TAB PO (09:33)
[2018-01-25] MEDS: CLOPIDOGREL 75 MG TAB PO (09:34)
[2018-01-25] MEDS: amLODIPine 10 MG TAB PO (09:34)
[2018-01-25 09:48] LABS: LACTIC ACID SEPSIS PROTOCOL 1.5 MMOL/L (0.4-2.0)
[2018-01-25 09:58] LABS: ANION GAP 9 MEQ/L (8-16); BLOOD UREA NITROGEN 21 MG/DL (7-18); CALCIUM LEVEL 8.2 MG/DL (8.8-10.2); CARBON DIOXIDE LEVEL 22 MEQ/L (21-32); CHLORIDE LEVEL 109 MEQ/L (98-107); CREATININE FOR GFR 2.28 MG/DL (0.70-1.30); GLUCOSE, FASTING 281 MG/DL (70-100); POTASSIUM SERUM 4.4 MEQ/L (3.5-5.1); SODIUM LEVEL 140 MEQ/L (136-145)
[2018-01-25 11:46] LABS: BEDSIDE GLUCOSE 141 MG/DL (83-110)
[2018-01-25 20:57] LABS: BEDSIDE GLUCOSE 142 MG/DL (83-110)
[2018-01-25] MEDS: FINASTERIDE 5 MG TAB PO (21:18)
[2018-01-25] MEDS: cefTRIAXone SOD 1 GM in D5W MINI-BAG PLUS 50 ML IV (21:18)
[2018-01-25] MEDS: TAMSULOSIN 0.4 MG CAP PO (21:18)
[2018-01-25] MEDS: FENOFIBRATE 48 MG TAB (TRICOR) PO (21:18)
[2018-01-25] MEDS: zolPIDEM TARTRATE 10MG TAB PO (21:19)
[2018-01-26] MEDS: **hydrALAZINE HCL** 25 MG TAB PO ×6 (00:20→23:36)
[2018-01-26 02:14] LABS: BEDSIDE GLUCOSE 34 MG/DL (83-110)
[2018-01-26 02:29] LABS: BEDSIDE GLUCOSE 44 MG/DL (83-110)
[2018-01-26 02:53] LABS: BEDSIDE GLUCOSE CONFIRMATION 46 MG/DL (LESS THAN 200)
[2018-01-26 02:54] LABS: BEDSIDE GLUCOSE 105 MG/DL (83-110)
[2018-01-26 04:12] LABS: BEDSIDE GLUCOSE 211 MG/DL (83-110)
[2018-01-26] MEDS: HEPARIN SOD (PORCINE) 5000 UNITS/ML VIAL SC ×4 (05:37→21:14)
[2018-01-26 06:48] LABS: BEDSIDE GLUCOSE 208 MG/DL (83-110)
[2018-01-26] MEDS: clonazePAM 1 MG TAB PO (06:48)
[2018-01-26] MEDS: HumuLIN (NovoLIN)70/30 INSULIN INJ PER UNIT SC ×2 (09:15→17:24)
[2018-01-26] MEDS: OMEPRAZOLE 20 MG CAP PO (09:16)
[2018-01-26] MEDS: ATORVASTATIN 20 MG TAB PO (09:16)
[2018-01-26] MEDS: VITAMIN D 1,000 INTERNATIONAL UNITS TABLET PO (09:16)
[2018-01-26] MEDS: HumaLOG INSULIN (NovoLOG) PER UNIT SC ×4 (09:16→21:14)
[2018-01-26] MEDS: busPIRone 5 MG TAB PO (09:16)
[2018-01-26] MEDS: amLODIPine 10 MG TAB PO (09:18)
[2018-01-26] MEDS: ASPIRIN 81 MG ENTERIC TAB PO (09:19)
[2018-01-26] MEDS: buPROPion (WELLBUTRIN SR) 100 MG SR TAB PO ×2 (09:19→21:14)
[2018-01-26] MEDS: CLOPIDOGREL 75 MG TAB PO (09:19)
[2018-01-26] MEDS: CARVedilol 6.25 MG TAB PO ×2 (09:19→21:13)
[2018-01-26] MEDS: ESCITALOPRAM OXALATE 10 MG TAB (LEXAPRO) PO (09:19)
[2018-01-26] MEDS: CYANOCOBALAMIN 500 MCG TAB PO (09:20)
[2018-01-26 10:38] LABS: HEMATOCRIT 32.9 % (42.0-52.0); MEAN CORPUSCULAR HEMOGLOBIN 30.2 pg (27.0-33.0); MEAN CORPUSCULAR HGB CONC 33.4 g/dl (32.0-36.5); MEAN CORPUSCULAR VOLUME 90.4 fl (80.0-96.0); PLATELET COUNT, AUTOMATED 225 10^3/uL (150-450); RED BLOOD COUNT 3.64 10^6/uL (4.30-6.10); RED CELL DISTRIBUTION WIDTH 13.9 % (11.5-14.5); WHITE BLOOD COUNT 4.1 10^3/uL (4.0-10.0)
[2018-01-26 10:59] LABS: ANION GAP 10 MEQ/L (8-16); BLOOD UREA NITROGEN 17 MG/DL (7-18); CALCIUM LEVEL 8.9 MG/DL (8.8-10.2); CARBON DIOXIDE LEVEL 25 MEQ/L (21-32); CHLORIDE LEVEL 108 MEQ/L (98-107); CREATININE FOR GFR 2.08 MG/DL (0.70-1.30); GLOMERULAR FILTRATION RATE 33.4 (>42); GLUCOSE, FASTING 168 MG/DL (70-100); POTASSIUM SERUM 4.2 MEQ/L (3.5-5.1); SODIUM LEVEL 143 MEQ/L (136-145)
[2018-01-26] MEDS: MOM 30ML SUSPENSION UDC PO (11:12)
[2018-01-26 12:24] LABS: BEDSIDE GLUCOSE 100 MG/DL (83-110)
[2018-01-26 16:32] LABS: BEDSIDE GLUCOSE 143 MG/DL (83-110)
[2018-01-26 16:53] LABS: BEDSIDE GLUCOSE 101 MG/DL (83-110)
[2018-01-26 20:51] LABS: BEDSIDE GLUCOSE 161 MG/DL (83-110)
[2018-01-26] MEDS: zolPIDEM TARTRATE 10MG TAB PO (21:13)
[2018-01-26] MEDS: FINASTERIDE 5 MG TAB PO (21:14)
[2018-01-26] MEDS: FENOFIBRATE 48 MG TAB (TRICOR) PO (21:14)
[2018-01-26] MEDS: TAMSULOSIN 0.4 MG CAP PO (21:14)
[2018-01-27 06:28] LABS: HEMATOCRIT 33.4 % (42.0-52.0); HEMOGLOBIN 10.7 g/dl (13.5-17.5); MEAN CORPUSCULAR HEMOGLOBIN 29.5 pg (27.0-33.0); PLATELET COUNT, AUTOMATED 196 10^3/uL (150-450); RED BLOOD COUNT 3.63 10^6/uL (4.30-6.10); RED CELL DISTRIBUTION WIDTH 14.2 % (11.5-14.5); WHITE BLOOD COUNT 3.4 10^3/uL (4.0-10.0)
[2018-01-27 06:35] LABS: ANION GAP 7 MEQ/L (8-16); BLOOD UREA NITROGEN 15 MG/DL (7-18); CALCIUM LEVEL 8.5 MG/DL (8.8-10.2); CARBON DIOXIDE LEVEL 28 MEQ/L (21-32); CHLORIDE LEVEL 111 MEQ/L (98-107); CREATININE FOR GFR 1.98 MG/DL (0.70-1.30); GLOMERULAR FILTRATION RATE 35.4 (>42); GLUCOSE, FASTING 126 MG/DL (70-100); POTASSIUM SERUM 4.1 MEQ/L (3.5-5.1); SODIUM LEVEL 146 MEQ/L (136-145)
[2018-01-27] MEDS: **hydrALAZINE HCL** 25 MG TAB PO ×3 (06:37→18:06)
[2018-01-27] MEDS: HEPARIN SOD (PORCINE) 5000 UNITS/ML VIAL SC ×3 (06:37→20:47)
[2018-01-27] MEDS: HumuLIN (NovoLIN)70/30 INSULIN INJ PER UNIT SC ×2 (08:11→18:07)
[2018-01-27] MEDS: OMEPRAZOLE 20 MG CAP PO (08:12)
[2018-01-27] MEDS: HumaLOG INSULIN (NovoLOG) PER UNIT SC ×4 (08:12→20:47)
[2018-01-27] MEDS: CLOPIDOGREL 75 MG TAB PO (08:12)
[2018-01-27] MEDS: ASPIRIN 81 MG ENTERIC TAB PO (08:12)
[2018-01-27] MEDS: ATORVASTATIN 20 MG TAB PO (08:12)
[2018-01-27] MEDS: CYANOCOBALAMIN 500 MCG TAB PO (08:12)
[2018-01-27] MEDS: buPROPion (WELLBUTRIN SR) 100 MG SR TAB PO ×2 (08:13→20:46)
[2018-01-27] MEDS: busPIRone 5 MG TAB PO (08:13)
[2018-01-27] MEDS: ESCITALOPRAM OXALATE 10 MG TAB (LEXAPRO) PO (08:13)
[2018-01-27] MEDS: VITAMIN D 1,000 INTERNATIONAL UNITS TABLET PO (08:13)
[2018-01-27] MEDS: amLODIPine 10 MG TAB PO (08:13)
[2018-01-27] MEDS: CARVedilol 6.25 MG TAB PO ×2 (08:14→20:46)
[2018-01-27 11:57] LABS: BEDSIDE GLUCOSE 88 MG/DL (83-110)
[2018-01-27] MEDS: clonazePAM 1 MG TAB PO ×2 (12:54→20:46)
[2018-01-27 14:26] LABS: BEDSIDE GLUCOSE 136 MG/DL (83-110)
[2018-01-27 17:04] LABS: BEDSIDE GLUCOSE 189 MG/DL (83-110)
[2018-01-27 20:41] LABS: BEDSIDE GLUCOSE 138 MG/DL (83-110)
[2018-01-27] MEDS: zolPIDEM TARTRATE 10MG TAB PO (20:45)
[2018-01-27] MEDS: FINASTERIDE 5 MG TAB PO (20:47)
[2018-01-27] MEDS: TAMSULOSIN 0.4 MG CAP PO (20:47)
[2018-01-27] MEDS: FENOFIBRATE 48 MG TAB (TRICOR) PO (20:47)
[2018-01-28] MEDS: **hydrALAZINE HCL** 25 MG TAB PO ×5 (00:03→23:54)
[2018-01-28] MEDS: HEPARIN SOD (PORCINE) 5000 UNITS/ML VIAL SC ×3 (05:38→20:24)
[2018-01-28 05:47] LABS: HEMATOCRIT 33.3 % (42.0-52.0); MEAN CORPUSCULAR HEMOGLOBIN 30.2 pg (27.0-33.0); MEAN CORPUSCULAR VOLUME 91.5 fl (80.0-96.0); PLATELET COUNT, AUTOMATED 193 10^3/uL (150-450); RED BLOOD COUNT 3.64 10^6/uL (4.30-6.10); RED CELL DISTRIBUTION WIDTH 14.2 % (11.5-14.5); WHITE BLOOD COUNT 3.4 10^3/uL (4.0-10.0)
[2018-01-28 06:03] LABS: ANION GAP 7 MEQ/L (8-16); BLOOD UREA NITROGEN 22 MG/DL (7-18); CALCIUM LEVEL 8.5 MG/DL (8.8-10.2); CARBON DIOXIDE LEVEL 26 MEQ/L (21-32); CHLORIDE LEVEL 110 MEQ/L (98-107); CREATININE FOR GFR 2.09 MG/DL (0.70-1.30); GLOMERULAR FILTRATION RATE 33.2 (>42); GLUCOSE, FASTING 123 MG/DL (70-100); SODIUM LEVEL 143 MEQ/L (136-145)
[2018-01-28] MEDS: ESCITALOPRAM OXALATE 10 MG TAB (LEXAPRO) PO (08:41)
[2018-01-28] MEDS: CLOPIDOGREL 75 MG TAB PO (08:41)
[2018-01-28] MEDS: busPIRone 5 MG TAB PO (08:41)
[2018-01-28] MEDS: HumaLOG INSULIN (NovoLOG) PER UNIT SC ×4 (08:41→20:25)
[2018-01-28] MEDS: HumuLIN (NovoLIN)70/30 INSULIN INJ PER UNIT SC ×2 (08:41→18:10)
[2018-01-28] MEDS: CARVedilol 6.25 MG TAB PO ×2 (08:42→20:25)
[2018-01-28] MEDS: VITAMIN D 1,000 INTERNATIONAL UNITS TABLET PO (08:42)
[2018-01-28] MEDS: ASPIRIN 81 MG ENTERIC TAB PO (08:42)
[2018-01-28] MEDS: amLODIPine 10 MG TAB PO (08:42)
[2018-01-28] MEDS: OMEPRAZOLE 20 MG CAP PO (08:42)
[2018-01-28] MEDS: ATORVASTATIN 20 MG TAB PO (08:42)
[2018-01-28] MEDS: CYANOCOBALAMIN 500 MCG TAB PO (08:42)
[2018-01-28] MEDS: buPROPion (WELLBUTRIN SR) 100 MG SR TAB PO ×2 (08:42→20:25)
[2018-01-28 11:55] LABS: BEDSIDE GLUCOSE 129 MG/DL (83-110)
[2018-01-28] MEDS: BISACODYL 5 MG TAB PO (14:19)
[2018-01-28] MEDS: clonazePAM 1 MG TAB PO (14:19)
[2018-01-28 17:13] LABS: BEDSIDE GLUCOSE 106 MG/DL (83-110)
[2018-01-28 20:07] LABS: BEDSIDE GLUCOSE 189 MG/DL (83-110)
[2018-01-28] MEDS: zolPIDEM TARTRATE 10MG TAB PO (20:24)
[2018-01-28] MEDS: FENOFIBRATE 48 MG TAB (TRICOR) PO (20:25)
[2018-01-28] MEDS: FINASTERIDE 5 MG TAB PO (20:25)
[2018-01-28] MEDS: TAMSULOSIN 0.4 MG CAP PO (20:25)
[2018-01-28] MEDS: MOM 30ML SUSPENSION UDC PO (21:52)
[2018-01-29] MEDS: MIRALAX *UNIT DOSE* 17GM PACKET PO (03:51)
[2018-01-29] MEDS: clonazePAM 1 MG TAB PO ×3 (03:51→22:05)
[2018-01-29 06:39] LABS: HEMATOCRIT 31.7 % (42.0-52.0); HEMOGLOBIN 10.5 g/dl (13.5-17.5); MEAN CORPUSCULAR HEMOGLOBIN 30.3 pg (27.0-33.0); MEAN CORPUSCULAR HGB CONC 33.1 g/dl (32.0-36.5); MEAN CORPUSCULAR VOLUME 91.4 fl (80.0-96.0); PLATELET COUNT, AUTOMATED 178 10^3/uL (150-450); RED BLOOD COUNT 3.47 10^6/uL (4.30-6.10); RED CELL DISTRIBUTION WIDTH 14.2 % (11.5-14.5); WHITE BLOOD COUNT 3.6 10^3/uL (4.0-10.0)
[2018-01-29] MEDS: HEPARIN SOD (PORCINE) 5000 UNITS/ML VIAL SC ×3 (06:44→22:05)
[2018-01-29] MEDS: **hydrALAZINE HCL** 25 MG TAB PO ×3 (06:44→18:00)
[2018-01-29 07:00] LABS: ANION GAP 7 MEQ/L (8-16); BLOOD UREA NITROGEN 22 MG/DL (7-18); CALCIUM LEVEL 8.4 MG/DL (8.8-10.2); CARBON DIOXIDE LEVEL 28 MEQ/L (21-32); CHLORIDE LEVEL 108 MEQ/L (98-107); CREATININE FOR GFR 2.15 MG/DL (0.70-1.30); GLOMERULAR FILTRATION RATE 32.1 (>42); GLUCOSE, FASTING 154 MG/DL (70-100); POTASSIUM SERUM 4.2 MEQ/L (3.5-5.1); SODIUM LEVEL 143 MEQ/L (136-145)
[2018-01-29] MEDS: ESCITALOPRAM OXALATE 10 MG TAB (LEXAPRO) PO (08:06)
[2018-01-29] MEDS: buPROPion (WELLBUTRIN SR) 100 MG SR TAB PO ×2 (08:06→22:05)
[2018-01-29] MEDS: ATORVASTATIN 20 MG TAB PO (08:06)
[2018-01-29] MEDS: CYANOCOBALAMIN 500 MCG TAB PO (08:06)
[2018-01-29] MEDS: VITAMIN D 1,000 INTERNATIONAL UNITS TABLET PO (08:06)
[2018-01-29] MEDS: CLOPIDOGREL 75 MG TAB PO (08:06)
[2018-01-29] MEDS: amLODIPine 10 MG TAB PO (08:06)
[2018-01-29] MEDS: busPIRone 5 MG TAB PO (08:06)
[2018-01-29] MEDS: CARVedilol 6.25 MG TAB PO ×2 (08:07→22:04)
[2018-01-29] MEDS: ASPIRIN 81 MG ENTERIC TAB PO (08:07)
[2018-01-29] MEDS: OMEPRAZOLE 20 MG CAP PO (08:07)
[2018-01-29] MEDS: HumaLOG INSULIN (NovoLOG) PER UNIT SC ×4 (08:08→22:05)
[2018-01-29] MEDS: HumuLIN (NovoLIN)70/30 INSULIN INJ PER UNIT SC ×2 (08:08→17:30)
[2018-01-29] MEDS: BISACODYL 5 MG TAB PO (08:09)
[2018-01-29 11:58] LABS: BEDSIDE GLUCOSE 203 MG/DL (83-110)
[2018-01-29] MEDS: MOM 30ML SUSPENSION UDC PO (13:41)
[2018-01-29 15:21] LABS: BEDSIDE GLUCOSE 49 MG/DL (83-110)
[2018-01-29] MEDS: GLUCOSE 4 GM CHEW TABLET PO (15:22)
[2018-01-29 17:29] LABS: BEDSIDE GLUCOSE 99 MG/DL (83-110)
[2018-01-29 20:51] LABS: BEDSIDE GLUCOSE 199 MG/DL (83-110)
[2018-01-29] MEDS: zolPIDEM TARTRATE 10MG TAB PO (22:03)
[2018-01-29] MEDS: TAMSULOSIN 0.4 MG CAP PO (22:04)
[2018-01-29] MEDS: FINASTERIDE 5 MG TAB PO (22:04)
[2018-01-29] MEDS: FENOFIBRATE 48 MG TAB (TRICOR) PO (22:04)
[2018-01-30] MEDS: **hydrALAZINE HCL** 25 MG TAB PO ×4 (00:49→17:00)
[2018-01-30 05:55] LABS: HEMATOCRIT 32.1 % (42.0-52.0); HEMOGLOBIN 10.7 g/dl (13.5-17.5); MEAN CORPUSCULAR HEMOGLOBIN 30.5 pg (27.0-33.0); MEAN CORPUSCULAR HGB CONC 33.3 g/dl (32.0-36.5); MEAN CORPUSCULAR VOLUME 91.5 fl (80.0-96.0); PLATELET COUNT, AUTOMATED 195 10^3/uL (150-450); RED BLOOD COUNT 3.51 10^6/uL (4.30-6.10); RED CELL DISTRIBUTION WIDTH 14.3 % (11.5-14.5); WHITE BLOOD COUNT 3.9 10^3/uL (4.0-10.0)
[2018-01-30 06:15] LABS: ANION GAP 7 MEQ/L (8-16); BLOOD UREA NITROGEN 23 MG/DL (7-18); CALCIUM LEVEL 8.8 MG/DL (8.8-10.2); CARBON DIOXIDE LEVEL 26 MEQ/L (21-32); CHLORIDE LEVEL 109 MEQ/L (98-107); CREATININE FOR GFR 2.07 MG/DL (0.70-1.30); GLOMERULAR FILTRATION RATE 33.6 (>42); GLUCOSE, FASTING 167 MG/DL (70-100); SODIUM LEVEL 142 MEQ/L (136-145)
[2018-01-30] MEDS: clonazePAM 1 MG TAB PO ×2 (06:50→20:33)
[2018-01-30] MEDS: HEPARIN SOD (PORCINE) 5000 UNITS/ML VIAL SC ×3 (06:50→20:33)
[2018-01-30] MEDS: ATORVASTATIN 20 MG TAB PO (08:25)
[2018-01-30] MEDS: MOM 30ML SUSPENSION UDC PO (08:25)
[2018-01-30] MEDS: VITAMIN D 1,000 INTERNATIONAL UNITS TABLET PO (08:26)
[2018-01-30] MEDS: amLODIPine 10 MG TAB PO (08:26)
[2018-01-30] MEDS: ASPIRIN 81 MG ENTERIC TAB PO (08:26)
[2018-01-30] MEDS: busPIRone 5 MG TAB PO (08:26)
[2018-01-30] MEDS: OMEPRAZOLE 20 MG CAP PO (08:26)
[2018-01-30] MEDS: buPROPion (WELLBUTRIN SR) 100 MG SR TAB PO ×2 (08:26→20:33)
[2018-01-30] MEDS: CLOPIDOGREL 75 MG TAB PO (08:26)
[2018-01-30] MEDS: ESCITALOPRAM OXALATE 10 MG TAB (LEXAPRO) PO (08:26)
[2018-01-30] MEDS: CYANOCOBALAMIN 500 MCG TAB PO (08:26)
[2018-01-30] MEDS: CARVedilol 6.25 MG TAB PO ×2 (08:26→20:32)
[2018-01-30] MEDS: HumuLIN (NovoLIN)70/30 INSULIN INJ PER UNIT SC ×2 (08:27→17:00)
[2018-01-30] MEDS: HumaLOG INSULIN (NovoLOG) PER UNIT SC ×4 (08:27→21:00)
[2018-01-30 11:31] LABS: BEDSIDE GLUCOSE 163 MG/DL (83-110)
[2018-01-30 11:39] LABS: BEDSIDE GLUCOSE 133 MG/DL (83-110)
[2018-01-30] MEDS: LACTULOSE 20 GM/30 ML SYRUP UD PO ×2 (12:24→16:59)
[2018-01-30 16:56] LABS: BEDSIDE GLUCOSE 164 MG/DL (83-110)
[2018-01-30] MEDS: zolPIDEM TARTRATE 10MG TAB PO (20:32)
[2018-01-30] MEDS: TAMSULOSIN 0.4 MG CAP PO (20:33)
[2018-01-30] MEDS: FENOFIBRATE 48 MG TAB (TRICOR) PO (20:33)
[2018-01-30] MEDS: FINASTERIDE 5 MG TAB PO (20:33)
[2018-01-30 20:58] LABS: BEDSIDE GLUCOSE 68 MG/DL (83-110)
[2018-01-31 00:25] LABS: BEDSIDE GLUCOSE 74 MG/DL (83-110)
[2018-01-31] MEDS: **hydrALAZINE HCL** 25 MG TAB PO ×4 (00:37→18:30)
[2018-01-31] MEDS: LACTULOSE 20 GM/30 ML SYRUP UD PO ×4 (00:37→18:29)
[2018-01-31 04:22] LABS: BEDSIDE GLUCOSE 195 MG/DL (83-110)
[2018-01-31] MEDS: HEPARIN SOD (PORCINE) 5000 UNITS/ML VIAL SC ×3 (06:50→20:27)
[2018-01-31 07:00] LABS: BEDSIDE GLUCOSE 189 MG/DL (83-110)
[2018-01-31] MEDS: HumuLIN (NovoLIN)70/30 INSULIN INJ PER UNIT SC ×3 (07:30→18:00)
[2018-01-31 09:12] LABS: BEDSIDE GLUCOSE 187 MG/DL (83-110)
[2018-01-31 09:18] LABS: BASO % 0.5 % (0.0-1.0); EOS # 0.2 10^3/uL (0.0-0.50); EOS % 4.1 % (0.0-3.0); HEMATOCRIT 31.7 % (42.0-52.0); HEMOGLOBIN 10.7 g/dl (13.5-17.5); IMMATURE GRANULOCYTE % 0.3 % (0-3.0); LYMPH # 0.9 10^3/uL (1.5-4.5); LYMPH % 22.6 % (24.0-44.0); MEAN CORPUSCULAR HEMOGLOBIN 30.5 pg (27.0-33.0); MEAN CORPUSCULAR HGB CONC 33.8 g/dl (32.0-36.5); MEAN CORPUSCULAR VOLUME 90.3 fl (80.0-96.0); MONO # 0.5 10^3/uL (0.0-0.8); MONO % 12.7 % (0.0-5.0); NEUTROPHILS # 2.4 10^3/uL (1.8-7.7); NEUTROPHILS % 59.8 % (36.0-66.0); PLATELET COUNT, AUTOMATED 206 10^3/uL (150-450); RED BLOOD COUNT 3.51 10^6/uL (4.30-6.10); RED CELL DISTRIBUTION WIDTH 14.6 % (11.5-14.5); WHITE BLOOD COUNT 3.9 10^3/uL (4.0-10.0)
[2018-01-31] MEDS: HumaLOG INSULIN (NovoLOG) PER UNIT SC ×4 (09:32→20:57)
[2018-01-31] MEDS: VITAMIN D 1,000 INTERNATIONAL UNITS TABLET PO (09:36)
[2018-01-31] MEDS: CLOPIDOGREL 75 MG TAB PO (09:36)
[2018-01-31] MEDS: ATORVASTATIN 20 MG TAB PO (09:36)
[2018-01-31] MEDS: ASPIRIN 81 MG ENTERIC TAB PO (09:36)
[2018-01-31] MEDS: OMEPRAZOLE 20 MG CAP PO (09:36)
[2018-01-31] MEDS: buPROPion (WELLBUTRIN SR) 100 MG SR TAB PO ×2 (09:37→20:27)
[2018-01-31] MEDS: CYANOCOBALAMIN 500 MCG TAB PO (09:37)
[2018-01-31] MEDS: ESCITALOPRAM OXALATE 10 MG TAB (LEXAPRO) PO (09:37)
[2018-01-31] MEDS: clonazePAM 1 MG TAB PO ×2 (09:38→20:57)
[2018-01-31] MEDS: amLODIPine 10 MG TAB PO (09:38)
[2018-01-31] MEDS: busPIRone 5 MG TAB PO (09:38)
[2018-01-31] MEDS: CARVedilol 6.25 MG TAB PO ×2 (09:39→20:28)
[2018-01-31 09:48] LABS: ANION GAP 10 MEQ/L (8-16); BLOOD UREA NITROGEN 24 MG/DL (7-18); CALCIUM LEVEL 9.1 MG/DL (8.8-10.2); CARBON DIOXIDE LEVEL 25 MEQ/L (21-32); CHLORIDE LEVEL 107 MEQ/L (98-107); CREATININE FOR GFR 2.31 MG/DL (0.70-1.30); GLOMERULAR FILTRATION RATE 29.6 (>42); GLUCOSE, FASTING 187 MG/DL (70-100); MAGNESIUM LEVEL 2.4 MG/DL (1.8-2.4); POTASSIUM SERUM 4.1 MEQ/L (3.5-5.1); SODIUM LEVEL 142 MEQ/L (136-145)
[2018-01-31 11:34] LABS: BEDSIDE GLUCOSE 207 MG/DL (83-110)
[2018-01-31] MEDS: BISACODYL 5 MG TAB PO (15:51)
[2018-01-31 16:47] LABS: BEDSIDE GLUCOSE 101 MG/DL (83-110)
[2018-01-31] MEDS: FENOFIBRATE 48 MG TAB (TRICOR) PO (20:28)
[2018-01-31] MEDS: zolPIDEM TARTRATE 10MG TAB PO (20:28)
[2018-01-31] MEDS: TAMSULOSIN 0.4 MG CAP PO (20:28)
[2018-01-31] MEDS: FINASTERIDE 5 MG TAB PO (20:28)
[2018-01-31 20:59] LABS: BEDSIDE GLUCOSE 123 MG/DL (83-110)
[2018-02-01] MEDS: **hydrALAZINE HCL** 25 MG TAB PO ×4 (00:12→18:04)
[2018-02-01] MEDS: LACTULOSE 20 GM/30 ML SYRUP UD PO ×5 (00:12→18:02)
[2018-02-01] MEDS: diphenhydrAMINE 25 MG CAP PO (03:00)
[2018-02-01] MEDS: HEPARIN SOD (PORCINE) 5000 UNITS/ML VIAL SC ×3 (05:56→21:29)
[2018-02-01] MEDS: HumuLIN (NovoLIN)70/30 INSULIN INJ PER UNIT SC ×2 (07:30→17:30)
[2018-02-01] MEDS: HumaLOG INSULIN (NovoLOG) PER UNIT SC ×4 (08:22→20:58)
[2018-02-01] MEDS: CYANOCOBALAMIN 500 MCG TAB PO (08:23)
[2018-02-01] MEDS: OMEPRAZOLE 20 MG CAP PO (08:23)
[2018-02-01] MEDS: ATORVASTATIN 20 MG TAB PO (08:23)
[2018-02-01] MEDS: CLOPIDOGREL 75 MG TAB PO (08:23)
[2018-02-01] MEDS: ESCITALOPRAM OXALATE 10 MG TAB (LEXAPRO) PO (08:28)
[2018-02-01] MEDS: amLODIPine 10 MG TAB PO (08:28)
[2018-02-01] MEDS: busPIRone 5 MG TAB PO (08:28)
[2018-02-01] MEDS: CARVedilol 6.25 MG TAB PO ×2 (08:28→21:31)
[2018-02-01] MEDS: clonazePAM 1 MG TAB PO ×2 (08:28→21:29)
[2018-02-01] MEDS: buPROPion (WELLBUTRIN SR) 100 MG SR TAB PO ×2 (08:28→21:38)
[2018-02-01] MEDS: ASPIRIN 81 MG ENTERIC TAB PO (08:29)
[2018-02-01] MEDS: VITAMIN D 1,000 INTERNATIONAL UNITS TABLET PO (08:29)
[2018-02-01 08:38] LABS: BEDSIDE GLUCOSE 142 MG/DL (83-110)
[2018-02-01 09:49] LABS: BEDSIDE GLUCOSE 197 MG/DL (83-110)
[2018-02-01 11:31] LABS: BEDSIDE GLUCOSE 178 MG/DL (83-110)
[2018-02-01 11:46] LABS: BASO % 0.6 % (0.0-1.0); EOS # 0.1 10^3/uL (0.0-0.50); EOS % 3.1 % (0.0-3.0); HEMATOCRIT 31.7 % (42.0-52.0); HEMOGLOBIN 10.4 g/dl (13.5-17.5); IMMATURE GRANULOCYTE % 0.3 % (0-3.0); LYMPH # 0.7 10^3/uL (1.5-4.5); LYMPH % 20.7 % (24.0-44.0); MEAN CORPUSCULAR HEMOGLOBIN 30.1 pg (27.0-33.0); MEAN CORPUSCULAR HGB CONC 32.8 g/dl (32.0-36.5); MEAN CORPUSCULAR VOLUME 91.9 fl (80.0-96.0); MONO # 0.5 10^3/uL (0.0-0.8); MONO % 12.8 % (0.0-5.0); NEUTROPHILS # 2.2 10^3/uL (1.8-7.7); NEUTROPHILS % 62.5 % (36.0-66.0); PLATELET COUNT, AUTOMATED 183 10^3/uL (150-450); RED BLOOD COUNT 3.45 10^6/uL (4.30-6.10); RED CELL DISTRIBUTION WIDTH 14.9 % (11.5-14.5); WHITE BLOOD COUNT 3.6 10^3/uL (4.0-10.0)
[2018-02-01 12:30] LABS: ANION GAP 6 MEQ/L (8-16); BLOOD UREA NITROGEN 22 MG/DL (7-18); CALCIUM LEVEL 8.9 MG/DL (8.8-10.2); CARBON DIOXIDE LEVEL 27 MEQ/L (21-32); CHLORIDE LEVEL 107 MEQ/L (98-107); CREATININE FOR GFR 2.61 MG/DL (0.70-1.30); GLOMERULAR FILTRATION RATE 25.7 (>42); GLUCOSE, FASTING 178 MG/DL (70-100); MAGNESIUM LEVEL 2.4 MG/DL (1.8-2.4); POTASSIUM SERUM 4.3 MEQ/L (3.5-5.1); SODIUM LEVEL 140 MEQ/L (136-145)
[2018-02-01 16:40] LABS: BEDSIDE GLUCOSE 139 MG/DL (83-110)
[2018-02-01] MEDS ORDERED: risperiDONE 1 MG TAB PO (19:15)
[2018-02-01] MEDS: FINASTERIDE 5 MG TAB PO (21:29)
[2018-02-01] MEDS: FENOFIBRATE 48 MG TAB (TRICOR) PO (21:29)
[2018-02-01] MEDS: TAMSULOSIN 0.4 MG CAP PO (21:29)
[2018-02-01] MEDS: zolPIDEM TARTRATE 10MG TAB PO (21:31)
[2018-02-02] MEDS: LACTULOSE 20 GM/30 ML SYRUP UD PO ×5 (00:51→23:43)
[2018-02-02] MEDS: **hydrALAZINE HCL** 25 MG TAB PO ×5 (00:53→23:42)
[2018-02-02] MEDS: HEPARIN SOD (PORCINE) 5000 UNITS/ML VIAL SC ×3 (05:08→21:27)
[2018-02-02 06:30] LABS: BASO % 0.7 % (0.0-1.0); EOS # 0.2 10^3/uL (0.0-0.50); EOS % 4.2 % (0.0-3.0); HEMOGLOBIN 10.9 g/dl (13.5-17.5); IMMATURE GRANULOCYTE % 0.2 % (0-3.0); LYMPH % 23.4 % (24.0-44.0); MEAN CORPUSCULAR VOLUME 90.9 fl (80.0-96.0); MONO # 0.6 10^3/uL (0.0-0.8); MONO % 14.5 % (0.0-5.0); NEUTROPHILS # 2.3 10^3/uL (1.8-7.7); PLATELET COUNT, AUTOMATED 184 10^3/uL (150-450); RED BLOOD COUNT 3.63 10^6/uL (4.30-6.10); RED CELL DISTRIBUTION WIDTH 14.4 % (11.5-14.5); WHITE BLOOD COUNT 4.1 10^3/uL (4.0-10.0)
[2018-02-02 06:47] LABS: ANION GAP 3 MEQ/L (8-16); BLOOD UREA NITROGEN 23 MG/DL (7-18); CALCIUM LEVEL 8.8 MG/DL (8.8-10.2); CARBON DIOXIDE LEVEL 30 MEQ/L (21-32); CHLORIDE LEVEL 110 MEQ/L (98-107); CREATININE FOR GFR 2.41 MG/DL (0.70-1.30); GLOMERULAR FILTRATION RATE 28.2 (>42); GLUCOSE, FASTING 164 MG/DL (70-100); MAGNESIUM LEVEL 2.3 MG/DL (1.8-2.4); POTASSIUM SERUM 4.2 MEQ/L (3.5-5.1); SODIUM LEVEL 143 MEQ/L (136-145)
[2018-02-02] MEDS: HumuLIN (NovoLIN)70/30 INSULIN INJ PER UNIT SC ×2 (07:30→17:30)
[2018-02-02] MEDS: buPROPion (WELLBUTRIN SR) 100 MG SR TAB PO ×2 (08:44→21:26)
[2018-02-02] MEDS: busPIRone 5 MG TAB PO (08:44)
[2018-02-02] MEDS: OMEPRAZOLE 20 MG CAP PO (08:49)
[2018-02-02] MEDS: CARVedilol 6.25 MG TAB PO ×2 (08:49→21:27)
[2018-02-02] MEDS: VITAMIN D 1,000 INTERNATIONAL UNITS TABLET PO (08:49)
[2018-02-02] MEDS: ATORVASTATIN 20 MG TAB PO (08:49)
[2018-02-02] MEDS: CLOPIDOGREL 75 MG TAB PO (08:49)
[2018-02-02] MEDS: CYANOCOBALAMIN 500 MCG TAB PO (08:50)
[2018-02-02] MEDS: amLODIPine 10 MG TAB PO (08:50)
[2018-02-02] MEDS: ESCITALOPRAM OXALATE 10 MG TAB (LEXAPRO) PO (08:50)
[2018-02-02] MEDS: ASPIRIN 81 MG ENTERIC TAB PO (08:50)
[2018-02-02] MEDS: HumaLOG INSULIN (NovoLOG) PER UNIT SC ×4 (08:51→21:00)
[2018-02-02 20:31] LABS: BEDSIDE GLUCOSE 89 MG/DL (83-110)
[2018-02-02] MEDS: FENOFIBRATE 48 MG TAB (TRICOR) PO (21:26)
[2018-02-02] MEDS: clonazePAM 1 MG TAB PO (21:26)
[2018-02-02] MEDS: FINASTERIDE 5 MG TAB PO (21:26)
[2018-02-02] MEDS: TAMSULOSIN 0.4 MG CAP PO (21:26)
[2018-02-02] MEDS: zolPIDEM TARTRATE 10MG TAB PO (21:27)
[2018-02-03] MEDS: LACTULOSE 20 GM/30 ML SYRUP UD PO ×4 (05:42→23:23)
[2018-02-03] MEDS: **hydrALAZINE HCL** 25 MG TAB PO ×4 (05:42→23:23)
[2018-02-03] MEDS: HEPARIN SOD (PORCINE) 5000 UNITS/ML VIAL SC ×3 (05:43→20:53)
[2018-02-03] MEDS: clonazePAM 1 MG TAB PO ×2 (06:30→06:52)
[2018-02-03 06:51] LABS: BEDSIDE GLUCOSE 177 MG/DL (83-110)
[2018-02-03] MEDS: HumuLIN (NovoLIN)70/30 INSULIN INJ PER UNIT SC ×2 (07:30→17:24)
[2018-02-03] MEDS: ASPIRIN 81 MG ENTERIC TAB PO (08:23)
[2018-02-03] MEDS: VITAMIN D 1,000 INTERNATIONAL UNITS TABLET PO (08:23)
[2018-02-03] MEDS: buPROPion (WELLBUTRIN SR) 100 MG SR TAB PO ×2 (08:23→20:53)
[2018-02-03] MEDS: amLODIPine 10 MG TAB PO (08:23)
[2018-02-03] MEDS: CLOPIDOGREL 75 MG TAB PO (08:23)
[2018-02-03] MEDS: busPIRone 5 MG TAB PO (08:23)
[2018-02-03] MEDS: CARVedilol 6.25 MG TAB PO ×2 (08:23→20:54)
[2018-02-03] MEDS: ESCITALOPRAM OXALATE 10 MG TAB (LEXAPRO) PO (08:24)
[2018-02-03] MEDS: CYANOCOBALAMIN 500 MCG TAB PO (08:24)
[2018-02-03] MEDS: HumaLOG INSULIN (NovoLOG) PER UNIT SC ×4 (08:24→20:16)
[2018-02-03] MEDS: ATORVASTATIN 20 MG TAB PO (08:24)
[2018-02-03] MEDS: OMEPRAZOLE 20 MG CAP PO (08:24)
[2018-02-03 08:58] LABS: BASO % 0.2 % (0.0-1.0); EOS # 0.1 10^3/uL (0.0-0.50); EOS % 2.8 % (0.0-3.0); HEMATOCRIT 34.4 % (42.0-52.0); HEMOGLOBIN 11.2 g/dl (13.5-17.5); IMMATURE GRANULOCYTE % 0.2 % (0-3.0); LYMPH # 0.7 10^3/uL (1.5-4.5); LYMPH % 14.9 % (24.0-44.0); MEAN CORPUSCULAR HEMOGLOBIN 30.5 pg (27.0-33.0); MEAN CORPUSCULAR HGB CONC 32.6 g/dl (32.0-36.5); MEAN CORPUSCULAR VOLUME 93.7 fl (80.0-96.0); MONO # 0.5 10^3/uL (0.0-0.8); MONO % 10.8 % (0.0-5.0); NEUTROPHILS # 3.1 10^3/uL (1.8-7.7); NEUTROPHILS % 71.1 % (36.0-66.0); PLATELET COUNT, AUTOMATED 189 10^3/uL (150-450); RED BLOOD COUNT 3.67 10^6/uL (4.30-6.10); RED CELL DISTRIBUTION WIDTH 14.6 % (11.5-14.5); WHITE BLOOD COUNT 4.4 10^3/uL (4.0-10.0)
[2018-02-03 09:18] LABS: ANION GAP 9 MEQ/L (8-16); BLOOD UREA NITROGEN 24 MG/DL (7-18); CALCIUM LEVEL 8.8 MG/DL (8.8-10.2); CARBON DIOXIDE LEVEL 24 MEQ/L (21-32); CHLORIDE LEVEL 110 MEQ/L (98-107); CREATININE FOR GFR 2.13 MG/DL (0.70-1.30); GLOMERULAR FILTRATION RATE 32.5 (>42); GLUCOSE, FASTING 192 MG/DL (70-100); MAGNESIUM LEVEL 2.1 MG/DL (1.8-2.4); POTASSIUM SERUM 3.9 MEQ/L (3.5-5.1); SODIUM LEVEL 143 MEQ/L (136-145)
[2018-02-03 11:43] LABS: BEDSIDE GLUCOSE 95 MG/DL (83-110)
[2018-02-03 16:33] LABS: BEDSIDE GLUCOSE 291 MG/DL (83-110)
[2018-02-03 19:14] LABS: BEDSIDE GLUCOSE 67 MG/DL (83-110)
[2018-02-03 20:24] LABS: BEDSIDE GLUCOSE 108 MG/DL (83-110)
[2018-02-03 20:24] LABS: BEDSIDE GLUCOSE 114 MG/DL (83-110)
[2018-02-03 20:25] LABS: BEDSIDE GLUCOSE 195 MG/DL (83-110)
[2018-02-03] MEDS: TAMSULOSIN 0.4 MG CAP PO (20:53)
[2018-02-03] MEDS: FENOFIBRATE 48 MG TAB (TRICOR) PO (20:53)
[2018-02-03] MEDS: zolPIDEM TARTRATE 10MG TAB PO (20:53)
[2018-02-03] MEDS: FINASTERIDE 5 MG TAB PO (20:53)
[2018-02-03 23:30] LABS: BEDSIDE GLUCOSE 117 MG/DL (83-110)
[2018-02-04] MEDS: LACTULOSE 20 GM/30 ML SYRUP UD PO ×5 (05:34→23:52)
[2018-02-04] MEDS: HEPARIN SOD (PORCINE) 5000 UNITS/ML VIAL SC ×3 (05:34→21:10)
[2018-02-04] MEDS: **hydrALAZINE HCL** 25 MG TAB PO ×5 (05:38→23:53)
[2018-02-04 06:25] LABS: BASO % 0.5 % (0.0-1.0); EOS # 0.1 10^3/uL (0.0-0.50); EOS % 3.2 % (0.0-3.0); HEMATOCRIT 32.1 % (42.0-52.0); HEMOGLOBIN 10.5 g/dl (13.5-17.5); IMMATURE GRANULOCYTE % 0.3 % (0-3.0); LYMPH # 0.9 10^3/uL (1.5-4.5); LYMPH % 24.1 % (24.0-44.0); MEAN CORPUSCULAR HEMOGLOBIN 30.3 pg (27.0-33.0); MEAN CORPUSCULAR HGB CONC 32.7 g/dl (32.0-36.5); MEAN CORPUSCULAR VOLUME 92.8 fl (80.0-96.0); MONO # 0.4 10^3/uL (0.0-0.8); MONO % 11.8 % (0.0-5.0); NEUTROPHILS # 2.3 10^3/uL (1.8-7.7); NEUTROPHILS % 60.1 % (36.0-66.0); PLATELET COUNT, AUTOMATED 169 10^3/uL (150-450); RED BLOOD COUNT 3.46 10^6/uL (4.30-6.10); RED CELL DISTRIBUTION WIDTH 14.4 % (11.5-14.5); WHITE BLOOD COUNT 3.7 10^3/uL (4.0-10.0)
[2018-02-04 06:41] LABS: ANION GAP 10 MEQ/L (8-16); BLOOD UREA NITROGEN 23 MG/DL (7-18); CALCIUM LEVEL 8.7 MG/DL (8.8-10.2); CARBON DIOXIDE LEVEL 23 MEQ/L (21-32); CHLORIDE LEVEL 110 MEQ/L (98-107); CREATININE FOR GFR 2.22 MG/DL (0.70-1.30); GLUCOSE, FASTING 127 MG/DL (70-100); MAGNESIUM LEVEL 2.1 MG/DL (1.8-2.4); POTASSIUM SERUM 3.8 MEQ/L (3.5-5.1); SODIUM LEVEL 143 MEQ/L (136-145)
[2018-02-04] MEDS: HumaLOG INSULIN (NovoLOG) PER UNIT SC ×4 (07:17→21:00)
[2018-02-04] MEDS: HumuLIN (NovoLIN)70/30 INSULIN INJ PER UNIT SC ×2 (07:19→17:19)
[2018-02-04] MEDS: amLODIPine 10 MG TAB PO (08:25)
[2018-02-04] MEDS: ATORVASTATIN 20 MG TAB PO (08:25)
[2018-02-04] MEDS: OMEPRAZOLE 20 MG CAP PO (08:25)
[2018-02-04] MEDS: CLOPIDOGREL 75 MG TAB PO (08:25)
[2018-02-04] MEDS: busPIRone 5 MG TAB PO ×2 (08:25→21:11)
[2018-02-04] MEDS: CYANOCOBALAMIN 500 MCG TAB PO (08:25)
[2018-02-04] MEDS: VITAMIN D 1,000 INTERNATIONAL UNITS TABLET PO (08:25)
[2018-02-04] MEDS: ASPIRIN 81 MG ENTERIC TAB PO (08:25)
[2018-02-04] MEDS: ESCITALOPRAM OXALATE 10 MG TAB (LEXAPRO) PO (08:25)
[2018-02-04] MEDS: buPROPion (WELLBUTRIN SR) 100 MG SR TAB PO ×2 (08:25→21:16)
[2018-02-04] MEDS: CARVedilol 6.25 MG TAB PO ×2 (08:26→21:11)
[2018-02-04] MEDS: clonazePAM 1 MG TAB PO (17:18)
[2018-02-04] MEDS: FINASTERIDE 5 MG TAB PO (21:11)
[2018-02-04] MEDS: TAMSULOSIN 0.4 MG CAP PO (21:11)
[2018-02-04] MEDS: zolPIDEM TARTRATE 10MG TAB PO (21:12)
[2018-02-04] MEDS: FENOFIBRATE 48 MG TAB (TRICOR) PO (21:12)
[2018-02-05] MEDS: HEPARIN SOD (PORCINE) 5000 UNITS/ML VIAL SC ×3 (05:46→21:26)
[2018-02-05] MEDS: LACTULOSE 20 GM/30 ML SYRUP UD PO ×4 (05:47→23:46)
[2018-02-05] MEDS: **hydrALAZINE HCL** 25 MG TAB PO ×4 (05:47→23:47)
[2018-02-05 06:03] LABS: BASO % 0.5 % (0.0-1.0); EOS # 0.1 10^3/uL (0.0-0.50); HEMATOCRIT 31.2 % (42.0-52.0); HEMOGLOBIN 10.5 g/dl (13.5-17.5); IMMATURE GRANULOCYTE % 0.2 % (0-3.0); LYMPH # 0.9 10^3/uL (1.5-4.5); LYMPH % 22.4 % (24.0-44.0); MEAN CORPUSCULAR HEMOGLOBIN 30.7 pg (27.0-33.0); MEAN CORPUSCULAR HGB CONC 33.7 g/dl (32.0-36.5); MEAN CORPUSCULAR VOLUME 91.2 fl (80.0-96.0); MONO # 0.5 10^3/uL (0.0-0.8); MONO % 12.2 % (0.0-5.0); NEUTROPHILS # 2.5 10^3/uL (1.8-7.7); NEUTROPHILS % 62.7 % (36.0-66.0); PLATELET COUNT, AUTOMATED 177 10^3/uL (150-450); RED BLOOD COUNT 3.42 10^6/uL (4.30-6.10); RED CELL DISTRIBUTION WIDTH 14.2 % (11.5-14.5)
[2018-02-05 06:09] LABS: ANION GAP 9 MEQ/L (8-16); BLOOD UREA NITROGEN 22 MG/DL (7-18); CALCIUM LEVEL 8.7 MG/DL (8.8-10.2); CARBON DIOXIDE LEVEL 25 MEQ/L (21-32); CHLORIDE LEVEL 109 MEQ/L (98-107); CREATININE FOR GFR 2.08 MG/DL (0.70-1.30); GLOMERULAR FILTRATION RATE 33.4 (>42); GLUCOSE, FASTING 175 MG/DL (70-100); POTASSIUM SERUM 3.4 MEQ/L (3.5-5.1); SODIUM LEVEL 143 MEQ/L (136-145)
[2018-02-05] MEDS: HumuLIN (NovoLIN)70/30 INSULIN INJ PER UNIT SC ×2 (07:30→17:18)
[2018-02-05] MEDS: HumaLOG INSULIN (NovoLOG) PER UNIT SC ×4 (08:27→21:00)
[2018-02-05] MEDS: ATORVASTATIN 20 MG TAB PO (08:28)
[2018-02-05] MEDS: CLOPIDOGREL 75 MG TAB PO (08:28)
[2018-02-05] MEDS: ASPIRIN 81 MG ENTERIC TAB PO (08:28)
[2018-02-05] MEDS: ESCITALOPRAM OXALATE 10 MG TAB (LEXAPRO) PO (08:28)
[2018-02-05] MEDS: busPIRone 5 MG TAB PO (08:29)
[2018-02-05] MEDS: buPROPion (WELLBUTRIN SR) 100 MG SR TAB PO ×2 (08:29→21:26)
[2018-02-05] MEDS: OMEPRAZOLE 20 MG CAP PO (08:29)
[2018-02-05] MEDS: CARVedilol 6.25 MG TAB PO ×2 (08:30→21:25)
[2018-02-05] MEDS: CYANOCOBALAMIN 500 MCG TAB PO (08:30)
[2018-02-05] MEDS: VITAMIN D 1,000 INTERNATIONAL UNITS TABLET PO (08:30)
[2018-02-05] MEDS: clonazePAM 1 MG TAB PO ×2 (08:30→17:17)
[2018-02-05] MEDS: amLODIPine 10 MG TAB PO (08:30)
[2018-02-05] MEDS: BISACODYL 5 MG TAB PO (17:17)
[2018-02-05] MEDS: TAMSULOSIN 0.4 MG CAP PO (21:25)
[2018-02-05] MEDS: FENOFIBRATE 48 MG TAB (TRICOR) PO (21:25)
[2018-02-05] MEDS: zolPIDEM TARTRATE 10MG TAB PO (21:25)
[2018-02-05] MEDS: FINASTERIDE 5 MG TAB PO (21:26)
[2018-02-06] MEDS: HEPARIN SOD (PORCINE) 5000 UNITS/ML VIAL SC ×3 (05:36→21:13)
[2018-02-06] MEDS: LACTULOSE 20 GM/30 ML SYRUP UD PO ×4 (05:37→23:36)
[2018-02-06] MEDS: **hydrALAZINE HCL** 25 MG TAB PO ×4 (05:37→23:37)
[2018-02-06] MEDS: HumaLOG INSULIN (NovoLOG) PER UNIT SC ×4 (07:30→21:00)
[2018-02-06] MEDS: HumuLIN (NovoLIN)70/30 INSULIN INJ PER UNIT SC ×2 (07:30→17:30)
[2018-02-06 07:33] LABS: BEDSIDE GLUCOSE 72 MG/DL (83-110)
[2018-02-06 07:34] LABS: BEDSIDE GLUCOSE 157 MG/DL (83-110)
[2018-02-06 07:34] LABS: BEDSIDE GLUCOSE 51 MG/DL (83-110)
[2018-02-06 07:34] LABS: BEDSIDE GLUCOSE 87 MG/DL (83-110)
[2018-02-06 07:34] LABS: BEDSIDE GLUCOSE 125 MG/DL (83-110)
[2018-02-06 07:34] LABS: BEDSIDE GLUCOSE 218 MG/DL (83-110)
[2018-02-06 07:34] LABS: BEDSIDE GLUCOSE 179 MG/DL (83-110)
[2018-02-06 07:34] LABS: BEDSIDE GLUCOSE 153 MG/DL (83-110)
[2018-02-06 07:34] LABS: BEDSIDE GLUCOSE 220 MG/DL (83-110)
[2018-02-06 07:34] LABS: BEDSIDE GLUCOSE 186 MG/DL (83-110)
[2018-02-06 07:35] LABS: BEDSIDE GLUCOSE 131 MG/DL (83-110)
[2018-02-06 07:35] LABS: BEDSIDE GLUCOSE 128 MG/DL (83-110)
[2018-02-06] MEDS: OMEPRAZOLE 20 MG CAP PO (08:50)
[2018-02-06] MEDS: ESCITALOPRAM OXALATE 10 MG TAB (LEXAPRO) PO (08:50)
[2018-02-06] MEDS: ATORVASTATIN 20 MG TAB PO (08:50)
[2018-02-06] MEDS: VITAMIN D 1,000 INTERNATIONAL UNITS TABLET PO (08:50)
[2018-02-06] MEDS: CARVedilol 6.25 MG TAB PO ×2 (08:53→21:04)
[2018-02-06] MEDS: ASPIRIN 81 MG ENTERIC TAB PO (08:54)
[2018-02-06] MEDS: busPIRone 5 MG TAB PO (08:54)
[2018-02-06] MEDS: CYANOCOBALAMIN 500 MCG TAB PO (08:54)
[2018-02-06] MEDS: amLODIPine 10 MG TAB PO (08:54)
[2018-02-06] MEDS: CLOPIDOGREL 75 MG TAB PO (08:54)
[2018-02-06] MEDS: buPROPion (WELLBUTRIN SR) 100 MG SR TAB PO ×2 (08:54→21:03)
[2018-02-06 11:15] LABS: BASO % 0.5 % (0.0-1.0); EOS # 0.1 10^3/uL (0.0-0.50); EOS % 1.4 % (0.0-3.0); HEMATOCRIT 34.7 % (42.0-52.0); HEMOGLOBIN 11.5 g/dl (13.5-17.5); IMMATURE GRANULOCYTE % 0.3 % (0-3.0); LYMPH # 0.8 10^3/uL (1.5-4.5); LYMPH % 21.7 % (24.0-44.0); MEAN CORPUSCULAR HEMOGLOBIN 30.3 pg (27.0-33.0); MEAN CORPUSCULAR HGB CONC 33.1 g/dl (32.0-36.5); MEAN CORPUSCULAR VOLUME 91.6 fl (80.0-96.0); MONO # 0.4 10^3/uL (0.0-0.8); MONO % 9.5 % (0.0-5.0); NEUTROPHILS # 2.5 10^3/uL (1.8-7.7); NEUTROPHILS % 66.6 % (36.0-66.0); PLATELET COUNT, AUTOMATED 193 10^3/uL (150-450); RED BLOOD COUNT 3.79 10^6/uL (4.30-6.10); RED CELL DISTRIBUTION WIDTH 14.5 % (11.5-14.5); WHITE BLOOD COUNT 3.7 10^3/uL (4.0-10.0)
[2018-02-06 11:27] LABS: ANION GAP 7 MEQ/L (8-16); BLOOD UREA NITROGEN 20 MG/DL (7-18); CALCIUM LEVEL 8.9 MG/DL (8.8-10.2); CARBON DIOXIDE LEVEL 26 MEQ/L (21-32); CHLORIDE LEVEL 109 MEQ/L (98-107); CREATININE FOR GFR 2.09 MG/DL (0.70-1.30); GLOMERULAR FILTRATION RATE 33.2 (>42); GLUCOSE, FASTING 215 MG/DL (70-100); MAGNESIUM LEVEL 1.8 MG/DL (1.8-2.4); POTASSIUM SERUM 4.7 MEQ/L (3.5-5.1); SODIUM LEVEL 142 MEQ/L (136-145)
[2018-02-06 12:12] LABS: BEDSIDE GLUCOSE 218 MG/DL (83-110)
[2018-02-06] MEDS: clonazePAM 1 MG TAB PO ×2 (13:57→21:05)
[2018-02-06] MEDS: BISACODYL 5 MG TAB PO (17:57)
[2018-02-06] MEDS: FENOFIBRATE 48 MG TAB (TRICOR) PO (21:03)
[2018-02-06] MEDS: FINASTERIDE 5 MG TAB PO (21:03)
[2018-02-06] MEDS: TAMSULOSIN 0.4 MG CAP PO (21:03)
[2018-02-06 21:42] LABS: BEDSIDE GLUCOSE 102 MG/DL (83-110)
[2018-02-06] MEDS: zolPIDEM TARTRATE 10MG TAB PO (23:37)
[2018-02-07] MEDS: LACTULOSE 20 GM/30 ML SYRUP UD PO ×4 (06:00→17:41)
[2018-02-07] MEDS: HEPARIN SOD (PORCINE) 5000 UNITS/ML VIAL SC ×3 (06:02→21:32)
[2018-02-07] MEDS: **hydrALAZINE HCL** 25 MG TAB PO ×3 (06:03→17:42)
[2018-02-07 06:50] LABS: BASO % 0.4 % (0.0-1.0); EOS # 0.1 10^3/uL (0.0-0.50); EOS % 1.5 % (0.0-3.0); HEMATOCRIT 32.4 % (42.0-52.0); HEMOGLOBIN 10.7 g/dl (13.5-17.5); IMMATURE GRANULOCYTE % 0.4 % (0-3.0); LYMPH # 0.8 10^3/uL (1.5-4.5); LYMPH % 17.9 % (24.0-44.0); MEAN CORPUSCULAR HEMOGLOBIN 30.7 pg (27.0-33.0); MEAN CORPUSCULAR VOLUME 92.8 fl (80.0-96.0); MONO # 0.5 10^3/uL (0.0-0.8); MONO % 10.2 % (0.0-5.0); NEUTROPHILS # 3.2 10^3/uL (1.8-7.7); NEUTROPHILS % 69.6 % (36.0-66.0); PLATELET COUNT, AUTOMATED 164 10^3/uL (150-450); RED BLOOD COUNT 3.49 10^6/uL (4.30-6.10); RED CELL DISTRIBUTION WIDTH 14.5 % (11.5-14.5); WHITE BLOOD COUNT 4.6 10^3/uL (4.0-10.0)
[2018-02-07 07:11] LABS: ANION GAP 7 MEQ/L (8-16); BLOOD UREA NITROGEN 26 MG/DL (7-18); CALCIUM LEVEL 8.7 MG/DL (8.8-10.2); CARBON DIOXIDE LEVEL 25 MEQ/L (21-32); CHLORIDE LEVEL 109 MEQ/L (98-107); CREATININE FOR GFR 2.21 MG/DL (0.70-1.30); GLOMERULAR FILTRATION RATE 31.1 (>42); GLUCOSE, FASTING 181 MG/DL (70-100); POTASSIUM SERUM 3.9 MEQ/L (3.5-5.1); SODIUM LEVEL 141 MEQ/L (136-145)
[2018-02-07] MEDS: BISACODYL 5 MG TAB PO (09:52)
[2018-02-07] MEDS: CYANOCOBALAMIN 500 MCG TAB PO (09:52)
[2018-02-07] MEDS: VITAMIN D 1,000 INTERNATIONAL UNITS TABLET PO (09:52)
[2018-02-07] MEDS: amLODIPine 10 MG TAB PO (09:52)
[2018-02-07] MEDS: OMEPRAZOLE 20 MG CAP PO (09:52)
[2018-02-07] MEDS: HumaLOG INSULIN (NovoLOG) PER UNIT SC ×4 (09:52→20:18)
[2018-02-07] MEDS: HumuLIN (NovoLIN)70/30 INSULIN INJ PER UNIT SC ×2 (09:52→17:42)
[2018-02-07] MEDS: CARVedilol 6.25 MG TAB PO ×2 (09:53→20:19)
[2018-02-07] MEDS: buPROPion (WELLBUTRIN SR) 100 MG SR TAB PO ×2 (09:53→20:17)
[2018-02-07] MEDS: CLOPIDOGREL 75 MG TAB PO (09:53)
[2018-02-07] MEDS: ATORVASTATIN 20 MG TAB PO (09:53)
[2018-02-07] MEDS: ASPIRIN 81 MG ENTERIC TAB PO (09:53)
[2018-02-07] MEDS: ESCITALOPRAM OXALATE 10 MG TAB (LEXAPRO) PO (09:53)
[2018-02-07] MEDS: busPIRone 5 MG TAB PO (11:14)
[2018-02-07 19:32] LABS: BEDSIDE GLUCOSE 245 MG/DL (83-110)
[2018-02-07] MEDS: TAMSULOSIN 0.4 MG CAP PO (20:17)
[2018-02-07] MEDS: zolPIDEM TARTRATE 10MG TAB PO (20:17)
[2018-02-07] MEDS: FENOFIBRATE 48 MG TAB (TRICOR) PO (20:18)
[2018-02-07] MEDS: FINASTERIDE 5 MG TAB PO (20:18)
[2018-02-07] MEDS: clonazePAM 1 MG TAB PO (20:45)
[2018-02-08] MEDS: **hydrALAZINE HCL** 25 MG TAB PO ×4 (00:06→17:19)
[2018-02-08] MEDS: LACTULOSE 20 GM/30 ML SYRUP UD PO ×4 (00:06→17:20)
[2018-02-08] MEDS: HEPARIN SOD (PORCINE) 5000 UNITS/ML VIAL SC ×3 (06:00→21:22)
[2018-02-08 06:23] LABS: BEDSIDE GLUCOSE 140 MG/DL (83-110)
[2018-02-08] MEDS: HumaLOG INSULIN (NovoLOG) PER UNIT SC ×4 (08:52→21:00)
[2018-02-08] MEDS: HumuLIN (NovoLIN)70/30 INSULIN INJ PER UNIT SC ×2 (08:52→17:18)
[2018-02-08] MEDS: ESCITALOPRAM OXALATE 10 MG TAB (LEXAPRO) PO (08:53)
[2018-02-08] MEDS: ATORVASTATIN 20 MG TAB PO (08:53)
[2018-02-08] MEDS: buPROPion (WELLBUTRIN SR) 100 MG SR TAB PO ×2 (08:53→21:20)
[2018-02-08] MEDS: OMEPRAZOLE 20 MG CAP PO (08:53)
[2018-02-08] MEDS: amLODIPine 10 MG TAB PO (08:53)
[2018-02-08] MEDS: CYANOCOBALAMIN 500 MCG TAB PO (08:53)
[2018-02-08] MEDS: busPIRone 5 MG TAB PO (08:53)
[2018-02-08] MEDS: ASPIRIN 81 MG ENTERIC TAB PO (08:54)
[2018-02-08] MEDS: CLOPIDOGREL 75 MG TAB PO (08:54)
[2018-02-08] MEDS: CARVedilol 6.25 MG TAB PO ×2 (08:54→21:21)
[2018-02-08] MEDS: VITAMIN D 1,000 INTERNATIONAL UNITS TABLET PO (08:54)
[2018-02-08 11:36] LABS: BEDSIDE GLUCOSE 223 MG/DL (83-110)
[2018-02-08] MEDS: SIMETHICONE 80 MG CHEW TAB PO (17:17)
[2018-02-08 17:41] LABS: BEDSIDE GLUCOSE 88 MG/DL (83-110)
[2018-02-08 17:41] LABS: BEDSIDE GLUCOSE 191 MG/DL (83-110)
[2018-02-08 17:41] LABS: BEDSIDE GLUCOSE 179 MG/DL (83-110)
[2018-02-08 17:41] LABS: BEDSIDE GLUCOSE 225 MG/DL (83-110)
[2018-02-08 17:41] LABS: BEDSIDE GLUCOSE 64 MG/DL (83-110)
[2018-02-08 17:42] LABS: BEDSIDE GLUCOSE 166 MG/DL (83-110)
[2018-02-08] MEDS: zolPIDEM TARTRATE 10MG TAB PO (21:20)
[2018-02-08] MEDS: TAMSULOSIN 0.4 MG CAP PO (21:20)
[2018-02-08] MEDS: clonazePAM 1 MG TAB PO (21:20)
[2018-02-08] MEDS: FINASTERIDE 5 MG TAB PO (21:21)
[2018-02-08] MEDS: ACETAMINOPHEN TAB 650MG DOSE (2X325MG) PO (21:21)
[2018-02-08] MEDS: FENOFIBRATE 48 MG TAB (TRICOR) PO (21:21)
[2018-02-09] MEDS: LACTULOSE 20 GM/30 ML SYRUP UD PO ×5 (00:20→17:12)
[2018-02-09] MEDS: **hydrALAZINE HCL** 25 MG TAB PO ×4 (00:20→17:14)
[2018-02-09] MEDS: HEPARIN SOD (PORCINE) 5000 UNITS/ML VIAL SC ×4 (06:00→21:16)
[2018-02-09] MEDS: HumaLOG INSULIN (NovoLOG) PER UNIT SC ×4 (09:39→20:47)
[2018-02-09] MEDS: ATORVASTATIN 20 MG TAB PO (09:40)
[2018-02-09] MEDS: ASPIRIN 81 MG ENTERIC TAB PO (09:40)
[2018-02-09] MEDS: OMEPRAZOLE 20 MG CAP PO (09:40)
[2018-02-09] MEDS: buPROPion (WELLBUTRIN SR) 100 MG SR TAB PO ×2 (09:40→21:15)
[2018-02-09] MEDS: busPIRone 5 MG TAB PO (09:40)
[2018-02-09] MEDS: ESCITALOPRAM OXALATE 10 MG TAB (LEXAPRO) PO (09:40)
[2018-02-09] MEDS: CLOPIDOGREL 75 MG TAB PO (09:40)
[2018-02-09] MEDS: CYANOCOBALAMIN 500 MCG TAB PO (09:40)
[2018-02-09] MEDS: VITAMIN D 1,000 INTERNATIONAL UNITS TABLET PO (09:40)
[2018-02-09] MEDS: CARVedilol 6.25 MG TAB PO ×2 (09:42→21:16)
[2018-02-09] MEDS: amLODIPine 10 MG TAB PO (09:43)
[2018-02-09] MEDS: BISACODYL 5 MG TAB PO (09:47)
[2018-02-09] MEDS: clonazePAM 1 MG TAB PO ×2 (12:18→21:15)
[2018-02-09] MEDS: HumuLIN (NovoLIN)70/30 INSULIN INJ PER UNIT SC ×2 (12:20→17:13)
[2018-02-09 16:58] LABS: BEDSIDE GLUCOSE 105 MG/DL (83-110)
[2018-02-09 16:58] LABS: BEDSIDE GLUCOSE 104 MG/DL (83-110)
[2018-02-09 16:58] LABS: BEDSIDE GLUCOSE 219 MG/DL (83-110)
[2018-02-09 16:58] LABS: BEDSIDE GLUCOSE 196 MG/DL (83-110)
[2018-02-09] MEDS: TAMSULOSIN 0.4 MG CAP PO (21:15)
[2018-02-09] MEDS: FINASTERIDE 5 MG TAB PO (21:15)
[2018-02-09] MEDS: FENOFIBRATE 48 MG TAB (TRICOR) PO (21:16)
[2018-02-09] MEDS: zolPIDEM TARTRATE 10MG TAB PO (21:16)
[2018-02-10] MEDS: LACTULOSE 20 GM/30 ML SYRUP UD PO ×5 (00:14→18:00)
[2018-02-10] MEDS: **hydrALAZINE HCL** 25 MG TAB PO ×4 (00:15→17:17)
[2018-02-10] MEDS: HEPARIN SOD (PORCINE) 5000 UNITS/ML VIAL SC ×3 (05:15→20:55)
[2018-02-10] MEDS: clonazePAM 1 MG TAB PO ×2 (08:01→16:45)
[2018-02-10] MEDS: HumaLOG INSULIN (NovoLOG) PER UNIT SC ×4 (09:44→20:14)
[2018-02-10] MEDS: HumuLIN (NovoLIN)70/30 INSULIN INJ PER UNIT SC ×2 (09:44→17:16)
[2018-02-10] MEDS: CYANOCOBALAMIN 500 MCG TAB PO (09:45)
[2018-02-10] MEDS: OMEPRAZOLE 20 MG CAP PO (09:45)
[2018-02-10] MEDS: VITAMIN D 1,000 INTERNATIONAL UNITS TABLET PO (09:45)
[2018-02-10] MEDS: CLOPIDOGREL 75 MG TAB PO (09:45)
[2018-02-10] MEDS: buPROPion (WELLBUTRIN SR) 100 MG SR TAB PO ×2 (09:45→20:55)
[2018-02-10] MEDS: ATORVASTATIN 20 MG TAB PO (09:45)
[2018-02-10] MEDS: busPIRone 5 MG TAB PO (09:45)
[2018-02-10] MEDS: ESCITALOPRAM OXALATE 10 MG TAB (LEXAPRO) PO (09:45)
[2018-02-10] MEDS: CARVedilol 6.25 MG TAB PO ×2 (09:46→20:14)
[2018-02-10] MEDS: amLODIPine 10 MG TAB PO (09:46)
[2018-02-10] MEDS: ASPIRIN 81 MG ENTERIC TAB PO (09:46)
[2018-02-10 17:22] LABS: BEDSIDE GLUCOSE 97 MG/DL (83-110)
[2018-02-10 17:23] LABS: BEDSIDE GLUCOSE 189 MG/DL (83-110)
[2018-02-10 17:23] LABS: BEDSIDE GLUCOSE 94 MG/DL (83-110)
[2018-02-10 17:23] LABS: BEDSIDE GLUCOSE 208 MG/DL (83-110)
[2018-02-10] MEDS: FENOFIBRATE 48 MG TAB (TRICOR) PO (20:55)
[2018-02-10] MEDS: FINASTERIDE 5 MG TAB PO (20:55)
[2018-02-10] MEDS: TAMSULOSIN 0.4 MG CAP PO (20:55)
[2018-02-10] MEDS: zolPIDEM TARTRATE 10MG TAB PO (20:56)
[2018-02-11] MEDS: LACTULOSE 20 GM/30 ML SYRUP UD PO ×2 (00:24→06:22)
[2018-02-11] MEDS: **hydrALAZINE HCL** 25 MG TAB PO ×2 (00:24→06:22)
[2018-02-11] MEDS: risperiDONE 1 MG TAB PO (01:30)
[2018-02-11] MEDS: HALOPERIDOL 5 MG/ML VIAL (J1630) IM (01:51)
[2018-02-11] MEDS: clonazePAM 1 MG TAB PO (02:35)
[2018-02-11] MEDS: HEPARIN SOD (PORCINE) 5000 UNITS/ML VIAL SC (06:21)
[2018-02-11] MEDS: HumuLIN (NovoLIN)70/30 INSULIN INJ PER UNIT SC (07:30)
[2018-02-11] MEDS: HumaLOG INSULIN (NovoLOG) PER UNIT SC (07:30)
[2018-02-11] MEDS: OMEPRAZOLE 20 MG CAP PO (10:09)
[2018-02-11] MEDS: ATORVASTATIN 20 MG TAB PO (10:09)
[2018-02-11] MEDS: CARVedilol 6.25 MG TAB PO (10:10)
[2018-02-11] MEDS: CLOPIDOGREL 75 MG TAB PO (10:11)
[2018-02-11] MEDS: ASPIRIN 81 MG ENTERIC TAB PO (10:11)
[2018-02-11] MEDS: buPROPion (WELLBUTRIN SR) 100 MG SR TAB PO (10:11)
[2018-02-11] MEDS: busPIRone 5 MG TAB PO (10:12)
[2018-02-11] MEDS: ESCITALOPRAM OXALATE 10 MG TAB (LEXAPRO) PO (10:12)
[2018-02-11] MEDS: VITAMIN D 1,000 INTERNATIONAL UNITS TABLET PO (10:13)
[2018-02-11] MEDS: amLODIPine 10 MG TAB PO (10:13)
[2018-02-11] MEDS: CYANOCOBALAMIN 500 MCG TAB PO (10:14)
[2018-02-11] MEDS: INFLUENZA VIRUS VACCINE HIGH DOSE 0.5 ML SYRINGE (90662) IM (11:45)
[2018-02-11 12:14] LABS: BEDSIDE GLUCOSE 142 MG/DL (83-110)
[2018-02-11 12:14] LABS: BEDSIDE GLUCOSE 146 MG/DL (83-110)
== END 2018-02-11 11:27 | DRG 690 ==
LOC: M MSPAV 01-26 07:23 → M ED 16:45 → M ED INP 20:07 → M MSPAV 22:24
DX: N39.0 Urinary tract infection, site not specified (principal); I50.22 Chronic systolic (congestive) heart failure; I13.0 Hypertensive heart and chronic kidney disease with heart failure and stage 1 through stage 4 chronic kidney disease, or unspecified chronic kidney disease; E87.2 Acidosis; F03.91 Unspecified dementia, unspecified severity, with behavioral disturbance; F33.1 Major depressive disorder, recurrent, moderate; I25.10 Atherosclerotic heart disease of native coronary artery without angina pectoris; Z95.1 Presence of aortocoronary bypass graft; N18.3 Chronic kidney disease, stage 3 (moderate); R33.9 Retention of urine, unspecified; K59.00 Constipation, unspecified; Z79.82 Long term (current) use of aspirin; Z79.899 Other long term (current) drug therapy; K21.9 Gastro-esophageal reflux disease without esophagitis; E11.9 Type 2 diabetes mellitus without complications; F41.1 Generalized anxiety disorder; N40.0 Benign prostatic hyperplasia without lower urinary tract symptoms